=== PATIENT | male | born 1955 | race Caucasian/White ===

== ENCOUNTER 2017-12-25 11:51 | Observation (INO) | payer MEDICARE ==
[2017-12-25 14:54] LABS: BASOPHIL % 0.2 % (0.0-0.4); Basophil (Absolute #) 0.02 (0-0.4); Eosinophil % 1.1 % (0.00-5.0); Eosinophil (Absolute #) 0.13 (0-0.5); Granulocyte Absolute (ANC) 7.88 (1.4-6.9); Granulocytes % 68.7 % (36.0-66.0); Hematocrit 37.1 % (42-50); Hemoglobin 12.5 gm/dl (12.5-18.0); Lymphocyte (Absolute #) 2.79 (1.0-4.6); Lymphocytes % 24.3 % (24.0-44.0); Mean Cell Volume 91.2 fl (78-100); Mean Corpuscular Hemoglobin 30.7 pg (26-32); Mean Corpuscular Hgb Concent. 33.7 g/dl (32-36); Monocyte (Absolute #) 0.65 (0.0-1.3); Monocytes % 5.7 % (0.0-12.0); Platelet Count 184 K/mm3 (150-450); Red Blood Count 4.07 M/mm3 (4.1-5.6); Red Cell Distribution Width 12.3 % (11.5-14.0); White Blood Count 11.5 K/mm3 (4.0-10.5)
--- NOTE | 2017-12-25 15:17 | XRAY ---
Exam: 2 views of the right lower leg from 12/25/2017. Comparison: 2 views of the right lower leg from 10/13/2014. Indication: The patient has a known mid right lower leg amputation. Evidently, the patient has a diabetic skin ulcer/infection on the distal end of his remaining right lower leg. Findings: AP and lateral images of the right lower leg are submitted for evaluation. I again see evidence of mid right lower leg surgical amputation. The bones are demineralized. Moderate atherosclerotic vascular calcification is seen within the distal superficial femoral artery, popliteal artery, and proximal calf arteries. I do not see any evidence of fracture or focal bone destruction. Prior fragmentation at the anterior tibial tubercle of the proximal right tibia on the lateral image of 10/13/2014 is not seen on the current exam. There is mild narrowing of the medial compartment of the right knee joint space. No radiopaque soft tissue foreign body is seen. Impression: 1. The patient is status post mid right lower leg amputation. This is unchanged from 10/13/2014. 2. I see no evidence of acute fracture within the right lower leg. Nor do I see focal bone destruction to suggest osteomyelitis. 3. The bones are demineralized. 4. Moderate atherosclerotic vascular calcification is seen posterior to the right knee and remaining proximal right lower leg. The patient is diabetic.
[2017-12-25 15:23] LABS: ANION GAP 14.5 MEQ/L (5-15); BILIRUBIN,TOTAL 0.3 mg/dL (0.2-1.3); Calcium 9.6 mg/dL (8.4-10.2); Creatinine 1 1.52 mg/dL (0.66-1.25); Potassium 3.9 mmol/L (3.5-5.1); Total Protein 7.4 g/dL (6.3-8.2)
[2017-12-25] MEDS: ROCEPHIN 1 Gm-D5w 50 ml Bag** 1 G/50 ML IVPB IV SCH (16:17)
[2017-12-25] MEDS: FLAGYL 500 MG IVPB 500 MG/100 ML BAG IV SCH ×2 (16:17→21:49)
[2017-12-25] MEDS: Lactated Ringers 1,000 ML IV SCH (16:17)
[2017-12-25 16:52] LABS: Appearance HAZY (CLEAR); Glucose 50 mg/dL (NEGATIVE); Leukocyte Esterase TRACE (NEGATIVE); Nitrite NEGATIVE (NEGATIVE); Protein,Urine Dip 30 (Negative); Specific Gravity 1.015 (1.005-1.025)
[2017-12-25 16:53] LABS: Amourphous Crystal MODERATE /HPF (NEGATIVE); Bacteria FEW /HPF (NEGATIVE); Bilirubin NEGATIVE (NEGATIVE); Blood TRACE NON-HEM Ery/ul (0-5); Epithelial Cells RARE /HPF (FEW); Hyaline Casts 0-2 /LPF (0-2); Ketones NEGATIVE (NEGATIVE); RBC 0-2 /HPF (0-2); Urobilinogen NORMAL mg/dL (0-1); WBC 0-2 /HPF (0-5)
[2017-12-25] MEDS ORDERED: ANTIVERT 25 MG PO PRN (17:24)
[2017-12-25] MEDS ORDERED: NON-FORMULARY ITEM (Ondansetron Hcl [Zofran] 8 MG) PO PRN (17:24)
[2017-12-25] MEDS ORDERED: ZOFRAN ODT 4 MG PO PRN (17:39)
[2017-12-25] MEDS: Lomotil PO SCH ×2 (17:54→23:14)
[2017-12-25] MEDS: NEURONTIN 300 MG PO SCH ×2 (17:55→21:41)
[2017-12-25] MEDS ORDERED: Vitamin C 500 MG ONE (19:38)
[2017-12-25] MEDS ORDERED: Reglan 10 MG ONE (19:38)
[2017-12-25] MEDS ORDERED: FEOSOL 325 MG ONE (19:39)
[2017-12-25] MEDS ORDERED: REMERON 30 MG ONE (19:39)
[2017-12-25] MEDS ORDERED: ZOCOR 20MG ONE (19:39)
[2017-12-25] MEDS: Vitamin C 500 MG PO SCH (21:41)
[2017-12-25] MEDS: FEOSOL 325 MG PO SCH (21:42)
[2017-12-25] MEDS: Reglan 10 MG PO SCH (21:45)
[2017-12-25] MEDS: NovoLOG Insulin SQ PRN (21:46)
[2017-12-25] MEDS ORDERED: REMERON 30 MG PO SCH (22:00)
[2017-12-25] MEDS ORDERED: NON-FORMULARY ITEM (Mirtazapine [Mirtazapine] 15 MG) PO SCH (22:00)
[2017-12-25] MEDS ORDERED: ZOCOR 20MG PO SCH (22:00)
[2017-12-25] MEDS ORDERED: NON-FORMULARY ITEM (Pravastatin Sodium [Pravachol] 20 MG) PO SCH (22:00)
[2017-12-26] MEDS: Lactated Ringers 1,000 ML IV SCH ×2 (00:44→09:16)
[2017-12-26] MEDS: FLAGYL 500 MG IVPB 500 MG/100 ML BAG IV SCH ×2 (06:23→14:19)
[2017-12-26] MEDS: Lomotil PO SCH ×2 (06:24→12:21)
[2017-12-26] MEDS: Reglan 10 MG PO SCH ×3 (06:24→16:06)
[2017-12-26] MEDS ORDERED: LASIX 80 MG PO SCH (10:00)
[2017-12-26] MEDS ORDERED: Protonix 40MG Tablet PO SCH (10:00)
[2017-12-26] MEDS ORDERED: Lantus Insulin SQ SCH (10:00)
[2017-12-26] MEDS ORDERED: Flonase NASAL NS SCH (10:00)
[2017-12-26] MEDS ORDERED: ENOXAPARIN SODIUM SQ SCH (10:00)
[2017-12-26] MEDS ORDERED: Pletal 100 MG PO SCH (10:00)
[2017-12-26] MEDS ORDERED: CLARITIN 10 MG PO SCH (10:00)
[2017-12-26] MEDS ORDERED: NON-FORMULARY ITEM (Esomeprazole Magnesium [Nexium] 40 MG) PO SCH (10:00)
[2017-12-26] MEDS ORDERED: Lopressor 25MG Tab PO SCH (10:00)
[2017-12-26] MEDS ORDERED: INSULIN GLARGINE HUM REC ANLOG 30 UNIT SQ SCH (10:00)
[2017-12-26] MEDS: ROCEPHIN 1 Gm-D5w 50 ml Bag** 1 G/50 ML IVPB IV SCH (11:13)
[2017-12-26] MEDS: NEURONTIN 300 MG PO SCH ×2 (11:13→12:20)
[2017-12-26] MEDS: FEOSOL 325 MG PO SCH (11:13)
[2017-12-26] MEDS: Vitamin C 500 MG PO SCH (11:13)
[2017-12-26] MEDS: NovoLOG Insulin SQ PRN ×2 (12:21→16:05)
--- NOTE | 2017-12-26 12:55 | PCM.HP ---
History of Present Illness - Chief Complaint Chief Complaint: Diabetic wound Date: 12/26/17 History of Present Illness: is a 62 year old male. who has been noncompliant with follow up last visit was 9 months ago and he was to be following with ortho and wound care and hadn't been. the wound had been improving well and he was living on his own with help bringing supplies and groceries to his home and family doing cleaning and laundry for him. as well as helping with dressing changes when the wound began having foul smelling drainage about 2 weeks prior to presentation. He was sent for direct admission and wound culture was sent of the drainage. HE was started on Rocephin and flagyl due to the anaerobic appearance to the wound drainages. He showed good improvement in the redness resolving and was seen by wound care. He was doing well and set up with home health for help with dressing changes and monitoring and discharged to home. - Review of Systems Constitutional: No Fever, No Chills Eyes: No Symptoms Ears, Nose, & Throat: No Symptoms Respiratory: No Cough, No Short Of Breath Cardiac: No Chest Pain, No Edema, No Syncope Abdominal/Gastrointestinal: No Abdominal Pain, No Nausea, No Vomiting, No Diarrhea Genitourinary Symptoms: No Dysuria Musculoskeletal: No Back Pain, No Neck Pain Skin: No Rash Neurological: No Dizziness, No Focal Weakness, No Sensory Changes Psychological: No Symptoms Endocrine: No Symptoms Hematologic/Lymphatic: No Symptoms Immunological/Allergic: No Symptoms Medications & Allergies Home Medications: Home Medication List Metoclopramide HCl 10 mg [Reglan 10 MG] 10 mg PO ACHS 01/02/13 [History Confirmed 12/25/17] Esomeprazole Magnesium [Nexium] 40 mg PO DAILY 06/07/15 [History Confirmed 12/25] Insulin Aspart [NovoLOG Insulin] 1 unit SQ ACHS 06/07/15 [History Confirmed 12/25/17] Insulin Glargine,Hum.rec.anlog [Sonam Rai] 30 unit SQ QAM 06/08/15 [ History Confirmed 12/25/17] Diphenoxylate HCl/Atropine [Diphenoxylate-Atrop 2.5-0.025] 2 each PO Q6H [History Confirmed 12/25/17] Ascorbic Acid 500 mg [Vitamin C 500 MG] 1 tab PO BID 12/25/17 [History Confirmed 12/25/17] Fluticasone Propionate [Flonase NASAL] 50 mcg IH DAILY 12/25/17 [History Confirmed 12/25/17] Meclizine HCl 25 mg [Antivert 25 mg] 25 mg PO TID PRN 12/25/17 [History Confirmed 12/25/17] Ondansetron HCl [Zofran] 8 mg PO Q6HPRN PRN 12/25/17 [History Confirmed 12/25/17 ] Cephalexin Mh 500 mg [Keflex 500 mg] 500 mg PO TID #30 capsule 12/26/17 [Rx] Cilostazol 100 mg [Pletal 100 MG] 100 mg PO DAILY #90 tablet 12/26/17 [Rx] Ferrous Sulfate 325 mg [Feosol 325 mg] 325 mg PO BID #180 tablet 12/26/17 [Rx] Furosemide 40 mg [Lasix 40 MG] 80 mg PO DAILY #180 tablet 12/26/17 [Rx] Gabapentin 600 mg PO QID #720 capsule 12/26/17 [Rx] Loratadine 10 mg [Claritin 10 mg] 10 mg PO DAILY #90 tablet 12/26/17 [Rx] Metoprolol Tartrate 25 mg [Lopressor 25MG Tab] 25 mg PO BID #180 tab 12/26 [Rx] Metronidazole 500 mg [Flagyl 500 MG] 500 mg PO TID #30 tablet 12/26/17 [Rx ] Mirtazapine 15 mg PO HS #90 tablet 12/26/17 [Rx] Pravastatin Sodium 20 mg PO DAILY #90 tablet 12/26/17 [Rx] Allergies/Adverse Reactions: Allergies Allergy/AdvReac Type Severity Reaction Status Date / Time morphine Allergy Mild Verified 12/25/17 14:39 Penicillins AdvReac Headache Verified 12/25/17 14:39 - Past Medical History Past Medical History: Yes Neurological History: Peripheral Neuropathy ENT History: Cataracts, Other Cardiac History: Hypertension, Other Respiratory History: No Pertinent History Endocrine Medical History: Adrenal Insufficiency, Diabetes Type II Musculoskelatal History: Other GI Medical History: Gallbladder Disease, Other History: Dialysis, Renal Disease Pyscho-Social History: Anxiety Male Reproductive Disorders: Prostate Problems Comment: CABG x3 - Past Surgical History Past Surgical History: Yes Neuro Surgical History: No Pertinent History Cardiac History: CABG, Cardiac Catheterization, Cardiac Stent Respiratory Surgery: No Pertinent History GI Surgical History: Cholecystectomy Genitourinary Surgical Hx: Other Musculskeletal Surgical Hx: Amputation Male Surgical History: No Pertinent History Other Surgical History: has had laser on both eyes has had peritoneal dialysis catheter. has had triple bypass, has 1 stent. bilateral bka - Social History Smoking Status: Never smoker Exposure to second hand smoke: Yes Alcohol: None Drug Use: none - Physical Exam Vital Signs: Vital Signs - 24 hr Temp Pulse Resp BP Pulse Ox 12/26/17 11:03 98 F 74 20 138/74 97 12/26/17 07:08 98.2 F 68 20 126/59 97 12/26/17 04:00 98.2 F 82 18 140/65 94 L 12/26/17 00:00 98.3 F 83 18 128/59 94 L 12/25/17 19:50 97.9 F 78 18 158/71 97 12/25/17 16:27 97.9 F 73 18 135/62 96 12/25/17 14:48 98.3 F 77 17 126/59 96 12/25/17 14:17 98.3 F 77 17 126/59 96 General Appearance: no apparent distress, alert Neurologic Exam: alert, oriented x 3, cooperative, normal mood/affect, nml station & gait Eye Exam: PERRL/EOMI, eyes nml inspection Ears, Nose, Throat Exam: normal ENT inspection, pharynx normal, moist mucous membranes Neck Exam: normal inspection, non-tender, supple, full range of motion Respiratory Exam: normal breath sounds, lungs clear, No respiratory distress Cardiovascular Exam: regular rate/rhythm, normal heart sounds, normal peripheral pulses Gastrointestinal/Abdomen Exam: soft, normal bowel sounds, No tenderness, No mass Back Exam: normal inspection, normal range of motion, No CVA tenderness, No vertebral tenderness Extremity Exam: pelvis stable, other (bilateral bka with stage 2 pressure ulceration of the stump with brown drainage improving redness improved) Skin Exam: normal color, warm, dry, No rash Lymphatic Exam: No adenopathy Results - Labs Lab/Micro Results: Accuchecks Date 12/26/17 Date 12/25/17 Date 12/25/17 Time 07:30 Time 21:00 Time 16:30 Accucheck Value: 135 Accucheck Value: 215 Accucheck Value: 104 Lab Results-Last 24 Hours 12/25/17 12/25/17 12/25/17 Range/Units 14:30 14:51 14:51 WBC 11.5 H (4.0-10.5) K/mm3 RBC 4.07 L (4.1-5.6) M/mm3 Hgb 12.5 (12.5-18.0) gm/dl Hct 37.1 L (42-50) % MCV 91.2 (78-100) fl MCH 30.7 (26-32) pg MCHC 33.7 (32-36) g/dl RDW 12.3 (11.5-14.0) % Plt Count 184 (150-450) K/mm3 MPV 11.0 H (6-9.5) fl Gran % 68.7 H (36.0-66.0) % Eos # (Auto) 0.13 (0-0.5) Absolute Lymphs (auto) 2.79 (1.0-4.6) Absolute Monos (auto) 0.65 (0.0-1.3) Lymphocytes % 24.3 (24.0-44.0) % Monocytes % 5.7 (0.0-12.0) % Eosinophils % 1.1 (0.00-5.0) % Basophils % 0.2 (0.0-0.4) % Absolute Granulocytes 7.88 H (1.4-6.9) Basophils # 0.02 (0-0.4) Sodium 144 (137-145) mmol/L Potassium 3.9 (3.5-5.1) mmol/L Chloride 110 H (98-107) mmol/L Carbon Dioxide 24 (22-30) mmol/L Anion Gap 14.5 (5-15) MEQ/L BUN 29 H (9-20) mg/dL Creatinine 1.52 H (0.66-1.25) mg/dL Estimated GFR 49.5 ML/MIN Glucose 111 H (74-106) mg/dL Hemoglobin A1c (4.5-6.0) % Lactic Acid 0.8 (0.4-2.0) Calcium 9.6 (8.4-10.2) mg/dL Total Bilirubin 0.30 (0.2-1.3) mg/dL AST 16 L (17-59) U/L ALT 12 (0-50) U/L Alkaline Phosphatase 140 H (38-126) U/L Serum Total Protein 7.4 (6.3-8.2) g/dL Albumin 4.0 (3.5-5.0) g/dL Ur Collection Type Urine Color (YELLOW) Urine Appearance (CLEAR) Urine pH (5-6) Ur Specific [place] (1.005-1.025) Urine Protein (Negative) Urine Ketones (NEGATIVE) Urine Blood (0-5) Carlos/ul Urine Nitrite (NEGATIVE) Urine Bilirubin (NEGATIVE) Urine Urobilinogen (0-1) mg/dL Ur Leukocyte Esterase (NEGATIVE) Urine Microscopic RBC (0-2) /HPF Urine Microscopic WBC (0-5) /HPF Ur Epithelial Cells (FEW) /HPF Amorphous Crystals (NEGATIVE) /HPF Urine Bacteria (NEGATIVE) /HPF Hyaline Casts (0-2) /LPF Urine Glucose (NEGATIVE) mg/dL Specimen Received 12/25/17 12/25/17 Range/Units 14:51 16:27 WBC (4.0-10.5) K/mm3 RBC (4.1-5.6) M/mm3 Hgb (12.5-18.0) gm/dl Hct (42-50) % MCV (78-100) fl MCH (26-32) pg MCHC (32-36) g/dl RDW (11.5-14.0) % Plt Count (150-450) K/mm3 MPV (6-9.5) fl Gran % (36.0-66.0) % Eos # (Auto) (0-0.5) Absolute Lymphs (auto) (1.0-4.6) Absolute Monos (auto) (0.0-1.3) Lymphocytes % (24.0-44.0) % Monocytes % (0.0-12.0) % Eosinophils % (0.00-5.0) % Basophils % (0.0-0.4) % Absolute Granulocytes (1.4-6.9) Basophils # (0-0.4) Sodium (137-145) mmol/L Potassium (3.5-5.1) mmol/L Chloride (98-107) mmol/L Carbon Dioxide (22-30) mmol/L Anion Gap (5-15) MEQ/L BUN (9-20) mg/dL Creatinine (0.66-1.25) mg/dL Estimated GFR ML/MIN Glucose (74-106) mg/dL Hemoglobin A1c 7.57 H (4.5-6.0) % Lactic Acid (0.4-2.0) Calcium (8.4-10.2) mg/dL Total Bilirubin (0.2-1.3) mg/dL AST (17-59) U/L ALT (0-50) U/L Alkaline Phosphatase (38-126) U/L Serum Total Protein (6.3-8.2) g/dL Albumin (3.5-5.0) g/dL Ur Collection Type CLEAN CATCH Urine Color YELLOW (YELLOW) Urine Appearance HAZY (CLEAR) Urine pH 5.0 (5-6) Ur Specific [place] 1.015 (1.005-1.025) Urine Protein 30 (Negative) Urine Ketones NEGATIVE (NEGATIVE) Urine Blood TRACE NON-HEM (0-5) Carlos/ul Urine Nitrite NEGATIVE (NEGATIVE) Urine Bilirubin NEGATIVE (NEGATIVE) Urine Urobilinogen NORMAL (0-1) mg/dL Ur Leukocyte Esterase TRACE (NEGATIVE) Urine Microscopic RBC 0-2 (0-2) /HPF Urine Microscopic WBC 0-2 (0-5) /HPF Ur Epithelial Cells RARE (FEW) /HPF Amorphous Crystals MODERATE (NEGATIVE) /HPF Urine Bacteria FEW (NEGATIVE) /HPF Hyaline Casts 0-2 (0-2) /LPF Urine Glucose 50 (NEGATIVE) mg/dL Specimen Received 12/25/17 1615 Microbiology 12/25/17 16:27 Urine Culture - Preliminary Catherized NO GROWTH TO DATE 12/25/17 16:54 Wound Culture - Preliminary Leg - Right Lower NO GROWTH TO DATE Accuchecks Date 12/26/17 Date 12/25/17 Date 12/25/17 Time 07:30 Time 21:00 Time 16:30 Accucheck Value: 135 Accucheck Value: 215 Accucheck Value: 104 - Radiology Impressions Radiology Exams & Impressions: Radiology Procedures Category Date Time Status LOWER LEG Routine Exams 12/25/17 15:00 Completed Assessment/Plan (1) Diabetic skin ulcer Status: Acute Code(s): E11.622 - TYPE 2 DIABETES MELLITUS WITH OTHER SKIN ULCER; L98.499 - NON-PRESSURE CHRONIC ULCER OF SKIN OF SITES W UNSP SEVERITY (2) Decubitus skin ulcer Status: Acute Qualifiers: Pressure injury stage: stage 2 Code(s): L89.90 - PRESSURE ULCER OF UNSPECIFIED SITE, UNSPECIFIED STAGE (3) Renal insufficiency Status: Acute (4) Lower limb amputation status Status: Chronic Code(s): Z89.619 - ACQUIRED ABSENCE OF UNSPECIFIED LEG ABOVE KNEE (5) Uncontrolled diabetes mellitus Status: Chronic Code(s): E11.65 - TYPE 2 DIABETES MELLITUS WITH HYPERGLYCEMIA
--- NOTE | 2017-12-26 13:08 | PCM.DCORD ---
- Discharge Discharge Date: 12/26/17 Disposition: Home, Self-Care Condition: Stable Prescriptions: New Gabapentin 600 mg PO QID #720 capsule Cilostazol 100 mg [Pletal 100 MG] 100 mg PO DAILY #90 tablet Pravastatin Sodium 20 mg PO DAILY #90 tablet Continue Metoclopramide HCl 10 mg [Reglan 10 MG] 10 mg PO ACHS Insulin Aspart [NovoLOG Insulin] 1 unit SQ ACHS Esomeprazole Magnesium [Nexium] 40 mg PO DAILY Insulin Glargine,Hum.rec.anlog [Toujeo Solostar] 30 unit SQ QAM Diphenoxylate HCl/Atropine [Diphenoxylate-Atrop 2.5-0.025] 2 each PO Q6H Ondansetron HCl [Zofran] 8 mg PO Q6HPRN PRN PRN Reason: Nausea Meclizine HCl 25 mg [Antivert 25 mg] 25 mg PO TID PRN PRN Reason: vertigo Fluticasone Propionate [Flonase NASAL] 50 mcg IH DAILY Ascorbic Acid 500 mg [Vitamin C 500 MG] 1 tab PO BID Loratadine 10 mg [Claritin 10 mg] 10 mg PO DAILY #90 tablet Ferrous Sulfate 325 mg [Feosol 325 mg] 325 mg PO BID #180 tablet Furosemide 40 mg [Lasix 40 MG] 80 mg PO DAILY #180 tablet Mirtazapine 15 mg PO HS #90 tablet Changed Metoprolol Tartrate 25 mg [Lopressor 25MG Tab] 25 mg PO BID #180 tab Discontinued Pravastatin Sodium [Pravachol] 20 mg PO HS Gabapentin 300 mg [Neurontin 300 mg] 600 mg PO QID Cilostazol [Pletal] 100 mg PO DAILY Follow up with: THERESE JAIMES [Primary Care Provider] - 1 Week
--- NOTE | 2017-12-26 13:24 | PCM.DCORD ---
- Discharge Discharge Date: 12/26/17 Disposition: HOME HEALTH SERVICE Condition: Stable Prescriptions: New Gabapentin 600 mg PO QID #720 capsule Cilostazol 100 mg [Pletal 100 MG] 100 mg PO DAILY #90 tablet Pravastatin Sodium 20 mg PO DAILY #90 tablet Metronidazole 500 mg [Flagyl 500 MG] 500 mg PO TID #30 tablet Cephalexin Mh 500 mg [Keflex 500 mg] 500 mg PO TID #30 capsule Continue Metoclopramide HCl 10 mg [Reglan 10 MG] 10 mg PO ACHS Insulin Aspart [NovoLOG Insulin] 1 unit SQ ACHS Esomeprazole Magnesium [Nexium] 40 mg PO DAILY Insulin Glargine,Hum.rec.anlog [Toujeo Solostar] 30 unit SQ QAM Diphenoxylate HCl/Atropine [Diphenoxylate-Atrop 2.5-0.025] 2 each PO Q6H Ondansetron HCl [Zofran] 8 mg PO Q6HPRN PRN PRN Reason: Nausea Meclizine HCl 25 mg [Antivert 25 mg] 25 mg PO TID PRN PRN Reason: vertigo Fluticasone Propionate [Flonase NASAL] 50 mcg IH DAILY Ascorbic Acid 500 mg [Vitamin C 500 MG] 1 tab PO BID Loratadine 10 mg [Claritin 10 mg] 10 mg PO DAILY #90 tablet Ferrous Sulfate 325 mg [Feosol 325 mg] 325 mg PO BID #180 tablet Furosemide 40 mg [Lasix 40 MG] 80 mg PO DAILY #180 tablet Mirtazapine 15 mg PO HS #90 tablet Changed Metoprolol Tartrate 25 mg [Lopressor 25MG Tab] 25 mg PO BID #180 tab Discontinued Pravastatin Sodium [Pravachol] 20 mg PO HS Gabapentin 300 mg [Neurontin 300 mg] 600 mg PO QID Cilostazol [Pletal] 100 mg PO DAILY Additional Instructions: home rn for medications and wound care Follow up with: THERESE JAIMES [Primary Care Provider] - 1 Week
[2017-12-26 15:43] VITALS: BP 180/83; PULSE 75; O2SAT 96
== END 2017-12-26 16:40 | disposition home health service (06) ==
LOC: MED SURG 14:02
PROVIDERS: ADMIT Family Medicine; ATTEND Family Medicine
DX: E11.622 Type 2 diabetes mellitus with other skin ulcer (principal); L98.499 Non-pressure chronic ulcer of skin of other sites with unspecified severity; L89.90 Pressure ulcer of unspecified site, unspecified stage; Z89.619 Acquired absence of unspecified leg above knee; E11.65 Type 2 diabetes mellitus with hyperglycemia; Z79.4 Long term (current) use of insulin; N28.9 Disorder of kidney and ureter, unspecified; Z79.01 Long term (current) use of anticoagulants; E11.42 Type 2 diabetes mellitus with diabetic polyneuropathy; I73.9 Peripheral vascular disease, unspecified; N40.0 Benign prostatic hyperplasia without lower urinary tract symptoms; D64.9 Anemia, unspecified; Z79.899 Other long term (current) drug therapy; F41.9 Anxiety disorder, unspecified
CPT/HCPCS: 36415; 73590; 80053; 81000; 83036; 83605; 85025; 87070; 87086; G0378; J0696; J1650; A9270-GY

== ENCOUNTER 2019-10-28 14:10 | Emergency (ER) | payer MEDICARE ==
--- NOTE | 2019-10-28 14:14 | ERPHSYRPT ---
- History of Present Illness Time Seen by Provider: 10/28/19 14:14 Source: patient, family, EMS Exam Limitations: no limitations Physician History: This is a 64-year-old insulin-dependent diabetic male who has had bilateral below the knee amputations. He lives at home. He has a wound on his right below the knee amputation stump site that home health is caring for. He was unresponsive today and family contacted EMS. He was found to have a blood sugar of 31. Patient was given an amp of D50. Patient arrives to the emergency department alert and oriented without any complaints. Family has concerns that he is not being cared for. They desire Adult Protective Services to be contacted. We will perform a work-up and determine disposition based on the results. Timing/Duration: today Severity: mild Location: extremities (Right below the knee amputation stump site) Associated Symptoms: denies symptoms Allergies/Adverse Reactions: morphine Allergy (Mild, Verified 12/25/17 14:39) cant filter thru kidneys Penicillins Adverse Reaction (Verified 12/25/17 14:39) Headache Home Medications: Metoclopramide HCl 10 mg [Reglan 10 MG] 10 mg PO ACHS 01/02/13 [History] Esomeprazole Magnesium [Nexium] 40 mg PO DAILY 06/07/15 [History] Insulin Aspart [NovoLOG Insulin] 1 unit SQ [facility] 06/07/15 [History] Insulin Glargine,Hum.rec.anlog [Toubrittanyo Solostar] 30 unit SQ [facility] 06/08/15 [History] Diphenoxylate HCl/Atropine [Diphenoxylate-Atrop 2.5-0.025] 2 each PO Q6H 12/22/16 [History] Ascorbic Acid 500 mg [Vitamin C 500 MG] 1 tab PO BID 12/25/17 [History] Fluticasone Propionate [Flonase NASAL] 50 mcg IH DAILY 12/25/17 [History] Meclizine HCl 25 mg [Antivert 25 mg] 25 mg PO TID PRN 12/25/17 [History] Ondansetron HCl [Zofran] 8 mg PO Q6HPRN PRN 12/25/17 [History] Hx Tetanus, Diphtheria Vaccination/Date Given: Yes (UP TO DATE) Hx Influenza Vaccination/Date Given: Yes Hx Pneumococcal Vaccination/Date Given: Yes Travel Risk - International Travel Have you traveled outside of the country in past 3 weeks: No - Coronavirus Screening Are you exhibiting any of the following symptoms?: No Close contact with a COVID-19 positive Pt in past 14-21 Days: No - Review of Systems Constitutional: No Symptoms Eyes: No Symptoms Ears, Nose, & Throat: No Symptoms Respiratory: No Symptoms Cardiac: No Symptoms Abdominal/Gastrointestinal: No Symptoms Genitourinary Symptoms: No Symptoms Musculoskeletal: Other (Wound right BKA stump site) Skin: Decubiti (Right BKA stump site) Neurological: No Symptoms Psychological: No Symptoms Endocrine: No Symptoms Hematologic/Lymphatic: No Symptoms Immunological/Allergic: No Symptoms All Other Systems: Reviewed and Negative - Past Medical History Pertinent Past Medical History: Yes Neurological History: Peripheral Neuropathy ENT History: Cataracts, Other Cardiac History: Hypertension, Other Respiratory History: No Pertinent History Endocrine Medical History: Adrenal Insufficiency, Diabetes Type II Musculoskeletal History: Other GI Medical History: Gallbladder Disease, Other History: Dialysis, Renal Disease Psycho-Social History: Anxiety Male Reproductive Disorders: Prostate Problems Other Medical History: CABG x3 - Past Surgical History Past Surgical History: Yes Neuro Surgical History: No Pertinent History Cardiac: CABG, Cardiac Catheterization, Cardiac Stent Respiratory: No Pertinent History Gastrointestinal: Cholecystectomy Genitourinary: Other Musculoskeletal: Amputation Male Surgical History: No Pertinent History Other Surgical History: has had laser on both eyes has had peritoneal dialysis catheter. has had triple bypass, has 1 stent. bilateral bka - Social History Smoking Status: Never smoker Exposure to second hand smoke: Yes Drug Use: none Patient Lives Alone: No - Nursing Vital Signs Nursing Vital Signs: Initial Vital Signs Temperature 98.1 F 10/28/19 14:11 Pulse Rate 90 10/28/19 14:11 Respiratory Rate 20 10/28/19 14:11 Blood Pressure 181/88 10/28/19 14:11 O2 Sat by Pulse Oximetry 97 10/28/19 14:11 Pain Scale Pain Intensity 0 - Physical Exam General Appearance: no apparent distress, alert Eye Exam: PERRL/EOMI, eyes nml inspection Ears, Nose, Throat Exam: normal ENT inspection, moist mucous membranes Neck Exam: normal inspection, non-tender, supple, full range of motion Respiratory Exam: normal breath sounds, lungs clear, airway intact, No chest tenderness, No respiratory distress Cardiovascular Exam: regular rate/rhythm, normal heart sounds, normal peripheral pulses Gastrointestinal/Abdomen Exam: soft, normal bowel sounds, No tenderness Rectal Exam: not done Back Exam: normal inspection, normal range of motion, No CVA tenderness, No vertebral tenderness Extremity Exam: other (Patient is bilateral below the knee amputation. On the right below-knee amputation stump site there is a large ulceration with what appears to be Silvadene ointment and a bandage in place. There is no odor and there is no obvious cellulitis present.) Neurologic Exam: alert, oriented x 3, cooperative, commissioning specialist II-XII nml as tested, normal mood/affect Skin Exam: other (See above) Lymphatic Exam: No adenopathy SpO2 Interpretation: normal O2 Delivery: Room Air - Course Nursing assessment & vital signs reviewed: Yes Ordered Tests: Active Orders 24 hr Category Date Time Status Ad Operations Specialist STAT Care 10/28/19 14:28 Active IV Insertion STAT Care 10/28/19 14:28 Active CBC W DIFF Stat Lab 10/28/19 14:44 Completed CMP Stat Lab 10/28/19 14:44 Completed Lactic Acid Urgent Lab 10/28/19 14:39 Completed UA W/RFX UR CULTURE Stat Lab 10/28/19 15:40 Completed Medication Summary Generic Name Dose Route Start Last Admin Trade Name Freq PRN Reason Stop Dose Admin Dextrose/Sodium Chloride 1,000 mls @ 100 mls/hr 10/28/19 14:30 10/28/19 14:44 Dextrose 5%-Ns Iv Solution 1000 Ml IV 11/27/19 14:29 100 mls/hr .Q10H YOLANDA Administration Discontinued Medications Generic Name Dose Route Start Last Admin Trade Name Freq PRN Reason Stop Dose Admin Dextrose/Sodium Chloride Confirm 10/28/19 14:43 Dextrose 5%-Ns Iv Solution 1000 Ml Administered 10/28/19 14:44 Dose 1,000 mls @ ud IV .K-MED ONE Lab/Rad Data: Laboratory Result Diagrams 10/28/19 14:44 10/28/19 14:44 Laboratory Results 10/28/19 10/28/19 10/28/19 Range/Units 15:40 14:44 14:44 WBC 14.7 H (4.0-10.5) K/mm3 RBC 3.83 L (4.1-5.6) M/mm3 Hgb 11.6 L (12.5-18.0) gm/dl Hct 37.1 L (42-50) % MCV 96.9 (78-100) fl MCH 30.3 (26-32) pg MCHC 31.3 L (32-36) g/dl RDW 12.9 (11.5-14.0) % Plt Count 167 (150-450) K/mm3 MPV 11.5 H (7.5-11.0) fl Gran % 87.1 H (36.0-66.0) % Eos # (Auto) 0.08 (0-0.5) Absolute Lymphs (auto) 1.23 (1.0-4.6) Absolute Monos (auto) 0.58 (0.0-1.3) Lymphocytes % 8.4 L (24.0-44.0) % Monocytes % 3.9 (0.0-12.0) % Eosinophils % 0.5 (0.00-5.0) % Basophils % 0.1 (0.0-0.4) % Absolute Granulocytes 12.81 H (1.4-6.9) Basophils # 0.02 (0-0.4) Sodium 144 (137-145) mmol/L Potassium 4.1 (3.5-5.1) mmol/L Chloride 115 H (98-107) mmol/L Carbon Dioxide 21 L (22-30) mmol/L Anion Gap 12.0 (5-15) MEQ/L BUN 25 H (9-20) mg/dL Creatinine 1.56 H (0.66-1.25) mg/dL Estimated GFR 47.7 ML/MIN Glucose 138 H (74-106) mg/dL Lactic Acid (0.4-2.0) Calcium 9.2 (8.4-10.2) mg/dL Total Bilirubin 0.40 (0.2-1.3) mg/dL AST 25 (17-59) U/L ALT 13 (0-50) U/L Alkaline Phosphatase 153 H (38-126) U/L Serum Total Protein 7.6 (6.3-8.2) g/dL Albumin 3.9 (3.5-5.0) g/dL Urine Color YELLOW (YELLOW) Urine Appearance SLIGHTLY CLOUDY (CLEAR) Urine pH 5.0 (5-6) Ur Specific [place] 1.014 (1.005-1.025) Urine Protein NEGATIVE (Negative) Urine Ketones NEGATIVE (NEGATIVE) Urine Blood SMALL (0-5) Carlos/ul Urine Nitrite NEGATIVE (NEGATIVE) Urine Bilirubin NEGATIVE (NEGATIVE) Urine Urobilinogen NEGATIVE (0-1) mg/dL Ur Leukocyte Esterase NEGATIVE (NEGATIVE) Urine WBC (Auto) 3-5 (0-5) /HPF Urine RBC (Auto) 3-5 (0-2) /HPF U Epithel Cells (Auto) NONE (FEW) /HPF Urine Bacteria (Auto) NONE (NEGATIVE) /HPF Urine Culture Reflexed NO (NO) Urine Glucose NEGATIVE (NEGATIVE) mg/dL 10/28/19 Range/Units 14:39 WBC (4.0-10.5) K/mm3 RBC (4.1-5.6) M/mm3 Hgb (12.5-18.0) gm/dl Hct (42-50) % MCV (78-100) fl MCH (26-32) pg MCHC (32-36) g/dl RDW (11.5-14.0) % Plt Count (150-450) K/mm3 MPV (7.5-11.0) fl Gran % (36.0-66.0) % Eos # (Auto) (0-0.5) Absolute Lymphs (auto) (1.0-4.6) Absolute Monos (auto) (0.0-1.3) Lymphocytes % (24.0-44.0) % Monocytes % (0.0-12.0) % Eosinophils % (0.00-5.0) % Basophils % (0.0-0.4) % Absolute Granulocytes (1.4-6.9) Basophils # (0-0.4) Sodium (137-145) mmol/L Potassium (3.5-5.1) mmol/L Chloride (98-107) mmol/L Carbon Dioxide (22-30) mmol/L Anion Gap (5-15) MEQ/L BUN (9-20) mg/dL Creatinine (0.66-1.25) mg/dL Estimated GFR ML/MIN Glucose (74-106) mg/dL Lactic Acid 1.5 (0.4-2.0) Calcium (8.4-10.2) mg/dL Total Bilirubin (0.2-1.3) mg/dL AST (17-59) U/L ALT (0-50) U/L Alkaline Phosphatase (38-126) U/L Serum Total Protein (6.3-8.2) g/dL Albumin (3.5-5.0) g/dL Urine Color (YELLOW) Urine Appearance (CLEAR) Urine pH (5-6) Ur Specific [place] (1.005-1.025) Urine Protein (Negative) Urine Ketones (NEGATIVE) Urine Blood (0-5) Carlos/ul Urine Nitrite (NEGATIVE) Urine Bilirubin (NEGATIVE) Urine Urobilinogen (0-1) mg/dL Ur Leukocyte Esterase (NEGATIVE) Urine WBC (Auto) (0-5) /HPF Urine RBC (Auto) (0-2) /HPF U Epithel Cells (Auto) (FEW) /HPF Urine Bacteria (Auto) (NEGATIVE) /HPF Urine Culture Reflexed (NO) Urine Glucose (NEGATIVE) mg/dL - Progress Progress: re-examined Progress Note: 10/28/19 16:24 Medical decision making: This patient is alert and oriented. We have no open or available beds. Patient does not want to be admitted into the hospital or transferred. He wants to go home and have his wound cared for by home health. Home health has not seen the patient since August 2019 since his right below the knee amputation stump wound had healed. His blood sugar has remained normal. There was some concern by the family regarding general home care. However the patient is alert and oriented and can make decisions for himself at this point and does not want admission or transferring to a different facility. We contacted [facility]. He will sign an AMA form. We spoke to Blank who is this patient's home health care provider. She will see him tomorrow begin wound care. 10/28/19 16:29 Counseled pt/family regarding: lab results, diagnosis, need for follow-up - Departure Departure Disposition: AMA Clinical Impression: Open wound, Hypoglycemia Condition: Stable Critical Care Time: No Referrals: DENYS SMITH [Primary Care Provider] - Additional Instructions: Monitor your blood sugar closely. Take your medications as prescribed. Follow the directions of your home health care provider for wound care. Prescriptions: Smz/Tmp Ds Tablet [Bactrim Ds Tablet] 1 udtab PO BID #14 tablet
[2019-10-28] MEDS ORDERED: Dextrose 5%-NS IV Solution 1000 ML 1,000 ML IV SCH (14:30)
[2019-10-28] MEDS ORDERED: Dextrose 5%-NS IV Solution 1000 ML 1,000 ML IV ONE (14:43)
[2019-10-28 14:50] LABS: Absolute Neutrophil Ct (ANC) 12.81 (1.4-6.9); BASOPHIL % 0.1 % (0.0-0.4); Basophil (Absolute #) 0.02 (0-0.4); Eosinophil % 0.5 % (0.00-5.0); Eosinophil (Absolute #) 0.08 (0-0.5); Hematocrit 37.1 % (42-50); Hemoglobin 11.6 gm/dl (12.5-18.0); Lymphocyte (Absolute #) 1.23 (1.0-4.6); Lymphocytes % 8.4 % (24.0-44.0); Mean Cell Volume 96.9 fl (78-100); Mean Corpuscular Hemoglobin 30.3 pg (26-32); Mean Corpuscular Hgb Concent. 31.3 g/dl (32-36); Mean Platelet Volume 11.5 fl (7.5-11.0); Monocyte (Absolute #) 0.58 (0.0-1.3); Monocytes % 3.9 % (0.0-12.0); Neutrophil % 87.1 % (36.0-66.0); Platelet Count 167 K/mm3 (150-450); Red Blood Count 3.83 M/mm3 (4.1-5.6); Red Cell Distribution Width 12.9 % (11.5-14.0); White Blood Count 14.7 K/mm3 (4.0-10.5)
[2019-10-28 15:08] LABS: ALBUMIN 3.9 g/dL (3.5-5.0); BILIRUBIN,TOTAL 0.4 mg/dL (0.2-1.3); Calcium 9.2 mg/dL (8.4-10.2); Creatinine 1 1.56 mg/dL (0.66-1.25); Potassium 4.1 mmol/L (3.5-5.1); Total Protein 7.6 g/dL (6.3-8.2)
[2019-10-28 15:43] VITALS: O2SAT 96
[2019-10-28 16:07] LABS: Appearance SLIGHTLY CLOUDY (CLEAR); Bilirubin NEGATIVE (NEGATIVE); Blood SMALL Ery/ul (0-5); Glucose NEGATIVE (NEGATIVE); Ketones NEGATIVE (NEGATIVE); Leukocyte Esterase NEGATIVE (NEGATIVE); Nitrite NEGATIVE (NEGATIVE); Protein,Urine Dip NEGATIVE (Negative); Specific Gravity 1.014 (1.005-1.025); Urobilinogen NEGATIVE mg/dL (0-1)
[2019-10-28 16:09] VITALS: BP 163/54; PULSE 84
[2019-10-28] MEDS ORDERED: BACTRIM DS TABLET PO STA (16:23)
[2019-10-28] MEDS ORDERED: BACTRIM DS TABLET PO ONE (16:31)
== END 2019-10-28 16:43 | disposition home or self-care (01) ==
LOC: ED 14:10
DX: S81.001S Unspecified open wound, right knee, sequela (principal); Z89.512 Acquired absence of left leg below knee; Z89.511 Acquired absence of right leg below knee; E11.649 Type 2 diabetes mellitus with hypoglycemia without coma; Z79.4 Long term (current) use of insulin; Z79.899 Other long term (current) drug therapy; E27.40 Unspecified adrenocortical insufficiency; F41.9 Anxiety disorder, unspecified
CPT/HCPCS: 36415; 80053; 81001; 83605; 85025; 93041; 96374; 99284; A9270-GY

== ENCOUNTER 2020-09-07 13:00 | Emergency (ER) | payer MEDICARE ==
--- NOTE | 2020-09-07 13:27 | ERPHSYRPT ---
- History of Present Illness Time Seen by Provider: 09/07/20 13:10 Source: patient Exam Limitations: no limitations Patient Subjective Stated Complaint: PT states "I had surgery 6 years ago and I have had troubles with this leg ever since and my home health thinks I need to get it checked out." Triage Nursing Assessment: Pt presented alert and oriented X 3, skin wpd pt able to speak in clear full sentences pt in no apparent respiratory distress. pt has wound in his right stump. pink skin, no drainaige. Physician History: Patient is a 65-year-old male type I diabetic for over 50 years bilateral below- knee amputee presents to our ED for evaluation of wound to right stump. Patient states that his home health nurse has been treating his wound but observe that the wound is progressively worsening. She is worried for infection. No fever. No trauma. Symptoms are mild to moderate in intensity. No specific worsening or improving factors. Patient voices no other complaints or concerns at this time. Timing/Duration: today Severity: moderate Associated Symptoms: denies symptoms Allergies/Adverse Reactions: morphine Allergy (Mild, Verified 12/25/17 14:39) cant filter thru kidneys Penicillins Adverse Reaction (Verified 12/25/17 14:39) Headache Home Medications: Metoclopramide HCl 10 mg [Reglan 10 MG] 10 mg PO ACHS 01/02/13 [History] Esomeprazole Magnesium [Nexium] 40 mg PO DAILY 06/07/15 [History] Insulin Aspart [NovoLOG Insulin] 1 unit SQ [facility] 06/07/15 [History] Insulin Glargine,Hum.rec.anlog [Toujeo Solostar] 30 unit SQ [facility] 06/08/15 [History] Diphenoxylate HCl/Atropine [Diphenoxylate-Atrop 2.5-0.025] 2 each PO Q6H 12/22/16 [History] Ascorbic Acid 500 mg [Vitamin C 500 MG] 1 tab PO BID 12/25/17 [History] Fluticasone Propionate [Flonase NASAL] 50 mcg IH DAILY 12/25/17 [History] Meclizine HCl 25 mg [Antivert 25 mg] 25 mg PO TID PRN 12/25/17 [History] ondansetron HCL [Zofran] 8 mg PO Q6HPRN PRN 12/25/17 [History] Hx Tetanus, Diphtheria Vaccination/Date Given: Yes (UP TO DATE) Hx Influenza Vaccination/Date Given: Yes Hx Pneumococcal Vaccination/Date Given: Yes Immunizations Up to Date: Yes Travel Risk - International Travel Have you traveled outside of the country in past 3 weeks: No - Coronavirus Screening Are you exhibiting any of the following symptoms?: No Close contact with a COVID-19 positive Pt in past 14-21 Days: No - Vaccine Status Have you recieved a Covid-19 vaccination: No - Review of Systems Constitutional: No Symptoms, No Fever, No Chills Eyes: No Symptoms Ears, Nose, & Throat: No Symptoms Respiratory: No Symptoms, No Cough, No Dyspnea Cardiac: No Symptoms, No Chest Pain, No Edema, No Syncope Abdominal/Gastrointestinal: No Symptoms, No Abdominal Pain, No Nausea, No Vom iting, No Diarrhea Genitourinary Symptoms: No Symptoms, No Dysuria Musculoskeletal: No Symptoms, No Back Pain, No Neck Pain Skin: No Symptoms, No Rash Neurological: No Symptoms, No Dizziness, No Focal Weakness, No Sensory Changes Psychological: No Symptoms Endocrine: No Symptoms Hematologic/Lymphatic: No Symptoms Immunological/Allergic: No Symptoms All Other Systems: Reviewed and Negative - Past Medical History Pertinent Past Medical History: Yes Neurological History: Peripheral Neuropathy ENT History: Cataracts, Other Cardiac History: Hypertension, Other Respiratory History: No Pertinent History Endocrine Medical History: Adrenal Insufficiency, Diabetes Type II Musculoskeletal History: Other GI Medical History: Gallbladder Disease, Other History: Dialysis, Renal Disease Psycho-Social History: Anxiety Male Reproductive Disorders: Prostate Problems Other Medical History: CABG x3 - Past Surgical History Past Surgical History: Yes Neuro Surgical History: No Pertinent History Cardiac: CABG, Cardiac Catheterization, Cardiac Stent Respiratory: No Pertinent History Gastrointestinal: Cholecystectomy Genitourinary: Other Musculoskeletal: Amputation Male Surgical History: No Pertinent History Other Surgical History: has had laser on both eyes has had peritoneal dialysis catheter. has had triple bypass, has 1 stent. bilateral bka - Social History Smoking Status: Never smoker Exposure to second hand smoke: Yes Drug Use: none Patient Lives Alone: No - Nursing Vital Signs Nursing Vital Signs: Initial Vital Signs Temperature 98.3 F 09/07/20 13:03 Pulse Rate 72 09/07/20 13:03 Respiratory Rate 20 09/07/20 13:03 Blood Pressure 181/71 09/07/20 13:03 O2 Sat by Pulse Oximetry 98 09/07/20 13:03 Pain Scale Pain Intensity 4 - Physical Exam General Appearance: no apparent distress, alert Eye Exam: PERRL/EOMI, eyes nml inspection Ears, Nose, Throat Exam: normal ENT inspection, TMs normal, pharynx normal, moist mucous membranes Neck Exam: normal inspection, non-tender, supple, full range of motion Respiratory Exam: normal breath sounds, lungs clear, No respiratory distress Cardiovascular Exam: regular rate/rhythm, normal heart sounds, normal peripheral pulses Gastrointestinal/Abdomen Exam: soft, normal bowel sounds, No tenderness, No mass, No guarding Back Exam: normal inspection, normal range of motion, No CVA tenderness, No vertebral tenderness Extremity Exam: normal inspection, normal range of motion, pelvis stable, other (Bilateral BKA. Patient has a ulcer/necrotic wound at the posterior lateral aspect of the distal stump. No lymphangitis observed. Compartments are soft.) Neurologic Exam: alert, oriented x 3, cooperative, normal mood/affect, sensation nml, No motor deficits Skin Exam: normal color, warm, dry, No rash Lymphatic Exam: No adenopathy SpO2 Interpretation: normal SpO2: 98 O2 Delivery: Room Air - Course Nursing assessment & vital signs reviewed: Yes - Radiology Exams Lower Leg X-ray Interpretation: Teleradiologist Report (Soft tissue wound posterior lateral aspect right stump which shows soft tissue gas likely due to bacterial infection.) Ordered Tests: Active Orders 24 hr Category Date Time Status Landers [Catheter-Isaban Landers] STAT Care 09/07/20 15:39 Active IV Insertion STAT Care 09/07/20 13:21 Active Pulse Oximetry (ED) STAT Care 09/07/20 13:21 Active LOWER LEG Stat Exams 09/07/20 13:23 Completed BLOOD CULTURE Stat Lab 09/07/20 13:55 Received CBC W DIFF Stat Lab 09/07/20 13:55 Completed CMP Stat Lab 09/07/20 13:55 Completed CULTURE,URINE Stat Lab 09/07/20 15:39 Received UA W/RFX UR CULTURE Stat Lab 09/07/20 15:39 Completed Medication Summary Discontinued Medications Generic Name Dose Route Start Last Admin Trade Name Freq PRN Reason Stop Dose Admin Vancomycin HCl 1 gm in 200 mls @ 125 mls/hr 09/07/20 15:19 09/07/20 16:54 Vancomycin 1 Gram/200 Ml Bag IV 09/07/20 16:54 125 mls/hr STAT ONE 125 mls/hr Administration Clindamycin HCl/Dextrose 900 mg in 50 mls @ 100 mls/hr 09/07/20 15:20 09/07/20 16:53 Clindamycin-D5w 900 Mg/50 Ml IV 09/07/20 15:49 Infused STAT STA Infusion Clindamycin HCl/Dextrose Confirm 09/07/20 16:18 Clindamycin-D5w 900 Mg/50 Ml Administered 09/07/20 16:19 Dose 900 mg in 50 mls @ ud IV .STK-MED ONE Vancomycin HCl Confirm 09/07/20 16:52 Vancomycin 1 Gram/200 Ml Bag Administered 09/07/20 16:53 Dose 1 gm in 200 mls @ ud IV .STK-MED ONE Lab/Rad Data: Laboratory Result Diagrams 09/07/20 13:55 09/07/20 13:55 Laboratory Results 09/07/20 09/07/20 09/07/20 Range/Units 15:39 13:55 13:55 WBC 12.6 H (4.0-10.5) K/mm3 RBC 3.99 L (4.1-5.6) M/mm3 Hgb 11.9 L (12.5-18.0) gm/dl Hct 37.6 L (42-50) % MCV 94.2 (78-100) fl MCH 29.8 (26-32) pg MCHC 31.6 L (32-36) g/dl RDW 12.4 (11.5-14.0) % Plt Count 202 (150-450) K/mm3 MPV 11.6 H (7.5-11.0) fl Gran % 76.1 H (36.0-66.0) % Eos # (Auto) 0.07 (0-0.5) Absolute Lymphs (auto) 2.27 (1.0-4.6) Absolute Monos (auto) 0.64 (0.0-1.3) Lymphocytes % 18.0 L (24.0-44.0) % Monocytes % 5.1 (0.0-12.0) % Eosinophils % 0.6 (0.00-5.0) % Basophils % 0.2 (0.0-0.4) % Absolute Granulocytes 9.60 H (1.4-6.9) Basophils # 0.03 (0-0.4) Sodium 140 (137-145) mmol/L Potassium 4.5 (3.5-5.1) mmol/L Chloride 106 (98-107) mmol/L Carbon Dioxide 25 (22-30) mmol/L Anion Gap 14.0 (5-15) MEQ/L BUN 27 H (9-20) mg/dL Creatinine 1.62 H (0.66-1.25) mg/dL Estimated GFR 45.5 ML/MIN Glucose 169 H (74-106) mg/dL Calcium 9.6 (8.4-10.2) mg/dL Total Bilirubin 0.30 (0.2-1.3) mg/dL AST 18 (17-59) U/L ALT 10 (0-50) U/L Alkaline Phosphatase 162 H (38-126) U/L Serum Total Protein 7.2 (6.3-8.2) g/dL Albumin 3.7 (3.5-5.0) g/dL Urine Color YELLOW (YELLOW) Urine Appearance CLEAR (CLEAR) Urine pH 5.0 (5-6) Ur Specific [place] 1.017 (1.005-1.025) Urine Protein 100 (Negative) Urine Ketones NEGATIVE (NEGATIVE) Urine Blood SMALL (0-5) Carlos/ul Urine Nitrite NEGATIVE (NEGATIVE) Urine Bilirubin NEGATIVE (NEGATIVE) Urine Urobilinogen NEGATIVE (0-1) mg/dL Ur Leukocyte Esterase NEGATIVE (NEGATIVE) Urine WBC (Auto) NONE (0-5) /HPF Urine RBC (Auto) NONE (0-2) /HPF U Epithel Cells (Auto) NONE (FEW) /HPF Urine Bacteria (Auto) NONE (NEGATIVE) /HPF Urine Culture Reflexed YES (NO) Urine Glucose 150 (NEGATIVE) mg/dL - Progress Progress: improved Progress Note: Case discussed Dr. Butler who advised transfer. Transfer is primarily due to possible osteomyelitis and need for surgical wound debridement. Patient [facility] transfer to [facility]. Case discussed with Dr. Jackman hospitalist who will accept transfer. We do not have a bed assignment at this time. Antibiotics infused. 09/07/20 16:18 Counseled pt/family regarding: lab results - Departure Departure Disposition: Observation Clinical Impression: Non-healing wound of amputation stump, Leukocytosis, Osteopenia, Vascular calcification, Wound infection Condition: Stable Critical Care Time: No Referrals: [facility] [Primary Care Provider] -
[2020-09-07 14:01] LABS: BASOPHIL % 0.2 % (0.0-0.4); Basophil (Absolute #) 0.03 (0-0.4); Eosinophil % 0.6 % (0.00-5.0); Eosinophil (Absolute #) 0.07 (0-0.5); Hematocrit 37.6 % (42-50); Hemoglobin 11.9 gm/dl (12.5-18.0); Lymphocyte (Absolute #) 2.27 (1.0-4.6); Mean Cell Volume 94.2 fl (78-100); Mean Corpuscular Hemoglobin 29.8 pg (26-32); Mean Corpuscular Hgb Concent. 31.6 g/dl (32-36); Mean Platelet Volume 11.6 fl (7.5-11.0); Monocyte (Absolute #) 0.64 (0.0-1.3); Monocytes % 5.1 % (0.0-12.0); Neutrophil % 76.1 % (36.0-66.0); Platelet Count 202 K/mm3 (150-450); Red Blood Count 3.99 M/mm3 (4.1-5.6); Red Cell Distribution Width 12.4 % (11.5-14.0); White Blood Count 12.6 K/mm3 (4.0-10.5)
--- NOTE | 2020-09-07 14:01 | XRAY ---
Indication: Open wound. Comparison: December 25, 2017. 2 view right lower leg again demonstrates below knee amputation, osteopenia, and scattered vascular calcifications. Distal lateral stump demonstrates new small focus subcutaneous air presumed gas-forming bacterial infection. No other bony, articular, or soft tissue abnormalities.
[2020-09-07 14:15] LABS: ALBUMIN 3.7 g/dL (3.5-5.0); BILIRUBIN,TOTAL 0.3 mg/dL (0.2-1.3); Calcium 9.6 mg/dL (8.4-10.2); Creatinine 1 1.62 mg/dL (0.66-1.25); EST GLOMERULAR FILTRATION RATE 45.5 ML/MIN; Potassium 4.5 mmol/L (3.5-5.1); Total Protein 7.2 g/dL (6.3-8.2)
[2020-09-07] MEDS ORDERED: VANCOMYCIN 1 GRAM/200 ML BAG 1 GM/200 ML PIGGYBACK IV ONE ×2 (15:19→16:52)
[2020-09-07] MEDS ORDERED: CLINDAMYCIN-D5W 900 MG/50 ML*** 900 MG/50 ML BAG IV STA (15:20)
[2020-09-07 15:51] LABS: Appearance CLEAR (CLEAR); Bilirubin NEGATIVE (NEGATIVE); Blood SMALL Ery/ul (0-5); Glucose 150 mg/dL (NEGATIVE); Ketones NEGATIVE (NEGATIVE); Leukocyte Esterase NEGATIVE (NEGATIVE); Nitrite NEGATIVE (NEGATIVE); Protein,Urine Dip 100 (Negative); Specific Gravity 1.017 (1.005-1.025); Urobilinogen NEGATIVE mg/dL (0-1)
[2020-09-07] MEDS ORDERED: CLINDAMYCIN-D5W 900 MG/50 ML*** 900 MG/50 ML BAG IV ONE (16:18)
[2020-09-07 16:46] VITALS: PULSE 69
[2020-09-07 17:13] VITALS: BP 186/68
[2020-09-07 18:11] VITALS: O2SAT 98
== END 2020-09-07 18:15 | disposition short-term general hospital (02) ==
LOC: ED 13:00
DX: T81.49XA Infection following a procedure, other surgical site, initial encounter (principal); D72.829 Elevated white blood cell count, unspecified; M85.80 Other specified disorders of bone density and structure, unspecified site; M61.49 Other calcification of muscle, multiple sites; E11.9 Type 2 diabetes mellitus without complications; Z89.511 Acquired absence of right leg below knee; Z79.899 Other long term (current) drug therapy; G62.9 Polyneuropathy, unspecified
CPT/HCPCS: 36000; 36415; 51702; 73590; 80053; 81001; 85025; 87040; 87077; 87086; 94760; 96365; 96367; 99285; J3370

== ENCOUNTER 2020-11-11 08:05 | Emergency (ER) | payer MEDICARE ==
--- NOTE | 2020-11-11 08:16 | ERPHSYRPT ---
- History of Present Illness Time Seen by Provider: 11/11/20 08:15 Source: patient Exam Limitations: no limitations Physician History: Patient is a 65-year-old male presents to our ED via EMS. 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 Possible syncope. Patient has poor recollection of the occurrences prior to his fall. Patient states he has been on the ground for approximately 12 hours. Patient was found by his daughter early this morning. Patient has no chest pain. He has chronic bilateral leg pain. Patient states his entire body hurts. No neck pain. Cervical spine cleared clinically. Patient is observed to have bilateral conjunctivitis. He is also supposed to be on Lasix however patient stopped taking his Lasix because it caused him to urinate on himself in the middle of the night. Timing/Duration: yesterday Severity: moderate Modifying Factors: Improves With: nothing Associated Symptoms: denies symptoms Allergies/Adverse Reactions: morphine Allergy (Mild, Verified 11/11/20 08:23) cant filter thru kidneys Penicillins Adverse Reaction (Verified 11/11/20 08:23) Headache Home Medications: Metoclopramide HCl 10 mg [Reglan 10 MG] 10 mg PO [facility] 01/02/13 [History] Esomeprazole Magnesium [Nexium] 40 mg PO DAILY 06/07/15 [History] Insulin Aspart [NovoLOG Insulin] 1 unit SQ [facility] 06/07/15 [History] Insulin Glargine,Hum.rec.anlog [Massimoucece Rai] 30 unit SQ [facility] 06/08/15 [History] Diphenoxylate HCl/Atropine [Diphenoxylate-Atrop 2.5-0.025] 2 each PO Q6H 12/22/16 [History] Ascorbic Acid 500 mg [Vitamin C 500 MG] 1 tab PO BID 12/25/17 [History] Fluticasone Propionate [Flonase NASAL] 50 mcg IH DAILY 12/25/17 [History] Meclizine HCl 25 mg [Antivert 25 mg] 25 mg PO TID PRN 12/25/17 [History] ondansetron HCL [Zofran] 8 mg PO Q6HPRN PRN 12/25/17 [History] Hx Tetanus, Diphtheria Vaccination/Date Given: Yes (UP TO DATE) Hx Influenza Vaccination/Date Given: Yes Hx Pneumococcal Vaccination/Date Given: Yes Travel Risk - Vaccine Status Have you recieved a Covid-19 vaccination: No - Review of Systems Constitutional: No Symptoms, No Fever, No Chills Eyes: No Symptoms Ears, Nose, & Throat: No Symptoms Respiratory: No Symptoms, No Cough, No Dyspnea Cardiac: No Symptoms, No Chest Pain, No Edema, No Syncope Abdominal/Gastrointestinal: No Symptoms, No Abdominal Pain, No Nausea, No Vomiting, No Diarrhea Genitourinary Symptoms: No Symptoms, No Dysuria Musculoskeletal: No Symptoms, No Back Pain, No Neck Pain Skin: No Symptoms, No Rash Neurological: No Symptoms, No Dizziness, No Focal Weakness, No Sensory Changes Psychological: No Symptoms Endocrine: No Symptoms Hematologic/Lymphatic: No Symptoms Immunological/Allergic: No Symptoms All Other Systems: Reviewed and Negative - Past Medical History Pertinent Past Medical History: Yes Neurological History: Peripheral Neuropathy ENT History: Cataracts, Other Cardiac History: Hypertension, Other Respiratory History: No Pertinent History Endocrine Medical History: Adrenal Insufficiency, Diabetes Type II Musculoskeletal History: Other GI Medical History: Gallbladder Disease, Other History: Dialysis, Renal Disease Psycho-Social History: Anxiety Male Reproductive Disorders: Prostate Problems Other Medical History: CABG x3 - Past Surgical History Past Surgical History: Yes Neuro Surgical History: No Pertinent History Cardiac: CABG, Cardiac Catheterization, Cardiac Stent Respiratory: No Pertinent History Gastrointestinal: Cholecystectomy Genitourinary: Other Musculoskeletal: Amputation Male Surgical History: No Pertinent History Other Surgical History: has had laser on both eyes has had peritoneal dialysis catheter. has had triple bypass, has 1 stent. bilateral bka - Social History Smoking Status: Never smoker Exposure to second hand smoke: Yes Drug Use: none Patient Lives Alone: No - Nursing Vital Signs Nursing Vital Signs: Initial Vital Signs Temperature 98.3 F 11/11/20 08:09 Pulse Rate 94 H 11/11/20 08:09 Blood Pressure 144/58 11/11/20 08:09 O2 Sat by Pulse Oximetry 94 L 11/11/20 08:09 Pain Scale Pain Intensity 0 - Physical Exam General Appearance: no apparent distress, alert, other (Facial swelling. Bilateral conjunctivitis. Patient blind left eye.) Eye Exam: PERRL/EOMI, eyes nml inspection, other (Patient blind left eye. Bilateral conjunctivitis.) Ears, Nose, Throat Exam: normal ENT inspection, TMs normal, pharynx normal, moist mucous membranes Neck Exam: normal inspection, non-tender, supple, full range of motion Respiratory Exam: normal breath sounds, lungs clear, other (Healed sternotomy scar anterior chest.), No respiratory distress Cardiovascular Exam: regular rate/rhythm, normal heart sounds, normal peripheral pulses Gastrointestinal/Abdomen Exam: soft, normal bowel sounds, No tenderness, No mass Back Exam: normal inspection, normal range of motion, No CVA tenderness, No vertebral tenderness Extremity Exam: normal inspection, normal range of motion, pelvis stable, other (Bilateral lower extremity below-knee amputations. Surgical site intact. Soft tissue intact.) Neurologic Exam: alert, oriented x 3, cooperative, normal mood/affect, nml cerebellar function, nml station & gait, sensation nml, No motor deficits Skin Exam: warm, dry, pale, No rash Lymphatic Exam: No adenopathy SpO2 Interpretation: normal SpO2: 94 O2 Delivery: Room Air - Course Nursing assessment & vital signs reviewed: Yes EKG Interpreted by Me: RATE (94), Sinus Rhythm, NORMAL AXIS, NORMAL INTERVALS - Radiology Exams Chest X-ray Interpretation: Teleradiologist Report (No borderline cardiomegaly and mild diffuse pulmonary edema without consolidation/large effusion, possible mild early cardiac decompensation. Superimposed pneumonia not completely excluded. Bony thorax intact again with mild osteopenia degenerative changes and sternotomy wires) - CT Exams Head CT Interpretation: Tele-radiologist Report (Mobile atrophy which is age-appropriate. No acute intracranial hemorrhage. Prominent ventricular system. New mild mucosal thickening with ethmoid right maxillary and right frontal sinuses with new tiny fluid leveling in both maxilla and right sphenoid sinuses. Mastoid air cells intact. Senile b) Ordered Tests: Active Orders 24 hr Category Date Time Status Business Integration Manager STAT Care 11/11/20 08:17 Completed EKG-ER Only STAT Care 11/11/20 08:16 Completed IV Insertion STAT Care 11/11/20 08:16 Completed Pulse Oximetry (ED) STAT Care 11/11/20 08:16 Completed CHEST 1 VIEW (PORTABLE) Stat Exams 11/11/20 08:17 Completed HEAD WITHOUT CONTRAST [CT] Stat Exams 11/11/20 08:34 Completed CBC W DIFF Stat Lab 11/11/20 10:45 Completed CK-Creatinine Phosphokinase Stat Lab 11/11/20 10:45 Completed CMP Stat Lab 11/11/20 10:45 Completed MAGNESIUM Stat Lab 11/11/20 10:45 Completed NT PRO BNP Stat Lab 11/11/20 10:45 Completed TROPONIN Q3H Lab 11/11/20 10:45 Completed TROPONIN Q3H Lab 11/11/20 13:43 Completed TROPONIN Q3H Lab 11/11/20 16:33 Completed UA W/RFX UR CULTURE Stat Lab 11/11/20 14:18 Completed Medication Summary Discontinued Medications Generic Name Dose Route Start Last Admin Trade Name Freq PRN Reason Stop Dose Admin Calcium Gluconate 1,000 mg 11/11/20 11:22 11/11/20 14:29 Calcium Gluconate 10% 1000 Mg IV 11/11/20 11:23 1,000 mg STAT ONE Administration Calcium Gluconate Confirm 11/11/20 14:26 Calcium Gluconate 10% 1000 Mg Administered 11/11/20 14:27 Dose 1,000 mg IV .STK-MED ONE Erythromycin 3.5 gm 11/11/20 08:44 11/11/20 09:53 Erythromycin 3.5 Gm Ophth. OP 11/11/20 08:45 Not Given STAT ONE Erythromycin 1 gm 11/11/20 10:00 11/11/20 09:52 Erythromycin 1 Gm OP 11/11/20 10:01 1 gm STAT ONE Administration Erythromycin Confirm 11/11/20 09:46 Erythromycin 1 Gm Administered 11/11/20 09:47 Dose 1 gm .ROUTE .STK-MED ONE Lab/Rad Data: Laboratory Result Diagrams 11/11/20 10:45 11/11/20 10:45 Laboratory Results 11/11/20 11/11/20 11/11/20 Range/Units 16:33 14:18 13:43 WBC (4.0-10.5) K/mm3 RBC (4.1-5.6) M/mm3 Hgb (12.5-18.0) gm/dl Hct (42-50) % MCV (78-100) fl MCH (26-32) pg MCHC (32-36) g/dl RDW (11.5-14.0) % Plt Count (150-450) K/mm3 MPV (7.5-11.0) fl Gran % (36.0-66.0) % Eos # (Auto) (0-0.5) Absolute Lymphs (auto) (1.0-4.6) Absolute Monos (auto) (0.0-1.3) Lymphocytes % (24.0-44.0) % Monocytes % (0.0-12.0) % Eosinophils % (0.00-5.0) % Basophils % (0.0-0.4) % Absolute Granulocytes (1.4-6.9) Basophils # (0-0.4) Sodium (137-145) mmol/L Potassium (3.5-5.1) mmol/L Chloride (98-107) mmol/L Carbon Dioxide (22-30) mmol/L Anion Gap (5-15) MEQ/L BUN (9-20) mg/dL Creatinine (0.66-1.25) mg/dL Estimated GFR ML/MIN Glucose (74-106) mg/dL Calcium (8.4-10.2) mg/dL Magnesium (1.6-2.3) mg/dL Total Bilirubin (0.2-1.3) mg/dL AST (17-59) U/L ALT (0-50) U/L Alkaline Phosphatase (38-126) U/L Creatine Kinase (55-170) U/L Troponin I 0.034 0.033 (0.000-0.034) ng/mL NT-Pro-B Natriuret Pep (0-900) pg/mL Serum Total Protein (6.3-8.2) g/dL Albumin (3.5-5.0) g/dL Urine Color YELLOW (YELLOW) Urine Appearance CLEAR (CLEAR) Urine pH 5.0 (5-6) Ur Specific [place] 1.015 (1.005-1.025) Urine Protein NEGATIVE (Negative) Urine Ketones TRACE (NEGATIVE) Urine Blood NEGATIVE (0-5) Carlos/ul Urine Nitrite NEGATIVE (NEGATIVE) Urine Bilirubin NEGATIVE (NEGATIVE) Urine Urobilinogen NEGATIVE (0-1) mg/dL Ur Leukocyte Esterase NEGATIVE (NEGATIVE) Urine WBC (Auto) 0-2 (0-5) /HPF Urine RBC (Auto) 0-2 (0-2) /HPF U Hyaline Cast (Auto) 0-2 (0-2) /LPF Urine Bacteria (Auto) RARE (NEGATIVE) /HPF Urine Culture Reflexed NO (NO) Urine Glucose NEGATIVE (NEGATIVE) mg/dL 11/11/20 11/11/20 11/11/20 Range/Units 10:45 10:45 10:45 WBC (4.0-10.5) K/mm3 RBC (4.1-5.6) M/mm3 Hgb (12.5-18.0) gm/dl Hct (42-50) % MCV (78-100) fl MCH (26-32) pg MCHC (32-36) g/dl RDW (11.5-14.0) % Plt Count (150-450) K/mm3 MPV (7.5-11.0) fl Gran % (36.0-66.0) % Eos # (Auto) (0-0.5) Absolute Lymphs (auto) (1.0-4.6) Absolute Monos (auto) (0.0-1.3) Lymphocytes % (24.0-44.0) % Monocytes % (0.0-12.0) % Eosinophils % (0.00-5.0) % Basophils % (0.0-0.4) % Absolute Granulocytes (1.4-6.9) Basophils # (0-0.4) Sodium 143 (137-145) mmol/L Potassium 5.3 H (3.5-5.1) mmol/L Chloride 113 H (98-107) mmol/L Carbon Dioxide 15 L* (22-30) mmol/L Anion Gap 20.7 H (5-15) MEQ/L BUN 46 H (9-20) mg/dL Creatinine 2.35 H (0.66-1.25) mg/dL Estimated GFR 29.6 ML/MIN Glucose 165 H (74-106) mg/dL Calcium 9.1 (8.4-10.2) mg/dL Magnesium 2.3 (1.6-2.3) mg/dL Total Bilirubin 0.30 (0.2-1.3) mg/dL AST 51 (17-59) U/L ALT 17 (0-50) U/L Alkaline Phosphatase 143 H (38-126) U/L Creatine Kinase 961 H (55-170) U/L Troponin I 0.024 (0.000-0.034) ng/mL NT-Pro-B Natriuret Pep 2620 H (0-900) pg/mL Serum Total Protein 6.9 (6.3-8.2) g/dL Albumin 3.8 (3.5-5.0) g/dL Urine Color (YELLOW) Urine Appearance (CLEAR) Urine pH (5-6) Ur Specific [place] (1.005-1.025) Urine Protein (Negative) Urine Ketones (NEGATIVE) Urine Blood (0-5) Carlos/ul Urine Nitrite (NEGATIVE) Urine Bilirubin (NEGATIVE) Urine Urobilinogen (0-1) mg/dL Ur Leukocyte Esterase (NEGATIVE) Urine WBC (Auto) (0-5) /HPF Urine RBC (Auto) (0-2) /HPF U Hyaline Cast (Auto) (0-2) /LPF Urine Bacteria (Auto) (NEGATIVE) /HPF Urine Culture Reflexed (NO) Urine Glucose (NEGATIVE) mg/dL 11/11/20 Range/Units 10:45 WBC 12.6 H (4.0-10.5) K/mm3 RBC 3.08 L (4.1-5.6) M/mm3 Hgb 9.0 L (12.5-18.0) gm/dl Hct 30.1 L (42-50) % MCV 97.7 (78-100) fl MCH 29.2 (26-32) pg MCHC 29.9 L (32-36) g/dl RDW 13.1 (11.5-14.0) % Plt Count 177 (150-450) K/mm3 MPV 11.8 H (7.5-11.0) fl Gran % 89.9 H (36.0-66.0) % Eos # (Auto) 0.01 (0-0.5) Absolute Lymphs (auto) 0.87 L (1.0-4.6) Absolute Monos (auto) 0.36 (0.0-1.3) Lymphocytes % 6.9 L (24.0-44.0) % Monocytes % 2.9 (0.0-12.0) % Eosinophils % 0.1 (0.00-5.0) % Basophils % 0.2 (0.0-0.4) % Absolute Granulocytes 11.34 H (1.4-6.9) Basophils # 0.02 (0-0.4) Sodium (137-145) mmol/L Potassium (3.5-5.1) mmol/L Chloride (98-107) mmol/L Carbon Dioxide (22-30) mmol/L Anion Gap (5-15) MEQ/L BUN (9-20) mg/dL Creatinine (0.66-1.25) mg/dL Estimated GFR ML/MIN Glucose (74-106) mg/dL Calcium (8.4-10.2) mg/dL Magnesium (1.6-2.3) mg/dL Total Bilirubin (0.2-1.3) mg/dL AST (17-59) U/L ALT (0-50) U/L Alkaline Phosphatase (38-126) U/L Creatine Kinase (55-170) U/L Troponin I (0.000-0.034) ng/mL NT-Pro-B Natriuret Pep (0-900) pg/mL Serum Total Protein (6.3-8.2) g/dL Albumin (3.5-5.0) g/dL Urine Color (YELLOW) Urine Appearance (CLEAR) Urine pH (5-6) Ur Specific [place] (1.005-1.025) Urine Protein (Negative) Urine Ketones (NEGATIVE) Urine Blood (0-5) Carlos/ul Urine Nitrite (NEGATIVE) Urine Bilirubin (NEGATIVE) Urine Urobilinogen (0-1) mg/dL Ur Leukocyte Esterase (NEGATIVE) Urine WBC (Auto) (0-5) /HPF Urine RBC (Auto) (0-2) /HPF U Hyaline Cast (Auto) (0-2) /LPF Urine Bacteria (Auto) (NEGATIVE) /HPF Urine Culture Reflexed (NO) Urine Glucose (NEGATIVE) mg/dL - Progress Progress: improved Progress Note: Patient does not have a local physician. Dr. Richards is the no doc for today. It appears that patient is in CHF and is experiencing acute renal no injury from rhabdomyolysis. Treating 1 will worsen the other. Dr. Richards feels patient may require CRRT continuous renal replacement therapy. This will require harvest worker fruit. She advised transfer. Patient prefers to be transferred to [facility] under the care of Dr. Terrazas his shanker out. We are attempting to contact Dr. Terrazas at this time. Patient currently stable. 11/11/20 11:55 [facility] was unable to accommodate our patient. We contacted [facility]. Dr. Peck accepted transfer. They will return call with a bed assignment. 11/11/20 14:38 11/11/20 15:44 Discussed with : Herbie Will see patient in: other Counseled pt/family regarding: lab results, diagnosis, rad results - Departure Departure Disposition: Transfer Clinical Impression: Conjunctivitis, Cardiomegaly, Pulmonary edema, Osteopenia, Degenerative arthritis, Sinusitis, Congestive cardiac failure, Leukocytosis, Normocytic anemia, Hyperkalemia, Metabolic acidosis, Acute renal injury, High anion gap metabolic acidosis, Elevated CK, Elevated brain natriuretic peptide (BNP) level, Rhabdomyolysis, Obstructive uropathy, Urinary retention Condition: Stable Critical Care Time: No Referrals: [facility] [Primary Care Provider] - Instructions: Heart Failure
[2020-11-11] MEDS ORDERED: Erythromycin 3.5 GM OPHTH. OP ONE (08:44)
--- NOTE | 2020-11-11 09:16 | XRAY ---
Indication: Congestion. Comparison: October 27, 2015. Portable chest rotated demonstrating new borderline cardiomegaly and mild diffuse pulmonary edema without consolidation/large effusion, possible mild/early cardiac decompensation. Superimposed pneumonia not completely excluded. Bony thorax intact again with mild osteopenia, degenerative changes, and sternotomy wires.
--- NOTE | 2020-11-11 09:28 | XRAY ---
Indication: Pain following fall. Multiple contiguous axial images obtained through the head without contrast. Comparison: October 27, 2015. Again age-appropriate global atrophy with progressive worsening mild periventricular degenerative micro-ischemia bilaterally. No acute intracranial hemorrhage, abnormal extra-axial fluid collection, or mass effect. Ventricular system remains prominent. Bony calvarium intact. New mild mucosal thickening both ethmoid/right maxillary/right frontal sinuses with new tiny fluid leveling in both maxillary and right sphenoid sinuses. Mastoid air cells are clear. Impression: 1. New paranasal sinus disease. 3. Otherwise continued nonacute senile brain.
[2020-11-11] MEDS ORDERED: Erythromycin 1 GM ONE (09:46)
[2020-11-11] MEDS ORDERED: Erythromycin 1 GM OP ONE (10:00)
[2020-11-11 10:55] LABS: Absolute Neutrophil Ct (ANC) 11.34 (1.4-6.9); BASOPHIL % 0.2 % (0.0-0.4); Basophil (Absolute #) 0.02 (0-0.4); Eosinophil % 0.1 % (0.00-5.0); Eosinophil (Absolute #) 0.01 (0-0.5); Hematocrit 30.1 % (42-50); Lymphocyte (Absolute #) 0.87 (1.0-4.6); Lymphocytes % 6.9 % (24.0-44.0); Mean Cell Volume 97.7 fl (78-100); Mean Corpuscular Hemoglobin 29.2 pg (26-32); Mean Corpuscular Hgb Concent. 29.9 g/dl (32-36); Mean Platelet Volume 11.8 fl (7.5-11.0); Monocyte (Absolute #) 0.36 (0.0-1.3); Monocytes % 2.9 % (0.0-12.0); Neutrophil % 89.9 % (36.0-66.0); Platelet Count 177 K/mm3 (150-450); Red Blood Count 3.08 M/mm3 (4.1-5.6); Red Cell Distribution Width 13.1 % (11.5-14.0); White Blood Count 12.6 K/mm3 (4.0-10.5)
[2020-11-11 11:01] LABS: ALBUMIN 3.8 g/dL (3.5-5.0); ANION GAP 20.7 MEQ/L (5-15); BILIRUBIN,TOTAL 0.3 mg/dL (0.2-1.3); Calcium 9.1 mg/dL (8.4-10.2); Creatinine 1 2.35 mg/dL (0.66-1.25); EST GLOMERULAR FILTRATION RATE 29.6 ML/MIN; MAGNESIUM 2.3 mg/dL (1.6-2.3); Potassium 5.3 mmol/L (3.5-5.1); Total Protein 6.9 g/dL (6.3-8.2)
[2020-11-11] MEDS ORDERED: Calcium Gluconate 10% 1000 MG IV ONE ×2 (11:22→14:26)
[2020-11-11 15:29] LABS: Appearance CLEAR (CLEAR); Bacteria RARE /HPF (NEGATIVE); Bilirubin NEGATIVE (NEGATIVE); Blood NEGATIVE Ery/ul (0-5); Glucose NEGATIVE (NEGATIVE); Hyaline Casts 0-2 /LPF (0-2); Ketones TRACE (NEGATIVE); Leukocyte Esterase NEGATIVE (NEGATIVE); Nitrite NEGATIVE (NEGATIVE); Protein,Urine Dip NEGATIVE (Negative); RBC 0-2 /HPF (0-2); Specific Gravity 1.015 (1.005-1.025); Urobilinogen NEGATIVE mg/dL (0-1); WBC 0-2 /HPF (0-5)
[2020-11-11 17:09] VITALS: BP 148/61; PULSE 97
[2020-11-12 06:20] VITALS: O2SAT 94
== END 2020-11-11 18:15 | disposition short-term general hospital (02) ==
LOC: ED 08:05
DX: H10.9 Unspecified conjunctivitis (principal); I51.7 Cardiomegaly; J81.1 Chronic pulmonary edema; M85.80 Other specified disorders of bone density and structure, unspecified site; J32.9 Chronic sinusitis, unspecified; I50.9 Heart failure, unspecified; D72.829 Elevated white blood cell count, unspecified; D64.9 Anemia, unspecified; E87.5 Hyperkalemia; E87.2 Acidosis; S36.118A Other injury of liver, initial encounter; M62.82 Rhabdomyolysis; N13.9 Obstructive and reflux uropathy, unspecified; R33.9 Retention of urine, unspecified; E11.9 Type 2 diabetes mellitus without complications; I25.10 Atherosclerotic heart disease of native coronary artery without angina pectoris; Z95.1 Presence of aortocoronary bypass graft
CPT/HCPCS: 36000; 36415; 51702; 70450; 71045; 80053; 81001; 82550; 83735; 83880; 84484; 85025; 93005; 93041; 94760; 96374; 99285; J0610; A9270-GY

== ENCOUNTER 2022-04-21 04:24 | Emergency (ER) | payer MEDICARE ==
--- NOTE | 2022-04-21 05:02 | ERPHSYRPT ---
- History of Present Illness Time Seen by Provider: 04/21/22 04:35 Source: patient Exam Limitations: no limitations Physician History: 66yo M sent from the assisted with blood coming from his Landers catheter. Landers catheter was also obstructed causing urinary retention. Patient denies any fever, chills or dysuria. He did report abdominal pain and fullness on arrival. Patient has a history of a chronic MRSA UTI for which she is taking Bactrim and linezolid. Timing/Duration: today Activites at Onset: none Quality: fullness Onset Location: suprapubic Pain Radiation: urethral Allergies/Adverse Reactions: morphine Allergy (Mild, Verified 11/11/20 08:23) cant filter thru kidneys Penicillins Adverse Reaction (Verified 11/11/20 08:23) Headache Home Medications: Metoclopramide HCl 10 mg [Reglan 10 MG] 10 mg PO [facility] 01/02/13 [History] Esomeprazole Magnesium [Nexium] 40 mg PO DAILY 06/07/15 [History] Insulin Aspart [NovoLOG Insulin] 1 unit SQ [facility] 06/07/15 [History] Insulin Glargine,Hum.rec.anlog [Toujeo Solostar] 30 unit SQ [facility] 06/08/15 [History] Diphenoxylate HCl/Atropine [Diphenoxylate-Atrop 2.5-0.025] 2 each PO Q6H 12/22/16 [History] Ascorbic Acid 500 mg [Vitamin C 500 MG] 1 tab PO BID 12/25/17 [History] Fluticasone Propionate [Flonase NASAL] 50 mcg IH DAILY 12/25/17 [History] Meclizine HCl 25 mg [Antivert 25 mg] 25 mg PO TID PRN 12/25/17 [History] ondansetron HCL [Zofran] 8 mg PO Q6HPRN PRN 12/25/17 [History] Hx Tetanus, Diphtheria Vaccination/Date Given: Yes (UP TO DATE) Hx Influenza Vaccination/Date Given: Yes Hx Pneumococcal Vaccination/Date Given: Yes Travel Risk - Vaccine Status Have you recieved a Covid-19 vaccination: No Iron Caster: Unknown - Vaccination Dates Dates if Unknown: unknown - Past Medical History Pertinent Past Medical History: Yes Neurological History: Peripheral Neuropathy ENT History: Cataracts, Other Cardiac History: Hypertension, Other Respiratory History: No Pertinent History Endocrine Medical History: Adrenal Insufficiency, Diabetes Type II Musculoskeletal History: Other GI Medical History: Gallbladder Disease, Other History: Dialysis, Renal Disease Psycho-Social History: Anxiety Male Reproductive Disorders: Prostate Problems Other Medical History: CABG x3 - Past Surgical History Past Surgical History: Yes Neuro Surgical History: No Pertinent History Cardiac: CABG, Cardiac Catheterization, Cardiac Stent Respiratory: No Pertinent History Gastrointestinal: Cholecystectomy Genitourinary: Other Musculoskeletal: Amputation Male Surgical History: No Pertinent History Other Surgical History: has had laser on both eyes has had peritoneal dialysis catheter. has had triple bypass, has 1 stent. bilateral bka - Social History Smoking Status: Never smoker Exposure to second hand smoke: Yes Drug Use: none Patient Lives Alone: No - Review of Systems Constitutional: No Fever, No Chills Respiratory: No Symptoms Cardiac: No Chest Pain, No Palpitations, No Syncope Abdominal/Gastrointestinal: Abdominal Pain, No Nausea, No Vomiting Genitourinary Symptoms: Hematuria, Urinary Retention, No Dysuria, No Penile Discharge Skin: No Symptoms Neurological: No Dizziness, No Focal Weakness, No Headache Hematologic/Lymphatic: No Symptoms - Nursing Vital Signs Nursing Vital Signs: Initial Vital Signs Temperature 98.2 F 04/21/22 04:25 Pulse Rate 73 04/21/22 04:25 Respiratory Rate 18 04/21/22 04:25 Blood Pressure 163/77 04/21/22 04:25 O2 Sat by Pulse Oximetry 98 04/21/22 04:25 Pain Scale Pain Intensity 0 - Physical Exam General Appearance: no apparent distress Gastrointestinal/Abdomen Exam: soft, distention, No tenderness, No guarding, No rebound Male Genital Exam: bleeding (Bleeding coming from avulsed portion of the glans near the urethral meatus), circumcised, enlarged prostate, No scrotum tenderness (L), No testicular tenderness (R), No urethral discharge, No scrotal swellling Extremity Exam: amputations (Bilateral lower extremity amputations) Neurologic Exam: alert, oriented x 3, cooperative Skin Exam: normal color, warm, dry, No rash SpO2 Interpretation: normal SpO2: 98 O2 Delivery: Room Air Ordered Tests: Active Orders 24 hr Category Date Time Status Landers [Catheter-Sherwood Landers] STAT Care 04/21/22 04:44 Active - Progress Progress: improved Progress Note: 04/21/22 05:07 New Landers catheter was able to be anchored. Over 700 cc of urine have drained into the Landers bag at this time. Patient reports significant improvement in his abdominal discomfort. Pressure was placed at the wound near the urethral meatus and is now hemostatic. Patient overall feels well denies any symptoms of anemia including fatigue, dizziness, shortness of breath or chest pain. We will forego ordering any additional labs or imaging at this time. Will see patient in: other (half-way) Counseled pt/family regarding: need for follow-up - Departure Departure Disposition: Extended Care Facility Clinical Impression: Landers catheter problem, Urethral meatus pain Condition: Good Critical Care Time: No Referrals: [facility] [Primary Care Provider] - Follow up/PCP as directed Instructions: How to Care for Your Landers Catheter, Male
[2022-04-21 05:44] VITALS: BP 150/71
[2022-04-21 07:29] VITALS: PULSE 65; O2SAT 92
== END 2022-04-21 08:30 | disposition home or self-care (01) ==
LOC: ED 04:24
DX: T83.83XA Hemorrhage due to genitourinary prosthetic devices, implants and grafts, initial encounter (principal); N36.8 Other specified disorders of urethra; T83.098A Other mechanical complication of other urinary catheter, initial encounter; R33.8 Other retention of urine; R10.9 Unspecified abdominal pain; I12.0 Hypertensive chronic kidney disease with stage 5 chronic kidney disease or end stage renal disease; E11.22 Type 2 diabetes mellitus with diabetic chronic kidney disease; N18.6 End stage renal disease; Z99.2 Dependence on renal dialysis; E11.42 Type 2 diabetes mellitus with diabetic polyneuropathy; Z79.4 Long term (current) use of insulin; Z79.899 Other long term (current) drug therapy; Z28.310 Unvaccinated for COVID-19
CPT/HCPCS: 51702; 99283

== ENCOUNTER 2023-01-02 10:47 | Inpatient (IN) | payer MEDICARE ==
[2023-01-02] MEDS ORDERED: Zofran 4 MG/2 ML VIAL IV ONE (10:51)
[2023-01-02] MEDS ORDERED: PROTONIX 40 MG IV IV ONE ×2 (10:51→11:36)
--- NOTE | 2023-01-02 11:26 | ERPHSYRPT ---
- History of Present Illness Historian: patient, EMS, [facility] records Exam Limitations: no limitations Patient Subjective Stated Complaint: C/O right sided abdominal pain with vomiting and diarrhea X 3 days per patient reports. Patient and nurse from the [facility] both report nausea X approx one month that correlates with the time of started ozempic medication. EMS states vomited started appearing to be "cofee ground" last night. Report called to this nurse by Tanika at [facility] states "coffee ground" started this am. Triage Nursing Assessment: Patient arrived by ambulance. He is alert and oriented. No SOB. No Cough. Patient is not pale at this time. Face does appear slightly jaundiced; eyes normal in color at this time. Patient noted to be a bilateral LE amputee. An open sore is noted to his right knee/stump area. Patient indicates this is from a sunburn. F/C noted to be anchored with sediment present in the tubing. Afebrile. Physician History: 67 yo WM w h/o DM/Blind L eye/B BKA presents w coffee ground emesis/melanic stool/RLQ pain since last night. Pain is 6/10, throbbing-aching, nothing makes better or worse. He has a supra-pubic catheter. Cough/coryza/fever/chest pain are all denied. Timing/Duration: other (Last night) Activities at Onset: rest Quality: aching, throbbing Abdominal Pain Onset Location: RLQ Pain Radiation: no radiation Severity of Pain-Max: moderate Severity of Pain-Current: moderate Modifying Factors: Improves With: nothing Associated Symptoms: nausea Previous symptoms: no prior history Allergies/Adverse Reactions: morphine Allergy (Mild, Verified 01/02/23 11:03) cant filter thru kidneys Penicillins Adverse Reaction (Verified 01/02/23 11:03) Headache Home Medications: Metoclopramide HCl 10 mg [Reglan 10 MG] 10 mg PO ACHS 01/02/13 [History] Insulin Aspart [NovoLOG Insulin] 1 unit SQ ACHS 06/07/15 [History] Fluticasone Propionate [Flonase NASAL] 50 mcg IH DAILY 12/25/17 [History] Acetaminophen 325 mg [Tylenol 325 mg] 650 mg PO Q4HPRN PRN 01/02/23 [History] Aspirin EC 81 mg [Ecotrin 81 mg] 81 mg PO DAILY 01/02/23 [History] Cilostazol 100 mg [Pletal 100 MG] 50 mg PO DAILY 01/02/23 [History] Duloxetine HCl 30 mg [Cymbalta 30 MG Capsule] 60 mg PO DAILY 01/02/23 [History] Ergocalciferol (Vitamin D2) [Vitamin D2] 50,000 unit PO Q7D 01/02/23 [History] Ferrous Sulfate 325 mg [Feosol 325 mg] 325 mg PO TID 01/02/23 [History] Folic Acid 1 mg [Folate 1 mg] 1 mg PO DAILY 01/02/23 [History] Gabapentin 300 mg PO TID 01/02/23 [History] Hydrocodone/Acetaminophen [Hydrocodone-Acetamin 10-325 mg] 1 tab PO BID 01/02/23 [History] Insulin Lispro [Humalog Kwikpen U-100] 5 units SQ BREAKFAST 01/02/23 [History] Insulin Lispro [Humalog Kwikpen U-100] 7 units SQ 1130,1630 01/02/23 [History] Lactobacillus Acidophilus [Acidophilus] 1 each PO BID 01/02/23 [History] Potassium Chloride 10 meq PO DAILY 01/02/23 [History] Pravastatin Sodium 20 mg PO QHS 01/02/23 [History] Semaglutide [Ozempic] 0.25 mg SQ WEEKLY 01/02/23 [History] Senna 8.6 mg [Senokot 8.6 mg] 2 tab PO EVENING MEAL 01/02/23 [History] Simethicone 125 mg PO QID 01/02/23 [History] Solifenacin Succinate 5 mg PO DAILY 01/02/23 [History] Hx Tetanus, Diphtheria Vaccination/Date Given: Yes (UP TO DATE) Hx Influenza Vaccination/Date Given: Yes Hx Pneumococcal Vaccination/Date Given: Yes Immunizations Up to Date: Yes Travel Risk - International Travel Have you traveled outside of the country in past 3 weeks: No - Coronavirus Screening Are you exhibiting any of the following symptoms?: Yes Symptoms: Vomiting/Diarrhea Close contact with a COVID-19 positive Pt in past 14-21 Days: No - Vaccine Status Have you recieved a Covid-19 vaccination: No Media Strategist: Unknown - Vaccination Dates Dates if Unknown: unknown - Review of Systems Constitutional: No Symptoms Eyes: No Symptoms Ears, Nose, & Throat: No Symptoms Respiratory: No Symptoms Cardiac: No Symptoms Genitourinary Symptoms: No Symptoms Musculoskeletal: No Symptoms Skin: No Symptoms Neurological: No Symptoms Psychological: No Symptoms Endocrine: No Symptoms Hematologic/Lymphatic: No Symptoms Immunological/Allergic: No Symptoms - Past Medical History Pertinent Past Medical History: Yes Neurological History: Peripheral Neuropathy ENT History: Cataracts, Other Cardiac History: High Cholesterol, Hypertension, Other Respiratory History: Other Endocrine Medical History: Diabetes Type II, Adrenal Insufficiency Musculoskeletal History: Other GI Medical History: GERD, Gallbladder Disease, Other History: Renal Disease, Dialysis Psycho-Social History: Anxiety Male Reproductive Disorders: Prostate Problems Other Medical History: seasonal allergic rhinitis, hyperlipidemia, BPH, MRSA, Covid-19, dysphagia, phantom limb syndrome, urinay retention, neuorgenic bladder, lateral elbow epicondylitis, gastoparesis, chronic resp. failure, fluid overload - Past Surgical History Past Surgical History: Yes Neuro Surgical History: No Pertinent History Cardiac: CABG, Cardiac Stent, Cardiac Catheterization Respiratory: No Pertinent History Gastrointestinal: Cholecystectomy Genitourinary: Other Musculoskeletal: Amputation Male Surgical History: No Pertinent History Other Surgical History: has had laser on both eyes has had peritoneal dialysis catheter. has had triple bypass, has 1 stent. bilateral bka - Social History Smoking Status: Never smoker Exposure to second hand smoke: No Drug Use: none Patient Lives Alone: No ([facility]) - Nursing Vital Signs Nursing Vital Signs: Initial Vital Signs Temperature 98.3 F 01/02/23 10:48 Pulse Rate 98 H 01/02/23 10:48 Respiratory Rate 16 01/02/23 10:48 Blood Pressure 145/62 01/02/23 10:48 O2 Sat by Pulse Oximetry 98 01/02/23 10:48 Pain Scale Pain Intensity 4 Hypertensive - Physical Exam General Appearance: no apparent distress Eye Exam: PERRL/EOMI, eyes nml inspection Ears, Nose, Throat Exam: normal ENT inspection, TMs normal, pharynx normal, moist mucous membranes Neck Exam: normal inspection, non-tender, supple, full range of motion, No meningismus, No mass, No Brudzinski, No Kernig's, No carotid bruit Respiratory Exam: normal breath sounds, lungs clear, airway intact, No respiratory distress Cardiovascular Exam: regular rate/rhythm, normal peripheral pulses, murmur (3/6 OMAYRA), capillary refill <2 sec Gastrointestinal/Abdomen Exam: soft, normal bowel sounds, tenderness (Moderate TTP RLQ wo guarding or rebound) Back Exam: normal inspection, normal range of motion, No CVA tenderness, No vertebral tenderness Extremity Exam: other (B BKA) Neurologic Exam: alert, oriented x 3, cooperative, 911 emergency services dispatcher II-XII nml as tested, normal mood/affect, sensation nml Skin Exam: warm, dry Lymphatic Exam: No adenopathy SpO2 Interpretation: normal SpO2: 98 O2 Delivery: Room Air - Course Nursing assessment & vital signs reviewed: Yes - CT Exams Abdomen/Pelvis CT Interpretation: Discussed w/radiologist (Rectal wall thickening/otherwise negative) Ordered Tests: Active Orders 24 hr Category Date Time Status Bedrest ROUTINE Activity 01/02/23 14:43 Active Call Admit Doctor for Orders ON ADMISSION Care 01/02/23 14:43 Active Code Status Order ROUTINE Care 01/02/23 14:43 Active IV Insertion STAT Care 01/02/23 11:[address] in Observation ROUTINE Care 01/02/23 14:43 Active Telemetry q6h Care 01/02/23 14:43 Active ABDOMEN AND PELVIS W/0 CONTRAS [CT] Stat Exams 01/02/23 12:02 Completed AMYLASE Stat Lab 01/02/23 11:12 Completed CBC W DIFF Stat Lab 01/02/23 11:12 Completed CMP Stat Lab 01/02/23 11:12 Completed CULTURE,URINE Stat Lab 01/02/23 13:04 Received LIPASE Stat Lab 01/02/23 11:12 Completed Lactic Acid Stat Lab 01/02/23 11:10 Completed PROTIME WITH INR Stat Lab 01/02/23 11:12 Completed PTT Stat Lab 01/02/23 11:12 Completed TROPONIN Q4H Lab 01/02/23 11:12 Completed TROPONIN Q4H Lab 01/02/23 16:15 Completed TROPONIN Q4H Lab 01/02/23 18:05 Completed UA W/RFX UR CULTURE Stat Lab 01/02/23 13:04 Completed Transfer Order Routine Transfer 01/02/23 Completed Medication Summary Generic Name Dose Route Start Last Admin Trade Name Freq PRN Reason Stop Dose Admin Acetaminophen 650 mg 01/02/23 17:06 Acetaminophen 325 Mg Tablet PO 02/01/23 17:05 Q4HPRN PRN PAIN Hydrocodone Bitart/Acetaminophen 1 tablet 01/02/23 22:00 Hydrocodone/Acetamin 10-325 Mg Tablet PO 01/07/23 21:59 BID [facility] Aspirin 81 mg 01/03/23 10:00 Aspirin 81 Mg Tablet.Ec PO 02/02/23 09:59 DAILY [facility] Cilostazol 50 mg 01/03/23 10:00 Cilostazol 100 Mg Tablet PO 02/02/23 09:59 DAILY [facility] Duloxetine HCl 60 mg 01/03/23 10:00 Duloxetine Hcl 30 Mg Cap PO 02/02/23 09:59 DAILY [facility] Ergocalciferol 50,000 unit 01/04/23 10:00 Ergocalciferol (Vitamin D2) 50,000 Unit Capsule PO 02/03/23 09:59 Q7D [facility] Ferrous Sulfate 325 mg 01/02/23 22:00 Ferrous Sulfate 325 Mg Tablet PO 02/01/23 21:59 TID [facility] Fluticasone Propionate 0 gm 01/03/23 10:00 Fluticasone Propionate 16 Gm Bottle Nasal [place] NS 02/02/23 09:59 DAILY [facility] Folic Acid 1 mg 01/03/23 10:00 Folic Acid 1 Mg Tablet PO 02/02/23 09:59 DAILY [facility] Gabapentin 300 mg 01/02/23 22:00 Gabapentin 300 Mg Capsule PO 02/01/23 21:59 TID [facility] Piperacillin Sod/Tazobactam 100 mls @ 200 mls/hr 01/02/23 16:00 01/02/23 17:54 Sod 2.25 gm/ Sodium Chloride IV 02/01/23 15:59 200 mls/hr Q8HT YOLANDA Administration Insulin Human Lispro 0 unit 01/02/23 16:49 01/02/23 17:54 Insulin Lispro 1 Unit SQ 02/01/23 16:48 7 unit UD PRN Administration HYPERGLYCEMIA Insulin Human Lispro 5 unit 01/03/23 08:00 Insulin Lispro 1 Unit SQ 02/02/23 07:59 BREAKFAST [facility] Insulin Human Lispro 7 unit 01/03/23 11:30 Insulin Lispro 1 Unit SQ 02/02/23 11:29 1130,1630 [facility] Lactobacillus Acidophilus 1 tab 01/02/23 22:00 Lactobacillus Acidophilus 1 Tab Tablet PO 02/01/23 21:59 BID [facility] Loratadine 10 mg 01/03/23 10:00 Loratadine 10 Mg Tablet PO 02/02/23 09:59 DAILY [facility] Metoclopramide HCl 10 mg 01/02/23 22:00 Metoclopramide Hcl 10 Mg Tablet PO 02/01/23 21:59 ACHS [facility] Metoprolol Tartrate 25 mg 01/02/23 22:00 Metoprolol Tartrate 25 Mg Tab PO 02/01/23 21:59 BID [facility] Miscellaneous Information 1 each 01/02/23 17:30 Medication Intervention 1 Each Each 02/01/23 17:29 .RN TO CHECK [facility] Pantoprazole Sodium 40 mg 01/02/23 22:00 Pantoprazole 40 Mg Vial IV 02/01/23 21:59 BID [facility] Potassium Chloride 10 meq 01/03/23 10:00 Potassium Chloride Tab 10 Meq Tab PO 02/02/23 09:59 DAILY [facility] Simvastatin 20 mg 01/02/23 22:00 Simvastatin 20 Mg Tablet PO 02/01/23 21:59 QHS [facility] Discontinued Medications Generic Name Dose Route Start Last Admin Trade Name Freq PRN Reason Stop Dose Admin Piperacillin Sod/Tazobactam 100 mls @ 200 mls/hr 01/02/23 18:00 Sod 3.375 gm/ Sodium Chloride IV 01/05/23 17:59 Q6HT [facility] Ondansetron HCl 4 mg 01/02/23 10:51 01/02/23 11:38 Ondansetron Hcl 4 Mg/2 Ml Vial IV 01/02/23 10:52 4 mg STAT ONE Administration Ondansetron HCl Confirm 01/02/23 11:36 Ondansetron Hcl 4 Mg/2 Ml Vial Administered 01/02/23 11:37 Dose 4 mg .ROUTE .STK-MED ONE Pantoprazole Sodium 40 mg 01/02/23 10:51 01/02/23 11:38 Pantoprazole 40 Mg Vial IV 01/02/23 10:52 40 mg STAT ONE Administration Pantoprazole Sodium Confirm 01/02/23 11:36 Pantoprazole 40 Mg Vial Administered 01/02/23 11:37 Dose 40 mg IV .STK-MED ONE Polyethylene Glycol/Electrolytes 4,000 ml 01/02/23 17:30 01/02/23 17:54 Sod Sulf/Sod/Nahco3/Kcl/Peg's 4000 Ml Bottle PO 01/02/23 17:31 4,000 ml ONCE@1400 ONE Administration Lab/Rad Data: Laboratory Result Diagrams 01/02/23 11:12 01/02/23 11:12 Laboratory Results 01/02/23 01/02/23 01/02/23 Range/Units 13:04 11:12 11:12 WBC (4.0-10.5) x10^3/uL RBC (4.1-5.6) x10^6/uL Hgb (12.5-18.0) g/dL Hct (42-50) % MCV (78-100) fL MCH (26-32) pg MCHC (32-36) g/dL RDW (11.5-14.0) % Plt Count (150-450) x10^3/uL MPV (7.5-11.0) fL Gran % (36.0-66.0) % Immature Gran % (Auto) (0.00-0.4) % Nucleat RBC Rel Count (0.00-0.1) % Eos # (Auto) (0-0.5) x10^3/uL Immature Gran # (Auto) (0.00-0.03) x10^3u/L Absolute Lymphs (auto) (1.0-4.6) x10^3/uL Absolute Monos (auto) (0.0-1.3) x10^3/uL Absolute Nucleated RBC (0.00-0.01) x10^3u/L Lymphocytes % (24.0-44.0) % Monocytes % (0.0-12.0) % Eosinophils % (0.00-5.0) % Basophils % (0.0-0.4) % Absolute Granulocytes (1.4-6.9) x10^3/uL Basophils # (0-0.4) x10^3/uL PT (9.4-12.5) SECONDS INR (0.8-3.0) APTT (25.1-36.5) SECONDS Sodium (137-145) mmol/L Potassium (3.5-5.1) mmol/L Chloride (98-107) mmol/L Carbon Dioxide (22-30) mmol/L Anion Gap (5-15) MEQ/L BUN (9-20) mg/dL Creatinine (0.66-1.25) mg/dL Estimated GFR ML/MIN Glucose (74-106) mg/dL Lactic Acid (0.4-2.0) Calcium (8.4-10.2) mg/dL Total Bilirubin (0.2-1.3) mg/dL AST (17-59) U/L ALT (0-50) U/L Alkaline Phosphatase (38-126) U/L Troponin I < 0.012 (0.000-0.034) ng/mL Serum Total Protein (6.3-8.2) g/dL Albumin (3.5-5.0) g/dL Amylase (30-110) U/L Lipase (23-300) U/L Urine Color Yellow (Yellow) Urine Appearance Turbid A (Clear) Urine pH 5.0 (4.6-8.0) Ur Specific [place] 1.015 (1.005-1.030) Urine Protein 30 (Negative) Urine Glucose (UA) 500 A (Negative) mg/dL Urine Ketones Trace A (Negative) Urine Blood Moderate A (Negative) Urine Nitrite Negative (Negative) Urine Bilirubin Negative (Negative) Urine Urobilinogen 0.2 (0.2) mg/dL Ur Leukocyte Esterase Large A (Negative) U Hyaline Cast (Auto) 11-20 (0-2) /LPF Urine Microscopic RBC 6-10 A (0-5) /HPF Urine Microscopic WBC >100 A (0-5) /HPF Ur Epithelial Cells None Seen (None Seen) /HPF Urine Bacteria Few A (None Seen) /HPF Urine Yeast (Budding) Few A (None Seen) /HPF Urine Culture Reflexed ORDERED SEPARATELY (NO) Influenza Type A Ag NEGATIVE (NEGATIVE) Influenza Type B Ag NEGATIVE (NEGATIVE) RSV (PCR) NEGATIVE (NEGATIVE) SARS-CoV-2 (PCR) NEGATIVE (NEGATIVE) 01/02/23 01/02/23 01/02/23 Range/Units 11:12 11:12 11:12 WBC 14.3 H (4.0-10.5) x10^3/uL RBC 3.76 L (4.1-5.6) x10^6/uL Hgb 11.0 L (12.5-18.0) g/dL Hct 34.8 L (42-50) % MCV 92.6 (78-100) fL MCH 29.3 (26-32) pg MCHC 31.6 L (32-36) g/dL RDW 12.7 (11.5-14.0) % Plt Count 205 (150-450) x10^3/uL MPV 10.7 (7.5-11.0) fL Gran % 76.1 H (36.0-66.0) % Immature Gran % (Auto) 0.4 (0.00-0.4) % Nucleat RBC Rel Count 0.0 (0.00-0.1) % Eos # (Auto) 0.29 (0-0.5) x10^3/uL Immature Gran # (Auto) 0.05 H (0.00-0.03) x10^3u/L Absolute Lymphs (auto) 2.33 (1.0-4.6) x10^3/uL Absolute Monos (auto) 0.68 (0.0-1.3) x10^3/uL Absolute Nucleated RBC 0.00 (0.00-0.01) x10^3u/L Lymphocytes % 16.3 L (24.0-44.0) % Monocytes % 4.8 (0.0-12.0) % Eosinophils % 2.0 (0.00-5.0) % Basophils % 0.4 (0.0-0.4) % Absolute Granulocytes 10.86 H (1.4-6.9) x10^3/uL Basophils # 0.06 (0-0.4) x10^3/uL PT 10.3 (9.4-12.5) SECONDS INR 0.94 (0.8-3.0) APTT 26.6 (25.1-36.5) SECONDS Sodium 138 (137-145) mmol/L Potassium 4.2 (3.5-5.1) mmol/L Chloride 104 (98-107) mmol/L Carbon Dioxide 23 (22-30) mmol/L Anion Gap 15.8 H (5-15) MEQ/L BUN 44 H (9-20) mg/dL Creatinine 2.29 H (0.66-1.25) mg/dL Estimated GFR 30.4 ML/MIN Glucose 329 H (74-106) mg/dL Lactic Acid (0.4-2.0) Calcium 8.9 (8.4-10.2) mg/dL Total Bilirubin 0.50 (0.2-1.3) mg/dL AST 20 (17-59) U/L ALT 15 (0-50) U/L Alkaline Phosphatase 137 H (38-126) U/L Troponin I (0.000-0.034) ng/mL Serum Total Protein 6.5 (6.3-8.2) g/dL Albumin 3.4 L (3.5-5.0) g/dL Amylase 50 (30-110) U/L Lipase 16 L (23-300) U/L Urine Color (Yellow) Urine Appearance (Clear) Urine pH (4.6-8.0) Ur Specific [place] (1.005-1.030) Urine Protein (Negative) Urine Glucose (UA) (Negative) mg/dL Urine Ketones (Negative) Urine Blood (Negative) Urine Nitrite (Negative) Urine Bilirubin (Negative) Urine Urobilinogen (0.2) mg/dL Ur Leukocyte Esterase (Negative) U Hyaline Cast (Auto) (0-2) /LPF Urine Microscopic RBC (0-5) /HPF Urine Microscopic WBC (0-5) /HPF Ur Epithelial Cells (None Seen) /HPF Urine Bacteria (None Seen) /HPF Urine Yeast (Budding) (None Seen) /HPF Urine Culture Reflexed (NO) Influenza Type A Ag (NEGATIVE) Influenza Type B Ag (NEGATIVE) RSV (PCR) (NEGATIVE) SARS-CoV-2 (PCR) (NEGATIVE) 01/02/23 Range/Units 11:10 WBC (4.0-10.5) x10^3/uL RBC (4.1-5.6) x10^6/uL Hgb (12.5-18.0) g/dL Hct (42-50) % MCV (78-100) fL MCH (26-32) pg MCHC (32-36) g/dL RDW (11.5-14.0) % Plt Count (150-450) x10^3/uL MPV (7.5-11.0) fL Gran % (36.0-66.0) % Immature Gran % (Auto) (0.00-0.4) % Nucleat RBC Rel Count (0.00-0.1) % Eos # (Auto) (0-0.5) x10^3/uL Immature Gran # (Auto) (0.00-0.03) x10^3u/L Absolute Lymphs (auto) (1.0-4.6) x10^3/uL Absolute Monos (auto) (0.0-1.3) x10^3/uL Absolute Nucleated RBC (0.00-0.01) x10^3u/L Lymphocytes % (24.0-44.0) % Monocytes % (0.0-12.0) % Eosinophils % (0.00-5.0) % Basophils % (0.0-0.4) % Absolute Granulocytes (1.4-6.9) x10^3/uL Basophils # (0-0.4) x10^3/uL PT (9.4-12.5) SECONDS INR (0.8-3.0) APTT (25.1-36.5) SECONDS Sodium (137-145) mmol/L Potassium (3.5-5.1) mmol/L Chloride (98-107) mmol/L Carbon Dioxide (22-30) mmol/L Anion Gap (5-15) MEQ/L BUN (9-20) mg/dL Creatinine (0.66-1.25) mg/dL Estimated GFR ML/MIN Glucose (74-106) mg/dL Lactic Acid 0.9 (0.4-2.0) Calcium (8.4-10.2) mg/dL Total Bilirubin (0.2-1.3) mg/dL AST (17-59) U/L ALT (0-50) U/L Alkaline Phosphatase (38-126) U/L Troponin I (0.000-0.034) ng/mL Serum Total Protein (6.3-8.2) g/dL Albumin (3.5-5.0) g/dL Amylase (30-110) U/L Lipase (23-300) U/L Urine Color (Yellow) Urine Appearance (Clear) Urine pH (4.6-8.0) Ur Specific [place] (1.005-1.030) Urine Protein (Negative) Urine Glucose (UA) (Negative) mg/dL Urine Ketones (Negative) Urine Blood (Negative) Urine Nitrite (Negative) Urine Bilirubin (Negative) Urine Urobilinogen (0.2) mg/dL Ur Leukocyte Esterase (Negative) U Hyaline Cast (Auto) (0-2) /LPF Urine Microscopic RBC (0-5) /HPF Urine Microscopic WBC (0-5) /HPF Ur Epithelial Cells (None Seen) /HPF Urine Bacteria (None Seen) /HPF Urine Yeast (Budding) (None Seen) /HPF Urine Culture Reflexed (NO) Influenza Type A Ag (NEGATIVE) Influenza Type B Ag (NEGATIVE) RSV (PCR) (NEGATIVE) SARS-CoV-2 (PCR) (NEGATIVE) - Progress Progress Note: 01/02/23 14:05 Obs per 01/02/23 18:46 Nursing note and vital signs reviewed No food or housing insecurities noted Hemoccult + from NH per lab 40mg IV Protonix/4mg IV Zofran 01/02/23 18:48 Zosyn 3.375mg IV 01/02/23 18:52 Pt is a full code All lab results reviewed and shared w pt CT results reviewed and shared w pt Counseled pt/family regarding: lab results, diagnosis, rad results Medical Desision Making - Independent Historian Additional History obtained from: [facility] nurse - Discussion of managment Care discussed with:: hospitalist Agreed on:: Treatment plan, place in obs Will see patient: in hospital - Diagnostic Testing Diagnostic test were ordered, analyzed, and reviewed by me: Yes Radiological Interpretation: Reviewed by me - Risk of complications The pt has a high risk of morbidity or mortality based on: Decision regarding hospitilization or escalation of hosp level of care - Departure Departure Disposition: Observation Clinical Impression: GI bleed, Chronic UTI Condition: Stable Critical Care Time: No
[2023-01-02 11:30] LABS: Absolute Neutrophil Ct (ANC) 10.86 x10^3/uL (1.4-6.9); BASOPHIL % 0.4 % (0.0-0.4); Basophil (Absolute #) 0.06 x10^3/uL (0-0.4); Eosinophil (Absolute #) 0.29 x10^3/uL (0-0.5); Hematocrit 34.8 % (42-50); IMMATURE GRAN # 0.05 x10^3u/L (0.00-0.03); IMMATURE GRAN % 0.4 % (0.00-0.4); Lymphocyte (Absolute #) 2.33 x10^3/uL (1.0-4.6); Lymphocytes % 16.3 % (24.0-44.0); Mean Cell Volume 92.6 fL (78-100); Mean Corpuscular Hemoglobin 29.3 pg (26-32); Mean Corpuscular Hgb Concent. 31.6 g/dL (32-36); Mean Platelet Volume 10.7 fL (7.5-11.0); Monocyte (Absolute #) 0.68 x10^3/uL (0.0-1.3); Monocytes % 4.8 % (0.0-12.0); Neutrophil % 76.1 % (36.0-66.0); Platelet Count 205 x10^3/uL (150-450); Red Blood Count 3.76 x10^6/uL (4.1-5.6); Red Cell Distribution Width 12.7 % (11.5-14.0); White Blood Count 14.3 x10^3/uL (4.0-10.5)
[2023-01-02] MEDS ORDERED: Zofran 4 MG/2 ML VIAL ONE (11:36)
[2023-01-02 11:52] LABS: ALBUMIN 3.4 g/dL (3.5-5.0); ANION GAP 15.8 MEQ/L (5-15); BILIRUBIN,TOTAL 0.5 mg/dL (0.2-1.3); Calcium 8.9 mg/dL (8.4-10.2); Creatinine 1 2.29 mg/dL (0.66-1.25); EST GLOMERULAR FILTRATION RATE 30.4 ML/MIN; Potassium 4.2 mmol/L (3.5-5.1); Total Protein 6.5 g/dL (6.3-8.2)
[2023-01-02 11:59] LABS: INR 0.94 (0.8-3.0); PROTIME 10.3 SECONDS (9.4-12.5); PTT 26.6 SECONDS (25.1-36.5)
[2023-01-02 12:16] LABS: INFLUENZA A NEGATIVE (NEGATIVE); INFLUENZA B NEGATIVE (NEGATIVE); RESPIRATORY SYNCTIAL VIRUS NEGATIVE (NEGATIVE); SARS-CoV-2 Xpert Express NEGATIVE (NEGATIVE)
--- NOTE | 2023-01-02 13:09 | XRAY ---
Indication: Right lower quadrant pain. Vomiting and diarrhea. Multiple contiguous axial images obtained through the abdomen and pelvis without contrast. Comparison: September 10, 2015 Lung bases again demonstrate scattered subsegmental atelectasis/scarring. Heart not enlarged. Stable small hiatal hernia. Noncontrasted stomach and bowel loops nonobstructed. Appendix not visualized. Rectum now fluid distended favoring diarrhea. Also new mild rectal wall thickening with perirectal stranding favoring proctitis. Near empty urinary bladder with suprapubic catheter in situ. New 1 cm left mid and 1.8 cm right mid renal cortical cysts. Again a few hepatic/splenic calcified granulomas and cholecystectomy. No free fluid/air. Remaining liver, pancreas, spleen, adrenal glands, kidneys, ureters, and bladder are unremarkable for noncontrast exam. Progressive worsening diffuse scattered or sclerotic calcifications including both renal arteries. Osseous structures intact with again osteopenia. New L5-S1 degenerative vacuum disc phenomena. Impression: 1. New mild rectal wall thickening with stranding favoring proctitis. 2. New bilateral renal cysts and suprapubic catheter in situ. 3. Again chronic findings including hiatal hernia, arteriosclerotic disease, chronic bony findings, and old granulomatous disease.
[2023-01-02 13:49] LABS: Appearance Turbid (Clear); Bacteria Few /HPF (None Seen); Bilirubin Negative (Negative); Blood Moderate (Negative); Epithelial Cells None Seen /HPF (None Seen); Glucose, Urine 500 mg/dL (Negative); Ketones Trace (Negative); Leukocyte Esterase Large (Negative); Nitrite Negative (Negative); Protein,Urine Dip 30 (Negative); Specific Gravity 1.015 (1.005-1.030); Urobilinogen 0.2 mg/dL (0.2); WBC >100 /HPF (0-5)
[2023-01-02 13:50] LABS: ADD URINE CULTURE? ORDERED SEPARATELY (NO); Budding Yeast Few /HPF (None Seen)
--- NOTE | 2023-01-02 16:36 | PCM.HP ---
History of Present Illness - Chief Complaint Chief Complaint: gi bleed, uti Date: 01/02/23 History of Present Illness: is a 67 year old male with hx of Type II DM, BLLE amputee, CKD (no longer on dialysis), HTN, Hyperlipidemia, adrenal insufficency, GERD, BPH, anxiety, urinary retention, and chronic UTI. Pt lives at a senior care. He was brought in to the ER for C/O right sided abdominal pain with N/V/D that started last night. Patient and nurse from the senior care both report nausea for approx one month that correlates with the time of started ozempic medication. Pt reports coffee ground emesis, and dark stools that started last night. Hgb is stable at 11.0. Pt also has an open sore to his right knee/stump area. Patient indicates this is from a sunburn. Afebrile. - Review of Systems Constitutional: No Fever, No Chills Eyes: No Symptoms Ears, Nose, & Throat: No Symptoms Respiratory: No Cough, No Short Of Breath Cardiac: No Chest Pain, No Edema, No Syncope Abdominal/Gastrointestinal: Abdominal Pain, Nausea, Vomiting (dark coffe ground emesis), Diarrhea (dark black) Genitourinary Symptoms: No Dysuria Musculoskeletal: No Back Pain, No Neck Pain Skin: Skin Lesions (right below the knee blister from sun burn), No Rash Neurological: No Dizziness, No Focal Weakness, No Sensory Changes Psychological: No Symptoms Endocrine: No Symptoms Hematologic/Lymphatic: No Symptoms Immunological/Allergic: No Symptoms Medications & Allergies Home Medications: Home Medication List Metoclopramide HCl 10 mg [Reglan 10 MG] 10 mg PO [facility] 01/02/13 [History Confirmed 01/02/23] Insulin Aspart [NovoLOG Insulin] 1 unit SQ [facility] 06/07/15 [History Confirmed 01/02/23] Fluticasone Propionate [Flonase NASAL] 50 mcg IH DAILY 12/25/17 [History Confirmed 01/02/23] Loratadine 10 mg [Claritin 10 mg] 10 mg PO DAILY #90 tablet 12/26/17 [Rx Confirmed 01/02/23] Metoprolol Tartrate 25 mg [Lopressor 25MG Tab] 25 mg PO BID #180 tab 12/26/17 [Rx Confirmed 01/02/23] Acetaminophen 325 mg [Tylenol 325 mg] 650 mg PO Q4HPRN PRN 01/02/23 [History Confirmed 01/02/23] Aspirin EC 81 mg [Ecotrin 81 mg] 81 mg PO DAILY 01/02/23 [History Confirmed 01/02/23] Cilostazol 100 mg [Pletal 100 MG] 50 mg PO DAILY 01/02/23 [History Confirmed 01/02/23] Duloxetine HCl 30 mg [Cymbalta 30 MG Capsule] 60 mg PO DAILY 01/02/23 [History Confirmed 01/02/23] Ergocalciferol (Vitamin D2) [Vitamin D2] 50,000 unit PO Q7D 01/02/23 [History Confirmed 01/02/23] Ferrous Sulfate 325 mg [Feosol 325 mg] 325 mg PO TID 01/02/23 [History Confirmed 01/02/23] Folic Acid 1 mg [Folate 1 mg] 1 mg PO DAILY 01/02/23 [History Confirmed 0 01/02/23] Gabapentin 300 mg PO TID 01/02/23 [History Confirmed 01/02/23] Hydrocodone/Acetaminophen [Hydrocodone-Acetamin 10-325 mg] 1 tab PO BID 01/02/23 [History Confirmed 01/02/23] Insulin Lispro [Humalog Kwikpen U-100] 5 units SQ BREAKFAST 01/02/23 [History Confirmed 01/02/23] Insulin Lispro [Humalog Kwikpen U-100] 7 units SQ 1130,1630 01/02/23 [History Confirmed 01/02/23] Lactobacillus Acidophilus [Acidophilus] 1 each PO BID 01/02/23 [History Confirmed 01/02/23] Potassium Chloride 10 meq PO DAILY 01/02/23 [History Confirmed 01/02/23] Pravastatin Sodium 20 mg PO QHS 01/02/23 [History Confirmed 01/02/23] Semaglutide [Ozempic] 0.25 mg SQ WEEKLY 01/02/23 [History Confirmed 01/02/23] Senna 8.6 mg [Senokot 8.6 mg] 2 tab PO EVENING MEAL 01/02/23 [History Confirmed 01/02/23] Simethicone 125 mg PO QID 01/02/23 [History Confirmed 01/02/23] Solifenacin Succinate 5 mg PO DAILY 01/02/23 [History Confirmed 01/02/23] Allergies/Adverse Reactions: Allergies Allergy/AdvReac Type Severity Reaction Status Date / Time morphine Allergy Mild Verified 01/02/23 11:03 Penicillins AdvReac Headache Verified 01/02/23 11:03 - Past Medical History Past Medical History: Yes Neurological History: Peripheral Neuropathy ENT History: Cataracts, Other Cardiac History: High Cholesterol, Hypertension, Other Respiratory History: Other Endocrine Medical History: Diabetes Type II, Adrenal Insufficiency Musculoskelatal History: Other GI Medical History: GERD, Gallbladder Disease, Other History: Renal Disease, Dialysis Pyscho-Social History: Anxiety Male Reproductive Disorders: Prostate Problems Comment: seasonal allergic rhinitis, hyperlipidemia, BPH, MRSA, Covid-19, dysphagia, phantom limb syndrome, urinay retention, neuorgenic bladder, lateral elbow epicondylitis, gastoparesis, chronic resp. failure, fluid overload - Past Surgical History Past Surgical History: Yes Neuro Surgical History: No Pertinent History Cardiac History: CABG, Cardiac Stent, Cardiac Catheterization Respiratory Surgery: No Pertinent History GI Surgical History: Cholecystectomy Genitourinary Surgical Hx: Other Musculskeletal Surgical Hx: Amputation Male Surgical History: No Pertinent History Other Surgical History: has had laser on both eyes has had peritoneal dialysis catheter. has had triple bypass, has 1 stent. bilateral bka - Social History Smoking Status: Never smoker Exposure to second hand smoke: No Alcohol: None Drug Use: none - Physical Exam Vital Signs: Vital Signs - 24 hr Temp Pulse Resp BP BP Pulse Ox 01/02/23 14:46 98.7 F 94 H 17 140/62 97 01/02/23 14:16 94 H 13 144/71 96 01/02/23 14:15 91 H 15 93 L 01/02/23 14:10 90 11 L 94 L 01/02/23 14:09 98 01/02/23 14:00 89 12 95 01/02/23 13:50 90 16 96 01/02/23 13:40 90 14 94 L 01/02/23 13:30 89 13 93 L 08/28/23 13:20 92 H 13 93 L 08/28/23 13:10 91 H 16 01/02/23 13:00 92 H 12 96 01/02/23 12:50 93 H 13 96 01/02/23 12:40 94 H 12 97 01/02/23 12:35 94 H 13 96 01/02/23 12:20 95 H 14 01/02/23 12:10 97 H 12 01/02/23 12:02 93 H 13 01/02/23 11:00 94 H 14 137/57 01/02/23 10:48 98.3 F 98 H 16 145/62 98 General Appearance: no apparent distress, alert Neurologic Exam: alert, oriented x 3, cooperative, normal mood/affect, nml cerebellar function, nml station & gait, sensation nml, No motor deficits Eye Exam: PERRL/EOMI, eyes nml inspection Ears, Nose, Throat Exam: normal ENT inspection, TMs normal, pharynx normal, moist mucous membranes Neck Exam: normal inspection, non-tender, supple, full range of motion Respiratory Exam: normal breath sounds, lungs clear, No respiratory distress Cardiovascular Exam: regular rate/rhythm, normal heart sounds, normal peripheral pulses Gastrointestinal/Abdomen Exam: soft, normal bowel sounds, tenderness (generalized), No mass Back Exam: normal inspection, normal range of motion, No CVA tenderness, No vertebral tenderness Extremity Exam: normal inspection, normal range of motion, pelvis stable Skin Exam: normal color, warm, dry, No rash Wound Assessment: Skin/Wound Assessment Wound/Incision Assessment Start: 01/02/23 15:21 Text: Status: Active Freq: Q6H Protocol: Document 01/02/23 15:37 RB (Rec: 01/02/23 15:46 RB [id number]) Wound/Incision Assessment [facility] Chest Wound Assessment Admission Wound Stage Non Pressure Wound Dressing Status Dry & Intact Drainage Amount None General Appearance Well Approximated Length (cm) (cm) 1 Width (cm) (cm) 1.5 Surrounding Tissue [place] Comment pt reports wound from CPR on monday after an episode resulting from an infusion Wound Photo Photo Taken Yes Date: 01/02/23 Time: 15:46 Lymphatic Exam: No adenopathy Results - Labs Lab/Micro Results: Lab Results-Last 24 Hours 01/02/23 01/02/23 01/02/23 Range/Units 11:10 11:12 11:12 WBC 14.3 H (4.0-10.5) x10^3/uL RBC 3.76 L (4.1-5.6) x10^6/uL Hgb 11.0 L (12.5-18.0) g/dL Hct 34.8 L (42-50) % MCV 92.6 (78-100) fL MCH 29.3 (26-32) pg MCHC 31.6 L (32-36) g/dL RDW 12.7 (11.5-14.0) % Plt Count 205 (150-450) x10^3/uL MPV 10.7 (7.5-11.0) fL Gran % 76.1 H (36.0-66.0) % Immature Gran % (Auto) 0.4 (0.00-0.4) % Nucleat RBC Rel Count 0.0 (0.00-0.1) % Eos # (Auto) 0.29 (0-0.5) x10^3/uL Immature Gran # (Auto) 0.05 H (0.00-0.03) x10^3u/L Absolute Lymphs (auto) 2.33 (1.0-4.6) x10^3/uL Absolute Monos (auto) 0.68 (0.0-1.3) x10^3/uL Absolute Nucleated RBC 0.00 (0.00-0.01) x10^3u/L Lymphocytes % 16.3 L (24.0-44.0) % Monocytes % 4.8 (0.0-12.0) % Eosinophils % 2.0 (0.00-5.0) % Basophils % 0.4 (0.0-0.4) % Absolute Granulocytes 10.86 H (1.4-6.9) x10^3/uL Basophils # 0.06 (0-0.4) x10^3/uL PT (9.4-12.5) SECONDS INR (0.8-3.0) APTT (25.1-36.5) SECONDS Sodium 138 (137-145) mmol/L Potassium 4.2 (3.5-5.1) mmol/L Chloride 104 (98-107) mmol/L Carbon Dioxide 23 (22-30) mmol/L Anion Gap 15.8 H (5-15) MEQ/L BUN 44 H (9-20) mg/dL Creatinine 2.29 H (0.66-1.25) mg/dL Estimated GFR 30.4 ML/MIN Glucose 329 H (74-106) mg/dL POC Glucometer (74 to 106) mg/dL Lactic Acid 0.9 (0.4-2.0) Calcium 8.9 (8.4-10.2) mg/dL Total Bilirubin 0.50 (0.2-1.3) mg/dL AST 20 (17-59) U/L ALT 15 (0-50) U/L Alkaline Phosphatase 137 H (38-126) U/L Troponin I (0.000-0.034) ng/mL Serum Total Protein 6.5 (6.3-8.2) g/dL Albumin 3.4 L (3.5-5.0) g/dL Amylase 50 (30-110) U/L Lipase 16 L (23-300) U/L Urine Color (Yellow) Urine Appearance (Clear) Urine pH (4.6-8.0) Ur Specific [place] (1.005-1.030) Urine Protein (Negative) Urine Glucose (UA) (Negative) mg/dL Urine Ketones (Negative) Urine Blood (Negative) Urine Nitrite (Negative) Urine Bilirubin (Negative) Urine Urobilinogen (0.2) mg/dL Ur Leukocyte Esterase (Negative) U Hyaline Cast (Auto) (0-2) /LPF Urine Microscopic RBC (0-5) /HPF Urine Microscopic WBC (0-5) /HPF Ur Epithelial Cells (None Seen) /HPF Urine Bacteria (None Seen) /HPF Urine Yeast (Budding) (None Seen) /HPF Urine Culture Reflexed (NO) Influenza Type A Ag (NEGATIVE) Influenza Type B Ag (NEGATIVE) RSV (PCR) (NEGATIVE) SARS-CoV-2 (PCR) (NEGATIVE) 01/02/23 01/02/23 01/02/23 Range/Units 11:12 11:12 11:12 WBC (4.0-10.5) x10^3/uL RBC (4.1-5.6) x10^6/uL Hgb (12.5-18.0) g/dL Hct (42-50) % MCV (78-100) fL MCH (26-32) pg MCHC (32-36) g/dL RDW (11.5-14.0) % Plt Count (150-450) x10^3/uL MPV (7.5-11.0) fL Gran % (36.0-66.0) % Immature Gran % (Auto) (0.00-0.4) % Nucleat RBC Rel Count (0.00-0.1) % Eos # (Auto) (0-0.5) x10^3/uL Immature Gran # (Auto) (0.00-0.03) x10^3u/L Absolute Lymphs (auto) (1.0-4.6) x10^3/uL Absolute Monos (auto) (0.0-1.3) x10^3/uL Absolute Nucleated RBC (0.00-0.01) x10^3u/L Lymphocytes % (24.0-44.0) % Monocytes % (0.0-12.0) % Eosinophils % (0.00-5.0) % Basophils % (0.0-0.4) % Absolute Granulocytes (1.4-6.9) x10^3/uL Basophils # (0-0.4) x10^3/uL PT 10.3 (9.4-12.5) SECONDS INR 0.94 (0.8-3.0) APTT 26.6 (25.1-36.5) SECONDS Sodium (137-145) mmol/L Potassium (3.5-5.1) mmol/L Chloride (98-107) mmol/L Carbon Dioxide (22-30) mmol/L Anion Gap (5-15) MEQ/L BUN (9-20) mg/dL Creatinine (0.66-1.25) mg/dL Estimated GFR ML/MIN Glucose (74-106) mg/dL POC Glucometer (74 to 106) mg/dL Lactic Acid (0.4-2.0) Calcium (8.4-10.2) mg/dL Total Bilirubin (0.2-1.3) mg/dL AST (17-59) U/L ALT (0-50) U/L Alkaline Phosphatase (38-126) U/L Troponin I < 0.012 (0.000-0.034) ng/mL Serum Total Protein (6.3-8.2) g/dL Albumin (3.5-5.0) g/dL Amylase (30-110) U/L Lipase (23-300) U/L Urine Color (Yellow) Urine Appearance (Clear) Urine pH (4.6-8.0) Ur Specific [place] (1.005-1.030) Urine Protein (Negative) Urine Glucose (UA) (Negative) mg/dL Urine Ketones (Negative) Urine Blood (Negative) Urine Nitrite (Negative) Urine Bilirubin (Negative) Urine Urobilinogen (0.2) mg/dL Ur Leukocyte Esterase (Negative) U Hyaline Cast (Auto) (0-2) /LPF Urine Microscopic RBC (0-5) /HPF Urine Microscopic WBC (0-5) /HPF Ur Epithelial Cells (None Seen) /HPF Urine Bacteria (None Seen) /HPF Urine Yeast (Budding) (None Seen) /HPF Urine Culture Reflexed (NO) Influenza Type A Ag NEGATIVE (NEGATIVE) Influenza Type B Ag NEGATIVE (NEGATIVE) RSV (PCR) NEGATIVE (NEGATIVE) SARS-CoV-2 (PCR) NEGATIVE (NEGATIVE) 01/02/23 01/02/23 Range/Units 13:04 14:48 WBC (4.0-10.5) x10^3/uL RBC (4.1-5.6) x10^6/uL Hgb (12.5-18.0) g/dL Hct (42-50) % MCV (78-100) fL MCH (26-32) pg MCHC (32-36) g/dL RDW (11.5-14.0) % Plt Count (150-450) x10^3/uL MPV (7.5-11.0) fL Gran % (36.0-66.0) % Immature Gran % (Auto) (0.00-0.4) % Nucleat RBC Rel Count (0.00-0.1) % Eos # (Auto) (0-0.5) x10^3/uL Immature Gran # (Auto) (0.00-0.03) x10^3u/L Absolute Lymphs (auto) (1.0-4.6) x10^3/uL Absolute Monos (auto) (0.0-1.3) x10^3/uL Absolute Nucleated RBC (0.00-0.01) x10^3u/L Lymphocytes % (24.0-44.0) % Monocytes % (0.0-12.0) % Eosinophils % (0.00-5.0) % Basophils % (0.0-0.4) % Absolute Granulocytes (1.4-6.9) x10^3/uL Basophils # (0-0.4) x10^3/uL PT (9.4-12.5) SECONDS INR (0.8-3.0) APTT (25.1-36.5) SECONDS Sodium (137-145) mmol/L Potassium (3.5-5.1) mmol/L Chloride (98-107) mmol/L Carbon Dioxide (22-30) mmol/L Anion Gap (5-15) MEQ/L BUN (9-20) mg/dL Creatinine (0.66-1.25) mg/dL Estimated GFR ML/MIN Glucose (74-106) mg/dL POC Glucometer 274 H (74 to 106) mg/dL Lactic Acid (0.4-2.0) Calcium (8.4-10.2) mg/dL Total Bilirubin (0.2-1.3) mg/dL AST (17-59) U/L ALT (0-50) U/L Alkaline Phosphatase (38-126) U/L Troponin I (0.000-0.034) ng/mL Serum Total Protein (6.3-8.2) g/dL Albumin (3.5-5.0) g/dL Amylase (30-110) U/L Lipase (23-300) U/L Urine Color Yellow (Yellow) Urine Appearance Turbid A (Clear) Urine pH 5.0 (4.6-8.0) Ur Specific [place] 1.015 (1.005-1.030) Urine Protein 30 (Negative) Urine Glucose (UA) 500 A (Negative) mg/dL Urine Ketones Trace A (Negative) Urine Blood Moderate A (Negative) Urine Nitrite Negative (Negative) Urine Bilirubin Negative (Negative) Urine Urobilinogen 0.2 (0.2) mg/dL Ur Leukocyte Esterase Large A (Negative) U Hyaline Cast (Auto) 11-20 (0-2) /LPF Urine Microscopic RBC 6-10 A (0-5) /HPF Urine Microscopic WBC >100 A (0-5) /HPF Ur Epithelial Cells None Seen (None Seen) /HPF Urine Bacteria Few A (None Seen) /HPF Urine Yeast (Budding) Few A (None Seen) /HPF Urine Culture Reflexed ORDERED SEPARATELY (NO) Influenza Type A Ag (NEGATIVE) Influenza Type B Ag (NEGATIVE) RSV (PCR) (NEGATIVE) SARS-CoV-2 (PCR) (NEGATIVE) - Radiology Impressions Radiology Exams & Impressions: Radiology Procedures Category Date Time Status ABDOMEN AND PELVIS W/0 CONTRAS [CT] Stat Exams 01/02/23 12:02 Completed Assessment/Plan (1) Acute proctitis Current Visit: Yes Status: Acute Assessment & Plan: - Zosyn Q6 - UC pending - Landers in place - pt has a hx of chronic UTIs and urinary retention Code(s): K62.89 - OTHER SPECIFIED DISEASES OF ANUS AND RECTUM (2) Dark stools Current Visit: Yes Status: Acute Assessment & Plan: - pt does take PO iron for chronic anemia r/t CRF - Occult stool sent in last night from [facility]CF + - Diarrhea has stopped since admission - H& H Q6 - Surgery consult in AM - NPO at midnight - Hgb on admission stable at 11- trend Code(s): R19.5 - OTHER FECAL ABNORMALITIES (3) Coffee ground emesis Current Visit: Yes Status: Acute Assessment & Plan: - NPO at midnight - PRN zofran - Pantoprazole 40mg IV BID - H&H Q6 Code(s): K92.0 - HEMATEMESIS (4) CRF (chronic renal failure) Current Visit: Yes Status: Acute Assessment & Plan: - Pt has a hx of being on dialysis and reports this was stopped by nephrology several years ago. - trend labs (5) Type 2 diabetes mellitus Current Visit: Yes Status: Acute Assessment & Plan: - Controlled - A1C 6.94 on 09/05/22 - Stop Ozempic as pt feels sxs started with this medication. - Moderate dose s/s, and continue home insulin dosing. (6) Blister Current Visit: Yes Status: Acute Assessment & Plan: - pt reports this is from recent sunburn - ok to keep open to air. - Keep clean and dry Code(s): T14.8XXA - OTHER INJURY OF UNSPECIFIED BODY REGION, INITIAL ENCOUNTER (7) Anemia in chronic renal disease Current Visit: Yes Status: Acute Assessment & Plan: - chronic- stable - continue home iron dose Code(s): N18.9 - CHRONIC KIDNEY DISEASE, UNSPECIFIED; D63.1 - ANEMIA IN CHRONIC KIDNEY DISEASE (8) Chronic UTI Current Visit: Yes Status: Acute Assessment & Plan: - Zosyn started - urine culture pending VTE: held due to possible bleeding PPI: pantoprazole Code: full Next of kin: Deepthi Nichols [phone] D/C plan: 1-2 days Code(s): N39.0 - URINARY TRACT INFECTION, SITE NOT SPECIFIED
[2023-01-02] MEDS ORDERED: TYLENOL 325 MG PO PRN (17:06)
[2023-01-02] MEDS ORDERED: Golytely Solution 4000 ML PO ONE (17:30)
[2023-01-02] MEDS ORDERED: MEDICATION INTERVENTION MC SCH (17:30)
[2023-01-02] MEDS: HUMALOG SQ PRN ×2 (17:54→23:41)
[2023-01-02] MEDS: Piperacillin/Tazobactam 2.25 GM 2.25 GM in Sodium Chloride 100ML MINI-BAG PLUS 100 ML IV SCH (17:54)
[2023-01-02] MEDS ORDERED: PIPERACILLIN/TAZOBACTAM 3.375 GM in Sodium Chloride 100ML MINI-BAG PLUS 100 ML IV SCH (18:00)
[2023-01-02 18:12] LABS: Hematocrit 34.9 % (42-50)
[2023-01-02] MEDS ORDERED: NON-FORMULARY ITEM (Pravastatin Sodium [Pravastatin Sodium] 20 MG Tablet) PO SCH (22:00)
[2023-01-02] MEDS ORDERED: NON-FORMULARY ITEM (Lactobacillus Acidophilus [Acidophilus] 1 EACH Capsule) PO SCH (22:00)
[2023-01-02] MEDS: NEURONTIN PO SCH (22:01)
[2023-01-02] MEDS: Reglan 10 MG PO SCH (22:01)
[2023-01-02] MEDS: HYDROCODONE-ACETAMIN 10-325 MG PO SCH (22:54)
[2023-01-02] MEDS: Acidophilus TABLET PO SCH (22:57)
[2023-01-02] MEDS: Lopressor 25MG Tab PO SCH (22:57)
[2023-01-02] MEDS: ZOCOR 20MG PO SCH (22:57)
[2023-01-02] MEDS: FEOSOL 325 MG PO SCH (22:57)
[2023-01-02] MEDS ORDERED: Lantus Insulin SQ ONE ×2 (23:06)
[2023-01-03 00:08] LABS: Hemoglobin 10.7 g/dL (12.5-18.0)
[2023-01-03] MEDS: PROTONIX 40 MG IV IV SCH ×3 (02:01→22:05)
[2023-01-03] MEDS: Zofran 4 MG/2 ML VIAL IV PRN ×3 (02:17→16:48)
[2023-01-03] MEDS: Piperacillin/Tazobactam 2.25 GM 2.25 GM in Sodium Chloride 100ML MINI-BAG PLUS 100 ML IV SCH ×4 (02:20→22:26)
[2023-01-03 05:00] LABS: Hematocrit 32.5 % (42-50); Hemoglobin 10.2 g/dL (12.5-18.0); Mean Cell Volume 90.5 fL (78-100); Mean Corpuscular Hemoglobin 28.4 pg (26-32); Mean Corpuscular Hgb Concent. 31.4 g/dL (32-36); Mean Platelet Volume 10.4 fL (7.5-11.0); Platelet Count 210 x10^3/uL (150-450); Red Blood Count 3.59 x10^6/uL (4.1-5.6); Red Cell Distribution Width 12.7 % (11.5-14.0); White Blood Count 13.1 x10^3/uL (4.0-10.5)
[2023-01-03 05:25] LABS: ALBUMIN 3.1 g/dL (3.5-5.0); ANION GAP 10.5 MEQ/L (5-15); BILIRUBIN,TOTAL 0.4 mg/dL (0.2-1.3); Calcium 8.4 mg/dL (8.4-10.2); Creatinine 1 2.08 mg/dL (0.66-1.25); EST GLOMERULAR FILTRATION RATE 33.9 ML/MIN; Potassium 3.3 mmol/L (3.5-5.1); Total Protein 6.1 g/dL (6.3-8.2)
[2023-01-03] MEDS ORDERED: NON-FORMULARY ITEM (Insulin Lispro [Humalog Kwikpen U-100] 100 UNIT/ML Insuln.Pen) SQ SCH ×2 (08:00→11:30)
[2023-01-03] MEDS: Klor Con PO SCH ×6 (09:59→14:12)
[2023-01-03] MEDS ORDERED: Pletal 100 MG PO SCH (10:00)
[2023-01-03] MEDS ORDERED: NON-FORMULARY ITEM (Solifenacin Succinate [Solifenacin Succinate] 5 MG Tablet) PO SCH (10:00)
[2023-01-03] MEDS ORDERED: NON-FORMULARY ITEM (Potassium Chloride [Potassium Chloride] 10 MEQ Capsule.Er) PO SCH (10:00)
[2023-01-03] MEDS: Reglan 10 MG PO SCH ×4 (10:01→22:05)
[2023-01-03] MEDS: HYDROCODONE-ACETAMIN 10-325 MG PO SCH ×2 (10:01→22:05)
[2023-01-03] MEDS: FEOSOL 325 MG PO SCH ×3 (10:02→22:05)
[2023-01-03] MEDS: Cymbalta 30 MG Capsule PO SCH (10:02)
[2023-01-03] MEDS: FOLATE 1 MG PO SCH (10:02)
[2023-01-03] MEDS: Acidophilus TABLET PO SCH ×2 (10:02→22:06)
[2023-01-03] MEDS: ECOTRIN 81 MG PO SCH (10:03)
[2023-01-03] MEDS: CLARITIN 10 MG PO SCH (10:03)
[2023-01-03] MEDS: NEURONTIN PO SCH ×3 (10:03→22:07)
[2023-01-03] MEDS: Flonase NASAL NS SCH (10:04)
[2023-01-03] MEDS: HUMALOG SQ SCH ×3 (10:12→16:41)
[2023-01-03] MEDS: Lopressor 25MG Tab PO SCH ×2 (10:14→22:07)
--- NOTE | 2023-01-03 14:09 | PCM.NOTE ---
Date and Time: 01/03/23 7497 Subjective Assessment: DOS: 01/03/23 01/02/23 is a 67 year old male with hx of Type II DM, BLLE amputee, CKD (no longer on dialysis), HTN, Hyperlipidemia, adrenal insufficency, GERD, BPH, anxiety, urinary retention, and chronic UTI. Pt lives at a [facility]. He was brought in to the ER for C/O right sided abdominal pain with N/V/D that started last night. Patient and nurse from the [facility]-way both report nausea for approx one month that correlates with the time of started ozempic medication. Pt reports coffee ground emesis, and dark stools that started last night. Hgb is stable at 11.0. Pt also has an open sore to his right knee/stump area. Patient indicates this is from a sunburn. Afebrile. 01/03/23 Pt resting in bed. General surgery ordered bowel prep last night and pt is still not clear this morning. Plan is for EGD and colonoscopy tomorrow and to continue prep. Pt's hgb is stable at 10.2 today. He had no overnight N/V, and no dark or bloody stools. He denies any further c/o at this time. - Review of Systems Constitutional: No Fever, No Chills Eyes: No Symptoms Ears, Nose, & Throat: No Symptoms Respiratory: No Cough, No Short Of Breath Cardiac: No Chest Pain, No Edema, No Syncope Abdominal/Gastrointestinal: Diarrhea, No Abdominal Pain, No Nausea, No Vomiting Genitourinary Symptoms: No Dysuria Musculoskeletal: No Back Pain, No Neck Pain Skin: Skin Lesions (mid chest and RLE), No Rash Neurological: No Dizziness, No Focal Weakness, No Sensory Changes Psychological: No Symptoms Endocrine: No Symptoms Hematologic/Lymphatic: No Symptoms Immunological/Allergic: No Symptoms Objective Exam General Appearance: no apparent distress, alert Neurologic Exam: alert, oriented x 3, cooperative, normal mood/affect, nml cerebellar function, sensation nml, No motor deficits Skin Exam: normal color, warm, dry, abrasion (Mid chest abrasion pt reports he was scratched [employer] at [facility], dime size wound appears to be healing. RLE blister- pt reports from a sunburn [employer]. Quater size lesion appears to be healing.) Wound Assessment: Skin/Wound Assessment Wound/Incision Assessment Start: 01/02/23 15:21 Text: Status: Active Freq: Q6H Protocol: Document 01/03/23 09:48 DAWN (Rec: 01/03/23 09:51 DAWN [id number]) Wound/Incision Assessment Medial Chest Wound Assessment Shift Assessment Wound Type Abrasion Wound Stage Non Pressure Wound Drainage Amount None Drainage Odor None/Absent General Appearance Well Approximated,Clean/Dry Length (cm) (cm) 2 Width (cm) (cm) 1 Depth (cm) (cm) 0 Wound Bed Greatest Portion Red (Granulation) Surrounding Tissue [place] Posterior Medial Sacrum Wound Assessment Shift Assessment Wound Type from a ring during CPR Wound Stage Stage I Drainage Amount None Drainage Odor None/Absent Wound Photo Photo Taken Yes Date: 01/02/23 Time: 15:46 Eye Exam: PERRL, EOMI, eyes nml inspection Ears, Nose, Throat Exam: normal ENT inspection, pharynx normal, moist mucous membranes Neck Exam: normal inspection, non-tender, supple, full range of motion Respiratory Exam: normal breath sounds, lungs clear, No respiratory distress Cardiovascular Exam: regular rate/rhythm, normal heart sounds Gastrointestinal/Abdomen Exam: soft, No tenderness, No mass Extremity Exam: normal inspection, normal range of motion Back Exam: normal inspection, normal range of motion, No CVA tenderness, No vertebral tenderness Male Genitalia Exam: deferred Rectal Exam: deferred OBJECTIVE DATA Vital Signs: Vital Signs - 24 hr Temp Pulse Resp BP BP Pulse Ox 01/03/23 11:07 98.7 F 78 16 174/61 97 01/03/23 06:44 98.0 F 79 16 139/62 96 01/03/23 04:00 98.6 F 68 16 132/76 94 L 01/03/23 00:00 97 F 70 16 136/78 01/02/23 20:00 98.7 F 94 H 140/62 98 01/02/23 18:53 98 01/02/23 14:46 98.7 F 94 H 17 140/62 97 01/02/23 14:16 94 H 13 144/71 96 01/02/23 14:15 91 H 15 93 L 01/02/23 14:10 90 11 L 94 L 01/02/23 14:00 89 12 95 Pain Assessment - Last Documented Pain Intensity 5 Pain Scale Used 0-10 Pain Scale Intake and Output: Intake & Output 01/01/23 01/02/23 01/03/23 01/04/23 11:59 11:59 11:59 11:59 Intake Total 1840 380 Output Total 880 Balance 960 380 Weight 90.1 kg 88.2 kg Lab Results: Lab Results-Last 24 Hours 01/02/23 01/02/23 01/02/23 Range/Units 14:48 16:15 18:05 WBC (4.0-10.5) x10^3/uL RBC (4.1-5.6) x10^6/uL Hgb (12.5-18.0) g/dL Hct (42-50) % MCV (78-100) fL MCH (26-32) pg MCHC (32-36) g/dL RDW (11.5-14.0) % Plt Count (150-450) x10^3/uL MPV (7.5-11.0) fL Sodium (137-145) mmol/L Potassium (3.5-5.1) mmol/L Chloride (98-107) mmol/L Carbon Dioxide (22-30) mmol/L Anion Gap (5-15) MEQ/L BUN (9-20) mg/dL Creatinine (0.66-1.25) mg/dL Estimated GFR ML/MIN Glucose (74-106) mg/dL POC Glucometer 274 H (74 to 106) mg/dL Hemoglobin A1c (4.5-6.0) % Calcium (8.4-10.2) mg/dL Magnesium (1.6-2.3) mg/dL Total Bilirubin (0.2-1.3) mg/dL AST (17-59) U/L ALT (0-50) U/L Alkaline Phosphatase (38-126) U/L Troponin I 0.014 0.016 (0.000-0.034) ng/mL Serum Total Protein (6.3-8.2) g/dL Albumin (3.5-5.0) g/dL 01/02/23 01/02/23 01/02/23 Range/Units 18:05 18:05 22:19 WBC (4.0-10.5) x10^3/uL RBC (4.1-5.6) x10^6/uL Hgb 11.0 L (12.5-18.0) g/dL Hct 34.9 L (42-50) % MCV (78-100) fL MCH (26-32) pg MCHC (32-36) g/dL RDW (11.5-14.0) % Plt Count (150-450) x10^3/uL MPV (7.5-11.0) fL Sodium (137-145) mmol/L Potassium (3.5-5.1) mmol/L Chloride (98-107) mmol/L Carbon Dioxide (22-30) mmol/L Anion Gap (5-15) MEQ/L BUN (9-20) mg/dL Creatinine (0.66-1.25) mg/dL Estimated GFR ML/MIN Glucose (74-106) mg/dL POC Glucometer 351 H (74 to 106) mg/dL Hemoglobin A1c 5.85 (4.5-6.0) % Calcium (8.4-10.2) mg/dL Magnesium (1.6-2.3) mg/dL Total Bilirubin (0.2-1.3) mg/dL AST (17-59) U/L ALT (0-50) U/L Alkaline Phosphatase (38-126) U/L Troponin I (0.000-0.034) ng/mL Serum Total Protein (6.3-8.2) g/dL Albumin (3.5-5.0) g/dL 01/02/23 01/03/23 01/03/23 Range/Units 23:55 01:23 04:00 WBC 13.1 H (4.0-10.5) x10^3/uL RBC 3.59 L (4.1-5.6) x10^6/uL Hgb 10.7 L 10.2 L (12.5-18.0) g/dL Hct 34.0 L 32.5 L (42-50) % MCV 90.5 (78-100) fL MCH 28.4 (26-32) pg MCHC 31.4 L (32-36) g/dL RDW 12.7 (11.5-14.0) % Plt Count 210 (150-450) x10^3/uL MPV 10.4 (7.5-11.0) fL Sodium (137-145) mmol/L Potassium (3.5-5.1) mmol/L Chloride (98-107) mmol/L Carbon Dioxide (22-30) mmol/L Anion Gap (5-15) MEQ/L BUN (9-20) mg/dL Creatinine (0.66-1.25) mg/dL Estimated GFR ML/MIN Glucose (74-106) mg/dL POC Glucometer 204 H (74 to 106) mg/dL Hemoglobin A1c (4.5-6.0) % Calcium (8.4-10.2) mg/dL Magnesium (1.6-2.3) mg/dL Total Bilirubin (0.2-1.3) mg/dL AST (17-59) U/L ALT (0-50) U/L Alkaline Phosphatase (38-126) U/L Troponin I (0.000-0.034) ng/mL Serum Total Protein (6.3-8.2) g/dL Albumin (3.5-5.0) g/dL 01/03/23 01/03/23 01/03/23 Range/Units 04:37 05:00 06:20 WBC (4.0-10.5) x10^3/uL RBC (4.1-5.6) x10^6/uL Hgb (12.5-18.0) g/dL Hct (42-50) % MCV (78-100) fL MCH (26-32) pg MCHC (32-36) g/dL RDW (11.5-14.0) % Plt Count (150-450) x10^3/uL MPV (7.5-11.0) fL Sodium 139 (137-145) mmol/L Potassium 3.3 L D (3.5-5.1) mmol/L Chloride 105 (98-107) mmol/L Carbon Dioxide 27 (22-30) mmol/L Anion Gap 10.5 (5-15) MEQ/L BUN 40 H (9-20) mg/dL Creatinine 2.08 H (0.66-1.25) mg/dL Estimated GFR 33.9 ML/MIN Glucose 153 H (74-106) mg/dL POC Glucometer 127 H (74 to 106) mg/dL Hemoglobin A1c (4.5-6.0) % Calcium 8.4 (8.4-10.2) mg/dL Magnesium 1.9 (1.6-2.3) mg/dL Total Bilirubin 0.40 (0.2-1.3) mg/dL AST 19 (17-59) U/L ALT 15 (0-50) U/L Alkaline Phosphatase 120 (38-126) U/L Troponin I (0.000-0.034) ng/mL Serum Total Protein 6.1 L (6.3-8.2) g/dL Albumin 3.1 L (3.5-5.0) g/dL 01/03/23 01/03/23 01/03/23 Range/Units 08:23 11:19 12:14 WBC (4.0-10.5) x10^3/uL RBC (4.1-5.6) x10^6/uL Hgb (12.5-18.0) g/dL Hct (42-50) % MCV (78-100) fL MCH (26-32) pg MCHC (32-36) g/dL RDW (11.5-14.0) % Plt Count (150-450) x10^3/uL MPV (7.5-11.0) fL Sodium (137-145) mmol/L Potassium 3.3 L 3.8 (3.5-5.1) mmol/L Chloride (98-107) mmol/L Carbon Dioxide (22-30) mmol/L Anion Gap (5-15) MEQ/L BUN (9-20) mg/dL Creatinine (0.66-1.25) mg/dL Estimated GFR ML/MIN Glucose (74-106) mg/dL POC Glucometer 284 H (74 to 106) mg/dL Hemoglobin A1c (4.5-6.0) % Calcium (8.4-10.2) mg/dL Magnesium (1.6-2.3) mg/dL Total Bilirubin (0.2-1.3) mg/dL AST (17-59) U/L ALT (0-50) U/L Alkaline Phosphatase (38-126) U/L Troponin I (0.000-0.034) ng/mL Serum Total Protein (6.3-8.2) g/dL Albumin (3.5-5.0) g/dL Radiology Exams: Radiology Procedures Category Date Time Status ABDOMEN AND PELVIS W/0 CONTRAS [CT] Stat Exams 01/02/23 12:02 Completed Multi-Disciplinary Progress Notes: Multi-Disciplinary Progress Notes 01/03/23 10:01 Case Management Note by Alexus Rea S/W SENAIT AT THE [facility] AND SHE CONFIRMED THAT PATIENT OK TO RETURN TO FACILITY AT DISCHARGE WHEN MEDICALLY READY. Initialized on 01/03/23 10:01 - END OF NOTE Assessment/Plan (1) Acute proctitis Current Visit: Yes Status: Acute Assessment & Plan: - Zosyn Q6 - UC pending - Landers in place - pt has a hx of chronic UTIs and urinary retention - CT abd/pelvis 01/02/23: 1. New mild rectal wall thickening with stranding favoring proctitis. 2. New bilateral renal cysts and suprapubic catheter in situ. 3. Again chronic findings including hiatal hernia, arteriosclerotic disease, chronic bony findings, and old granulomatous disease Code(s): K62.89 - OTHER SPECIFIED DISEASES OF ANUS AND RECTUM (2) Dark stools Current Visit: Yes Status: Acute Assessment & Plan: Assessment & Plan: - pt does take PO iron for chronic anemia r/t CRF - Occult stool sent in last night from ECF + - Diarrhea has stopped since admission - H& H Q6 - Surgery consult in AM - NPO at midnight - Hgb on admission stable at 11- trend 01/03 - Hgb stable at 10.2 - Oral prep for egd/ colonoscopy- GS planned for tomorrow Code(s): R19.5 - OTHER FECAL ABNORMALITIES (3) Coffee ground emesis Current Visit: Yes Status: Acute Assessment & Plan: - NPO at midnight - PRN zofran - Pantoprazole 40mg IV BID - H&H Q6 01/03 - daily labs- trend, hgb stable - egd planned for tomorrow. Code(s): K92.0 - HEMATEMESIS (4) CRF (chronic renal failure) Current Visit: Yes Status: Acute Assessment & Plan: - Pt has a hx of being on dialysis and reports this was stopped by nephrology several years ago. - trend labs- improving - unknown baseline (5) Type 2 diabetes mellitus Current Visit: Yes Status: Acute Assessment & Plan: - Controlled - A1C 6.94 on 09/05/22 - Stop Ozempic as pt feels sxs started with this medication. - Moderate dose s/s, and continue home insulin dosing. (6) Blister Current Visit: Yes Status: Acute Assessment & Plan: - pt reports this is from recent sunburn - ok to keep open to air. - Keep clean and dry Code(s): T14.8XXA - OTHER INJURY OF UNSPECIFIED BODY REGION, INITIAL ENCOUNTER (7) Anemia in chronic renal disease Current Visit: Yes Status: Acute Assessment & Plan: - chronic- stable - continue home iron dose Code(s): N18.9 - CHRONIC KIDNEY DISEASE, UNSPECIFIED; D63.1 - ANEMIA IN CHRONIC KIDNEY DISEASE (8) Chronic UTI Current Visit: Yes Status: Acute Assessment & Plan: - Zosyn started - urine culture pending- gram negative VTE: held due to possible bleeding PPI: pantoprazole Code: full Next of kin: Deepthi Nichols [phone] D/C plan: 1-2 days Code(s): N39.0 - URINARY TRACT INFECTION, SITE NOT SPECIFIED
[2023-01-03] MEDS: ZOCOR 20MG PO SCH (22:05)
[2023-01-04 05:13] LABS: Hematocrit 32.3 % (42-50); Hemoglobin 10.2 g/dL (12.5-18.0); Mean Cell Volume 90.5 fL (78-100); Mean Corpuscular Hemoglobin 28.6 pg (26-32); Mean Corpuscular Hgb Concent. 31.6 g/dL (32-36); Mean Platelet Volume 10.5 fL (7.5-11.0); Platelet Count 194 x10^3/uL (150-450); Red Blood Count 3.57 x10^6/uL (4.1-5.6); Red Cell Distribution Width 12.8 % (11.5-14.0); White Blood Count 11.2 x10^3/uL (4.0-10.5)
[2023-01-04 05:29] LABS: ANION GAP 10.5 MEQ/L (5-15); Calcium 8.5 mg/dL (8.4-10.2); Creatinine 1 1.6 mg/dL (0.66-1.25); EST GLOMERULAR FILTRATION RATE 45.9 ML/MIN; MAGNESIUM 1.8 mg/dL (1.6-2.3); Potassium 4.3 mmol/L (3.5-5.1)
[2023-01-04] MEDS: Piperacillin/Tazobactam 2.25 GM 2.25 GM in Sodium Chloride 100ML MINI-BAG PLUS 100 ML IV SCH ×3 (05:30→18:43)
[2023-01-04] MEDS: Reglan 10 MG PO SCH ×4 (07:23→21:40)
[2023-01-04] MEDS: HUMALOG SQ SCH ×3 (07:23→17:11)
[2023-01-04] MEDS ORDERED: Lactated Ringers 1,000 ML IV SCH (07:30)
--- NOTE | 2023-01-04 07:44 | PCM.DS ---
Discharge Summary Date of Admission: 01/02/23 14:30 Admitting Physician: SULEMA DELUNA MD Consults: Consults on Case 01/03/23 08:00 Consult Surgery ROUTINE Primary Care Provider: VISHNU Allergies Allergies morphine Allergy (Mild, Verified 01/02/23 11:03) cant filter thru kidneys Penicillins Adverse Reaction (Verified 01/02/23 11:03) Headache Hospital Summary - Hospital Course Hospital Course: DOS: 01/03/23 01/02/23 is a 67 year old male with hx of Type II DM, BLLE amputee, CKD (no longer on dialysis), HTN, Hyperlipidemia, adrenal insufficency, GERD, BPH, anxiety, urinary retention, and chronic UTI. Pt lives at a [facility]. He was brought in to the ER for C/O right sided abdominal pain with N/V/D that started last night. Patient and nurse from the correction both report nausea for approx one month that correlates with the time of started ozempic medication. Pt reports coffee ground emesis, and dark stools that started last night. Hgb is stable at 11.0. Pt also has an open sore to his right knee/stump area. Patient indicates this is from a sunburn. Afebrile. 01/03/23 Pt resting in bed. General surgery ordered bowel prep last night and pt is still not clear this morning. Plan is for EGD and colonoscopy tomorrow and to continue prep. Pt's hgb is stable at 10.2 today. He had no overnight N/V, and no dark or bloody stools. He denies any further c/o at this time. 01/04/23 EGD/ Colonoscopy today. - Vitals & Intake/Output Vital Signs: Vital Signs Temperature 97.3 F 01/04/23 07:17 Pulse Rate 81 01/04/23 07:17 Respiratory Rate 16 01/04/23 07:17 Blood Pressure 168/74 01/04/23 07:17 O2 Sat by Pulse Oximetry 97 01/04/23 07:17 Intake & Output: Intake & Output 01/01/23 01/02/23 01/03/23 01/04/23 11:59 11:59 11:59 11:59 Intake Total 1840 2280 Output Total 880 3000 Balance 960 -720 Weight 90.1 kg 88.2 kg 88.2 kg - Lab Result Diagrams: 01/04/23 04:40 01/04/23 04:40 Lab Results-Last 24 Hrs: Lab Results-Last 24 Hours 01/03/23 01/03/23 01/03/23 Range/Units 05:00 08:23 11:19 WBC (4.0-10.5) x10^3/uL RBC (4.1-5.6) x10^6/uL Hgb (12.5-18.0) g/dL Hct (42-50) % MCV (78-100) fL MCH (26-32) pg MCHC (32-36) g/dL RDW (11.5-14.0) % Plt Count (150-450) x10^3/uL MPV (7.5-11.0) fL Sodium (137-145) mmol/L Potassium 3.3 L (3.5-5.1) mmol/L Chloride (98-107) mmol/L Carbon Dioxide (22-30) mmol/L Anion Gap (5-15) MEQ/L BUN (9-20) mg/dL Creatinine (0.66-1.25) mg/dL Estimated GFR ML/MIN Glucose (74-106) mg/dL POC Glucometer 284 H (74 to 106) mg/dL Calcium (8.4-10.2) mg/dL Magnesium 1.9 (1.6-2.3) mg/dL 01/03/23 01/03/23 01/03/23 Range/Units 12:14 15:40 16:25 WBC (4.0-10.5) x10^3/uL RBC (4.1-5.6) x10^6/uL Hgb (12.5-18.0) g/dL Hct (42-50) % MCV (78-100) fL MCH (26-32) pg MCHC (32-36) g/dL RDW (11.5-14.0) % Plt Count (150-450) x10^3/uL MPV (7.5-11.0) fL Sodium (137-145) mmol/L Potassium 3.8 4.0 (3.5-5.1) mmol/L Chloride (98-107) mmol/L Carbon Dioxide (22-30) mmol/L Anion Gap (5-15) MEQ/L BUN (9-20) mg/dL Creatinine (0.66-1.25) mg/dL Estimated GFR ML/MIN Glucose (74-106) mg/dL POC Glucometer 186 H (74 to 106) mg/dL Calcium (8.4-10.2) mg/dL Magnesium (1.6-2.3) mg/dL 01/03/23 01/03/23 01/04/23 Range/Units 16:25 21:09 04:24 WBC (4.0-10.5) x10^3/uL RBC (4.1-5.6) x10^6/uL Hgb (12.5-18.0) g/dL Hct (42-50) % MCV (78-100) fL MCH (26-32) pg MCHC (32-36) g/dL RDW (11.5-14.0) % Plt Count (150-450) x10^3/uL MPV (7.5-11.0) fL Sodium (137-145) mmol/L Potassium (3.5-5.1) mmol/L Chloride (98-107) mmol/L Carbon Dioxide (22-30) mmol/L Anion Gap (5-15) MEQ/L BUN (9-20) mg/dL Creatinine (0.66-1.25) mg/dL Estimated GFR ML/MIN Glucose (74-106) mg/dL POC Glucometer 186 H 88 63 L (74 to 106) mg/dL Calcium (8.4-10.2) mg/dL Magnesium (1.6-2.3) mg/dL 01/04/23 01/04/23 01/04/23 Range/Units 04:40 04:40 05:46 WBC 11.2 H (4.0-10.5) x10^3/uL RBC 3.57 L (4.1-5.6) x10^6/uL Hgb 10.2 L (12.5-18.0) g/dL Hct 32.3 L (42-50) % MCV 90.5 (78-100) fL MCH 28.6 (26-32) pg MCHC 31.6 L (32-36) g/dL RDW 12.8 (11.5-14.0) % Plt Count 194 (150-450) x10^3/uL MPV 10.5 (7.5-11.0) fL Sodium 139 (137-145) mmol/L Potassium 4.3 (3.5-5.1) mmol/L Chloride 105 (98-107) mmol/L Carbon Dioxide 27 (22-30) mmol/L Anion Gap 10.5 (5-15) MEQ/L BUN 21 H (9-20) mg/dL Creatinine 1.60 H (0.66-1.25) mg/dL Estimated GFR 45.9 ML/MIN Glucose 64 L (74-106) mg/dL POC Glucometer 77 (74 to 106) mg/dL Calcium 8.5 (8.4-10.2) mg/dL Magnesium 1.8 (1.6-2.3) mg/dL 01/04/23 Range/Units 07:01 WBC (4.0-10.5) x10^3/uL RBC (4.1-5.6) x10^6/uL Hgb (12.5-18.0) g/dL Hct (42-50) % MCV (78-100) fL MCH (26-32) pg MCHC (32-36) g/dL RDW (11.5-14.0) % Plt Count (150-450) x10^3/uL MPV (7.5-11.0) fL Sodium (137-145) mmol/L Potassium (3.5-5.1) mmol/L Chloride (98-107) mmol/L Carbon Dioxide (22-30) mmol/L Anion Gap (5-15) MEQ/L BUN (9-20) mg/dL Creatinine (0.66-1.25) mg/dL Estimated GFR ML/MIN Glucose (74-106) mg/dL POC Glucometer 95 (74 to 106) mg/dL Calcium (8.4-10.2) mg/dL Magnesium (1.6-2.3) mg/dL Micro Results-Entire Visit: Microbiology 01/02/23 13:04 Urine Culture - Preliminary Urine,Suprapubic GRAM NEGATIVE ID AND SENSITIVITY PENDING - Radiology Exams Ordered Rad Exams-Entire Visit: Radiology Procedures Category Date Time Status ABDOMEN AND PELVIS W/0 CONTRAS [CT] Stat Exams 01/02/23 12:02 Completed Discharge Exam General Appearance: no apparent distress, alert Neurologic Exam: alert, oriented x 3, cooperative, normal mood/affect, nml cerebellar function, sensation nml, No motor deficits Eye Exam: PERRL, EOMI, eyes nml inspection Ears, Nose, Throat Exam: normal ENT inspection, pharynx normal, moist mucous membranes Neck Exam: normal inspection, non-tender, supple, full range of motion Respiratory Exam: normal breath sounds, lungs clear, No respiratory distress Cardiovascular Exam: regular rate/rhythm, normal heart sounds Gastrointestinal/Abdomen Exam: soft, No tenderness, No mass Male Genitalia Exam: deferred Rectal Exam: deferred Back Exam: normal inspection, normal range of motion, No CVA tenderness, No vertebral tenderness Extremity Exam: normal inspection, normal range of motion Skin Exam: normal color, warm, dry Wound Assessment: Skin/Wound Assessment Wound/Incision Assessment Start: 01/02/23 15:21 Text: Status: Active Freq: Q6H Protocol: Document 01/04/23 03:00 RS (Rec: 01/04/23 03:37 RS [id number]) Wound/Incision Assessment Medial Chest Wound Assessment Shift Assessment Wound Type from ring worn by staff member at other nursing facility during CPR General Appearance Open to air Wound Bed Greatest Portion Red (Granulation) Posterior Medial Sacrum Wound Assessment Shift Assessment Wound Type Pressure Ulcer Wound Stage Stage I Drainage Amount Minimal Drainage Odor None/Absent Wound Bed Greatest Portion Red (Granulation) Surrounding Tissue [place] Final Diagnosis/Problem List - Final Discharge Diagnosis/Problem (1) Acute proctitis Current Visit: Yes Status: Acute Assessment & Plan: - Zosyn Q6 - UC pending - Landers in place - pt has a hx of chronic UTIs and urinary retention - CT abd/pelvis 01/02/23: 1. New mild rectal wall thickening with stranding favoring proctitis. 2. New bilateral renal cysts and suprapubic catheter in situ. 3. Again chronic findings including hiatal hernia, arteriosclerotic disease, chronic bony findings, and old granulomatous disease Code(s): K62.89 - OTHER SPECIFIED DISEASES OF ANUS AND RECTUM (2) Dark stools Current Visit: Yes Status: Acute Assessment & Plan: - pt does take PO iron for chronic anemia r/t CRF - Occult stool sent in last night from ECF + - Diarrhea has stopped since admission - H& H Q6 - Surgery consult in AM - NPO at midnight - Hgb on admission stable at 11- trend 01/03 - Hgb stable at 10.2 - Oral prep for egd/ colonoscopy- GS planned for tomorrow 01/04 - Hgb stable 10.2 - egd/ colonoscopy today with GS Code(s): R19.5 - OTHER FECAL ABNORMALITIES (3) Coffee ground emesis Current Visit: Yes Status: Acute Assessment & Plan: - NPO at midnight - PRN zofran - Pantoprazole 40mg IV BID - H&H Q6 01/03 - daily labs- trend, hgb stable - egd planned for tomorrow. 01/04 - EGD planned for today - hgb stable Code(s): K92.0 - HEMATEMESIS (4) CRF (chronic renal failure) Current Visit: Yes Status: Acute Assessment & Plan: - Pt has a hx of being on dialysis and reports this was stopped by nephrology several years ago. - trend labs- improving - unknown baseline (5) Type 2 diabetes mellitus Current Visit: Yes Status: Acute Assessment & Plan: - Controlled - A1C 6.94 on 09/05/22 - Stop Ozempic as pt feels sxs started with this medication. - Moderate dose s/s, and continue home insulin dosing. (6) Blister Current Visit: Yes Status: Acute Assessment & Plan: - pt reports this is from recent sunburn - ok to keep open to air. - Keep clean and dry Code(s): T14.8XXA - OTHER INJURY OF UNSPECIFIED BODY REGION, INITIAL ENCOUNTER (7) Anemia in chronic renal disease Current Visit: Yes Status: Acute Assessment & Plan: - chronic- stable - continue home iron dose - hgb stable Code(s): N18.9 - CHRONIC KIDNEY DISEASE, UNSPECIFIED; D63.1 - ANEMIA IN CHRONIC KIDNEY DISEASE (8) Chronic UTI Current Visit: Yes Status: Acute Assessment & Plan: - Zosyn started - urine culture pending- gram negative - sensitivity pending VTE: held due to possible bleeding PPI: pantoprazole Code: full Next of kin: Deepthi Nichols [phone] D/C plan: 1-2 days Code(s): N39.0 - URINARY TRACT INFECTION, SITE NOT SPECIFIED - Discharge Disposition: Home, Self-Care Condition: Stable Prescriptions: No Action Metoclopramide HCl 10 mg [Reglan 10 MG] 10 mg PO ACHS Insulin Aspart [NovoLOG Insulin] 1 unit SQ ACHS Fluticasone Propionate [Flonase NASAL] 50 mcg IH DAILY Loratadine 10 mg [Claritin 10 mg] 10 mg PO DAILY #90 tablet Metoprolol Tartrate 25 mg [Lopressor 25MG Tab] 25 mg PO BID #180 tab Cilostazol 100 mg [Pletal 100 MG] 50 mg PO DAILY Ferrous Sulfate 325 mg [Feosol 325 mg] 325 mg PO TID Gabapentin 300 mg PO TID Pravastatin Sodium 20 mg PO QHS Insulin Lispro [Humalog Kwikpen U-100] 5 units SQ BREAKFAST Potassium Chloride 10 meq PO DAILY Lactobacillus Acidophilus [Acidophilus] 1 each PO BID Senna 8.6 mg [Senokot 8.6 mg] 2 tab PO EVENING MEAL Semaglutide [Ozempic] 0.25 mg SQ WEEKLY Simethicone 125 mg PO QID Solifenacin Succinate 5 mg PO DAILY Ergocalciferol (Vitamin D2) [Vitamin D2] 50,000 unit PO Q7D Insulin Lispro [Humalog Kwikpen U-100] 7 units SQ 1130,1630 Hydrocodone/Acetaminophen [Hydrocodone-Acetamin 10-325 mg] 1 tab PO BID Folic Acid 1 mg [Folate 1 mg] 1 mg PO DAILY Duloxetine HCl 30 mg [Cymbalta 30 MG Capsule] 60 mg PO DAILY Aspirin EC 81 mg [Ecotrin 81 mg] 81 mg PO DAILY Acetaminophen 325 mg [Tylenol 325 mg] 650 mg PO Q4HPRN PRN PRN Reason: Pain Follow up with: ROMMEL GILLIAM OF [Primary Care Provider] - MIRELA RAYO MD [Family Provider] -
[2023-01-04] MEDS ORDERED: Xylocaine-Mpf 2% 5 Ml Vial ONE ×2 (08:06→08:07)
[2023-01-04] MEDS ORDERED: DIPRIVAN 200 MG/20 ML IV ONE ×2 (08:30→08:31)
[2023-01-04] MEDS ORDERED: GlucaGen 1 MG ONE (08:41)
[2023-01-04] MEDS ORDERED: VITAMIN D2 PO SCH (10:00)
[2023-01-04] MEDS ORDERED: BACIGUENT PACKET TP SCH (10:00)
[2023-01-04] MEDS: PROTONIX 40 MG IV IV SCH ×2 (11:15→21:39)
[2023-01-04] MEDS: CLARITIN 10 MG PO SCH (11:19)
[2023-01-04] MEDS: Cymbalta 30 MG Capsule PO SCH (11:19)
[2023-01-04] MEDS: Acidophilus TABLET PO SCH ×2 (11:20→21:40)
[2023-01-04] MEDS: FOLATE 1 MG PO SCH (11:20)
[2023-01-04] MEDS: NEURONTIN PO SCH ×3 (11:20→21:40)
[2023-01-04] MEDS: HYDROCODONE-ACETAMIN 10-325 MG PO SCH ×2 (11:20→21:40)
[2023-01-04] MEDS: Klor Con PO SCH (11:20)
[2023-01-04] MEDS: Lopressor 25MG Tab PO SCH ×2 (11:20→21:40)
[2023-01-04] MEDS: FEOSOL 325 MG PO SCH ×3 (11:20→21:40)
--- NOTE | 2023-01-04 11:22 | PCM.NOTE ---
Date and Time: 01/04/23 1117 Subjective Assessment: DOS: 01/04/23 01/02/23 is a 67 year old male with hx of Type II DM, BLLE amputee, CKD (no longer on dialysis), HTN, Hyperlipidemia, adrenal insufficency, GERD, BPH, anxiety, urinary retention, and chronic UTI. Pt lives at a shelter. He was brought in to the ER for C/O right sided abdominal pain with N/V/D that started last night. Patient and nurse from the shelter both report nausea for approx one month that correlates with the time of started ozempic medication. Pt reports coffee ground emesis, and dark stools that started last night. Hgb is stable at 11.0. Pt also has an open sore to his right knee/stump area. Patient indicates this is from a sunburn. Afebrile. 01/03/23 Pt resting in bed. General surgery ordered bowel prep last night and pt is still not clear this morning. Plan is for EGD and colonoscopy tomorrow and to continue prep. Pt's hgb is stable at 10.2 today. He had no overnight N/V, and no dark or bloody stools. He denies any further c/o at this time. 01/04/23 EGD/ Colonoscopy today. Pt had an EGD this morning. Gastritis was seen, will continue PPI tx OP. Colonoscopy was not completed as he was still not clear. Enema to be given and then will try colonosopy again this afternoon per GS. Hgb remains stable at 10.2 Urine culture gram negative, sensitivity pending. Continue Zosyn. Pt states he is feeling much better. Goal is to d/c tomorrow. Denies any concerns at this time. - Review of Systems Constitutional: No Fever, No Chills Eyes: No Symptoms Ears, Nose, & Throat: No Symptoms Respiratory: No Cough, No Short Of Breath Cardiac: No Chest Pain, No Edema, No Syncope Abdominal/Gastrointestinal: No Abdominal Pain, No Nausea, No Vomiting, No Diarrhea Genitourinary Symptoms: No Dysuria Musculoskeletal: No Back Pain, No Neck Pain Skin: Skin Lesions (abrasion to ceneter of chest, and RLE blister), No Rash Neurological: No Dizziness, No Focal Weakness, No Sensory Changes Psychological: No Symptoms Endocrine: No Symptoms Hematologic/Lymphatic: No Symptoms Immunological/Allergic: No Symptoms Objective Exam Wound Assessment: Skin/Wound Assessment Wound/Incision Assessment Start: 01/02/23 15:21 Text: Status: Active Freq: Q6H Protocol: Document 01/04/23 03:00 RS (Rec: 01/04/23 03:37 RS [id number]) Wound/Incision Assessment Medial Chest Wound Assessment Shift Assessment Wound Type from ring worn by staff member at other nursing facility during CPR General Appearance Open to air Wound Bed Greatest Portion Red (Granulation) Posterior Medial Sacrum Wound Assessment Shift Assessment Wound Type Pressure Ulcer Wound Stage Stage I Drainage Amount Minimal Drainage Odor None/Absent Wound Bed Greatest Portion Red (Granulation) Surrounding Tissue [place] OBJECTIVE DATA Vital Signs: Vital Signs - 24 hr Temp Pulse Resp BP Pulse Ox 01/04/23 07:17 97.3 F 81 16 168/74 97 01/04/23 07:08 98.0 F 76 20 160/67 98 01/04/23 04:00 98.0 F 76 20 160/67 98 01/03/23 23:26 97.9 F 82 18 149/66 98 01/03/23 19:26 97.7 F 86 20 144/61 97 01/03/23 16:00 98.7 F 81 16 147/66 96 Pain Assessment - Last Documented Pain Intensity 5 Pain Scale Used 0-10 Pain Scale Intake and Output: Intake & Output 01/01/23 01/02/23 01/03/23 01/04/23 11:59 11:59 11:59 11:59 Intake Total 1840 2280 Output Total 880 3500 Balance 960 -1220 Weight 90.1 kg 88.2 kg 88.2 kg Lab Results: Lab Results-Last 24 Hours 01/03/23 01/03/23 01/03/23 Range/Units 11:19 12:14 15:40 WBC (4.0-10.5) x10^3/uL RBC (4.1-5.6) x10^6/uL Hgb (12.5-18.0) g/dL Hct (42-50) % MCV (78-100) fL MCH (26-32) pg MCHC (32-36) g/dL RDW (11.5-14.0) % Plt Count (150-450) x10^3/uL MPV (7.5-11.0) fL Sodium (137-145) mmol/L Potassium 3.8 4.0 (3.5-5.1) mmol/L Chloride (98-107) mmol/L Carbon Dioxide (22-30) mmol/L Anion Gap (5-15) MEQ/L BUN (9-20) mg/dL Creatinine (0.66-1.25) mg/dL Estimated GFR ML/MIN Glucose (74-106) mg/dL POC Glucometer 284 H (74 to 106) mg/dL Calcium (8.4-10.2) mg/dL Magnesium (1.6-2.3) mg/dL 01/03/23 01/03/23 01/03/23 Range/Units 16:25 16:25 21:09 WBC (4.0-10.5) x10^3/uL RBC (4.1-5.6) x10^6/uL Hgb (12.5-18.0) g/dL Hct (42-50) % MCV (78-100) fL MCH (26-32) pg MCHC (32-36) g/dL RDW (11.5-14.0) % Plt Count (150-450) x10^3/uL MPV (7.5-11.0) fL Sodium (137-145) mmol/L Potassium (3.5-5.1) mmol/L Chloride (98-107) mmol/L Carbon Dioxide (22-30) mmol/L Anion Gap (5-15) MEQ/L BUN (9-20) mg/dL Creatinine (0.66-1.25) mg/dL Estimated GFR ML/MIN Glucose (74-106) mg/dL POC Glucometer 186 H 186 H 88 (74 to 106) mg/dL Calcium (8.4-10.2) mg/dL Magnesium (1.6-2.3) mg/dL 01/04/23 01/04/23 01/04/23 Range/Units 04:24 04:40 04:40 WBC 11.2 H (4.0-10.5) x10^3/uL RBC 3.57 L (4.1-5.6) x10^6/uL Hgb 10.2 L (12.5-18.0) g/dL Hct 32.3 L (42-50) % MCV 90.5 (78-100) fL MCH 28.6 (26-32) pg MCHC 31.6 L (32-36) g/dL RDW 12.8 (11.5-14.0) % Plt Count 194 (150-450) x10^3/uL MPV 10.5 (7.5-11.0) fL Sodium 139 (137-145) mmol/L Potassium 4.3 (3.5-5.1) mmol/L Chloride 105 (98-107) mmol/L Carbon Dioxide 27 (22-30) mmol/L Anion Gap 10.5 (5-15) MEQ/L BUN 21 H (9-20) mg/dL Creatinine 1.60 H (0.66-1.25) mg/dL Estimated GFR 45.9 ML/MIN Glucose 64 L (74-106) mg/dL POC Glucometer 63 L (74 to 106) mg/dL Calcium 8.5 (8.4-10.2) mg/dL Magnesium 1.8 (1.6-2.3) mg/dL 01/04/23 01/04/23 Range/Units 05:46 07:01 WBC (4.0-10.5) x10^3/uL RBC (4.1-5.6) x10^6/uL Hgb (12.5-18.0) g/dL Hct (42-50) % MCV (78-100) fL MCH (26-32) pg MCHC (32-36) g/dL RDW (11.5-14.0) % Plt Count (150-450) x10^3/uL MPV (7.5-11.0) fL Sodium (137-145) mmol/L Potassium (3.5-5.1) mmol/L Chloride (98-107) mmol/L Carbon Dioxide (22-30) mmol/L Anion Gap (5-15) MEQ/L BUN (9-20) mg/dL Creatinine (0.66-1.25) mg/dL Estimated GFR ML/MIN Glucose (74-106) mg/dL POC Glucometer 77 95 (74 to 106) mg/dL Calcium (8.4-10.2) mg/dL Magnesium (1.6-2.3) mg/dL Radiology Exams: Radiology Procedures Category Date Time Status ABDOMEN AND PELVIS W/0 CONTRAS [CT] Stat Exams 01/02/23 12:02 Completed BARIUM ENEMA Urgent Exams 01/04/23 11:01 Ordered Assessment/Plan (1) Acute proctitis Current Visit: Yes Status: Acute Assessment & Plan: - Zosyn Q6 - UC pending - Landers in place - pt has a hx of chronic UTIs and urinary retention - CT abd/pelvis 01/02/23: 1. New mild rectal wall thickening with stranding favoring proctitis. 2. New bilateral renal cysts and suprapubic catheter in situ. 3. Again chronic findings including hiatal hernia, arteriosclerotic disease, chronic bony findings, and old granulomatous disease Code(s): K62.89 - OTHER SPECIFIED DISEASES OF ANUS AND RECTUM (2) Dark stools Current Visit: Yes Status: Acute Assessment & Plan: - pt does take PO iron for chronic anemia r/t CRF - Occult stool sent in last night from ECF + - Diarrhea has stopped since admission - H& H Q6 - Surgery consult in AM - NPO at midnight - Hgb on admission stable at 11- trend 01/03 - Hgb stable at 10.2 - Oral prep for egd/ colonoscopy- GS planned for tomorrow 01/04 - Hgb stable 10.2 - egd/ colonoscopy today with GS Code(s): R19.5 - OTHER FECAL ABNORMALITIES Code(s): R19.5 - OTHER FECAL ABNORMALITIES (3) Coffee ground emesis Current Visit: Yes Status: Acute Assessment & Plan: - NPO at midnight - PRN zofran - Pantoprazole 40mg IV BID - H&H Q6 01/03 - daily labs- trend, hgb stable - egd planned for tomorrow. 01/04 - EGD - gastritis seen - hgb stable Code(s): K92.0 - HEMATEMESIS (4) CRF (chronic renal failure) Current Visit: Yes Status: Acute Assessment & Plan: Assessment & Plan: - Pt has a hx of being on dialysis and reports this was stopped by nephrology several years ago. - trend labs- improving - unknown baseline (5) Type 2 diabetes mellitus Current Visit: Yes Status: Acute Assessment & Plan: - Controlled - A1C 6.94 on 09/05/22 - Stop Ozempic as pt feels sxs started with this medication. - Moderate dose s/s, and continue home insulin dosing. (6) Blister Current Visit: Yes Status: Acute Assessment & Plan: - pt reports this is from recent sunburn - ok to keep open to air. - Keep clean and dry Code(s): T14.8XXA - OTHER INJURY OF UNSPECIFIED BODY REGION, INITIAL ENCOUNTER (7) Anemia in chronic renal disease Current Visit: Yes Status: Acute Assessment & Plan: - chronic- stable - continue home iron dose - hgb stable Code(s): N18.9 - CHRONIC KIDNEY DISEASE, UNSPECIFIED; D63.1 - ANEMIA IN CHRONIC KIDNEY DISEASE (8) Gastritis Current Visit: Yes Status: Acute Assessment & Plan: - Seen on EGD this morning Code(s): K29.70 - GASTRITIS, UNSPECIFIED, WITHOUT BLEEDING (9) Chronic UTI Current Visit: Yes Status: Acute Assessment & Plan: - Zosyn started - urine culture pending- gram negative - sensitivity pending VTE: held due to possible bleeding PPI: pantoprazole Code: full Next of kin: Deepthi Nichols [phone] D/C plan: 1-2 days Code(s): N39.0 - URINARY TRACT INFECTION, SITE NOT SPECIFIED
[2023-01-04] MEDS: Flonase NASAL NS SCH (11:31)
[2023-01-04] MEDS: ECOTRIN 81 MG PO SCH (11:36)
--- NOTE | 2023-01-04 13:43 | XRAY ---
Indication: Unsuccessful colonoscopy. No biopsy. 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 Diffuse scattered vascular calcifications and suprapubic catheter in situ. Osseous structures intact with osteopenia and degenerative changes. Rectal catheter inserted and balloon tip insufflated. Barium and air insufflation was performed under fluoroscopic and gravity control. Examination difficult due to patient's limited mobility, bilateral below knee amputation, and suprapubic catheter. Prone images could not be obtained. There is good opacification/distention of the entire colon. No presacral soft tissue mass. There is redundant transverse and descending colon. Mild scattered fecal debris and mucus greatest in the transverse colon. No focal stricture, obstruction, annular constricting lesions, or gross filling defect.. No reflux into the terminal ileum. Impression: Limited exam as detailed. Redundant transverse and descending colon. Remaining double contrast barium enema exam is negative. Approximately 2.7 minutes of fluoroscopy used.
[2023-01-04] MEDS: BACIGUENT 30 GM TP SCH (15:10)
[2023-01-04 16:52] VITALS: RESP 16
[2023-01-04] MEDS: ZOCOR 20MG PO SCH (21:41)
[2023-01-04] MEDS: HUMALOG SQ PRN (22:27)
[2023-01-05] MEDS: Piperacillin/Tazobactam 2.25 GM 2.25 GM in Sodium Chloride 100ML MINI-BAG PLUS 100 ML IV SCH ×2 (00:12→06:04)
[2023-01-05 04:57] LABS: Hematocrit 33.5 % (42-50); Hemoglobin 10.6 g/dL (12.5-18.0); Mean Cell Volume 90.8 fL (78-100); Mean Corpuscular Hemoglobin 28.7 pg (26-32); Mean Corpuscular Hgb Concent. 31.6 g/dL (32-36); Mean Platelet Volume 10.4 fL (7.5-11.0); Platelet Count 202 x10^3/uL (150-450); Red Blood Count 3.69 x10^6/uL (4.1-5.6); Red Cell Distribution Width 12.9 % (11.5-14.0)
[2023-01-05 04:58] LABS: ALBUMIN 3.2 g/dL (3.5-5.0); ANION GAP 14.2 MEQ/L (5-15); BILIRUBIN,TOTAL 0.3 mg/dL (0.2-1.3); Calcium 8.7 mg/dL (8.4-10.2); Creatinine 1 1.39 mg/dL (0.66-1.25); Potassium 4.7 mmol/L (3.5-5.1); Total Protein 6.3 g/dL (6.3-8.2)
[2023-01-05] MEDS: HUMALOG SQ SCH ×2 (08:21→12:15)
[2023-01-05] MEDS: Reglan 10 MG PO SCH ×2 (08:21→12:15)
[2023-01-05] MEDS: CLARITIN 10 MG PO SCH (09:43)
[2023-01-05] MEDS: NEURONTIN PO SCH (09:43)
[2023-01-05] MEDS: Acidophilus TABLET PO SCH (09:43)
[2023-01-05] MEDS: Cymbalta 30 MG Capsule PO SCH (09:43)
[2023-01-05] MEDS: HYDROCODONE-ACETAMIN 10-325 MG PO SCH (09:43)
[2023-01-05] MEDS: Klor Con PO SCH (09:44)
[2023-01-05] MEDS: FOLATE 1 MG PO SCH (09:44)
[2023-01-05] MEDS: Lopressor 25MG Tab PO SCH (09:44)
[2023-01-05] MEDS: FEOSOL 325 MG PO SCH (09:44)
[2023-01-05] MEDS: PROTONIX 40 MG IV IV SCH (09:44)
[2023-01-05] MEDS: ECOTRIN 81 MG PO SCH (09:44)
[2023-01-05] MEDS: Flonase NASAL NS SCH (09:45)
[2023-01-05] MEDS: BACIGUENT 30 GM TP SCH (09:47)
--- NOTE | 2023-01-05 09:58 | PCM.DS ---
Discharge Summary Date of Admission: 01/03/23 13:57 Date of Discharge: 01/05/23 Admitting Physician: SULEMA DELUNA MD Consults: Consults on Case 01/03/23 08:00 Consult Surgery ROUTINE Primary Care Provider: KATARINA MORENO Allergies Allergies morphine Allergy (Mild, Verified 01/02/23 11:03) cant filter thru kidneys Penicillins Adverse Reaction (Verified 01/02/23 11:03) Headache Hospital Summary - Hospital Course Hospital Course: DOS: 01/05/23 01/02/23 is a 67 year old male with hx of Type II DM, BLLE amputee, CKD (no longer on dialysis), HTN, Hyperlipidemia, adrenal insufficency, GERD, BPH, anxiety, urinary retention, and chronic UTI. Pt lives at a [facility]. He was brought in to the ER for C/O right sided abdominal pain with N/V/D that started last night. Patient and nurse from the [facility] both report nausea for approx one month that correlates with the time of started ozempic medication. Pt reports coffee ground emesis, and dark stools that started last night. Hgb is stable at 11.0. Pt also has an open sore to his right knee/stump area. Patient indicates this is from a sunburn. Afebrile. 01/03/23 Pt resting in bed. General surgery ordered bowel prep last night and pt is still not clear this morning. Plan is for EGD and colonoscopy tomorrow and to continue prep. Pt's hgb is stable at 10.2 today. He had no overnight N/V, and no dark or bloody stools. He denies any further c/o at this time. 01/04/23 EGD/ Colonoscopy today. Pt had an EGD this morning. Gastritis was seen, will continue PPI tx OP. Colonoscopy was not completed as he was still not clear. Enema to be given and then will try colonosopy again this afternoon per GS. Hgb remains stable at 10.2 Urine culture gram negative, sensitivity pending. Continue Zosyn. Pt states he is feeling much better. Denies any concerns at this time. 01/05/23 Pt resting in bed. Landers replaced on admission. UC + for citrobactor freundii. He denies frequency, urgency, or painful urination on admission. He appears to be colonized for citrobactor. Surgery ok with D/C and no f/u needed. Will need to f/u with PCP. He denies CP, SOB, abd. pain, N/V/D. - Vitals & Intake/Output Vital Signs: Vital Signs Temperature 97.3 F 01/05/23 08:00 Pulse Rate 85 01/05/23 08:00 Respiratory Rate 16 01/05/23 08:00 Blood Pressure 146/76 01/05/23 08:00 O2 Sat by Pulse Oximetry 98 01/05/23 08:00 Intake & Output: Intake & Output 01/02/23 01/03/23 01/04/23 01/05/23 11:59 11:59 11:59 11:59 Intake Total 1840 2280 960 Output Total 880 3500 3200 Balance 960 -1220 -2240 Weight 90.1 kg 88.2 kg 88.2 kg - Lab Result Diagrams: 01/05/23 04:36 01/05/23 04:36 Lab Results-Last 24 Hrs: Lab Results-Last 24 Hours 01/04/23 01/04/23 01/04/23 Range/Units 11:17 16:24 22:14 WBC (4.0-10.5) x10^3/uL RBC (4.1-5.6) x10^6/uL Hgb (12.5-18.0) g/dL Hct (42-50) % MCV (78-100) fL MCH (26-32) pg MCHC (32-36) g/dL RDW (11.5-14.0) % Plt Count (150-450) x10^3/uL MPV (7.5-11.0) fL Sodium (137-145) mmol/L Potassium (3.5-5.1) mmol/L Chloride (98-107) mmol/L Carbon Dioxide (22-30) mmol/L Anion Gap (5-15) MEQ/L BUN (9-20) mg/dL Creatinine (0.66-1.25) mg/dL Estimated GFR ML/MIN Glucose (74-106) mg/dL POC Glucometer 187 H 204 H 330 H (74 to 106) mg/dL Calcium (8.4-10.2) mg/dL Total Bilirubin (0.2-1.3) mg/dL AST (17-59) U/L ALT (0-50) U/L Alkaline Phosphatase (38-126) U/L Serum Total Protein (6.3-8.2) g/dL Albumin (3.5-5.0) g/dL 01/05/23 01/05/23 01/05/23 Range/Units 04:36 04:36 07:52 WBC 10.0 (4.0-10.5) x10^3/uL RBC 3.69 L (4.1-5.6) x10^6/uL Hgb 10.6 L (12.5-18.0) g/dL Hct 33.5 L (42-50) % MCV 90.8 (78-100) fL MCH 28.7 (26-32) pg MCHC 31.6 L (32-36) g/dL RDW 12.9 (11.5-14.0) % Plt Count 202 (150-450) x10^3/uL MPV 10.4 (7.5-11.0) fL Sodium 137 (137-145) mmol/L Potassium 4.7 (3.5-5.1) mmol/L Chloride 101 (98-107) mmol/L Carbon Dioxide 26 (22-30) mmol/L Anion Gap 14.2 (5-15) MEQ/L BUN 16 (9-20) mg/dL Creatinine 1.39 H (0.66-1.25) mg/dL Estimated GFR 54.0 ML/MIN Glucose 268 H (74-106) mg/dL POC Glucometer 278 H (74 to 106) mg/dL Calcium 8.7 (8.4-10.2) mg/dL Total Bilirubin 0.30 (0.2-1.3) mg/dL AST 20 (17-59) U/L ALT 13 (0-50) U/L Alkaline Phosphatase 124 (38-126) U/L Serum Total Protein 6.3 (6.3-8.2) g/dL Albumin 3.2 L (3.5-5.0) g/dL Micro Results-Entire Visit: Microbiology 01/02/23 13:04 Urine Culture - Final Urine,Suprapubic Citrobacter Freundii Enterococcus Faecalis Accuchecks Date 01/04/23 Date 01/04/23 Date 01/04/23 Date 01/04/23 Time 22:00 - Radiology Exams Ordered Rad Exams-Entire Visit: Radiology Procedures Category Date Time Status BARIUM ENEMA W/AIR CONTRAST Urgent Exams 01/04/23 11:46 Completed Discharge Exam General Appearance: no apparent distress, alert Neurologic Exam: alert, oriented x 3, cooperative, normal mood/affect, nml cerebellar function, sensation nml, No motor deficits Eye Exam: PERRL, EOMI, eyes nml inspection Ears, Nose, Throat Exam: normal ENT inspection, pharynx normal, moist mucous membranes Neck Exam: normal inspection, non-tender, supple, full range of motion Respiratory Exam: normal breath sounds, lungs clear, No respiratory distress Cardiovascular Exam: regular rate/rhythm, normal heart sounds Gastrointestinal/Abdomen Exam: soft, No tenderness, No mass Male Genitalia Exam: deferred Rectal Exam: deferred Back Exam: normal inspection, normal range of motion, No CVA tenderness, No vertebral tenderness Extremity Exam: normal inspection, normal range of motion Skin Exam: normal color, warm, dry Wound Assessment: Skin/Wound Assessment Wound/Incision Assessment Start: 01/02/23 15:21 Text: Status: Active Freq: Q6H Protocol: Document 01/05/23 09:00 RF (Rec: 01/05/23 09:42 RF [id number]) Wound/Incision Assessment Medial Chest Wound Assessment Shift Assessment Wound Type Abrasion Drainage Amount None General Appearance Open to air Surrounding Tissue [place] Posterior Medial Sacrum Wound Assessment Shift Assessment Wound Type Pressure Ulcer Wound Stage Stage II Drainage Amount None General Appearance Well Approximated Wound Bed Greatest Portion Red (Granulation) Wound Bed Lesser Portion Red (Granulation) Surrounding Tissue Roberta Comment applied barrier cream Wound Photo Photo Taken Yes Date: 01/02/23 Time: 15:46 Final Diagnosis/Problem List - Final Discharge Diagnosis/Problem (1) Acute proctitis Current Visit: Yes Status: Acute Assessment & Plan: - Zosyn Q6 - UC pending - Landers in place- chronic - pt has a hx of chronic UTIs and urinary retention - CT abd/pelvis 01/02/23: 1. New mild rectal wall thickening with stranding favoring proctitis. 2. New bilateral renal cysts and suprapubic catheter in situ. 3. Again chronic findings including hiatal hernia, arteriosclerotic disease, chronic bony findings, and old granulomatous disease 01/05 - UC + citrobactor - colonized - Landers changed on admission in ER Code(s): K62.89 - OTHER SPECIFIED DISEASES OF ANUS AND RECTUM (2) Dark stools Current Visit: Yes Status: Acute Assessment & Plan: - pt does take PO iron for chronic anemia r/t CRF - Occult stool sent in last night from ECF + - Diarrhea has stopped since admission - H& H Q6 - Surgery consult in AM - NPO at midnight - Hgb on admission stable at 11- trend 01/03 - Hgb stable at 10.2 - Oral prep for egd/ colonoscopy- GS planned for tomorrow 01/04 - Hgb stable 10.2 - egd/ colonoscopy today with GS - Colonoscopy was unable to be completed as pt was not clear. - Barium enema competed 01/05 - awaiting surgery recommendations - Hgb stable at 10.6. - no overnight dark or bloody stools Code(s): R19.5 - OTHER FECAL ABNORMALITIES (3) Coffee ground emesis Current Visit: Yes Status: Acute Assessment & Plan: - NPO at midnight - PRN zofran - Pantoprazole 40mg IV BID - H&H Q6 01/03 - daily labs- trend, hgb stable - egd planned for tomorrow. 01/04 - EGD - gastritis seen - hgb stable 01/05 - resolved sxs - no overnight N/V Code(s): K92.0 - HEMATEMESIS (4) CRF (chronic renal failure) Current Visit: Yes Status: Acute Assessment & Plan: - Pt has a hx of being on dialysis and reports this was stopped by nephrology several years ago. - trend labs- improving - unknown baseline 01/05 - improved since admission (5) Type 2 diabetes mellitus Current Visit: Yes Status: Acute Assessment & Plan: - Controlled - A1C 6.94 on 09/05/22 - Stop Ozempic as pt feels sxs started with this medication. - Moderate dose s/s, and continue home insulin dosing. (6) Blister Current Visit: Yes Status: Acute Assessment & Plan: - pt reports this is from recent sunburn - ok to keep open to air. - Keep clean and dry Code(s): T14.8XXA - OTHER INJURY OF UNSPECIFIED BODY REGION, INITIAL ENCOUNTER (7) Anemia in chronic renal disease Current Visit: Yes Status: Acute Assessment & Plan: - chronic- stable - continue home iron dose - hgb stable Code(s): N18.9 - CHRONIC KIDNEY DISEASE, UNSPECIFIED; D63.1 - ANEMIA IN CHRONIC KIDNEY DISEASE (8) Gastritis Current Visit: Yes Status: Acute Assessment & Plan: - Seen on EGD - continue PPI tx OP - Ok to d/c per GS Code(s): K29.70 - GASTRITIS, UNSPECIFIED, WITHOUT BLEEDING (9) Chronic UTI Current Visit: Yes Status: Acute Assessment & Plan: - Zosyn started - urine culture + for citrobacter Freundii- colonized Code(s): N39.0 - URINARY TRACT INFECTION, SITE NOT SPECIFIED - Discharge Discharge Date: 01/05/23 (Kita Moreno) Disposition: XFER OTHER Condition: Stable Prescriptions: New Pantoprazole 20 mg [Protonix 20MG Tablet] 20 mg PO BID 56 Days #56 tab Continue Metoclopramide HCl 10 mg [Reglan 10 MG] 10 mg PO ACHS Insulin Aspart [NovoLOG Insulin] 1 unit SQ ACHS Fluticasone Propionate [Flonase NASAL] 50 mcg IH DAILY Loratadine 10 mg [Claritin 10 mg] 10 mg PO DAILY #90 tablet Metoprolol Tartrate 25 mg [Lopressor 25MG Tab] 25 mg PO BID #180 tab Cilostazol 100 mg [Pletal 100 MG] 50 mg PO DAILY Ferrous Sulfate 325 mg [Feosol 325 mg] 325 mg PO TID Gabapentin 300 mg PO TID Pravastatin Sodium 20 mg PO QHS Insulin Lispro [Humalog Kwikpen U-100] 5 units SQ BREAKFAST Potassium Chloride 10 meq PO DAILY Lactobacillus Acidophilus [Acidophilus] 1 each PO BID Senna 8.6 mg [Senokot 8.6 mg] 2 tab PO EVENING MEAL Semaglutide [Ozempic] 0.25 mg SQ WEEKLY Simethicone 125 mg PO QID Solifenacin Succinate 5 mg PO DAILY Ergocalciferol (Vitamin D2) [Vitamin D2] 50,000 unit PO Q7D Insulin Lispro [Humalog Kwikpen U-100] 7 units SQ 1130,1630 Hydrocodone/Acetaminophen [Hydrocodone-Acetamin 10-325 mg] 1 tab PO BID Folic Acid 1 mg [Folate 1 mg] 1 mg PO DAILY Duloxetine HCl 30 mg [Cymbalta 30 MG Capsule] 60 mg PO DAILY Aspirin EC 81 mg [Ecotrin 81 mg] 81 mg PO DAILY Acetaminophen 325 mg [Tylenol 325 mg] 650 mg PO Q4HPRN PRN PRN Reason: Pain Follow up with: MIRELA RAYO MD [Family Provider] - ROMMEL MORENO OF [Primary Care Provider] -
[2023-01-05] MEDS ORDERED: Ditropan 5 MG PO SCH (10:00)
--- NOTE | 2023-01-05 10:35 | OP ---
SURGERY DATE/TIME: 01/04/2023 0800 PREOPERATIVE DIAGNOSIS: GI bleed. POSTOPERATIVE DIAGNOSES: 1) Mild gastritis. 2) Limited exam to splenic flexure. PROCEDURES: 1) EGD. 2) Limited colonoscopic examination to splenic flexure. SURGEON: Matt Michaels M.D. ANESTHESIA: General MAC. COMPLICATIONS: None. CONDITION: Stable. INDICATION: The patient had recent bleeding, hemoglobin of 11. DESCRIPTION OF PROCEDURE: Taken to endoscopy. Left lateral decubitus position. Scope introduced. Pharyngoesophageal junction normal. Esophagus normal down to gastroesophageal junction. There was a very mild gastritis. Pylorus satisfactory. Duodenal bulb satisfactory. Second portion satisfactory. Scope looped upon itself and scope withdrawn. IMPRESSION: Mild gastritis otherwise satisfactory. Anal digital examination. Scope introduced. There was some dark black fabiana of stool here. Scope was advanced up to the splenic flexure. The sigmoid was very, very redundant. The patient has a bilateral above knee amputee so basically in the same situation as a paralyzed patient. He is extremely constipated and has an extremely redundant colon. Basically the sigmoid took the entire scope. Here at the splenic flexure there was some stool. It was not a perfect prep by any means and the scope just could not be turned. We have sent him over for a barium enema examination for completeness.
[2023-01-05 12:47] VITALS: BP 141/60; PULSE 89; TEMP 98; O2SAT 97
== END 2023-01-05 13:15 | DRG 394 ==
LOC: ED 10:47 → MED SURG 14:30 → OBSVTOIN 01-03 13:57
PROVIDERS: ADMIT Internal Medicine; ATTEND Internal Medicine
PROC: 0DJ08ZZ Inspection of Upper Intestinal Tract, Via Natural or Artificial Opening Endoscopic (ICD-10-PCS; principal; 2023-01-04)
PROC: BD24ZZZ Computerized Tomography (CT Scan) of Colon (ICD-10-PCS; 2023-01-04)
DX: K62.89 Other specified diseases of anus and rectum (principal); E27.40 Unspecified adrenocortical insufficiency; K92.0 Hematemesis; N39.0 Urinary tract infection, site not specified; R19.5 Other fecal abnormalities; I12.9 Hypertensive chronic kidney disease with stage 1 through stage 4 chronic kidney disease, or unspecified chronic kidney disease; E11.22 Type 2 diabetes mellitus with diabetic chronic kidney disease; N18.9 Chronic kidney disease, unspecified; D63.1 Anemia in chronic kidney disease; K29.70 Gastritis, unspecified, without bleeding; E78.5 Hyperlipidemia, unspecified; K21.9 Gastro-esophageal reflux disease without esophagitis; N40.0 Benign prostatic hyperplasia without lower urinary tract symptoms; F41.9 Anxiety disorder, unspecified; R33.9 Retention of urine, unspecified; S20.319A Abrasion of unspecified front wall of thorax, initial encounter; Z79.01 Long term (current) use of anticoagulants; Z89.432 Acquired absence of left foot; Z79.899 Other long term (current) drug therapy; Z89.431 Acquired absence of right foot; Z95.1 Presence of aortocoronary bypass graft
CPT/HCPCS: 00813; 0241U; 36000; 36410; 36415; 43235; 45378; 51702; 74176; 74280; 80048; 80053; 81001; 82150; 82947; 83036; 83605; 83690; 83735; 84132; 84484; 85014; 85018; 85025; 85027; 85610; 85730; 87077; 87086; 87186; 93268; 96374; 96375; 99140; 99284; G0328; G0378; Q3014; 82274; J1610; J1817; J2405; J2543; J2704; A9270-GY

== ENCOUNTER 2023-05-24 18:54 | Observation (INO) | payer MEDICARE ==
[2023-05-24] MEDS ORDERED: Sodium Chloride 0.9% 1000 ML 1,000 ML IV STA (19:13)
--- NOTE | 2023-05-24 19:18 | ERPHSYRPT ---
- History of Present Illness Time Seen by Provider: 05/24/23 18:56 Source: patient, EMS Exam Limitations: no limitations Patient Subjective Stated Complaint: confusion Triage Nursing Assessment: Pt brought to the ER by EMS, hypetrensive, denies amina n but states that he is achy, kindra below the knee amputee, answers questions but then zones off and stops answering, pulses normal, has a catheter inserted that is changed monthly and is due to be changed in 2 days but will be changed during this hospital visit, urine is cloudy that is in the turcios tube, no difficulty with breathing, doesn't appear to be in any distress Physician History: EMS state pt is from a intermediate and had some confusion today. Pt states he is achy today; denies fever, vomiting, chest pain, shortness of air, abdominal pain. Pt has an indwelling urinary catheter. Allergies/Adverse Reactions: morphine Allergy (Mild, Verified 05/24/23 19:11) cant filter thru kidneys Penicillins Adverse Reaction (Verified 05/24/23 19:11) Headache Home Medications: Metoclopramide HCl 10 mg [Reglan 10 MG] 10 mg PO ACHS 01/02/13 [History] Insulin Aspart [NovoLOG Insulin] 1 unit SQ ACHS 06/07/15 [History] Fluticasone Propionate [Flonase NASAL] 50 mcg IH DAILY 12/25/17 [History] Acetaminophen 325 mg [Tylenol 325 mg] 650 mg PO Q4HPRN PRN 01/02/23 [History] Aspirin EC 81 mg [Ecotrin 81 mg] 81 mg PO DAILY 01/02/23 [History] Cilostazol 100 mg [Pletal 100 MG] 50 mg PO DAILY 01/02/23 [History] Duloxetine HCl 30 mg [Cymbalta 30 MG Capsule] 60 mg PO DAILY 01/02/23 [History] Ergocalciferol (Vitamin D2) [Vitamin D2] 50,000 unit PO Q7D 01/02/23 [History] Ferrous Sulfate 325 mg [Feosol 325 mg] 325 mg PO TID 01/02/23 [History] Folic Acid 1 mg [Folate 1 mg] 1 mg PO DAILY 01/02/23 [History] Gabapentin 300 mg PO TID 01/02/23 [History] Hydrocodone/Acetaminophen [Hydrocodone-Acetamin 10-325 mg] 1 tab PO BID 01/02/23 [History] Insulin Lispro [Humalog Kwikpen U-100] 5 units SQ BREAKFAST 01/02/23 [History] Insulin Lispro [Humalog Kwikpen U-100] 7 units SQ 1130,1630 01/02/23 [History] Lactobacillus Acidophilus [Acidophilus] 1 each PO BID 01/02/23 [History] Potassium Chloride 10 meq PO DAILY 01/02/23 [History] Pravastatin Sodium 20 mg PO QHS 01/02/23 [History] Semaglutide [Ozempic] 0.25 mg SQ WEEKLY 01/02/23 [History] Senna 8.6 mg [Senokot 8.6 mg] 2 tab PO EVENING MEAL 01/02/23 [History] Simethicone 125 mg PO QID 01/02/23 [History] Solifenacin Succinate 5 mg PO DAILY 01/02/23 [History] Hx Tetanus, Diphtheria Vaccination/Date Given: Yes (UP TO DATE) Hx Influenza Vaccination/Date Given: Yes Hx Pneumococcal Vaccination/Date Given: Yes Travel Risk - International Travel Have you traveled outside of the country in past 3 weeks: No - Coronavirus Screening Are you exhibiting any of the following symptoms?: No Close contact with a COVID-19 positive Pt in past 14-21 Days: No - Vaccine Status Have you recieved a Covid-19 vaccination: No 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 - Vaccination Dates Dates if Unknown: unknown - Review of Systems Constitutional: No Fever Ears, Nose, & Throat: No Ear Pain, No Throat Pain Respiratory: No Cough, No Dyspnea Cardiac: No Chest Pain Abdominal/Gastrointestinal: No Abdominal Pain, No Vomiting Musculoskeletal: Other (generalized aches) Neurological: No Headache - Past Medical History Pertinent Past Medical History: Yes Neurological History: Peripheral Neuropathy ENT History: Cataracts, Other Cardiac History: High Cholesterol, Hypertension, Other Respiratory History: Other Endocrine Medical History: Diabetes Type II, Adrenal Insufficiency Musculoskeletal History: Other GI Medical History: GERD, Gallbladder Disease, Other History: Renal Disease, Dialysis Psycho-Social History: Anxiety Male Reproductive Disorders: Prostate Problems Other Medical History: seasonal allergic rhinitis, hyperlipidemia, BPH, MRSA, Covid-19, dysphagia, phantom limb syndrome, urinay retention, neuorgenic bladder, lateral elbow epicondylitis, gastoparesis, chronic resp. failure, fluid overload - Past Surgical History Past Surgical History: Yes Neuro Surgical History: No Pertinent History Cardiac: CABG, Cardiac Stent, Cardiac Catheterization Respiratory: No Pertinent History Gastrointestinal: Cholecystectomy Genitourinary: Other Musculoskeletal: Amputation Male Surgical History: No Pertinent History Other Surgical History: has had laser on both eyes has had peritoneal dialysis catheter. has had triple bypass, has 1 stent. bilateral bka - Social History Smoking Status: Never smoker Exposure to second hand smoke: No Drug Use: none Patient Lives Alone: [place] ([place]) - Nursing Vital Signs Nursing Vital Signs: Initial Vital Signs Temperature 93 F 05/24/23 18:57 Respiratory Rate 19 05/24/23 18:57 Blood Pressure 142/60 05/24/23 18:57 O2 Sat by Pulse Oximetry 92 L 05/24/23 18:57 Pain Scale Pain Intensity 0 - Physical Exam General Appearance: alert Eye Exam: No photophobia Ears, Nose, Throat Exam: TMs normal, No pharyngeal erythema Neck Exam: normal inspection Respiratory Exam: normal breath sounds, airway intact Cardiovascular Exam: normal heart sounds Gastrointestinal/Abdomen Exam: soft, normal bowel sounds, other (suprapubic catheter in place without erythema or exudate) Back Exam: normal inspection Extremity Exam: other (bilateral BKA) Neurologic Exam: alert, cooperative, other (oriented to person and place), No slurred speech Skin Exam: warm, dry SpO2 Interpretation: borderline oxygenation SpO2: 92 O2 Delivery: Room Air - Course Nursing assessment & vital signs reviewed: Yes EKG Interpreted by Me: RATE (90), Sinus Rhythm, NORMAL AXIS, Other (QTc = 505) - Radiology Exams Chest X-ray Interpretation: Interpreted by me (Infiltrate right lung) - CT Exams Head CT Interpretation: Discussed w/radiologist (continued non acute senile brain) Ordered Tests: Active Orders 24 hr Category Date Time Status EKG-ER Only STAT Care 05/24/23 19:13 Active IV Insertion STAT Care 05/24/23 19:13 Active Oxygen-ED Only Nasal Cannula 2 lpm Care 05/24/23 20:02 Active CHEST 1 VIEW (PORTABLE) Stat Exams 05/24/23 19:14 Taken HEAD WITHOUT CONTRAST [CT] Stat Exams 05/24/23 19:16 Taken BLOOD CULTURE Stat Lab 05/24/23 20:35 Received CBC W DIFF Stat Lab 05/24/23 19:50 Completed CMP Stat Lab 05/24/23 19:50 Completed CULTURE,SPUTUM Stat Lab 05/24/23 20:03 Ordered CULTURE,URINE Stat Lab 05/24/23 20:45 Received MAGNESIUM Stat Lab 05/24/23 19:50 Completed TROPONIN Q4H Lab 05/24/23 19:50 Completed TROPONIN Q4H Lab 05/24/23 23:15 Ordered TROPONIN Q4H Lab 05/25/23 03:15 Ordered UA W/RFX UR CULTURE Stat Lab 05/24/23 20:45 Completed VENOUS BLOOD GAS Stat Lab 05/24/23 20:00 Completed Respiratory Therapy Assessment DAILY RT 05/24/23 20:19 Active Medication Summary Discontinued Medications Generic Name Dose Route Start Last Admin Trade Name Freq PRN Reason Stop Dose Admin Albuterol Sulfate 2.5 mg 05/24/23 20:02 05/24/23 20:17 Albuterol Sulfate 2.5 Mg/3 Ml Neb IH 05/24/23 20:03 2.5 mg STAT ONE Administration Albuterol Sulfate Confirm 05/24/23 20:15 Albuterol Sulfate 2.5 Mg/3 Ml Neb Administered 05/24/23 20:16 Dose 2.5 mg IH .STK-MED ONE Sodium Chloride 1,000 mls @ 999 mls/hr 05/24/23 19:13 05/24/23 20:53 Sodium Chloride 0.9% 1000 Ml IV 05/24/23 20:13 Infused .Q1H1M STA Infusion Sodium Chloride Confirm 05/24/23 19:21 Sodium Chloride 0.9% 1000 Ml Administered 05/24/23 19:22 Dose 1,000 mls @ ud .ROUTE .STK-MED ONE Ceftriaxone Sodium/Dextrose 1 g in 50 mls @ 100 mls/hr 05/24/23 20:02 05/24/23 20:53 Rocephin 1 Gm-D5w 50 Ml Bag IV 05/24/23 20:31 Infused STAT STA Infusion Azithromycin 500 mg in 250 mls @ 250 mls/hr 05/24/23 20:02 05/24/23 20:40 Zithromax 500 Mg/ 250 Ml Nacl Premix IV 05/24/23 21:01 250 mls/hr STAT STA 250 mls/hr Administration Ceftriaxone Sodium/Dextrose Confirm 05/24/23 20:06 Rocephin 1 Gm-D5w 50 Ml Bag Administered 05/24/23 20:07 Dose 1 g in 50 mls @ ud IV .STK-MED ONE Azithromycin Confirm 05/24/23 20:38 Zithromax 500 Mg/ 250 Ml Nacl Premix Administered 05/24/23 20:39 Dose 500 mg in 250 mls @ ud IV .STK-MED ONE Lab/Rad Data: Laboratory Result Diagrams 05/24/23 19:50 05/24/23 19:50 Laboratory Results 05/24/23 05/24/23 05/24/23 Range/Units 20:45 20:00 19:50 WBC (4.0-10.5) x10^3/uL RBC (4.1-5.6) x10^6/uL Hgb (12.5-18.0) g/dL Hct (42-50) % MCV (78-100) fL MCH (26-32) pg MCHC (32-36) g/dL RDW (11.5-14.0) % Plt Count (150-450) x10^3/uL MPV (7.5-11.0) fL Gran % (36.0-66.0) % Immature Gran % (Auto) (0.00-0.4) % Nucleat RBC Rel Count (0.00-0.1) % Eos # (Auto) (0-0.5) x10^3/uL Immature Gran # (Auto) (0.00-0.03) x10^3u/L Absolute Lymphs (auto) (1.0-4.6) x10^3/uL Absolute Monos (auto) (0.0-1.3) x10^3/uL Absolute Nucleated RBC (0.00-0.01) x10^3u/L Lymphocytes % (24.0-44.0) % Monocytes % (0.0-12.0) % Eosinophils % (0.00-5.0) % Basophils % (0.0-0.4) % Absolute Granulocytes (1.4-6.9) x10^3/uL Basophils # (0-0.4) x10^3/uL pO2/FiO2 Ratio 21.0 % VBG pH 7.40 (7.32-7.42) VBG pCO2 at Pat Temp 43 (42-55) mm/Hg VBG pO2 at Pat Temp 30 (25-40) mm/Hg VBG HCO3 26.6 (22-28) meq/L VBG O2 Sat (Prince) 51.5 L (95-100) VBG Base Excess 1.5 (-2.0-2.0) VBG Hemoglobin 10.3 VBG Carboxyhemoglobin 3.3 (0.0-6.9) % T HGB POC Potassium 5.8 H (3.5-5.1) Sodium (137-145) mmol/L Potassium (3.5-5.1) mmol/L Chloride (98-107) mmol/L Carbon Dioxide (22-30) mmol/L Anion Gap (5-15) MEQ/L BUN (9-20) mg/dL Creatinine (0.66-1.25) mg/dL Estimated GFR ML/MIN Glucose (74-106) mg/dL Calcium (8.4-10.2) mg/dL Magnesium 2.0 (1.6-2.3) mg/dL Total Bilirubin (0.2-1.3) mg/dL AST (17-59) U/L ALT (0-50) U/L Alkaline Phosphatase (38-126) U/L Troponin I < 0.012 (0.000-0.034) ng/mL Serum Total Protein (6.3-8.2) g/dL Albumin (3.5-5.0) g/dL Urine Color Yellow (Yellow) Urine Appearance Cloudy A (Clear) Urine pH 5.0 (4.6-8.0) Ur Specific [place] 1.015 (1.005-1.030) Urine Protein 30 (Negative) Urine Glucose (UA) Negative (Negative) mg/dL Urine Ketones Trace A (Negative) Urine Blood Large A (Negative) Urine Nitrite Negative (Negative) Urine Bilirubin Negative (Negative) Urine Urobilinogen 1.0 A (0.2) mg/dL Ur Leukocyte Esterase Large A (Negative) U Hyaline Cast (Auto) 0-2 (0-2) /LPF Urine Microscopic RBC 21-50 A (0-5) /HPF Urine Microscopic WBC >100 A (0-5) /HPF Ur Epithelial Cells None Seen (None Seen) /HPF Urine Bacteria Rare A (None Seen) /HPF Urine Culture Reflexed ORDERED SEPARATELY (NO) Slides for Path Review 05/24/23 05/24/23 Range/Units 19:50 19:50 WBC 23.9 H (4.0-10.5) x10^3/uL RBC 3.34 L (4.1-5.6) x10^6/uL Hgb 9.8 L (12.5-18.0) g/dL Hct 31.6 L (42-50) % MCV 94.6 (78-100) fL MCH 29.3 (26-32) pg MCHC 31.0 L (32-36) g/dL RDW 12.2 (11.5-14.0) % Plt Count 199 (150-450) x10^3/uL MPV 10.6 (7.5-11.0) fL Gran % 90.5 H (36.0-66.0) % Immature Gran % (Auto) 0.5 H (0.00-0.4) % Nucleat RBC Rel Count 0.0 (0.00-0.1) % Eos # (Auto) 0.16 (0-0.5) x10^3/uL Immature Gran # (Auto) 0.12 H (0.00-0.03) x10^3u/L Absolute Lymphs (auto) 1.11 (1.0-4.6) x10^3/uL Absolute Monos (auto) 0.83 (0.0-1.3) x10^3/uL Absolute Nucleated RBC 0.00 (0.00-0.01) x10^3u/L Lymphocytes % 4.6 L (24.0-44.0) % Monocytes % 3.5 (0.0-12.0) % Eosinophils % 0.7 (0.00-5.0) % Basophils % 0.2 (0.0-0.4) % Absolute Granulocytes 21.62 H (1.4-6.9) x10^3/uL Basophils # 0.05 (0-0.4) x10^3/uL pO2/FiO2 Ratio % VBG pH (7.32-7.42) VBG pCO2 at Pat Temp (42-55) mm/Hg VBG pO2 at Pat Temp (25-40) mm/Hg VBG HCO3 (22-28) meq/L VBG O2 Sat (Prince) (95-100) VBG Base Excess (-2.0-2.0) VBG Hemoglobin VBG Carboxyhemoglobin (0.0-6.9) % T HGB POC Potassium (3.5-5.1) Sodium 137 (137-145) mmol/L Potassium 5.5 H (3.5-5.1) mmol/L Chloride 106 (98-107) mmol/L Carbon Dioxide 22 (22-30) mmol/L Anion Gap 14.4 (5-15) MEQ/L BUN 43 H (9-20) mg/dL Creatinine 2.22 H (0.66-1.25) mg/dL Estimated GFR 31.5 ML/MIN Glucose 213 H (74-106) mg/dL Calcium 9.5 (8.4-10.2) mg/dL Magnesium (1.6-2.3) mg/dL Total Bilirubin 0.40 (0.2-1.3) mg/dL AST 21 (17-59) U/L ALT 14 (0-50) U/L Alkaline Phosphatase 138 H (38-126) U/L Troponin I (0.000-0.034) ng/mL Serum Total Protein 7.3 (6.3-8.2) g/dL Albumin 3.9 (3.5-5.0) g/dL Urine Color (Yellow) Urine Appearance (Clear) Urine pH (4.6-8.0) Ur Specific [place] (1.005-1.030) Urine Protein (Negative) Urine Glucose (UA) (Negative) mg/dL Urine Ketones (Negative) Urine Blood (Negative) Urine Nitrite (Negative) Urine Bilirubin (Negative) Urine Urobilinogen (0.2) mg/dL Ur Leukocyte Esterase (Negative) U Hyaline Cast (Auto) (0-2) /LPF Urine Microscopic RBC (0-5) /HPF Urine Microscopic WBC (0-5) /HPF Ur Epithelial Cells (None Seen) /HPF Urine Bacteria (None Seen) /HPF Urine Culture Reflexed (NO) Slides for Path Review YES - Progress Progress: unchanged Discussed with Dr.: Other (Spoke with & discussed case with Dr Quiñonez - obs) Will see patient in: hospital (observation) Counseled pt/family regarding: lab results, diagnosis, rad results Medical Desision Making - Diagnostic Testing Diagnostic test were ordered, analyzed, and reviewed by me: Yes Radiological Interpretation: Interpreted by me - Departure Departure Disposition: Observation Clinical Impression: Pneumonia, Diabetes, Confusion, UTI (urinary tract infection) Condition: Stable Critical Care Time: No Referrals: ROMMEL GILLIAM OF [Primary Care Provider] - Follow up/PCP as directed
[2023-05-24] MEDS ORDERED: Sodium Chloride 0.9% 1000 ML 1,000 ML ONE (19:21)
[2023-05-24 19:59] LABS: Absolute Neutrophil Ct (ANC) 21.62 x10^3/uL (1.4-6.9); BASOPHIL % 0.2 % (0.0-0.4); Basophil (Absolute #) 0.05 x10^3/uL (0-0.4); Eosinophil % 0.7 % (0.00-5.0); Eosinophil (Absolute #) 0.16 x10^3/uL (0-0.5); Hematocrit 31.6 % (42-50); Hemoglobin 9.8 g/dL (12.5-18.0); IMMATURE GRAN # 0.12 x10^3u/L (0.00-0.03); IMMATURE GRAN % 0.5 % (0.00-0.4); Lymphocyte (Absolute #) 1.11 x10^3/uL (1.0-4.6); Lymphocytes % 4.6 % (24.0-44.0); Mean Cell Volume 94.6 fL (78-100); Mean Corpuscular Hemoglobin 29.3 pg (26-32); Mean Platelet Volume 10.6 fL (7.5-11.0); Monocyte (Absolute #) 0.83 x10^3/uL (0.0-1.3); Monocytes % 3.5 % (0.0-12.0); Neutrophil % 90.5 % (36.0-66.0); Platelet Count 199 x10^3/uL (150-450); Red Blood Count 3.34 x10^6/uL (4.1-5.6); Red Cell Distribution Width 12.2 % (11.5-14.0); White Blood Count 23.9 x10^3/uL (4.0-10.5)
[2023-05-24] MEDS ORDERED: PROVENTIL 2.5 MG/3 ML NEB IH ONE ×2 (20:02→20:15)
[2023-05-24] MEDS ORDERED: ROCEPHIN 1 Gm-D5w 50 ml Bag** 1 G/50 ML IVPB IV STA (20:02)
[2023-05-24] MEDS ORDERED: Zithromax 500 MG/ 250 ML NaCl Premix 500 MG/250 ML IVPB IV STA (20:02)
[2023-05-24] MEDS ORDERED: ROCEPHIN 1 Gm-D5w 50 ml Bag** 1 G/50 ML IVPB IV ONE (20:06)
[2023-05-24 20:13] LABS: VBG BASE EXCESS 1.5 (-2.0-2.0); VBG CARBOXYHEMOGLOBIN 3.3 % T HGB (0.0-6.9); VBG HCO3- 26.6 meq/L (22-28); VBG HEMOGLOBIN 10.3; VBG O2 SATURATION 51.5 (95-100); VBG POTASSIUM 5.8 (3.5-5.1); VBG pH 7.4 (7.32-7.42)
[2023-05-24 20:21] LABS: ALBUMIN 3.9 g/dL (3.5-5.0); ANION GAP 14.4 MEQ/L (5-15); BILIRUBIN,TOTAL 0.4 mg/dL (0.2-1.3); Calcium 9.5 mg/dL (8.4-10.2); Creatinine 1 2.22 mg/dL (0.66-1.25); EST GLOMERULAR FILTRATION RATE 31.5 ML/MIN; Potassium 5.5 mmol/L (3.5-5.1); Total Protein 7.3 g/dL (6.3-8.2)
[2023-05-24 20:31] LABS: TROPONIN < 0.012 ng/mL (0.000-0.034)
[2023-05-24] MEDS ORDERED: Zithromax 500 MG/ 250 ML NaCl Premix 500 MG/250 ML IVPB IV ONE (20:38)
[2023-05-24 21:19] LABS: Appearance Cloudy (Clear); Bacteria Rare /HPF (None Seen); Bilirubin Negative (Negative); Blood Large (Negative); Epithelial Cells None Seen /HPF (None Seen); Glucose, Urine Negative (Negative); Ketones Trace (Negative); Leukocyte Esterase Large (Negative); Nitrite Negative (Negative); Protein,Urine Dip 30 (Negative); RBC 21-50 /HPF (0-5); Specific Gravity 1.015 (1.005-1.030); WBC >100 /HPF (0-5)
[2023-05-24 21:24] LABS: Slide Review 1 YES
[2023-05-24 21:28] LABS: ADD URINE CULTURE? ORDERED SEPARATELY (NO); Hyaline Casts 0-2 /LPF (0-2)
[2023-05-24 22:27] LABS: INFLUENZA A NEGATIVE (NEGATIVE); INFLUENZA B NEGATIVE (NEGATIVE); RESPIRATORY SYNCTIAL VIRUS NEGATIVE (NEGATIVE); SARS-CoV-2 Xpert Express NEGATIVE (NEGATIVE)
[2023-05-24] MEDS: Sodium Chloride 0.9% 1000 ML 1,000 ML IV SCH (22:54)
[2023-05-25] MEDS ORDERED: PROVENTIL 2.5 MG/3 ML NEB IH PRN (00:52)
[2023-05-25] MEDS ORDERED: PROVENTIL 2.5 MG/3 ML NEB IH SCH (01:00)
[2023-05-25] MEDS ORDERED: TYLENOL 325 MG PO PRN (01:14)
[2023-05-25] MEDS ORDERED: VITAMIN D2 PO SCH ×2 (01:15→10:00)
[2023-05-25] MEDS ORDERED: NON-FORMULARY ITEM (Insulin Aspart [Novolog] 100 UNIT/ML Vial) SQ SCH (01:15)
[2023-05-25] MEDS ORDERED: Docusate Sodium 100 MG PO PRN (01:17)
[2023-05-25] MEDS ORDERED: Zofran 4 MG/2 ML VIAL IV PRN (01:17)
--- NOTE | 2023-05-25 02:57 | PCM.HP ---
History of Present Illness - Chief Complaint Chief Complaint: UTI Date: 05/24/23 History of Present Illness: is a 67 year old male who was brought to the hospital from his SNF for reported altered mental status. The patient had some reported confusion on the d ay of presentation with some myalgias. Otherwise, the patient had no complaints. The patient of note has a chronic indwelling Landers catheter. He denies cough, fever, chills, chest pain, weakness, numbness, abdominal/back pain, or dysuria. In the ED, the patient was noted to have evidence of a UTI and RML pneumonia, so antibiotics were administered. At the time of my evaluation, the patient is comf ortable without complaints. - Review of Systems Constitutional: No Symptoms Eyes: No Symptoms Ears, Nose, & Throat: No Symptoms Respiratory: No Symptoms Cardiac: No Symptoms Abdominal/Gastrointestinal: No Symptoms Genitourinary Symptoms: No Symptoms Musculoskeletal: Arthralgias, Myalgias Skin: No Symptoms Neurological: No Symptoms Psychological: No Symptoms Endocrine: No Symptoms Hematologic/Lymphatic: No Symptoms Immunological/Allergic: No Symptoms Medications & Allergies Home Medications: Home Medication List Metoclopramide HCl 10 mg [Reglan 10 MG] 10 mg PO [facility] 01/02/13 [History Confirmed 05/24/23] Insulin Aspart [NovoLOG Insulin] 1 unit SQ [facility] 06/07/15 [History Confirmed 05/24/23] Fluticasone Propionate [Flonase NASAL] 50 mcg IH DAILY 12/25/17 [History Confirmed 05/24/23] Loratadine 10 mg [Claritin 10 mg] 10 mg PO DAILY #90 tablet 12/26/17 [Rx Confirmed 05/24/23] Metoprolol Tartrate 25 mg [Lopressor 25MG Tab] 25 mg PO BID #180 tab 12/26/17 [Rx Confirmed 05/24/23] Acetaminophen 325 mg [Tylenol 325 mg] 650 mg PO Q4HPRN PRN 01/02/23 [History Confirmed 05/24/23] Aspirin EC 81 mg [Ecotrin 81 mg] 81 mg PO DAILY 01/02/23 [History Confir med 05/24/23] Cilostazol 100 mg [Pletal 100 MG] 50 mg PO DAILY 01/02/23 [History Confirmed 05/24/23] Duloxetine HCl 30 mg [Cymbalta 30 MG Capsule] 60 mg PO DAILY 01/02/23 [History Confirmed 05/24/23] Ergocalciferol (Vitamin D2) [Vitamin D2] 50,000 unit PO Q7D 01/02/23 [History Confirmed 05/24/23] Ferrous Sulfate 325 mg [Feosol 325 mg] 325 mg PO TID 01/02/23 [History Confirmed 05/24/23] Folic Acid 1 mg [Folate 1 mg] 1 mg PO DAILY 01/02/23 [History Confirmed 05/24/23] Gabapentin 300 mg PO TID 01/02/23 [History Confirmed 05/24/23] Hydrocodone/Acetaminophen [Hydrocodone-Acetamin 10-325 mg] 1 tab PO BID 01/02/23 [History Confirmed 05/24/23] Lactobacillus Acidophilus [Acidophilus] 1 each PO BID 01/02/23 [History Confirmed 05/24/23] Pravastatin Sodium 20 mg PO QHS 01/02/23 [History Confirmed 05/24/23] Senna 8.6 mg [Senokot 8.6 mg] 2 tab PO EVENING MEAL 01/02/23 [History Confirmed 05/24/23] Simethicone 125 mg PO QID 01/02/23 [History Confirmed 05/24/23] Oxybutynin Chloride Xl 5 mg [Ditropan XL 5 MG] 5 mg PO DAILY 05/24/23 [History Confirmed 05/24/23] Glucagon [Baqsimi] 3 mg IN UD 05/25/23 [History Confirmed 05/25/23] Insulin Aspart [Novolog] 5 units SQ UD 05/25/23 [History Confirmed 05/25/23] Insulin Glargine,Hum.rec.anlog [Insulin Glargine Solostar] 16 units SQ DAILY 05/25/23 [History Confirmed 05/25/23] Allergies/Adverse Reactions: Allergies Allergy/AdvReac Type Severity Reaction Status Date / Time morphine Allergy Mild Verified 05/24/23 19:11 Penicillins AdvReac Headache Verified 05/24/23 19:11 - Past Medical History Past Medical History: Yes Neurological History: Peripheral Neuropathy ENT History: Cataracts, Other Cardiac History: High Cholesterol, Hypertension, Other Respiratory History: Other Endocrine Medical History: Diabetes Type II, Adrenal Insufficiency Musculoskelatal History: Other GI Medical History: GERD, Gallbladder Disease, Other History: Renal Disease, Dialysis Pyscho-Social History: Anxiety Male Reproductive Disorders: Prostate Problems Comment: seasonal allergic rhinitis, hyperlipidemia, BPH, MRSA, Covid-19, dysphagia, phantom limb syndrome, urinay retention, neuorgenic bladder, lateral elbow epicondylitis, gastoparesis, chronic resp. failure, fluid overload - Past Surgical History Past Surgical History: Yes Neuro Surgical History: No Pertinent History Cardiac History: CABG, Cardiac Stent, Cardiac Catheterization Respiratory Surgery: No Pertinent History GI Surgical History: Cholecystectomy Genitourinary Surgical Hx: Other Musculskeletal Surgical Hx: Amputation Male Surgical History: No Pertinent History Other Surgical History: has had laser on both eyes has had peritoneal dialysis catheter. has had triple bypass, has 1 stent. bilateral bka - Social History Smoking Status: Never smoker Exposure to second hand smoke: No Alcohol: None Drug Use: none - Physical Exam Vital Signs: Vital Signs - 24 hr Temp Pulse Resp BP BP Pulse Ox 05/25/23 00:45 93 H 20 92 L 05/25/23 00:00 91 L 05/24/23 23:23 99.1 F 96 H 21 161/72 91 L 05/24/23 22:15 95 H 14 142/73 93 L 05/24/23 22:01 96 H 14 119/55 97 05/24/23 21:46 93 H 21 113/61 94 L 05/24/23 21:42 92 L 05/24/23 21:30 92 H 15 106/60 95 05/24/23 21:15 97 H 16 126/57 96 05/24/23 21:00 91 H 26 H 124/63 97 05/24/23 20:45 90 19 135/69 95 05/24/23 20:43 91 H 13 104/61 97 05/24/23 20:40 90 0 L 96 05/24/23 20:30 91 H 27 H 05/24/23 20:20 87 20 100 05/24/23 20:19 88 18 95 05/24/23 20:10 87 9 L 96 05/24/23 20:03 88 19 95 05/24/23 19:45 86 18 149/75 95 05/24/23 19:42 89 16 153/70 05/24/23 19:34 94 H 23 158/66 93 L 05/24/23 19:00 149/61 05/24/23 18:57 93 F 19 142/60 92 L General Appearance: no apparent distress, alert Neurologic Exam: alert, oriented x 3, cooperative, phonograph mechanic II-XII nml as tested, normal mood/affect, nml cerebellar function Eye Exam: PERRL/EOMI, eyes nml inspection Ears, Nose, Throat Exam: normal ENT inspection Neck Exam: normal inspection, non-tender, supple, full range of motion Respiratory Exam: normal breath sounds, lungs clear Cardiovascular Exam: regular rate/rhythm, normal heart sounds Gastrointestinal/Abdomen Exam: soft, normal bowel sounds Back Exam: normal range of motion Extremity Exam: normal inspection (bilateral BKA stumps are intact without acute disruption) Skin Exam: normal color Results - Labs Lab/Micro Results: Lab Results-Last 24 Hours 05/24/23 05/24/23 05/24/23 Range/Units 00:00 19:50 19:50 WBC 23.9 H (4.0-10.5) x10^3/uL RBC 3.34 L (4.1-5.6) x10^6/uL Hgb 9.8 L (12.5-18.0) g/dL Hct 31.6 L (42-50) % MCV 94.6 (78-100) fL MCH 29.3 (26-32) pg MCHC 31.0 L (32-36) g/dL RDW 12.2 (11.5-14.0) % Plt Count 199 (150-450) x10^3/uL MPV 10.6 (7.5-11.0) fL Gran % 90.5 H (36.0-66.0) % Immature Gran % (Auto) 0.5 H (0.00-0.4) % Nucleat RBC Rel Count 0.0 (0.00-0.1) % Eos # (Auto) 0.16 (0-0.5) x10^3/uL Immature Gran # (Auto) 0.12 H (0.00-0.03) x10^3u/L Absolute Lymphs (auto) 1.11 (1.0-4.6) x10^3/uL Absolute Monos (auto) 0.83 (0.0-1.3) x10^3/uL Absolute Nucleated RBC 0.00 (0.00-0.01) x10^3u/L Lymphocytes % 4.6 L (24.0-44.0) % Monocytes % 3.5 (0.0-12.0) % Eosinophils % 0.7 (0.00-5.0) % Basophils % 0.2 (0.0-0.4) % Absolute Granulocytes 21.62 H (1.4-6.9) x10^3/uL Basophils # 0.05 (0-0.4) x10^3/uL pO2/FiO2 Ratio % VBG pH (7.32-7.42) VBG pCO2 at Pat Temp (42-55) mm/Hg VBG pO2 at Pat Temp (25-40) mm/Hg VBG HCO3 (22-28) meq/L VBG O2 Sat (Prince) (95-100) VBG Base Excess (-2.0-2.0) VBG Hemoglobin VBG Carboxyhemoglobin (0.0-6.9) % T HGB POC Potassium (3.5-5.1) Sodium 137 (137-145) mmol/L Potassium 5.5 H (3.5-5.1) mmol/L Chloride 106 (98-107) mmol/L Carbon Dioxide 22 (22-30) mmol/L Anion Gap 14.4 (5-15) MEQ/L BUN 43 H (9-20) mg/dL Creatinine 2.22 H (0.66-1.25) mg/dL Estimated GFR 31.5 ML/MIN Glucose 213 H (74-106) mg/dL POC Glucometer (74 to 106) mg/dL Calcium 9.5 (8.4-10.2) mg/dL Magnesium (1.6-2.3) mg/dL Total Bilirubin 0.40 (0.2-1.3) mg/dL AST 21 (17-59) U/L ALT 14 (0-50) U/L Alkaline Phosphatase 138 H (38-126) U/L Troponin I < 0.012 (0.000-0.034) ng/mL Serum Total Protein 7.3 (6.3-8.2) g/dL Albumin 3.9 (3.5-5.0) g/dL Urine Color (Yellow) Urine Appearance (Clear) Urine pH (4.6-8.0) Ur Specific [place]ale[place] (1.005-1.030) Urine Protein (Negative) Urine Glucose (UA) (Negative) mg/dL Urine Ketones (Negative) Urine Blood (Negative) Urine Nitrite (Negative) Urine Bilirubin (Negative) Urine Urobilinogen (0.2) mg/dL Ur Leukocyte Esterase (Negative) U Hyaline Cast (Auto) (0-2) /LPF Urine Microscopic RBC (0-5) /HPF Urine Microscopic WBC (0-5) /HPF Ur Epithelial Cells (None Seen) /HPF Urine Bacteria (None Seen) /HPF Urine Culture Reflexed (NO) Influenza Type A Ag (NEGATIVE) Influenza Type B Ag (NEGATIVE) RSV (PCR) (NEGATIVE) SARS-CoV-2 (PCR) (NEGATIVE) Slides for Path Review YES 05/24/23 05/24/23 05/24/23 Range/Units 19:50 20:00 20:45 WBC (4.0-10.5) x10^3/uL RBC (4.1-5.6) x10^6/uL Hgb (12.5-18.0) g/dL Hct (42-50) % MCV (78-100) fL MCH (26-32) pg MCHC (32-36) g/dL RDW (11.5-14.0) % Plt Count (150-450) x10^3/uL MPV (7.5-11.0) fL Gran % (36.0-66.0) % Immature Gran % (Auto) (0.00-0.4) % Nucleat RBC Rel Count (0.00-0.1) % Eos # (Auto) (0-0.5) x10^3/uL Immature Gran # (Auto) (0.00-0.03) x10^3u/L Absolute Lymphs (auto) (1.0-4.6) x10^3/uL Absolute Monos (auto) (0.0-1.3) x10^3/uL Absolute Nucleated RBC (0.00-0.01) x10^3u/L Lymphocytes % (24.0-44.0) % Monocytes % (0.0-12.0) % Eosinophils % (0.00-5.0) % Basophils % (0.0-0.4) % Absolute Granulocytes (1.4-6.9) x10^3/uL Basophils # (0-0.4) x10^3/uL pO2/FiO2 Ratio 21.0 % VBG pH 7.40 (7.32-7.42) VBG pCO2 at Pat Temp 43 (42-55) mm/Hg VBG pO2 at Pat Temp 30 (25-40) mm/Hg VBG HCO3 26.6 (22-28) meq/L VBG O2 Sat (Prince) 51.5 L (95-100) VBG Base Excess 1.5 (-2.0-2.0) VBG Hemoglobin 10.3 VBG Carboxyhemoglobin 3.3 (0.0-6.9) % T HGB POC Potassium 5.8 H (3.5-5.1) Sodium (137-145) mmol/L Potassium (3.5-5.1) mmol/L Chloride (98-107) mmol/L Carbon Dioxide (22-30) mmol/L Anion Gap (5-15) MEQ/L BUN (9-20) mg/dL Creatinine (0.66-1.25) mg/dL Estimated GFR ML/MIN Glucose (74-106) mg/dL POC Glucometer (74 to 106) mg/dL Calcium (8.4-10.2) mg/dL Magnesium 2.0 (1.6-2.3) mg/dL Total Bilirubin (0.2-1.3) mg/dL AST (17-59) U/L ALT (0-50) U/L Alkaline Phosphatase (38-126) U/L Troponin I < 0.012 (0.000-0.034) ng/mL Serum Total Protein (6.3-8.2) g/dL Albumin (3.5-5.0) g/dL Urine Color Yellow (Yellow) Urine Appearance Cloudy A (Clear) Urine pH 5.0 (4.6-8.0) Ur Specific [place] 1.015 (1.005-1.030) Urine Protein 30 (Negative) Urine Glucose (UA) Negative (Negative) mg/dL Urine Ketones Trace A (Negative) Urine Blood Large A (Negative) Urine Nitrite Negative (Negative) Urine Bilirubin Negative (Negative) Urine Urobilinogen 1.0 A (0.2) mg/dL Ur Leukocyte Esterase Large A (Negative) U Hyaline Cast (Auto) 0-2 (0-2) /LPF Urine Microscopic RBC 21-50 A (0-5) /HPF Urine Microscopic WBC >100 A (0-5) /HPF Ur Epithelial Cells None Seen (None Seen) /HPF Urine Bacteria Rare A (None Seen) /HPF Urine Culture Reflexed ORDERED SEPARATELY (NO) Influenza Type A Ag (NEGATIVE) Influenza Type B Ag (NEGATIVE) RSV (PCR) (NEGATIVE) SARS-CoV-2 (PCR) (NEGATIVE) Slides for Path Review 05/24/23 05/24/23 Range/Units 23:43 Unknown WBC (4.0-10.5) x10^3/uL RBC (4.1-5.6) x10^6/uL Hgb (12.5-18.0) g/dL Hct (42-50) % MCV (78-100) fL MCH (26-32) pg MCHC (32-36) g/dL RDW (11.5-14.0) % Plt Count (150-450) x10^3/uL MPV (7.5-11.0) fL Gran % (36.0-66.0) % Immature Gran % (Auto) (0.00-0.4) % Nucleat RBC Rel Count (0.00-0.1) % Eos # (Auto) (0-0.5) x10^3/uL Immature Gran # (Auto) (0.00-0.03) x10^3u/L Absolute Lymphs (auto) (1.0-4.6) x10^3/uL Absolute Monos (auto) (0.0-1.3) x10^3/uL Absolute Nucleated RBC (0.00-0.01) x10^3u/L Lymphocytes % (24.0-44.0) % Monocytes % (0.0-12.0) % Eosinophils % (0.00-5.0) % Basophils % (0.0-0.4) % Absolute Granulocytes (1.4-6.9) x10^3/uL Basophils # (0-0.4) x10^3/uL pO2/FiO2 Ratio % VBG pH (7.32-7.42) VBG pCO2 at Pat Temp (42-55) mm/Hg VBG pO2 at Pat Temp (25-40) mm/Hg VBG HCO3 (22-28) meq/L VBG O2 Sat (Prince) (95-100) VBG Base Excess (-2.0-2.0) VBG Hemoglobin VBG Carboxyhemoglobin (0.0-6.9) % T HGB POC Potassium (3.5-5.1) Sodium (137-145) mmol/L Potassium (3.5-5.1) mmol/L Chloride (98-107) mmol/L Carbon Dioxide (22-30) mmol/L Anion Gap (5-15) MEQ/L BUN (9-20) mg/dL Creatinine (0.66-1.25) mg/dL Estimated GFR ML/MIN Glucose (74-106) mg/dL POC Glucometer 184 H (74 to 106) mg/dL Calcium (8.4-10.2) mg/dL Magnesium (1.6-2.3) mg/dL Total Bilirubin (0.2-1.3) mg/dL AST (17-59) U/L ALT (0-50) U/L Alkaline Phosphatase (38-126) U/L Troponin I (0.000-0.034) ng/mL Serum Total Protein (6.3-8.2) g/dL Albumin (3.5-5.0) g/dL Urine Color (Yellow) Urine Appearance (Clear) Urine pH (4.6-8.0) Ur Specific [place] (1.005-1.030) Urine Protein (Negative) Urine Glucose (UA) (Negative) mg/dL Urine Ketones (Negative) Urine Blood (Negative) Urine Nitrite (Negative) Urine Bilirubin (Negative) Urine Urobilinogen (0.2) mg/dL Ur Leukocyte Esterase (Negative) U Hyaline Cast (Auto) (0-2) /LPF Urine Microscopic RBC (0-5) /HPF Urine Microscopic WBC (0-5) /HPF Ur Epithelial Cells (None Seen) /HPF Urine Bacteria (None Seen) /HPF Urine Culture Reflexed (NO) Influenza Type A Ag NEGATIVE (NEGATIVE) Influenza Type B Ag NEGATIVE (NEGATIVE) RSV (PCR) NEGATIVE (NEGATIVE) SARS-CoV-2 (PCR) NEGATIVE (NEGATIVE) Slides for Path Review - Radiology Impressions Radiology Exams & Impressions: Radiology Procedures Category Date Time Status CHEST 1 VIEW (PORTABLE) Stat Exams 05/24/23 19:14 Taken HEAD WITHOUT CONTRAST [CT] Stat Exams 05/24/23 19:16 Taken - Other Procedures and Tests Respiratory Therapy 05/24/23 20:19 Respiratory Therapy Assessment DAILY 05/24/23 21:33 EKG REPEAT IN AM Assessment/Plan (1) Acute metabolic encephalopathy Current Visit: Yes Status: Acute Assessment & Plan: Likely due to underlying infection. Significant leukocytosis noted. Monitor mental status. No new focal neuro deficits noted. CT head showed no acute process. Code(s): G93.41 - METABOLIC ENCEPHALOPATHY (2) Pneumonia Current Visit: Yes Status: Acute Assessment & Plan: Follow up final CXR read. Antibiotics. Nebs prn. Follow culture results Code(s): J18.9 - PNEUMONIA, UNSPECIFIED ORGANISM (3) Chronic UTI Current Visit: No Status: Acute Assessment & Plan: Has history of UTIs, likely with recurrent complicated UTI/cystitis with chronic indwelling catheter. Follow cultures. On antibiotics. Code(s): N39.0 - URINARY TRACT INFECTION, SITE NOT SPECIFIED (4) Type 2 diabetes mellitus Current Visit: No Status: Acute Assessment & Plan: Continue current regimen and monitor glucose on ISS Telemedicine Encounter - Telemedicine Encounter Telemedicine Encounter: The entirety of this encounter was performed via Telemedicine"
[2023-05-25 05:28] LABS: Absolute Neutrophil Ct (ANC) 20.44 x10^3/uL (1.4-6.9); BASOPHIL % 0.2 % (0.0-0.4); Basophil (Absolute #) 0.05 x10^3/uL (0-0.4); Eosinophil % 0.3 % (0.00-5.0); Eosinophil (Absolute #) 0.06 x10^3/uL (0-0.5); Hematocrit 27.9 % (42-50); Hemoglobin 8.7 g/dL (12.5-18.0); IMMATURE GRAN # 0.11 x10^3u/L (0.00-0.03); IMMATURE GRAN % 0.5 % (0.00-0.4); Lymphocyte (Absolute #) 1.88 x10^3/uL (1.0-4.6); Mean Cell Volume 93.9 fL (78-100); Mean Corpuscular Hemoglobin 29.3 pg (26-32); Mean Corpuscular Hgb Concent. 31.2 g/dL (32-36); Mean Platelet Volume 10.6 fL (7.5-11.0); Monocyte (Absolute #) 1.06 x10^3/uL (0.0-1.3); Monocytes % 4.5 % (0.0-12.0); Neutrophil % 86.5 % (36.0-66.0); Platelet Count 182 x10^3/uL (150-450); Red Blood Count 2.97 x10^6/uL (4.1-5.6); Red Cell Distribution Width 12.5 % (11.5-14.0); White Blood Count 23.6 x10^3/uL (4.0-10.5)
[2023-05-25 05:54] LABS: ANION GAP 11.2 MEQ/L (5-15); Creatinine 1 1.9 mg/dL (0.66-1.25); Potassium 4.9 mmol/L (3.5-5.1)
[2023-05-25 06:52] LABS: Slide Review 1 YES
[2023-05-25] MEDS ORDERED: NON-FORMULARY ITEM (Insulin Aspart** [Novolog Insulin**] 1 UNIT Unit) SQ SCH (07:30)
[2023-05-25] MEDS ORDERED: Reglan 10 MG ONE (07:35)
[2023-05-25] MEDS: Reglan 10 MG PO SCH ×4 (07:41→22:09)
[2023-05-25] MEDS: HUMALOG SQ PRN ×4 (08:15→22:06)
[2023-05-25] MEDS: Sodium Chloride 0.9% 1000 ML 1,000 ML IV SCH ×2 (08:18→17:56)
--- NOTE | 2023-05-25 08:36 | XRAY ---
Indication: Confusion. Multiple contiguous axial images obtained through the head without contrast. Comparison: November 11, 2020 Again age-appropriate global atrophy and mild periventricular degenerative micro-ischemia bilaterally. No acute intracranial hemorrhage, abnormal extra-axial fluid collection, or mass effect. Ventricular system remains prominent. Fourth ventricle is midline. Bony calvarium intact. Visualized paranasal sinuses and mastoid air cells are clear. Impression: Continued nonacute senile brain with prominent ventricular system. Normal pressure hydrocephalus offered for clinical consideration.
--- NOTE | 2023-05-25 08:38 | XRAY ---
Indication: Confusion. Hypertension. Comparison: November 11, 2020 Portable chest less inflated accentuating cardiopulmonary structures. No focal infiltrate, consolidation, or large effusion. Heart not enlarged again with CABG. Bony thorax intact again with osteopenia and mild degenerative changes. Impression: Nonacute underinflated chest.
[2023-05-25] MEDS: CLARITIN 10 MG PO SCH (09:44)
[2023-05-25] MEDS: Acidophilus TABLET PO SCH ×2 (09:44→22:09)
[2023-05-25] MEDS: Flonase NASAL NS SCH (09:45)
[2023-05-25] MEDS: ECOTRIN 81 MG PO SCH (09:45)
[2023-05-25] MEDS: Cymbalta 30 MG Capsule PO SCH (09:45)
[2023-05-25] MEDS: FEOSOL 325 MG PO SCH ×3 (09:45→22:09)
[2023-05-25] MEDS: FOLATE 1 MG PO SCH (09:45)
[2023-05-25] MEDS: Ditropan XL 5 MG PO SCH (09:45)
[2023-05-25] MEDS: HEPARIN 5000 UNITS/0.5 ML (HIGH RISK MED) SQ SCH ×2 (09:46→22:07)
[2023-05-25] MEDS: Lopressor 25MG Tab PO SCH ×2 (09:46→22:07)
[2023-05-25] MEDS: Mylicon 80MG PO SCH ×4 (09:46→22:08)
[2023-05-25] MEDS: Pletal 100 MG PO SCH (09:47)
[2023-05-25] MEDS: Pepcid 20 MG PO SCH ×2 (09:47→22:09)
[2023-05-25] MEDS: NEURONTIN PO SCH ×3 (09:47→22:09)
[2023-05-25] MEDS: NORCO 10-325 MG PO SCH ×2 (09:49→22:07)
[2023-05-25] MEDS ORDERED: Lantus Insulin SQ SCH (10:00)
--- NOTE | 2023-05-25 13:24 | PCM.NOTE ---
Date and Time: 05/25/23 1313 Subjective Assessment: 05/25/23 is a 67 year old male with PMHX of peripheral neuropathy, cataracts, hyperlipidemia, HTN, typeII DM, adrenal insufficency, GERD, CKD, dialysis, anxiety, prostate problems, BL BKA, phantom limb syndrome, neurogenic bladder, urinary retention, gastroparesis, and chronic resp failure. On 05/24/23 he was brought to the hospital from his SNF for reported altered mental status. The patient had some reported confusion on the day of presentation with some myalgias. Otherwise, the patient had no complaints. The patient of note has a chronic indwelling Turcios catheter. In the ED, the patient was noted to have evidence of a UTI and possible pneumonia, so antibiotics were administered. Troponins are slightly uptrending. Pt has no c/o chest pain. EKG reviewed. Cardiology consulted for further evaluation. CT of head w/o IV contrast showed continued nonacute senile brain with prominent ventricular system. Normal pressure hydrocephalus offered for clinical consideration. Chest XR negative. WBC remains about the same as yesterday at 23.6. Sputum, BC x2 and UC all pending. Pt has no c/o other than being tired. He denies CP, SOB, abd. pain, N/V/D. - Review of Systems Constitutional: Fatigue, No Fever, No Chills Eyes: No Symptoms Ears, Nose, & Throat: No Symptoms Respiratory: No Cough, No Short Of Breath Cardiac: No Chest Pain, No Edema, No Syncope Abdominal/Gastrointestinal: No Abdominal Pain, No Nausea, No Vomiting, No Diarrhea Genitourinary Symptoms: No Dysuria Musculoskeletal: No Back Pain, No Neck Pain Skin: No Rash Neurological: No Dizziness, No Focal Weakness, No Sensory Changes Psychological: No Symptoms Endocrine: No Symptoms Hematologic/Lymphatic: No Symptoms Immunological/Allergic: No Symptoms Objective Exam General Appearance: no apparent distress, alert Neurologic Exam: alert, oriented x 3, cooperative, normal mood/affect, nml cerebellar function, sensation nml, No motor deficits Skin Exam: normal color, warm, dry Eye Exam: PERRL, EOMI, eyes nml inspection Ears, Nose, Throat Exam: normal ENT inspection, pharynx normal, moist mucous membranes Neck Exam: normal inspection, non-tender, supple, full range of motion Respiratory Exam: normal breath sounds, lungs clear, No respiratory distress Cardiovascular Exam: regular rate/rhythm, normal heart sounds Gastrointestinal/Abdomen Exam: soft, No tenderness, No mass Extremity Exam: normal inspection, normal range of motion Back Exam: normal inspection, normal range of motion, No CVA tenderness, No vertebral tenderness Male Genitalia Exam: deferred Rectal Exam: deferred OBJECTIVE DATA Vital Signs: Vital Signs - 24 hr Temp Pulse Resp BP BP Pulse Ox 05/25/23 11:55 97.3 F 86 20 166/69 97 05/25/23 07:25 99.5 F 92 H 24 141/64 98 05/25/23 07:20 69 16 96 05/25/23 04:00 98.0 F 93 H 21 140/65 95 05/25/23 00:45 93 H 20 92 L 05/25/23 00:00 91 L 05/24/23 23:23 99.1 F 96 H 21 161/72 91 L 05/24/23 22:15 95 H 14 142/73 93 L 05/24/23 22:01 96 H 14 119/55 97 05/24/23 21:46 93 H 21 113/61 94 L 05/24/23 21:42 92 L 05/24/23 21:30 92 H 15 106/60 95 05/24/23 21:15 97 H 16 126/57 96 05/24/23 21:00 91 H 26 H 124/63 97 05/24/23 20:45 90 19 135/69 95 05/24/23 20:43 91 H 13 104/61 97 05/24/23 20:40 90 0 L 96 05/24/23 20:30 91 H 27 H 05/24/23 20:20 87 20 100 05/24/23 20:19 88 18 95 05/24/23 20:10 87 9 L 96 05/24/23 20:03 88 19 95 05/24/23 19:45 86 18 149/75 95 05/24/23 19:42 89 16 153/70 05/24/23 19:34 94 H 23 158/66 93 L 05/24/23 19:00 149/61 05/24/23 18:57 93 F 19 142/60 92 L Pain Assessment - Last Documented Pain Intensity 0 Pain Scale Used 0-10 Pain Scale Intake and Output: Intake & Output 01/05/24/23 05/25/23 05/26/23 11:59 11:59 11:59 11:59 Intake Total 453 Output Total 500 Balance -47 Weight 88.4 kg Lab Results: Lab Results-Last 24 Hours 05/24/23 05/24/23 05/24/23 Range/Units 00:00 19:50 19:50 WBC 23.9 H (4.0-10.5) x10^3/uL RBC 3.34 L (4.1-5.6) x10^6/uL Hgb 9.8 L (12.5-18.0) g/dL Hct 31.6 L (42-50) % MCV 94.6 (78-100) fL MCH 29.3 (26-32) pg MCHC 31.0 L (32-36) g/dL RDW 12.2 (11.5-14.0) % Plt Count 199 (150-450) x10^3/uL MPV 10.6 (7.5-11.0) fL Gran % 90.5 H (36.0-66.0) % Immature Gran % (Auto) 0.5 H (0.00-0.4) % Nucleat RBC Rel Count 0.0 (0.00-0.1) % Eos # (Auto) 0.16 (0-0.5) x10^3/uL Immature Gran # (Auto) 0.12 H (0.00-0.03) x10^3u/L Absolute Lymphs (auto) 1.11 (1.0-4.6) x10^3/uL Absolute Monos (auto) 0.83 (0.0-1.3) x10^3/uL Absolute Nucleated RBC 0.00 (0.00-0.01) x10^3u/L Lymphocytes % 4.6 L (24.0-44.0) % Monocytes % 3.5 (0.0-12.0) % Eosinophils % 0.7 (0.00-5.0) % Basophils % 0.2 (0.0-0.4) % Absolute Granulocytes 21.62 H (1.4-6.9) x10^3/uL Basophils # 0.05 (0-0.4) x10^3/uL pO2/FiO2 Ratio % VBG pH (7.32-7.42) VBG pCO2 at Pat Temp (42-55) mm/Hg VBG pO2 at Pat Temp (25-40) mm/Hg VBG HCO3 (22-28) meq/L VBG O2 Sat (Prince) (95-100) VBG Base Excess (-2.0-2.0) VBG Hemoglobin VBG Carboxyhemoglobin (0.0-6.9) % T HGB POC Potassium (3.5-5.1) Sodium 137 (137-145) mmol/L Potassium 5.5 H (3.5-5.1) mmol/L Chloride 106 (98-107) mmol/L Carbon Dioxide 22 (22-30) mmol/L Anion Gap 14.4 (5-15) MEQ/L BUN 43 H (9-20) mg/dL Creatinine 2.22 H (0.66-1.25) mg/dL Estimated GFR 31.5 ML/MIN Glucose 213 H (74-106) mg/dL POC Glucometer (74 to 106) mg/dL Hemoglobin A1c (4.5-6.0) % Lactic Acid (0.4-2.0) Calcium 9.5 (8.4-10.2) mg/dL Magnesium (1.6-2.3) mg/dL Total Bilirubin 0.40 (0.2-1.3) mg/dL AST 21 (17-59) U/L ALT 14 (0-50) U/L Alkaline Phosphatase 138 H (38-126) U/L Troponin I < 0.012 (0.000-0.034) ng/mL Serum Total Protein 7.3 (6.3-8.2) g/dL Albumin 3.9 (3.5-5.0) g/dL Urine Color (Yellow) Urine Appearance (Clear) Urine pH (4.6-8.0) Ur Specific [place] (1.005-1.030) Urine Protein (Negative) Urine Glucose (UA) (Negative) mg/dL Urine Ketones (Negative) Urine Blood (Negative) Urine Nitrite (Negative) Urine Bilirubin (Negative) Urine Urobilinogen (0.2) mg/dL Ur Leukocyte Esterase (Negative) U Hyaline Cast (Auto) (0-2) /LPF Urine Microscopic RBC (0-5) /HPF Urine Microscopic WBC (0-5) /HPF Ur Epithelial Cells (None Seen) /HPF Urine Bacteria (None Seen) /HPF Urine Culture Reflexed (NO) Influenza Type A Ag (NEGATIVE) Influenza Type B Ag (NEGATIVE) RSV (PCR) (NEGATIVE) SARS-CoV-2 (PCR) (NEGATIVE) Slides for Path Review YES 05/24/23 05/24/23 05/24/23 Range/Units 19:50 20:00 20:45 WBC (4.0-10.5) x10^3/uL RBC (4.1-5.6) x10^6/uL Hgb (12.5-18.0) g/dL Hct (42-50) % MCV (78-100) fL MCH (26-32) pg MCHC (32-36) g/dL RDW (11.5-14.0) % Plt Count (150-450) x10^3/uL MPV (7.5-11.0) fL Gran % (36.0-66.0) % Immature Gran % (Auto) (0.00-0.4) % Nucleat RBC Rel Count (0.00-0.1) % Eos # (Auto) (0-0.5) x10^3/uL Immature Gran # (Auto) (0.00-0.03) x10^3u/L Absolute Lymphs (auto) (1.0-4.6) x10^3/uL Absolute Monos (auto) (0.0-1.3) x10^3/uL Absolute Nucleated RBC (0.00-0.01) x10^3u/L Lymphocytes % (24.0-44.0) % Monocytes % (0.0-12.0) % Eosinophils % (0.00-5.0) % Basophils % (0.0-0.4) % Absolute Granulocytes (1.4-6.9) x10^3/uL Basophils # (0-0.4) x10^3/uL pO2/FiO2 Ratio 21.0 % VBG pH 7.40 (7.32-7.42) VBG pCO2 at Pat Temp 43 (42-55) mm/Hg VBG pO2 at Pat Temp 30 (25-40) mm/Hg VBG HCO3 26.6 (22-28) meq/L VBG O2 Sat (Prince) 51.5 L (95-100) VBG Base Excess 1.5 (-2.0-2.0) VBG Hemoglobin 10.3 VBG Carboxyhemoglobin 3.3 (0.0-6.9) % T HGB POC Potassium 5.8 H (3.5-5.1) Sodium (137-145) mmol/L Potassium (3.5-5.1) mmol/L Chloride (98-107) mmol/L Carbon Dioxide (22-30) mmol/L Anion Gap (5-15) MEQ/L BUN (9-20) mg/dL Creatinine (0.66-1.25) mg/dL Estimated GFR ML/MIN Glucose (74-106) mg/dL POC Glucometer (74 to 106) mg/dL Hemoglobin A1c (4.5-6.0) % Lactic Acid (0.4-2.0) Calcium (8.4-10.2) mg/dL Magnesium 2.0 (1.6-2.3) mg/dL Total Bilirubin (0.2-1.3) mg/dL AST (17-59) U/L ALT (0-50) U/L Alkaline Phosphatase (38-126) U/L Troponin I < 0.012 (0.000-0.034) ng/mL Serum Total Protein (6.3-8.2) g/dL Albumin (3.5-5.0) g/dL Urine Color Yellow (Yellow) Urine Appearance Cloudy A (Clear) Urine pH 5.0 (4.6-8.0) Ur Specific [place] 1.015 (1.005-1.030) Urine Protein 30 (Negative) Urine Glucose (UA) Negative (Negative) mg/dL Urine Ketones Trace A (Negative) Urine Blood Large A (Negative) Urine Nitrite Negative (Negative) Urine Bilirubin Negative (Negative) Urine Urobilinogen 1.0 A (0.2) mg/dL Ur Leukocyte Esterase Large A (Negative) U Hyaline Cast (Auto) 0-2 (0-2) /LPF Urine Microscopic RBC 21-50 A (0-5) /HPF Urine Microscopic WBC >100 A (0-5) /HPF Ur Epithelial Cells None Seen (None Seen) /HPF Urine Bacteria Rare A (None Seen) /HPF Urine Culture Reflexed ORDERED SEPARATELY (NO) Influenza Type A Ag (NEGATIVE) Influenza Type B Ag (NEGATIVE) RSV (PCR) (NEGATIVE) SARS-CoV-2 (PCR) (NEGATIVE) Slides for Path Review 05/24/23 05/24/23 05/25/23 Range/Units 23:43 Unknown 05:00 WBC (4.0-10.5) x10^3/uL RBC (4.1-5.6) x10^6/uL Hgb (12.5-18.0) g/dL Hct (42-50) % MCV (78-100) fL MCH (26-32) pg MCHC (32-36) g/dL RDW (11.5-14.0) % Plt Count (150-450) x10^3/uL MPV (7.5-11.0) fL Gran % (36.0-66.0) % Immature Gran % (Auto) (0.00-0.4) % Nucleat RBC Rel Count (0.00-0.1) % Eos # (Auto) (0-0.5) x10^3/uL Immature Gran # (Auto) (0.00-0.03) x10^3u/L Absolute Lymphs (auto) (1.0-4.6) x10^3/uL Absolute Monos (auto) (0.0-1.3) x10^3/uL Absolute Nucleated RBC (0.00-0.01) x10^3u/L Lymphocytes % (24.0-44.0) % Monocytes % (0.0-12.0) % Eosinophils % (0.00-5.0) % Basophils % (0.0-0.4) % Absolute Granulocytes (1.4-6.9) x10^3/uL Basophils # (0-0.4) x10^3/uL pO2/FiO2 Ratio % VBG pH (7.32-7.42) VBG pCO2 at Pat Temp (42-55) mm/Hg VBG pO2 at Pat Temp (25-40) mm/Hg VBG HCO3 (22-28) meq/L VBG O2 Sat (Prince) (95-100) VBG Base Excess (-2.0-2.0) VBG Hemoglobin VBG Carboxyhemoglobin (0.0-6.9) % T HGB POC Potassium (3.5-5.1) Sodium (137-145) mmol/L Potassium (3.5-5.1) mmol/L Chloride (98-107) mmol/L Carbon Dioxide (22-30) mmol/L Anion Gap (5-15) MEQ/L BUN (9-20) mg/dL Creatinine (0.66-1.25) mg/dL Estimated GFR ML/MIN Glucose (74-106) mg/dL POC Glucometer 184 H (74 to 106) mg/dL Hemoglobin A1c 5.92 (4.5-6.0) % Lactic Acid (0.4-2.0) Calcium (8.4-10.2) mg/dL Magnesium (1.6-2.3) mg/dL Total Bilirubin (0.2-1.3) mg/dL AST (17-59) U/L ALT (0-50) U/L Alkaline Phosphatase (38-126) U/L Troponin I (0.000-0.034) ng/mL Serum Total Protein (6.3-8.2) g/dL Albumin (3.5-5.0) g/dL Urine Color (Yellow) Urine Appearance (Clear) Urine pH (4.6-8.0) Ur Specific [place] (1.005-1.030) Urine Protein (Negative) Urine Glucose (UA) (Negative) mg/dL Urine Ketones (Negative) Urine Blood (Negative) Urine Nitrite (Negative) Urine Bilirubin (Negative) Urine Urobilinogen (0.2) mg/dL Ur Leukocyte Esterase (Negative) U Hyaline Cast (Auto) (0-2) /LPF Urine Microscopic RBC (0-5) /HPF Urine Microscopic WBC (0-5) /HPF Ur Epithelial Cells (None Seen) /HPF Urine Bacteria (None Seen) /HPF Urine Culture Reflexed (NO) Influenza Type A Ag NEGATIVE (NEGATIVE) Influenza Type B Ag NEGATIVE (NEGATIVE) RSV (PCR) NEGATIVE (NEGATIVE) SARS-CoV-2 (PCR) NEGATIVE (NEGATIVE) Slides for Path Review 05/25/23 05/25/23 05/25/23 Range/Units 05:17 05:17 05:17 WBC 23.6 H (4.0-10.5) x10^3/uL RBC 2.97 L (4.1-5.6) x10^6/uL Hgb 8.7 L (12.5-18.0) g/dL Hct 27.9 L (42-50) % MCV 93.9 (78-100) fL MCH 29.3 (26-32) pg MCHC 31.2 L (32-36) g/dL RDW 12.5 (11.5-14.0) % Plt Count 182 (150-450) x10^3/uL MPV 10.6 (7.5-11.0) fL Gran % 86.5 H (36.0-66.0) % Immature Gran % (Auto) 0.5 H (0.00-0.4) % Nucleat RBC Rel Count 0.0 (0.00-0.1) % Eos # (Auto) 0.06 (0-0.5) x10^3/uL Immature Gran # (Auto) 0.11 H (0.00-0.03) x10^3u/L Absolute Lymphs (auto) 1.88 (1.0-4.6) x10^3/uL Absolute Monos (auto) 1.06 (0.0-1.3) x10^3/uL Absolute Nucleated RBC 0.00 (0.00-0.01) x10^3u/L Lymphocytes % 8.0 L (24.0-44.0) % Monocytes % 4.5 (0.0-12.0) % Eosinophils % 0.3 (0.00-5.0) % Basophils % 0.2 (0.0-0.4) % Absolute Granulocytes 20.44 H (1.4-6.9) x10^3/uL Basophils # 0.05 (0-0.4) x10^3/uL pO2/FiO2 Ratio % VBG pH (7.32-7.42) VBG pCO2 at Pat Temp (42-55) mm/Hg VBG pO2 at Pat Temp (25-40) mm/Hg VBG HCO3 (22-28) meq/L VBG O2 Sat (Prince) (95-100) VBG Base Excess (-2.0-2.0) VBG Hemoglobin VBG Carboxyhemoglobin (0.0-6.9) % T HGB POC Potassium (3.5-5.1) Sodium 138 (137-145) mmol/L Potassium 4.9 (3.5-5.1) mmol/L Chloride 110 H (98-107) mmol/L Carbon Dioxide 21 L (22-30) mmol/L Anion Gap 11.2 (5-15) MEQ/L BUN 39 H (9-20) mg/dL Creatinine 1.90 H (0.66-1.25) mg/dL Estimated GFR 38.0 ML/MIN Glucose 235 H (74-106) mg/dL POC Glucometer (74 to 106) mg/dL Hemoglobin A1c (4.5-6.0) % Lactic Acid (0.4-2.0) Calcium 9.0 (8.4-10.2) mg/dL Magnesium (1.6-2.3) mg/dL Total Bilirubin (0.2-1.3) mg/dL AST (17-59) U/L ALT (0-50) U/L Alkaline Phosphatase (38-126) U/L Troponin I 0.050 H* (0.000-0.034) ng/mL Serum Total Protein (6.3-8.2) g/dL Albumin (3.5-5.0) g/dL Urine Color (Yellow) Urine Appearance (Clear) Urine pH (4.6-8.0) Ur Specific [place] (1.005-1.030) Urine Protein (Negative) Urine Glucose (UA) (Negative) mg/dL Urine Ketones (Negative) Urine Blood (Negative) Urine Nitrite (Negative) Urine Bilirubin (Negative) Urine Urobilinogen (0.2) mg/dL Ur Leukocyte Esterase (Negative) U Hyaline Cast (Auto) (0-2) /LPF Urine Microscopic RBC (0-5) /HPF Urine Microscopic WBC (0-5) /HPF Ur Epithelial Cells (None Seen) /HPF Urine Bacteria (None Seen) /HPF Urine Culture Reflexed (NO) Influenza Type A Ag (NEGATIVE) Influenza Type B Ag (NEGATIVE) RSV (PCR) (NEGATIVE) SARS-CoV-2 (PCR) (NEGATIVE) Slides for Path Review YES 05/25/23 05/25/23 05/25/23 Range/Units 06:38 08:50 09:04 WBC (4.0-10.5) x10^3/uL RBC (4.1-5.6) x10^6/uL Hgb (12.5-18.0) g/dL Hct (42-50) % MCV (78-100) fL MCH (26-32) pg MCHC (32-36) g/dL RDW (11.5-14.0) % Plt Count (150-450) x10^3/uL MPV (7.5-11.0) fL Gran % (36.0-66.0) % Immature Gran % (Auto) (0.00-0.4) % Nucleat RBC Rel Count (0.00-0.1) % Eos # (Auto) (0-0.5) x10^3/uL Immature Gran # (Auto) (0.00-0.03) x10^3u/L Absolute Lymphs (auto) (1.0-4.6) x10^3/uL Absolute Monos (auto) (0.0-1.3) x10^3/uL Absolute Nucleated RBC (0.00-0.01) x10^3u/L Lymphocytes % (24.0-44.0) % Monocytes % (0.0-12.0) % Eosinophils % (0.00-5.0) % Basophils % (0.0-0.4) % Absolute Granulocytes (1.4-6.9) x10^3/uL Basophils # (0-0.4) x10^3/uL pO2/FiO2 Ratio % VBG pH (7.32-7.42) VBG pCO2 at Pat Temp (42-55) mm/Hg VBG pO2 at Pat Temp (25-40) mm/Hg VBG HCO3 (22-28) meq/L VBG O2 Sat (Prince) (95-100) VBG Base Excess (-2.0-2.0) VBG Hemoglobin VBG Carboxyhemoglobin (0.0-6.9) % T HGB POC Potassium (3.5-5.1) Sodium (137-145) mmol/L Potassium (3.5-5.1) mmol/L Chloride (98-107) mmol/L Carbon Dioxide (22-30) mmol/L Anion Gap (5-15) MEQ/L BUN (9-20) mg/dL Creatinine (0.66-1.25) mg/dL Estimated GFR ML/MIN Glucose (74-106) mg/dL POC Glucometer 237 H (74 to 106) mg/dL Hemoglobin A1c (4.5-6.0) % Lactic Acid 1.2 (0.4-2.0) Calcium (8.4-10.2) mg/dL Magnesium (1.6-2.3) mg/dL Total Bilirubin (0.2-1.3) mg/dL AST (17-59) U/L ALT (0-50) U/L Alkaline Phosphatase (38-126) U/L Troponin I 0.278 H* (0.000-0.034) ng/mL Serum Total Protein (6.3-8.2) g/dL Albumin (3.5-5.0) g/dL Urine Color (Yellow) Urine Appearance (Clear) Urine pH (4.6-8.0) Ur Specific [place] (1.005-1.030) Urine Protein (Negative) Urine Glucose (UA) (Negative) mg/dL Urine Ketones (Negative) Urine Blood (Negative) Urine Nitrite (Negative) Urine Bilirubin (Negative) Urine Urobilinogen (0.2) mg/dL Ur Leukocyte Esterase (Negative) U Hyaline Cast (Auto) (0-2) /LPF Urine Microscopic RBC (0-5) /HPF Urine Microscopic WBC (0-5) /HPF Ur Epithelial Cells (None Seen) /HPF Urine Bacteria (None Seen) /HPF Urine Culture Reflexed (NO) Influenza Type A Ag (NEGATIVE) Influenza Type B Ag (NEGATIVE) RSV (PCR) (NEGATIVE) SARS-CoV-2 (PCR) (NEGATIVE) Slides for Path Review 05/25/23 05/25/23 Range/Units 11:19 11:31 WBC (4.0-10.5) x10^3/uL RBC (4.1-5.6) x10^6/uL Hgb (12.5-18.0) g/dL Hct (42-50) % MCV (78-100) fL MCH (26-32) pg MCHC (32-36) g/dL RDW (11.5-14.0) % Plt Count (150-450) x10^3/uL MPV (7.5-11.0) fL Gran % (36.0-66.0) % Immature Gran % (Auto) (0.00-0.4) % Nucleat RBC Rel Count (0.00-0.1) % Eos # (Auto) (0-0.5) x10^3/uL Immature Gran # (Auto) (0.00-0.03) x10^3u/L Absolute Lymphs (auto) (1.0-4.6) x10^3/uL Absolute Monos (auto) (0.0-1.3) x10^3/uL Absolute Nucleated RBC (0.00-0.01) x10^3u/L Lymphocytes % (24.0-44.0) % Monocytes % (0.0-12.0) % Eosinophils % (0.00-5.0) % Basophils % (0.0-0.4) % Absolute Granulocytes (1.4-6.9) x10^3/uL Basophils # (0-0.4) x10^3/uL pO2/FiO2 Ratio % VBG pH (7.32-7.42) VBG pCO2 at Pat Temp (42-55) mm/Hg VBG pO2 at Pat Temp (25-40) mm/Hg VBG HCO3 (22-28) meq/L VBG O2 Sat (Prince) (95-100) VBG Base Excess (-2.0-2.0) VBG Hemoglobin VBG Carboxyhemoglobin (0.0-6.9) % T HGB POC Potassium (3.5-5.1) Sodium (137-145) mmol/L Potassium (3.5-5.1) mmol/L Chloride (98-107) mmol/L Carbon Dioxide (22-30) mmol/L Anion Gap (5-15) MEQ/L BUN (9-20) mg/dL Creatinine (0.66-1.25) mg/dL Estimated GFR ML/MIN Glucose (74-106) mg/dL POC Glucometer 319 H (74 to 106) mg/dL Hemoglobin A1c (4.5-6.0) % Lactic Acid (0.4-2.0) Calcium (8.4-10.2) mg/dL Magnesium (1.6-2.3) mg/dL Total Bilirubin (0.2-1.3) mg/dL AST (17-59) U/L ALT (0-50) U/L Alkaline Phosphatase (38-126) U/L Troponin I 0.468 H* (0.000-0.034) ng/mL Serum Total Protein (6.3-8.2) g/dL Albumin (3.5-5.0) g/dL Urine Color (Yellow) Urine Appearance (Clear) Urine pH (4.6-8.0) Ur Specific [place] (1.005-1.030) Urine Protein (Negative) Urine Glucose (UA) (Negative) mg/dL Urine Ketones (Negative) Urine Blood (Negative) Urine Nitrite (Negative) Urine Bilirubin (Negative) Urine Urobilinogen (0.2) mg/dL Ur Leukocyte Esterase (Negative) U Hyaline Cast (Auto) (0-2) /LPF Urine Microscopic RBC (0-5) /HPF Urine Microscopic WBC (0-5) /HPF Ur Epithelial Cells (None Seen) /HPF Urine Bacteria (None Seen) /HPF Urine Culture Reflexed (NO) Influenza Type A Ag (NEGATIVE) Influenza Type B Ag (NEGATIVE) RSV (PCR) (NEGATIVE) SARS-CoV-2 (PCR) (NEGATIVE) Slides for Path Review Radiology Exams: Radiology Procedures Category Date Time Status CHEST 1 VIEW (PORTABLE) Stat Exams 05/24/23 19:14 Completed HEAD WITHOUT CONTRAST [CT] Stat Exams 05/24/23 19:16 Completed Multi-Disciplinary Progress Notes: Multi-Disciplinary Progress Notes 05/25/23 09:27 Case Management Note by Alexus Rea PLAN FOR PATIENT TO RETURN TO THE [facility] PER PATIENT AND FACILITY. S/W WITH YANG AT THE [facility] AND SHE STATES NO PROBLEM FOR PATIENT TO COME BACK WHEN PATIENT DISCHARGED. PATIENT SAYS HE WANTS TO GO BACK WHEN DISCHARGED. Initialized on 05/25/23 09:27 - END OF NOTE Assessment/Plan (1) Complicated UTI (urinary tract infection) Current Visit: Yes Status: Acute Assessment & Plan: - pt has chronic suprapubic turcios - was changed on admission - chronic UTI's. - UC pending - Will start Meropenem at renal dosing- pharmacy to dose - reviewed previous urine cultures Code(s): N39.0 - URINARY TRACT INFECTION, SITE NOT SPECIFIED (2) Acute metabolic encephalopathy Current Visit: Yes Status: Acute Assessment & Plan: - 2:2 UTI, LIZETH - as seen on CT head Code(s): G93.41 - METABOLIC ENCEPHALOPATHY (3) Leukocytosis Current Visit: Yes Status: Acute Assessment & Plan: - 05/24 -WBC 23.9 -05/25 -WBC 23.6 - 2:2 UTI - BC x2 pending Code(s): D72.829 - ELEVATED WHITE BLOOD CELL COUNT, UNSPECIFIED (4) Elevated troponin level Current Visit: Yes Status: Acute Assessment & Plan: - 05/24 Trop 0.012, 0.012, 0.050 on admission - 05/25 Trop 0.278, 0.468, 3rd trop pending - Pt denies CP - Cardiology consult - EKG reviewed Code(s): R79.89 - OTHER SPECIFIED ABNORMAL FINDINGS OF BLOOD CHEMISTRY (5) GERD (gastroesophageal reflux disease) Current Visit: Yes Status: Acute Assessment & Plan: - Continue pepcid Code(s): K21.9 - GASTRO-ESOPHAGEAL REFLUX DISEASE WITHOUT ESOPHAGITIS (6) Acute on chronic renal failure Current Visit: Yes Status: Acute Assessment & Plan: - Hx of dialysis in the past - Labs improving - BUN 39, Creat 1.90, GFR 38.0 - BL creat 1.4 Code(s): N17.9 - ACUTE KIDNEY FAILURE, UNSPECIFIED; N18.9 - CHRONIC KIDNEY DISEASE, UNSPECIFIED (7) Confusion Current Visit: Yes Status: Acute Assessment & Plan: - 2:2 encephalopathy, UTI Code(s): R41.0 - DISORIENTATION, UNSPECIFIED (8) Pneumonia Current Visit: Yes Status: Resolved Assessment & Plan: - azithromycin and rocephin started in ER - CXR negative for pneumonia Code(s): J18.9 - PNEUMONIA, UNSPECIFIED ORGANISM (9) Diabetes mellitus Current Visit: Yes Status: Chronic Assessment & Plan: - Lantus 16 units BID - moderate dose s/s Humalog - A1C 5.92- controlled VTE: Heparin PPI: famotidine Next of Kin: Deepthi Nichols [phone] Code status: Full D/C plan: 2-3 days Code(s): E11.9 - TYPE 2 DIABETES MELLITUS WITHOUT COMPLICATIONS
[2023-05-25] MEDS ORDERED: PHARMACY DOSING REQUEST MC ONE (13:49)
[2023-05-25] MEDS: MERREM 500 MG in Sodium Chloride 100ML MINI-BAG PLUS 100 ML IV SCH (17:02)
[2023-05-25] MEDS ORDERED: SENOKOT 8.6 MG PO SCH (18:00)
[2023-05-25] MEDS ORDERED: ZOCOR 20MG PO SCH (22:00)
[2023-05-25] MEDS ORDERED: ROCEPHIN 1 Gm-D5w 50 ml Bag** 1 G/50 ML IVPB IV SCH (22:00)
[2023-05-25] MEDS ORDERED: Zithromax 500 MG/ 250 ML NaCl Premix 500 MG/250 ML IVPB IV SCH (22:00)
[2023-05-25] MEDS: Lantus Insulin SQ SCH (22:07)
[2023-05-26] MEDS: Sodium Chloride 0.9% 1000 ML 1,000 ML IV SCH (03:36)
[2023-05-26 05:03] LABS: Hemoglobin 8.6 g/dL (12.5-18.0); Mean Cell Volume 95.9 fL (78-100); Mean Corpuscular Hemoglobin 29.5 pg (26-32); Mean Corpuscular Hgb Concent. 30.7 g/dL (32-36); Platelet Count 159 x10^3/uL (150-450); Red Blood Count 2.92 x10^6/uL (4.1-5.6); Red Cell Distribution Width 12.5 % (11.5-14.0); White Blood Count 14.8 x10^3/uL (4.0-10.5)
[2023-05-26 05:44] LABS: ALBUMIN 3.1 g/dL (3.5-5.0); ANION GAP 11.7 MEQ/L (5-15); BILIRUBIN,TOTAL 0.3 mg/dL (0.2-1.3); Creatinine 1 1.37 mg/dL (0.66-1.25); EST GLOMERULAR FILTRATION RATE 56.2 ML/MIN; Potassium 4.4 mmol/L (3.5-5.1); Risk Ratio 4.1; Total Protein 6.3 g/dL (6.3-8.2)
[2023-05-26] MEDS: MERREM 500 MG in Sodium Chloride 100ML MINI-BAG PLUS 100 ML IV SCH (06:05)
[2023-05-26] MEDS: Reglan 10 MG PO SCH ×2 (07:33→11:42)
[2023-05-26] MEDS: NORCO 10-325 MG PO SCH (09:07)
[2023-05-26] MEDS: Pepcid 20 MG PO SCH (09:08)
[2023-05-26] MEDS: FEOSOL 325 MG PO SCH (09:08)
[2023-05-26] MEDS: Acidophilus TABLET PO SCH (09:08)
[2023-05-26] MEDS: Lopressor 25MG Tab PO SCH (09:09)
[2023-05-26] MEDS: FOLATE 1 MG PO SCH (09:09)
[2023-05-26] MEDS: Pletal 100 MG PO SCH (09:09)
[2023-05-26] MEDS: ECOTRIN 81 MG PO SCH (09:09)
[2023-05-26] MEDS: NEURONTIN PO SCH (09:09)
[2023-05-26] MEDS: CLARITIN 10 MG PO SCH (09:09)
[2023-05-26] MEDS: Mylicon 80MG PO SCH ×2 (09:10→13:20)
[2023-05-26] MEDS: Lantus Insulin SQ SCH (09:10)
[2023-05-26] MEDS: Cymbalta 30 MG Capsule PO SCH (09:10)
[2023-05-26] MEDS: Ditropan XL 5 MG PO SCH (09:10)
[2023-05-26] MEDS: Flonase NASAL NS SCH (09:11)
[2023-05-26] MEDS: HEPARIN 5000 UNITS/0.5 ML (HIGH RISK MED) SQ SCH (09:11)
[2023-05-26] MEDS: HUMALOG SQ PRN (11:42)
--- NOTE | 2023-05-26 11:45 | PCM.DS ---
Discharge Summary Date of Admission: 05/24/23 23:21 Date of Discharge: 05/26/23 Admitting Physician: ZABRINA VILLATORO MD Consults: Consults on Case 05/25/23 10:30 Consult Cardiology ROUTINE Primary Care Provider: [facility] GILLIAM Allergies Allergies morphine Allergy (Mild, Verified 05/24/23 19:11) cant filter thru kidneys Penicillins Adverse Reaction (Verified 05/24/23 19:11) Headache Hospital Summary - Hospital Course Hospital Course: 05/25/23 is a 67 year old male with PMHX of peripheral neuropathy, cataracts, hyperlipidemia, HTN, typeII DM, adrenal insufficency, GERD, CKD, dialysis, anxiety, prostate problems, BL BKA, phantom limb syndrome, neurogenic bladder, urinary retention, gastroparesis, and chronic resp failure. On 05/24/23 he was brought to the hospital from his SNF for reported altered mental status. The patient had some reported confusion on the day of presentation with some myalgias. Otherwise, the patient had no complaints. The patient of note has a c hronic indwelling Turcios catheter. In the ED, the patient was noted to have evidence of a UTI and possible pneumonia, so antibiotics were administered. Troponins are slightly uptrending. Pt has no c/o chest pain. EKG reviewed. Cardiology consulted for further evaluation. CT of head w/o IV contrast showed continued nonacute senile brain with prominent ventricular system. Normal pressu re hydrocephalus offered for clinical consideration. Chest XR negative. WBC remains about the same as yesterday at 23.6. Sputum, BC x2 and UC all pending. Pt has no c/o other than being tired. He denies CP, SOB, abd. pain, N/V/D. 05/26/23 Pt is resting in bed. He is feeling much better and at baseline mentation. He would like to go back to ECF. WBC 14.8 with change of medication yesterday to Merrem. Mary Jane scan scheduled Op per request of cardiology. He did qualify for home O2. He denies any further concerns at this time. - Vitals & Intake/Output Vital Signs: Vital Signs Temperature 97.6 F 05/26/23 08:00 Pulse Rate 73 05/26/23 08:00 Respiratory Rate 14 05/26/23 08:00 Blood Pressure 182/70 05/26/23 08:00 O2 Sat by Pulse Oximetry 97 05/26/23 08:00 Intake & Output: Intake & Output 05/23/23 05/24/23 05/25/23 05/26/23 11:59 11:59 11:59 11:59 Intake Total 453 3093 Output Total 500 2150 Balance -47 943 Weight 88.4 kg - Lab Result Diagrams: 05/26/23 04:49 05/26/23 04:49 Lab Results-Last 24 Hrs: Lab Results-Last 24 Hours 05/25/23 05/25/23 05/25/23 Range/Units 11:19 14:55 16:34 WBC (4.0-10.5) x10^3/uL RBC (4.1-5.6) x10^6/uL Hgb (12.5-18.0) g/dL Hct (42-50) % MCV (78-100) fL MCH (26-32) pg MCHC (32-36) g/dL RDW (11.5-14.0) % Plt Count (150-450) x10^3/uL MPV (7.5-11.0) fL Sodium (137-145) mmol/L Potassium (3.5-5.1) mmol/L Chloride (98-107) mmol/L Carbon Dioxide (22-30) mmol/L Anion Gap (5-15) MEQ/L BUN (9-20) mg/dL Creatinine (0.66-1.25) mg/dL Estimated GFR ML/MIN Glucose (74-106) mg/dL POC Glucometer 304 H (74 to 106) mg/dL Calcium (8.4-10.2) mg/dL Total Bilirubin (0.2-1.3) mg/dL AST (17-59) U/L ALT (0-50) U/L Alkaline Phosphatase (38-126) U/L Troponin I 0.468 H* 0.934 H* (0.000-0.034) ng/mL Serum Total Protein (6.3-8.2) g/dL Albumin (3.5-5.0) g/dL Triglycerides (30-150) mg/dL Cholesterol (50-200) mg/dL LDL Cholesterol (30-100) mg/dL HDL Cholesterol (40-60) mg/dL Heart Disease Risk Ratio 05/25/23 05/26/23 05/26/23 Range/Units 21:44 04:49 04:49 WBC 14.8 H (4.0-10.5) x10^3/uL RBC 2.92 L (4.1-5.6) x10^6/uL Hgb 8.6 L (12.5-18.0) g/dL Hct 28.0 L (42-50) % MCV 95.9 (78-100) fL MCH 29.5 (26-32) pg MCHC 30.7 L (32-36) g/dL RDW 12.5 (11.5-14.0) % Plt Count 159 (150-450) x10^3/uL MPV 11.0 (7.5-11.0) fL Sodium 139 (137-145) mmol/L Potassium 4.4 (3.5-5.1) mmol/L Chloride 111 H (98-107) mmol/L Carbon Dioxide 21 L (22-30) mmol/L Anion Gap 11.7 (5-15) MEQ/L BUN 29 H (9-20) mg/dL Creatinine 1.37 H (0.66-1.25) mg/dL Estimated GFR 56.2 ML/MIN Glucose 148 H (74-106) mg/dL POC Glucometer 311 H (74 to 106) mg/dL Calcium 9.0 (8.4-10.2) mg/dL Total Bilirubin 0.30 (0.2-1.3) mg/dL AST 21 (17-59) U/L ALT 10 (0-50) U/L Alkaline Phosphatase 103 (38-126) U/L Troponin I (0.000-0.034) ng/mL Serum Total Protein 6.3 (6.3-8.2) g/dL Albumin 3.1 L (3.5-5.0) g/dL Triglycerides 89 (30-150) mg/dL Cholesterol 121 (50-200) mg/dL LDL Cholesterol 63 (30-100) mg/dL HDL Cholesterol 29 L (40-60) mg/dL Heart Disease Risk Ratio 4.1 05/26/23 Range/Units 07:30 WBC (4.0-10.5) x10^3/uL RBC (4.1-5.6) x10^6/uL Hgb (12.5-18.0) g/dL Hct (42-50) % MCV (78-100) fL MCH (26-32) pg MCHC (32-36) g/dL RDW (11.5-14.0) % Plt Count (150-450) x10^3/uL MPV (7.5-11.0) fL Sodium (137-145) mmol/L Potassium (3.5-5.1) mmol/L Chloride (98-107) mmol/L Carbon Dioxide (22-30) mmol/L Anion Gap (5-15) MEQ/L BUN (9-20) mg/dL Creatinine (0.66-1.25) mg/dL Estimated GFR ML/MIN Glucose (74-106) mg/dL POC Glucometer 136 H (74 to 106) mg/dL Calcium (8.4-10.2) mg/dL Total Bilirubin (0.2-1.3) mg/dL AST (17-59) U/L ALT (0-50) U/L Alkaline Phosphatase (38-126) U/L Troponin I (0.000-0.034) ng/mL Serum Total Protein (6.3-8.2) g/dL Albumin (3.5-5.0) g/dL Triglycerides (30-150) mg/dL Cholesterol (50-200) mg/dL LDL Cholesterol (30-100) mg/dL HDL Cholesterol (40-60) mg/dL Heart Disease Risk Ratio Micro Results-Entire Visit: Microbiology 05/24/23 20:45 Urine Culture - Preliminary Catherized GRAM NEGATIVE ID AND SENSITIVITY PENDING 05/24/23 20:35 Blood Culture - Preliminary Blood 05/24/23 20:26 Blood Culture - Preliminary Blood Accuchecks Date 05/26/23 Time 07:59 - Radiology Exams Ordered Rad Exams-Entire Visit: Radiology Procedures Category Date Time Status CHEST 1 VIEW (PORTABLE) Stat Exams 05/24/23 19:14 Completed HEAD WITHOUT CONTRAST [CT] Stat Exams 05/24/23 19:16 Completed - Procedures and Test Procedures and Tests throughout Hospitalization: Therapy Orders & Screens 05/24/23 20:19 Respiratory Therapy Assessment DAILY Comment: 05/24/23 21:30 Oxygen Nasal Cannula 2 lpm Comment: Respiratory Therapy Consult ONCE Comment: Reason For Exam: 05/24/23 21:33 EKG REPEAT IN AM Comment: 05/25/23 01:19 Respiratory Therapy Consult ROUTINE Comment: Reason For Exam: Diagnosis: UTI 05/25/23 10:20 EKG STAT Comment: Diagnosis: elevated trop 05/25/23 19:07 Oxygen Nasal Cannula 2 lpm Comment: Diagnosis: elevated trop 05/26/23 08:43 RT Miscellaneous Order ROUTINE Comment: Physician Instructions: Reason For Exam: qualify for home O2 Diagnosis: elevated trop Discharge Exam General Appearance: no apparent distress, alert Neurologic Exam: alert, oriented x 3, cooperative, normal mood/affect, nml cerebellar function, sensation nml, No motor deficits Eye Exam: PERRL, EOMI, eyes nml inspection Ears, Nose, Throat Exam: normal ENT inspection, pharynx normal, moist mucous membranes Neck Exam: normal inspection, non-tender, supple, full range of motion Respiratory Exam: normal breath sounds, lungs clear, No respiratory distress Cardiovascular Exam: regular rate/rhythm, normal heart sounds Gastrointestinal/Abdomen Exam: soft, No tenderness, No mass Male Genitalia Exam: deferred Rectal Exam: deferred Back Exam: normal inspection, normal range of motion, No CVA tenderness, No vertebral tenderness Extremity Exam: normal inspection, normal range of motion Skin Exam: normal color, warm, dry Final Diagnosis/Problem List - Final Discharge Diagnosis/Problem (1) Complicated UTI (urinary tract infection) Current Visit: Yes Status: Acute Code(s): N39.0 - URINARY TRACT INFECTION, SITE NOT SPECIFIED (2) Acute metabolic encephalopathy Current Visit: Yes Status: Acute Code(s): G93.41 - METABOLIC ENCEPHALOPATHY (3) Leukocytosis Current Visit: Yes Status: Acute Code(s): D72.829 - ELEVATED WHITE BLOOD CELL COUNT, UNSPECIFIED (4) Elevated troponin level Current Visit: Yes Status: Acute Code(s): R79.89 - OTHER SPECIFIED ABNORMAL FINDINGS OF BLOOD CHEMISTRY (5) GERD (gastroesophageal reflux disease) Current Visit: Yes Status: Acute Code(s): K21.9 - GASTRO-ESOPHAGEAL REFLUX DISEASE WITHOUT ESOPHAGITIS (6) Acute on chronic renal failure Current Visit: Yes Status: Acute Code(s): N17.9 - ACUTE KIDNEY FAILURE, UNSPECIFIED; N18.9 - CHRONIC KIDNEY DISEASE, UNSPECIFIED (7) Confusion Current Visit: Yes Status: Acute Code(s): R41.0 - DISORIENTATION, UNSPECIFIED (8) Pneumonia Current Visit: Yes Status: Resolved Code(s): J18.9 - PNEUMONIA, UNSPECIFIED ORGANISM (9) Diabetes mellitus Current Visit: Yes Status: Chronic Assessment & Plan: (1) Complicated UTI (urinary tract infection) Current Visit: Yes Status: Acute Assessment & Plan: - pt has chronic suprapubic turcios - was changed on admission - chronic UTI's. - UC pending - Will start Meropenem at renal dosing- pharmacy to dose - reviewed previous urine cultures 05/25 - Will d/c with cefepime IV - UC sensitivity pending - UC came bacK gram negative - F/u with urology OP for recurrent UTI's with hospitalization Code(s): N39.0 - URINARY TRACT INFECTION, SITE NOT SPECIFIED (2) Acute metabolic encephalopathy Current Visit: Yes Status: Acute Assessment & Plan: - 2:2 UTI, LIZETH - as seen on CT head 05/26 - sxs resolved Code(s): G93.41 - METABOLIC ENCEPHALOPATHY (3) Leukocytosis Current Visit: Yes Status: Acute Assessment & Plan: - 05/24 -WBC 23.9 -05/25 -WBC 23.6 - 2:2 UTI - BC x2 pending 05/26 - improved WBC 14.8 Code(s): D72.829 - ELEVATED WHITE BLOOD CELL COUNT, UNSPECIFIED (4) Elevated troponin level Current Visit: Yes Status: Acute Assessment & Plan: - 05/24 Trop 0.012, 0.012, 0.050 on admission - 05/25 Trop 0.278, 0.468, 3rd trop pending - Pt denies CP - Cardiology consult- would like OP f/u- most likely r/t UTI - EKG reviewed Code(s): R79.89 - OTHER SPECIFIED ABNORMAL FINDINGS OF BLOOD CHEMISTRY (5) GERD (gastroesophageal reflux disease) Current Visit: Yes Status: Acute Assessment & Plan: - Continue pepcid Code(s): K21.9 - GASTRO-ESOPHAGEAL REFLUX DISEASE WITHOUT ESOPHAGITIS (6) Acute on chronic renal failure Current Visit: Yes Status: Acute Assessment & Plan: - Hx of dialysis in the past - Labs improving - BUN 39, Creat 1.90, GFR 38.0 - BL creat 1.4 05/26 -resolved Code(s): N17.9 - ACUTE KIDNEY FAILURE, UNSPECIFIED; N18.9 - CHRONIC KIDNEY DISEASE, UNSPECIFIED (7) Confusion Current Visit: Yes Status: Acute Assessment & Plan: - 2:2 encephalopathy, UTI 05/26 -resolved Code(s): R41.0 - DISORIENTATION, UNSPECIFIED (8) Pneumonia Current Visit: Yes Status: Resolved Assessment & Plan: - Azithromycin and rocephin started in ER - CXR negative for pneumonia- stopped these antibiotics Code(s): J18.9 - PNEUMONIA, UNSPECIFIED ORGANISM (9) Diabetes mellitus Current Visit: Yes Status: Chronic Assessment & Plan: - Lantus 16 units BID - moderate dose s/s Humalog - A1C 5.92- controlled Code(s): E11.9 - TYPE 2 DIABETES MELLITUS WITHOUT COMPLICATIONS - Discharge Discharge Date: 05/26/23 ([facility]) Disposition: Home, Self-Care Condition: Stable Prescriptions: New Cefepime HCl 1 gm [Maxipime 1 gm] 1 g IJ BID 7 Days #17 unit Continue Metoclopramide HCl 10 mg [Reglan 10 MG] 10 mg PO ACHS Insulin Aspart [NovoLOG Insulin] 1 unit SQ ACHS Fluticasone Propionate [Flonase NASAL] 50 mcg IH DAILY Loratadine 10 mg [Claritin 10 mg] 10 mg PO DAILY #90 tablet Metoprolol Tartrate 25 mg [Lopressor 25MG Tab] 25 mg PO BID #180 tab Cilostazol 100 mg [Pletal 100 MG] 50 mg PO DAILY Ferrous Sulfate 325 mg [Feosol 325 mg] 325 mg PO TID Gabapentin 300 mg PO TID Pravastatin Sodium 20 mg PO QHS Lactobacillus Acidophilus [Acidophilus] 1 each PO BID Senna 8.6 mg [Senokot 8.6 mg] 2 tab PO EVENING MEAL Simethicone 125 mg PO QID Ergocalciferol (Vitamin D2) [Vitamin D2] 50,000 unit PO Q7D Hydrocodone/Acetaminophen [Hydrocodone-Acetamin 10-325 mg] 1 tab PO BID Folic Acid 1 mg [Folate 1 mg] 1 mg PO DAILY Duloxetine HCl 30 mg [Cymbalta 30 MG Capsule] 60 mg PO DAILY Aspirin EC 81 mg [Ecotrin 81 mg] 81 mg PO DAILY Acetaminophen 325 mg [Tylenol 325 mg] 650 mg PO Q4HPRN PRN PRN Reason: Pain Oxybutynin Chloride Xl 5 mg [Ditropan XL 5 MG] 5 mg PO DAILY Insulin Glargine,Hum.rec.anlog [Insulin Glargine Solostar] 16 units SQ DAILY Glucagon [Baqsimi] 3 mg IN UD Insulin Aspart [Novolog] 5 units SQ UD Outpatient Orders: Stress Test: Lexiscan Time Frame: 1 Day, Facility: [facility], Location: RESPIRATORY THERAPY Additional Instructions: [facility] NURSING ORDERS: RESUME PREVIOUS NH ORDERS OXYGEN 2LPM NC MAINTAIN IV ACCESS, FLUSHES PER NH PROTOCOL UNTIL IV ANTIBIOTICS COMPLETED SEE ATTACHED MED LIST FOR CURRENT MED ORDERS Pt scheduled for [facility] Jane scan 06/05/23, will need to be NPO after midnight, Hold metoprolol for 48 hours, and no caffeine for 12 hours prior. Follow up with: RANDAL GONZALEZ DO [NON-STAFF PHY W/O PRIVILEGES] - Office will call patient ABRIL GREEN PA [NON-STAFF PHY W/O PRIVILEGES] - 06/07/23 10:00 am ([place] [facility])
[2023-05-26] MEDS ORDERED: APRESOLINE 20 MG/ML INJ IV ONE (11:52)
[2023-05-26 12:22] VITALS: PULSE 75; RESP 15; TEMP 97.4; O2SAT 98
[2023-05-26 13:07] VITALS: BP 169/70
== END 2023-05-26 15:00 | disposition home or self-care (01) ==
LOC: ED 18:54 → MED SURG 23:21
PROVIDERS: ADMIT Internal Medicine; ATTEND Internal Medicine
DX: N39.0 Urinary tract infection, site not specified (principal); G93.41 Metabolic encephalopathy; D72.829 Elevated white blood cell count, unspecified; R79.89 Other specified abnormal findings of blood chemistry; K21.9 Gastro-esophageal reflux disease without esophagitis; N17.9 Acute kidney failure, unspecified; E11.22 Type 2 diabetes mellitus with diabetic chronic kidney disease; I12.9 Hypertensive chronic kidney disease with stage 1 through stage 4 chronic kidney disease, or unspecified chronic kidney disease; N18.9 Chronic kidney disease, unspecified; R41.0 Disorientation, unspecified; J18.9 Pneumonia, unspecified organism; E78.5 Hyperlipidemia, unspecified; Z79.899 Other long term (current) drug therapy; Z20.828 Contact with and (suspected) exposure to other viral communicable diseases; Z89.512 Acquired absence of left leg below knee; Z89.511 Acquired absence of right leg below knee; Z95.0 Presence of cardiac pacemaker
CPT/HCPCS: 0241U; 36415; 51702; 70450; 71045; 80048; 80053; 80061; 81001; 82805; 82947; 83036; 83605; 83721; 83735; 84484; 85025; 85027; 87040; 87077; 87086; 87186; 93005; 94640; 94762; 96360; 96365; 99285; Q3014; 93268; 94760; J0360; J0456; J0696; J1644; J1817; J7609; A9270-GY; G0378

== ENCOUNTER 2023-06-22 19:35 | Inpatient (IN) | payer MEDICARE ==
[2023-06-22] MEDS ORDERED: Sodium Chloride 0.9% 1000 ML 1,000 ML ONE (20:25)
[2023-06-22] MEDS: Sodium Chloride 0.9% 1000 ML 1,000 ML IV SCH (20:27)
--- NOTE | 2023-06-22 20:31 | ERPHSYRPT ---
- History of Present Illness Time Seen by Provider: 06/22/23 19:43 Source: patient, EMS, correction records Exam Limitations: no limitations Patient Subjective Stated Complaint: per correction staff, they state pt has had intermittent confusion for the last weekl. prior to calling ems. pt had an episode of confusion with slurring, word salad. per ems pt had no deficits on their arrival. Triage Nursing Assessment: pt alert and oriented, answers questions approp. pt arrive per ambulance and transfers to [facility] with assist of 3. respirations nonlabored. skin warm and dry. suprapubic catheter in place with cloudy urine. bilat bka. pt blind in lt eye, rt pupil reactive. Physician History: 67 years old male with history of diabetes mellitus with bilateral below-knee amputations, mostly bedridden, suprapubic catheter is brought in the ER with complaints of intermittent confusions going on for almost 1 to 2 weeks and today prior to arrival patient was confused, having word salad and questionable history of left facial weakness. Patient did not have any difficulty speech on EMS arrival at the correction and has no deficit noticed on presentation in the ER. Patient denies any focal weakness at present but does report having some left facial weakness earlier. 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 Denies any chest pain palpitations or shortness of breath. No abdominal pain nausea or vomiting reported. Denies any weakness of upper or lower extremities. Denies fever or chills. Does have UTI in the past. Allergies/Adverse Reactions: morphine Allergy (Mild, Verified 06/22/23 20:23) cant filter thru kidneys Penicillins Adverse Reaction (Verified 06/22/23 20:23) Headache Home Medications: Metoclopramide HCl 10 mg [Reglan 10 MG] 10 mg PO ACHS 01/02/13 [History] Insulin Aspart [NovoLOG Insulin] 5 unit SQ DAILY 06/07/15 [History] Fluticasone Propionate [Flonase NASAL] 50 mcg IH DAILY 12/25/17 [History] Acetaminophen 325 mg [Tylenol 325 mg] 650 mg PO Q4HPRN PRN 01/02/23 [History] Aspirin EC 81 mg [Ecotrin 81 mg] 81 mg PO DAILY 01/02/23 [History] Cilostazol 100 mg [Pletal 100 MG] 100 mg PO DAILY 01/02/23 [History] Duloxetine HCl 30 mg [Cymbalta 30 MG Capsule] 60 mg PO DAILY 01/02/23 [History] Ergocalciferol (Vitamin D2) [Vitamin D2] 50,000 unit PO Q7D 01/02/23 [History] Ferrous Sulfate 325 mg [Feosol 325 mg] 325 mg PO TID 01/02/23 [History] Folic Acid 1 mg [Folate 1 mg] 1 mg PO DAILY 01/02/23 [History] Gabapentin 300 mg PO TID 01/02/23 [History] Hydrocodone/Acetaminophen [Hydrocodone-Acetamin 10-325 mg] 1 tab PO BID 01/02/23 [History] Lactobacillus Acidophilus [Acidophilus] 1 each PO BID 01/02/23 [History] Pravastatin Sodium 20 mg PO QHS 01/02/23 [History] Senna 8.6 mg [Senokot 8.6 mg] 1 tab PO EVENING MEAL 01/02/23 [History] Simethicone 125 mg PO ACHS 01/02/23 [History] Oxybutynin Chloride Xl 5 mg [Ditropan XL 5 MG] 5 mg PO DAILY 05/24/23 [History] Glucagon [Baqsimi] 3 mg IN UD 05/25/23 [History] Insulin Aspart [Novolog] 0 units SQ UD 05/25/23 [History] Insulin Glargine,Hum.rec.anlog [Insulin Glargine Solostar] 16 units SQ DAILY 0 05/25/23 [History] Insulin Aspart [Novolog] 7 unit SQ BID 06/22/23 [History] Hx Tetanus, Diphtheria Vaccination/Date Given: Yes Hx Influenza Vaccination/Date Given: Yes Hx Pneumococcal Vaccination/Date Given: Yes Immunizations Up to Date: Yes Travel Risk - International Travel Have you traveled outside of the country in past 3 weeks: No - Coronavirus Screening Are you exhibiting any of the following symptoms?: No Close contact with a COVID-19 positive Pt in past 14-21 Days: No - Vaccine Status Have you recieved a Covid-19 vaccination: Yes 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 - Vaccination Dates Dates if Unknown: unsure - Review of Systems Constitutional: Fatigue Eyes: No Symptoms Ears, Nose, & Throat: No Symptoms Respiratory: No Symptoms Cardiac: No Symptoms Abdominal/Gastrointestinal: No Symptoms Genitourinary Symptoms: No Symptoms Musculoskeletal: No Symptoms Neurological: Sensory Changes Endocrine: No Symptoms Hematologic/Lymphatic: No Symptoms - Past Medical History Pertinent Past Medical History: Yes Neurological History: Peripheral Neuropathy ENT History: Cataracts, Other Cardiac History: High Cholesterol, Hypertension, Other Respiratory History: Other Endocrine Medical History: Diabetes Type II, Adrenal Insufficiency Musculoskeletal History: Other GI Medical History: GERD, Gallbladder Disease, Other History: Renal Disease, Dialysis Psycho-Social History: Anxiety Male Reproductive Disorders: Prostate Problems Other Medical History: seasonal allergic rhinitis, hyperlipidemia, BPH, MRSA, Covid-19, dysphagia, phantom limb syndrome, urinay retention, neuorgenic bladder, lateral elbow epicondylitis, gastoparesis, chronic resp. failure, fluid overload - Past Surgical History Past Surgical History: Yes Neuro Surgical History: No Pertinent History Cardiac: CABG, Cardiac Stent, Cardiac Catheterization Respiratory: No Pertinent History Gastrointestinal: Cholecystectomy Genitourinary: Other Musculoskeletal: Amputation Male Surgical History: No Pertinent History Other Surgical History: has had laser on both eyes has had peritoneal dialysis catheter. has had triple bypass, has 1 stent. bilateral bka - Social History Smoking Status: Never smoker Exposure to second hand smoke: No Drug Use: none Patient Lives Alone: No (lives at the [facility]) - Nursing Vital Signs Nursing Vital Signs: Initial Vital Signs Blood Pressure 153/64 06/22/23 19:47 Pain Scale Pain Intensity 0 - [place] Coma Scale Best Eye Response ([place]): (4) open spontaneously Best Verbal Response ([place]): (5) oriented Best Motor Response ([place]): (6) obeys commands [place] Total: 15 - Physical Exam General Appearance: no apparent distress, alert Eye Exam: left eye: PERRL (Constricted pupil on the left side with minimal reaction.), bilateral eye: EOMI Ears, Nose, Throat Exam: normal ENT inspection, TMs normal, pharynx normal, moist mucous membranes Neck Exam: normal inspection, non-tender, supple, full range of motion Respiratory: normal breath sounds, lungs clear Cardiovascular: regular rate/rhythm, normal heart sounds Gastrointestinal: soft, normal bowel sounds, No tenderness Extremity Exam: deformities (Bilateral below-knee amputations. 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 Exam: normal hearing, normal speech Coordination/Gait: normal finger to nose, normal cerebellar function Motor/Sensory: no motor deficit, no pronator drift DTR: bicep (R): 2+, bicep (L): 2+, knee (R): 2+, knee (L): 2+ Skin Exam: normal color SpO2 Interpretation: normal SpO2: 98 O2 Delivery: Room Air - Course EKG Interpreted by Me: RATE (76), Sinus Rhythm, NORMAL AXIS, NORMAL INTERVALS Ordered Tests: Active Orders 24 hr Category Date Time Status EKG-ER Only STAT Care 06/22/23 20:04 Active IV Insertion STAT Care 06/22/23 20:04 Active Tele-Health Consult ROUTINE Cons 06/22/23 21:06 Active CHEST 1 VIEW (PORTABLE) Stat Exams 06/22/23 20:39 Taken HEAD WITHOUT CONTRAST [CT] Stat Exams 06/22/23 19:50 Taken BLOOD CULTURE Stat Lab 06/22/23 20:25 Received CBC W DIFF Stat Lab 06/22/23 20:05 Completed CMP Stat Lab 06/22/23 20:05 Completed CULTURE,URINE Stat Lab 06/22/23 20:47 Received Lactic Acid Stat Lab 06/22/23 20:12 Completed MAGNESIUM Stat Lab 06/22/23 20:05 Completed NT PRO BNPII Stat Lab 06/22/23 20:05 Completed PROCALCITONIN Stat Lab 06/22/23 20:05 Completed TROPONIN Q4H Lab 06/22/23 20:05 Completed TROPONIN Q4H Lab 06/23/23 00:15 Ordered TROPONIN Q4H Lab 06/23/23 04:15 Ordered UA W/RFX UR CULTURE Stat Lab 06/22/23 20:47 Completed Transfer Order Routine Transfer 06/22/23 Ordered Medication Summary Generic Name Dose Route Start Last Admin Trade Name Freq PRN Reason Stop Dose Admin Sodium Chloride 1,000 mls @ 125 mls/hr 06/22/23 20:15 06/22/23 21:59 Sodium Chloride 0.9% 1000 Ml IV 07/22/23 20:14 999 mls/hr .Q8H YOLANDA Infusion Discontinued Medications Generic Name Dose Route Start Last Admin Trade Name Freq PRN Reason Stop Dose Admin Sodium Chloride 1,000 mls @ 999 mls/hr 06/22/23 21:46 06/22/23 21:53 Sodium Chloride 0.9% 1000 Ml IV 06/22/23 22:46 Not Given .Q1H1M STA Ceftriaxone Sodium/Dextrose 2 g in 50 mls @ 100 mls/hr 06/22/23 21:46 06/22/23 22:28 Rocephin 2 Gm-D5w 50ml Bag IV 06/22/23 22:15 Infused STAT STA Infusion Ceftriaxone Sodium/Dextrose Confirm 06/22/23 21:54 Rocephin 2 Gm-D5w 50ml Bag Administered 06/22/23 21:55 Dose 2 g in 50 mls @ ud IV .[facility] Lab/Rad Data: Laboratory Result Diagrams 06/22/23 20:05 06/22/23 20:05 Laboratory Results 06/22/23 06/22/23 06/22/23 Range/Units 20:47 20:30 20:12 WBC (4.0-10.5) x10^3/uL RBC (4.1-5.6) x10^6/uL Hgb (12.5-18.0) g/dL Hct (42-50) % MCV (78-100) fL MCH (26-32) pg MCHC (32-36) g/dL RDW (11.5-14.0) % Plt Count (150-450) x10^3/uL MPV (7.5-11.0) fL Gran % (36.0-66.0) % Immature Gran % (Auto) (0.00-0.4) % Nucleat RBC Rel Count (0.00-0.1) % Eos # (Auto) (0-0.5) x10^3/uL Immature Gran # (Auto) (0.00-0.03) x10^3u/L Absolute Lymphs (auto) (1.0-4.6) x10^3/uL Absolute Monos (auto) (0.0-1.3) x10^3/uL Absolute Nucleated RBC (0.00-0.01) x10^3u/L Lymphocytes % (24.0-44.0) % Monocytes % (0.0-12.0) % Eosinophils % (0.00-5.0) % Basophils % (0.0-0.4) % Absolute Granulocytes (1.4-6.9) x10^3/uL Basophils # (0-0.4) x10^3/uL Sodium (137-145) mmol/L Potassium (3.5-5.1) mmol/L Chloride (98-107) mmol/L Carbon Dioxide (22-30) mmol/L Anion Gap (5-15) MEQ/L BUN (9-20) mg/dL Creatinine (0.66-1.25) mg/dL Estimated GFR ML/MIN Glucose (74-106) mg/dL Lactic Acid 1.8 (0.4-2.0) Calcium (8.4-10.2) mg/dL Magnesium (1.6-2.3) mg/dL Total Bilirubin (0.2-1.3) mg/dL AST (17-59) U/L ALT (0-50) U/L Alkaline Phosphatase (38-126) U/L Troponin I (0.000-0.034) ng/mL NT-Pro-B Natriuret Pep (<300) pg/mL Serum Total Protein (6.3-8.2) g/dL Albumin (3.5-5.0) g/dL Procalcitonin (0.030-0.080) ng/mL Urine Color Yellow (Yellow) Urine Appearance Cloudy A (Clear) Urine pH 5.0 (4.6-8.0) Ur Specific [place] 1.015 (1.005-1.030) Urine Protein Negative (Negative) Urine Glucose (UA) 250 A (Negative) mg/dL Urine Ketones Negative (Negative) Urine Blood Trace (Negative) Urine Nitrite Negative (Negative) Urine Bilirubin Negative (Negative) Urine Urobilinogen 0.2 (0.2) mg/dL Ur Leukocyte Esterase Moderate A (Negative) U Hyaline Cast (Auto) 3-5 A (0-2) /LPF Urine Microscopic RBC 21-50 A (0-5) /HPF Urine Microscopic WBC 51-100 A (0-5) /HPF Ur Epithelial Cells None Seen (None Seen) /HPF Urine Bacteria None Seen (None Seen) /HPF Ur Yeast w Hyphae Moderate A (None Seen) /HPF Urine Culture Reflexed ORDERED SEPARATELY (NO) Influenza Type A Ag NEGATIVE (NEGATIVE) Influenza Type B Ag NEGATIVE (NEGATIVE) RSV (PCR) NEGATIVE (NEGATIVE) SARS-CoV-2 (PCR) NEGATIVE (NEGATIVE) 06/22/23 06/22/23 06/22/23 Range/Units 20:05 20:05 20:05 WBC 15.0 H (4.0-10.5) x10^3/uL RBC 3.55 L (4.1-5.6) x10^6/uL Hgb 10.3 L (12.5-18.0) g/dL Hct 33.1 L (42-50) % MCV 93.2 (78-100) fL MCH 29.0 (26-32) pg MCHC 31.1 L (32-36) g/dL RDW 12.2 (11.5-14.0) % Plt Count 171 (150-450) x10^3/uL MPV 11.3 H (7.5-11.0) fL Gran % 72.0 H (36.0-66.0) % Immature Gran % (Auto) 0.3 (0.00-0.4) % Nucleat RBC Rel Count 0.0 (0.00-0.1) % Eos # (Auto) 0.76 H (0-0.5) x10^3/uL Immature Gran # (Auto) 0.05 H (0.00-0.03) x10^3u/L Absolute Lymphs (auto) 2.67 (1.0-4.6) x10^3/uL Absolute Monos (auto) 0.68 (0.0-1.3) x10^3/uL Absolute Nucleated RBC 0.00 (0.00-0.01) x10^3u/L Lymphocytes % 17.8 L (24.0-44.0) % Monocytes % 4.5 (0.0-12.0) % Eosinophils % 5.1 H (0.00-5.0) % Basophils % 0.3 (0.0-0.4) % Absolute Granulocytes 10.83 H (1.4-6.9) x10^3/uL Basophils # 0.04 (0-0.4) x10^3/uL Sodium 135 L (137-145) mmol/L Potassium 4.9 (3.5-5.1) mmol/L Chloride 103 (98-107) mmol/L Carbon Dioxide 20 L (22-30) mmol/L Anion Gap 16.6 H (5-15) MEQ/L BUN 61 H (9-20) mg/dL Creatinine 2.02 H (0.66-1.25) mg/dL Estimated GFR 35.3 ML/MIN Glucose 301 H (74-106) mg/dL Lactic Acid (0.4-2.0) Calcium 9.9 (8.4-10.2) mg/dL Magnesium 2.0 (1.6-2.3) mg/dL Total Bilirubin 0.40 (0.2-1.3) mg/dL AST 21 (17-59) U/L ALT 13 (0-50) U/L Alkaline Phosphatase 121 (38-126) U/L Troponin I < 0.012 (0.000-0.034) ng/mL NT-Pro-B Natriuret Pep 1020 (<300) pg/mL Serum Total Protein 7.7 (6.3-8.2) g/dL Albumin 4.3 (3.5-5.0) g/dL Procalcitonin 0.200 H (0.030-0.080) ng/mL Urine Color (Yellow) Urine Appearance (Clear) Urine pH (4.6-8.0) Ur Specific [place] (1.005-1.030) Urine Protein (Negative) Urine Glucose (UA) (Negative) mg/dL Urine Ketones (Negative) Urine Blood (Negative) Urine Nitrite (Negative) Urine Bilirubin (Negative) Urine Urobilinogen (0.2) mg/dL Ur Leukocyte Esterase (Negative) U Hyaline Cast (Auto) (0-2) /LPF Urine Microscopic RBC (0-5) /HPF Urine Microscopic WBC (0-5) /HPF Ur Epithelial Cells (None Seen) /HPF Urine Bacteria (None Seen) /HPF Ur Yeast w Hyphae (None Seen) /HPF Urine Culture Reflexed (NO) Influenza Type A Ag (NEGATIVE) Influenza Type B Ag (NEGATIVE) RSV (PCR) (NEGATIVE) SARS-CoV-2 (PCR) (NEGATIVE) - Progress Progress: improved Progress Note: 06/22/23 22:52 67 years old is evaluated for intermittent confusion for little over a week and already are having some questionable neurosymptoms. Patient is back to his baseline. Nonfocal neuroexam throughout stay in the ER. Obtain prompt CT head which is negative. Workup showed white count of 15, normal lactate, mildly elevated procalcitonin and some acute on chronic renal failure with a creatinine of 2.02 and a BUN of 60. He is getting hydration. Patient does have UTI, cultures are pending. Started on Rocephin. Chest x-ray negative for any acute cardiopulmonary findings reviewed by me, official report is pending. I have obtain SOC neurology consult in the ER who has evaluated patient and do not think it is neuro event but more of a encephalopathy possibly secondary to infectious etiology. Discussed with Dr. Weber, reviewed history, workup and agreed with admission. I have discussed the results of workup with patient who understand and agree with it. 06/22/23 22:54 [address] with DrRitu: Ulices Will see patient in: hospital (observation) Counseled pt/family regarding: lab results, diagnosis, need for follow-up, rad results Medical Desision Making - Independent Historian Additional History obtained from: [facility] nurse, Enrollment Advisor/EMT - Discussion of managment Care discussed with:: specialist (SOC neurology and hospitalist) Reviewed:: Test results Agreed on:: Treatment plan, place in obs Will see patient: in hospital - Diagnostic Testing Diagnostic test were ordered, analyzed, and reviewed by me: Yes Radiological Interpretation: Interpreted by me, Reviewed by me, Teleradiologist Report - Risk of complications The pt has a high risk of morbidity or mortality based on: Decision regarding hospitilization or escalation of hosp level of care - Departure Departure Disposition: Observation Clinical Impression: Acute encephalopathy, Acute UTI, Acute kidney injury superimposed on CKD Condition: Stable Critical Care Time: No Referrals: ROMMEL GILLIAM OF [Primary Care Provider] - Follow up/PCP as directed
[2023-06-22 20:36] LABS: Absolute Neutrophil Ct (ANC) 10.83 x10^3/uL (1.4-6.9); BASOPHIL % 0.3 % (0.0-0.4); Basophil (Absolute #) 0.04 x10^3/uL (0-0.4); Eosinophil % 5.1 % (0.00-5.0); Eosinophil (Absolute #) 0.76 x10^3/uL (0-0.5); Hematocrit 33.1 % (42-50); Hemoglobin 10.3 g/dL (12.5-18.0); IMMATURE GRAN # 0.05 x10^3u/L (0.00-0.03); IMMATURE GRAN % 0.3 % (0.00-0.4); Lymphocyte (Absolute #) 2.67 x10^3/uL (1.0-4.6); Lymphocytes % 17.8 % (24.0-44.0); Mean Cell Volume 93.2 fL (78-100); Mean Corpuscular Hgb Concent. 31.1 g/dL (32-36); Mean Platelet Volume 11.3 fL (7.5-11.0); Monocyte (Absolute #) 0.68 x10^3/uL (0.0-1.3); Monocytes % 4.5 % (0.0-12.0); Platelet Count 171 x10^3/uL (150-450); Red Blood Count 3.55 x10^6/uL (4.1-5.6); Red Cell Distribution Width 12.2 % (11.5-14.0)
[2023-06-22 21:06] LABS: ALBUMIN 4.3 g/dL (3.5-5.0); ANION GAP 16.6 MEQ/L (5-15); BILIRUBIN,TOTAL 0.4 mg/dL (0.2-1.3); Calcium 9.9 mg/dL (8.4-10.2); Creatinine 1 2.02 mg/dL (0.66-1.25); EST GLOMERULAR FILTRATION RATE 35.3 ML/MIN; PROCALCITONIN 0.2 ng/mL (0.030-0.080); Potassium 4.9 mmol/L (3.5-5.1); Total Protein 7.7 g/dL (6.3-8.2)
[2023-06-22 21:12] LABS: ADD URINE CULTURE? ORDERED SEPARATELY (NO); Appearance Cloudy (Clear); Bacteria None Seen /HPF (None Seen); Bilirubin Negative (Negative); Blood Trace (Negative); Epithelial Cells None Seen /HPF (None Seen); Glucose, Urine 250 mg/dL (Negative); Hyphae Yeast Moderate /HPF (None Seen); Ketones Negative (Negative); Leukocyte Esterase Moderate (Negative); Nitrite Negative (Negative); Protein,Urine Dip Negative (Negative); RBC 21-50 /HPF (0-5); Specific Gravity 1.015 (1.005-1.030); Urobilinogen 0.2 mg/dL (0.2); WBC 51-100 /HPF (0-5)
[2023-06-22 21:17] LABS: INFLUENZA A NEGATIVE (NEGATIVE); INFLUENZA B NEGATIVE (NEGATIVE); RESPIRATORY SYNCTIAL VIRUS NEGATIVE (NEGATIVE); SARS-CoV-2 Xpert Express NEGATIVE (NEGATIVE)
[2023-06-22] MEDS: Sodium Chloride 0.9% 1000 ML 1,000 ML IV STA (21:53)
[2023-06-22] MEDS ORDERED: ROCEPHIN 2 Gm-D5w 50ML BAG** 2 G/50 ML IVPB IV ONE (21:54)
[2023-06-22] MEDS: ROCEPHIN 2 Gm-D5w 50ML BAG** 2 G/50 ML IVPB IV STA (21:58)
--- NOTE | 2023-06-23 00:09 | PCM.HP ---
History of Present Illness - Chief Complaint Chief Complaint: Acute encephalopathy, acute UTI, LIZETH on CKD Date: 06/23/23 History of Present Illness: Mr. Roman is a 67 year-old male with DM2 s/p bilateral AKA c/b being bedbound, status-post suprapubic catheter c/b recurrent UTIs, CKD, chronic anemia, and HLD who presents with altered mental status. He admits to being more confused and weak for 1-2 weeks, and according to EMS, there were reports of him having facial droop and slurred speech - none of this was seen on exam upon arrival to [place]. Admission laboratory data was remarkable for anemia, UTI, and elevated Cr, while imaging was unremarkable. On my examination, he is awake, alert, and denies any current fevers, chills, nausea, vomiting, diarrhea, syncope, presyncope, visual changes, orthopnea, PND, odynophagia, dysphagia, chest pain, shortness of breath, belly pain, dysuria, hematuria, melena, hematochezia, or neurological changes. All other systems were reviewed and were negative. - Review of Systems Constitutional: Other ( PER HPI) Medications & Allergies Home Medications: Home Medication List Metoclopramide HCl 10 mg [Reglan 10 MG] 10 mg PO ACHS 01/02/13 [History Confirmed 06/22/23] Insulin Aspart [NovoLOG Insulin] 5 unit SQ DAILY 06/07/15 [History Confirmed 06/22/23] Fluticasone Propionate [Flonase NASAL] 50 mcg IH DAILY 12/25/17 [History Confirmed 06/22/23] Loratadine 10 mg [Claritin 10 mg] 10 mg PO DAILY #90 tablet 12/26/17 [Rx Confirmed 06/22/23] Metoprolol Tartrate 25 mg [Lopressor 25MG Tab] 25 mg PO BID #180 tab 12/26/17 [Rx Confirmed 06/22/23] Acetaminophen 325 mg [Tylenol 325 mg] 650 mg PO Q4HPRN PRN 01/02/23 [History Confirmed 06/22/23] Aspirin EC 81 mg [Ecotrin 81 mg] 81 mg PO DAILY 01/02/23 [History Confirmed 06/22/23] Cilostazol 100 mg [Pletal 100 MG] 100 mg PO DAILY 01/02/23 [History Confirmed 06/22/23] Duloxetine HCl 30 mg [Cymbalta 30 MG Capsule] 60 mg PO DAILY 01/02/23 [History Confirmed 06/22/23] Ergocalciferol (Vitamin D2) [Vitamin D2] 50,000 unit PO Q7D 01/02/23 [History Confirmed 06/22/23] Ferrous Sulfate 325 mg [Feosol 325 mg] 325 mg PO TID 01/02/23 [History Confirmed 06/22/23] Folic Acid 1 mg [Folate 1 mg] 1 mg PO DAILY 01/02/23 [History Confirmed 06/22/23] Gabapentin 300 mg PO TID 01/02/23 [History Confirmed 06/22/23] Hydrocodone/Acetaminophen [Hydrocodone-Acetamin 10-325 mg] 1 tab PO BID 01/02/23 [History Confirmed 06/22/23] Lactobacillus Acidophilus [Acidophilus] 1 each PO BID 01/02/23 [History Confirmed 06/22/23] Pravastatin Sodium 20 mg PO QHS 01/02/23 [History Confirmed 06/22/23] Senna 8.6 mg [Senokot 8.6 mg] 1 tab PO EVENING MEAL 01/02/23 [History Confirmed 06/22/23] Simethicone 125 mg PO ACHS 01/02/23 [History Confirmed 06/22/23] Oxybutynin Chloride Xl 5 mg [Ditropan XL 5 MG] 5 mg PO DAILY 05/24/23 [History Confirmed 06/22/23] Glucagon [Baqsimi] 3 mg IN UD 05/25/23 [History Confirmed 06/22/23] Insulin Aspart [Novolog] 0 units SQ UD 05/25/23 [History Confirmed 06/22/23] Insulin Glargine,Hum.rec.anlog [Insulin Glargine Solostar] 16 units SQ DAILY 05/25/23 [History Confirmed 06/22/23] Insulin Aspart [Novolog] 7 unit SQ BID 06/22/23 [History Confirmed 06/22/23] Allergies/Adverse Reactions: Allergies Allergy/AdvReac Type Severity Reaction Status Date / Time morphine Allergy Mild Verified 06/22/23 20:23 Penicillins AdvReac Headache Verified 06/22/23 20:23 - Past Medical History Past Medical History: Yes Neurological History: Peripheral Neuropathy ENT History: Cataracts, Other Cardiac History: High Cholesterol, Hypertension, Other Respiratory History: Other Endocrine Medical History: Diabetes Type II, Adrenal Insufficiency Musculoskelatal History: Other GI Medical History: GERD, Gallbladder Disease, Other History: Renal Disease, Dialysis Pyscho-Social History: Anxiety Male Reproductive Disorders: Prostate Problems Comment: seasonal allergic rhinitis, hyperlipidemia, BPH, MRSA, Covid-19, dysphagia, phantom limb syndrome, urinay retention, neuorgenic bladder, lateral elbow epicondylitis, gastoparesis, chronic resp. failure, fluid overload - Past Surgical History Past Surgical History: Yes Neuro Surgical History: No Pertinent History Cardiac History: CABG, Cardiac Stent, Cardiac Catheterization Respiratory Surgery: No Pertinent History GI Surgical History: Cholecystectomy Genitourinary Surgical Hx: Other Musculskeletal Surgical Hx: Amputation Male Surgical History: No Pertinent History Other Surgical History: has had laser on both eyes has had peritoneal dialysis catheter. has had triple bypass, has 1 stent. bilateral bka - Social History Smoking Status: Never smoker Exposure to second hand smoke: No Alcohol: None Drug Use: none - Social Determinants of Health Will the patient participate in the screening: Yes Do you worry about a steady place to live?: No Do you have any problems with any of the following?: No known problems In the past 12 months,have you had to go without utilities?: No Have you or anyone in your house had to go without enough: No Transportation Issues: No Has anyone in your support network made you feel unsafe?: No Does the patient want assistance with any of the above?: No - Physical Exam Vital Signs: Vital Signs - 24 hr Temp Pulse Resp BP BP Pulse Ox 06/22/23 23:09 98.4 F 76 16 155/67 95 06/22/23 23:01 95 06/22/23 22:55 98 06/22/23 22:00 76 18 155/56 100 06/22/23 21:30 73 151/60 98 06/22/23 21:00 71 133/52 97 06/22/23 20:30 80 144/52 97 06/22/23 20:00 76 101/82 97 06/22/23 19:48 98.4 F 81 16 153/64 98 06/22/23 19:47 153/64 General Appearance: no apparent distress, alert Neurologic Exam: alert, oriented x 3, cooperative, normal mood/affect, nml cerebellar function, nml station & gait, sensation nml, No motor deficits Eye Exam: PERRL/EOMI, eyes nml inspection Ears, Nose, Throat Exam: normal ENT inspection, TMs normal, pharynx normal, moist mucous membranes Neck Exam: normal inspection, non-tender, supple, full range of motion Respiratory Exam: normal breath sounds, lungs clear, No respiratory distress Cardiovascular Exam: regular rate/rhythm, normal heart sounds, normal peripheral pulses Gastrointestinal/Abdomen Exam: soft, normal bowel sounds, No tenderness, No mass Back Exam: normal inspection, normal range of motion, No CVA tenderness, No vertebral tenderness Extremity Exam: other (BILATERA AKA) Skin Exam: normal color, warm, dry, No rash Lymphatic Exam: No adenopathy Results - Labs Lab/Micro Results: Lab Results-Last 24 Hours 06/22/23 06/22/23 06/22/23 Range/Units 20:05 20:05 20:05 WBC 15.0 H (4.0-10.5) x10^3/uL RBC 3.55 L (4.1-5.6) x10^6/uL Hgb 10.3 L (12.5-18.0) g/dL Hct 33.1 L (42-50) % MCV 93.2 (78-100) fL MCH 29.0 (26-32) pg MCHC 31.1 L (32-36) g/dL RDW 12.2 (11.5-14.0) % Plt Count 171 (150-450) x10^3/uL MPV 11.3 H (7.5-11.0) fL Gran % 72.0 H (36.0-66.0) % Immature Gran % (Auto) 0.3 (0.00-0.4) % Nucleat RBC Rel Count 0.0 (0.00-0.1) % Eos # (Auto) 0.76 H (0-0.5) x10^3/uL Immature Gran # (Auto) 0.05 H (0.00-0.03) x10^3u/L Absolute Lymphs (auto) 2.67 (1.0-4.6) x10^3/uL Absolute Monos (auto) 0.68 (0.0-1.3) x10^3/uL Absolute Nucleated RBC 0.00 (0.00-0.01) x10^3u/L Lymphocytes % 17.8 L (24.0-44.0) % Monocytes % 4.5 (0.0-12.0) % Eosinophils % 5.1 H (0.00-5.0) % Basophils % 0.3 (0.0-0.4) % Absolute Granulocytes 10.83 H (1.4-6.9) x10^3/uL Basophils # 0.04 (0-0.4) x10^3/uL Sodium 135 L (137-145) mmol/L Potassium 4.9 (3.5-5.1) mmol/L Chloride 103 (98-107) mmol/L Carbon Dioxide 20 L (22-30) mmol/L Anion Gap 16.6 H (5-15) MEQ/L BUN 61 H (9-20) mg/dL Creatinine 2.02 H (0.66-1.25) mg/dL Estimated GFR 35.3 ML/MIN Glucose 301 H (74-106) mg/dL Lactic Acid (0.4-2.0) Calcium 9.9 (8.4-10.2) mg/dL Magnesium 2.0 (1.6-2.3) mg/dL Total Bilirubin 0.40 (0.2-1.3) mg/dL AST 21 (17-59) U/L ALT 13 (0-50) U/L Alkaline Phosphatase 121 (38-126) U/L Troponin I < 0.012 (0.000-0.034) ng/mL NT-Pro-B Natriuret Pep 1020 (<300) pg/mL Serum Total Protein 7.7 (6.3-8.2) g/dL Albumin 4.3 (3.5-5.0) g/dL Procalcitonin 0.200 H (0.030-0.080) ng/mL Urine Color (Yellow) Urine Appearance (Clear) Urine pH (4.6-8.0) Ur Specific Miles (1.005-1.030) Urine Protein (Negative) Urine Glucose (UA) (Negative) mg/dL Urine Ketones (Negative) Urine Blood (Negative) Urine Nitrite (Negative) Urine Bilirubin (Negative) Urine Urobilinogen (0.2) mg/dL Ur Leukocyte Esterase (Negative) U Hyaline Cast (Auto) (0-2) /LPF Urine Microscopic RBC (0-5) /HPF Urine Microscopic WBC (0-5) /HPF Ur Epithelial Cells (None Seen) /HPF Urine Bacteria (None Seen) /HPF Ur Yeast w Hyphae (None Seen) /HPF Urine Culture Reflexed (NO) Influenza Type A Ag (NEGATIVE) Influenza Type B Ag (NEGATIVE) RSV (PCR) (NEGATIVE) SARS-CoV-2 (PCR) (NEGATIVE) 06/22/23 06/22/23 06/22/23 Range/Units 20:12 20:30 20:47 WBC (4.0-10.5) x10^3/uL RBC (4.1-5.6) x10^6/uL Hgb (12.5-18.0) g/dL Hct (42-50) % MCV (78-100) fL MCH (26-32) pg MCHC (32-36) g/dL RDW (11.5-14.0) % Plt Count (150-450) x10^3/uL MPV (7.5-11.0) fL Gran % (36.0-66.0) % Immature Gran % (Auto) (0.00-0.4) % Nucleat RBC Rel Count (0.00-0.1) % Eos # (Auto) (0-0.5) x10^3/uL Immature Gran # (Auto) (0.00-0.03) x10^3u/L Absolute Lymphs (auto) (1.0-4.6) x10^3/uL Absolute Monos (auto) (0.0-1.3) x10^3/uL Absolute Nucleated RBC (0.00-0.01) x10^3u/L Lymphocytes % (24.0-44.0) % Monocytes % (0.0-12.0) % Eosinophils % (0.00-5.0) % Basophils % (0.0-0.4) % Absolute Granulocytes (1.4-6.9) x10^3/uL Basophils # (0-0.4) x10^3/uL Sodium (137-145) mmol/L Potassium (3.5-5.1) mmol/L Chloride (98-107) mmol/L Carbon Dioxide (22-30) mmol/L Anion Gap (5-15) MEQ/L BUN (9-20) mg/dL Creatinine (0.66-1.25) mg/dL Estimated GFR ML/MIN Glucose (74-106) mg/dL Lactic Acid 1.8 (0.4-2.0) Calcium (8.4-10.2) mg/dL Magnesium (1.6-2.3) mg/dL Total Bilirubin (0.2-1.3) mg/dL AST (17-59) U/L ALT (0-50) U/L Alkaline Phosphatase (38-126) U/L Troponin I (0.000-0.034) ng/mL NT-Pro-B Natriuret Pep (<300) pg/mL Serum Total Protein (6.3-8.2) g/dL Albumin (3.5-5.0) g/dL Procalcitonin (0.030-0.080) ng/mL Urine Color Yellow (Yellow) Urine Appearance Cloudy A (Clear) Urine pH 5.0 (4.6-8.0) Ur Specific Miles 1.015 (1.005-1.030) Urine Protein Negative (Negative) Urine Glucose (UA) 250 A (Negative) mg/dL Urine Ketones Negative (Negative) Urine Blood Trace (Negative) Urine Nitrite Negative (Negative) Urine Bilirubin Negative (Negative) Urine Urobilinogen 0.2 (0.2) mg/dL Ur Leukocyte Esterase Moderate A (Negative) U Hyaline Cast (Auto) 3-5 A (0-2) /LPF Urine Microscopic RBC 21-50 A (0-5) /HPF Urine Microscopic WBC 51-100 A (0-5) /HPF Ur Epithelial Cells None Seen (None Seen) /HPF Urine Bacteria None Seen (None Seen) /HPF Ur Yeast w Hyphae Moderate A (None Seen) /HPF Urine Culture Reflexed ORDERED SEPARATELY (NO) Influenza Type A Ag NEGATIVE (NEGATIVE) Influenza Type B Ag NEGATIVE (NEGATIVE) RSV (PCR) NEGATIVE (NEGATIVE) SARS-CoV-2 (PCR) NEGATIVE (NEGATIVE) - Radiology Impressions Radiology Exams & Impressions: Radiology Procedures Category Date Time Status CHEST 1 VIEW (PORTABLE) Stat Exams 06/22/23 20:39 Taken HEAD WITHOUT CONTRAST [CT] Stat Exams 06/22/23 19:50 Taken Assessment/Plan (1) UTI (urinary tract infection) Current Visit: Yes Status: Acute Assessment & Plan: ANTIBIOTICS AND STEROIDS Zosyn ASSESSMENT 1. Altered Mental Status 2. Urinary Tract Infection 3. Acute on Chronic Kidney Disease 4. Chronic Anemia 5. Hyperlipidemia 6. Type II Diabetes Mellitus s/p Bilateral AKA c/b Being Bedridden 7. Status Post Subrapubic Catheter c/b Recurrent UTIs PLAN 1. Fluids + ABx 2. Change out Suprapubic catheter 3. Follow cultures 4. Monitor Cr 5. No need for CVA work-up beyond CT head which is unremarkable 6. Continue statin for HLD 7. Continue antidiabetic regimen; monitor CBGs AC/HS SubQ Heparin The entirety of this encounter was done via telemedicine Seymour Weber MD Pulmonary and Critical Care Medicine Code(s): N39.0 - URINARY TRACT INFECTION, SITE NOT SPECIFIED Telemedicine Encounter - Telemedicine Encounter Telemedicine Encounter: The entirety of this encounter was performed via Telemedicine"
[2023-06-23] MEDS ORDERED: NON-FORMULARY ITEM (Glucagon [Baqsimi] 3 MG Spray) IN SCH (00:30)
[2023-06-23] MEDS ORDERED: TYLENOL 325 MG PO PRN (00:30)
[2023-06-23] MEDS: Lactated Ringers 1,000 ML IV SCH ×2 (00:34→18:17)
[2023-06-23] MEDS ORDERED: PIPERACILLIN/TAZOBACTAM IV ONE (05:39)
[2023-06-23] MEDS: PIPERACILLIN/TAZOBACTAM 3.375 GM in Sodium Chloride 100ML MINI-BAG PLUS 100 ML IV SCH (05:40)
[2023-06-23] MEDS ORDERED: Sodium Chloride 100ML MINI-BAG PLUS 100 ML IV ONE (05:40)
[2023-06-23] MEDS ORDERED: SIMETHICONE 125 MG PO SCH (07:30)
[2023-06-23] MEDS ORDERED: MEDICATION INTERVENTION MC SCH (08:00)
[2023-06-23] MEDS: Reglan 10 MG PO SCH (08:03)
[2023-06-23 08:28] LABS: Hematocrit 30.3 % (42-50); Hemoglobin 9.4 g/dL (12.5-18.0); Mean Cell Volume 93.8 fL (78-100); Mean Corpuscular Hemoglobin 29.1 pg (26-32); Mean Platelet Volume 11.9 fL (7.5-11.0); Platelet Count 134 x10^3/uL (150-450); Red Blood Count 3.23 x10^6/uL (4.1-5.6); Red Cell Distribution Width 12.2 % (11.5-14.0); White Blood Count 10.4 x10^3/uL (4.0-10.5)
[2023-06-23 08:30] LABS: ALBUMIN 3.6 g/dL (3.5-5.0); ANION GAP 13.8 MEQ/L (5-15); BILIRUBIN,TOTAL 0.2 mg/dL (0.2-1.3); Calcium 9.3 mg/dL (8.4-10.2); Creatinine 1 1.77 mg/dL (0.66-1.25); EST GLOMERULAR FILTRATION RATE 41.3 ML/MIN; MAGNESIUM 1.8 mg/dL (1.6-2.3); PHOSPHOROUS 3.6 mg/dL (2.5-4.5); Potassium 5.1 mmol/L (3.5-5.1); Total Protein 6.7 g/dL (6.3-8.2)
[2023-06-23] MEDS: Lantus Insulin SQ SCH ×2 (08:32→08:34)
[2023-06-23] MEDS: HUMALOG SQ ONE (08:34)
--- NOTE | 2023-06-23 08:43 | XRAY ---
Indication: Confusion. Stroke. Multiple contiguous axial images obtained through the head without contrast. Comparison: May 24, 2023 Again age-appropriate global atrophy and mild periventricular degenerative micro-ischemia bilaterally. No acute intracranial hemorrhage, abnormal extra-axial fluid collection, or mass effect. Ventricular system remains prominent. Fourth ventricle midline. Bony calvarium intact. Visualized paranasal sinuses and mastoid air cells are clear. Impression: Continued nonacute senile brain with prominent ventricular system. Again normal pressure hydrocephalus offered for clinical consideration.
--- NOTE | 2023-06-23 09:13 | XRAY ---
Indication: Confusion. Comparison: May 24, 2023 Portable chest rotated, better inflated, and remains clear. Heart not enlarged again with CABG. Bony thorax intact again with osteopenia and mild degenerative changes. Impression: Continued nonacute chest with chronic features.
[2023-06-23] MEDS: Pletal 100 MG PO SCH (09:30)
[2023-06-23] MEDS: Cymbalta 30 MG Capsule PO SCH (09:30)
[2023-06-23] MEDS: FOLATE 1 MG PO SCH (09:30)
[2023-06-23] MEDS: ECOTRIN 81 MG PO SCH (09:30)
[2023-06-23] MEDS: NORCO 10-325 MG PO SCH (09:30)
[2023-06-23] MEDS: Acidophilus TABLET PO SCH (09:30)
[2023-06-23] MEDS: Lopressor 25MG Tab PO SCH (09:30)
[2023-06-23] MEDS: Zofran 4 MG/2 ML VIAL IV PRN (09:30)
[2023-06-23] MEDS: FEOSOL 325 MG PO SCH (09:30)
[2023-06-23] MEDS: Ditropan XL 5 MG PO SCH (09:31)
[2023-06-23] MEDS: NEURONTIN PO SCH (09:31)
[2023-06-23] MEDS: HEPARIN 5000 UNITS/0.5 ML (HIGH RISK MED) SQ SCH (09:40)
[2023-06-23] MEDS ORDERED: INSULIN GLARGINE HUM REC ANLOG 100 UNIT/ML SQ SCH (10:00)
[2023-06-23] MEDS ORDERED: NON-FORMULARY ITEM (Insulin Aspart [Novolog] 100 UNIT/ML Vial) SQ SCH (10:00)
[2023-06-23] MEDS ORDERED: NON-FORMULARY ITEM (Lactobacillus Acidophilus [Acidophilus] 1 EACH Capsule) PO SCH (10:00)
[2023-06-23] MEDS ORDERED: NON-FORMULARY ITEM (Insulin Aspart** [Novolog Insulin**] 1 UNIT Unit) SQ SCH (10:00)
[2023-06-23] MEDS ORDERED: [UNRECOGNIZED DRUG - OTHER] SQ SCH (10:00)
[2023-06-23] MEDS ORDERED: Lantus Insulin SQ SCH (10:00)
[2023-06-23] MEDS: PHARMACY DOSING REQUEST MC ONE (10:48)
[2023-06-23] MEDS: SANDOSTATIN 50MCG/ML IV ONE (10:59)
[2023-06-23] MEDS: PROTONIX 40 MG IV IV ONE (11:00)
[2023-06-23] MEDS ORDERED: PROTONIX 40 MG IV IV SCH (11:00)
[2023-06-23] MEDS: PROTONIX 40 MG IV*** 80 MG in Sodium Chloride 0.9% 500 ML 500 ML IV SCH (11:21)
[2023-06-23] MEDS: Mylicon 80MG PO SCH (11:22)
[2023-06-23 13:25] LABS: Hematocrit 30.6 % (42-50); Hemoglobin 9.8 g/dL (12.5-18.0)
[2023-06-23] MEDS: HUMALOG SQ SCH (15:15)
[2023-06-23] MEDS: SENOKOT 8.6 MG PO SCH (18:00)
[2023-06-23] MEDS ORDERED: Lactated Ringers 1,000 ML IV ONE (18:14)
[2023-06-23] MEDS ORDERED: Xylocaine-Mpf 2% 5 Ml Vial ONE (18:46)
[2023-06-23] MEDS ORDERED: DIPRIVAN 200 MG/20 ML IV ONE (18:46)
[2023-06-23 19:55] LABS: Hematocrit 28.8 % (42-50); Hemoglobin 9.4 g/dL (12.5-18.0)
[2023-06-23] MEDS ORDERED: NON-FORMULARY ITEM (Pravastatin Sodium [Pravastatin Sodium] 20 MG Tablet) PO SCH (22:00)
[2023-06-23] MEDS: ZOCOR 20MG PO SCH (22:57)
[2023-06-24 00:50] LABS: Hematocrit 28.1 % (42-50); Hemoglobin 9.1 g/dL (12.5-18.0)
[2023-06-24] MEDS: APRESOLINE 20 MG/ML INJ IV PRN (03:28)
[2023-06-24 08:08] LABS: Hemoglobin 9.5 g/dL (12.5-18.0); Mean Cell Volume 91.7 fL (78-100); Mean Corpuscular Hemoglobin 29.1 pg (26-32); Mean Corpuscular Hgb Concent. 31.7 g/dL (32-36); Platelet Count 163 x10^3/uL (150-450); Red Blood Count 3.27 x10^6/uL (4.1-5.6); Red Cell Distribution Width 12.5 % (11.5-14.0); White Blood Count 12.4 x10^3/uL (4.0-10.5)
[2023-06-24 08:30] LABS: ALBUMIN 3.5 g/dL (3.5-5.0); ANION GAP 10.5 MEQ/L (5-15); BILIRUBIN,TOTAL 0.4 mg/dL (0.2-1.3); Calcium 9.5 mg/dL (8.4-10.2); Creatinine 1 1.59 mg/dL (0.66-1.25); Potassium 3.9 mmol/L (3.5-5.1); Total Protein 6.6 g/dL (6.3-8.2)
[2023-06-24] MEDS: Diflucan 100 MG PO SCH (09:46)
--- NOTE | 2023-06-24 12:15 | PCM.NOTE ---
Date and Time: 06/24/23 1200 Subjective Assessment: Mr. Roman is a 67 year-old male with DM2 s/p bilateral BKA c/b being bedbound, status-post suprapubic catheter c/b recurrent UTIs, CKD, chronic anemia, and HLD who presents with altered mental status. He admits to being more confused and weak for 1-2 weeks, and according to EMS, there were reports of him having facial droop and slurred speech - none of this was seen on exam upon arrival to [place]. Admission laboratory data was remarkable for anemia, UTI, and elevated Cr, while imaging was unremarkable. On admission he was awake, alert, and denies any current fevers, chills, nausea, vomiting, diarrhea, syncope, presyncope, visual changes, orthopnea, PND, odynophagia, dysphagia, chest pain, shortness of breath, belly pain, dysuria, hematuria, melena, hematochezia, or neurological changes. All other systems were reviewed and were negative. Today he is at baseline mental status. He is feeling much better today. He was nauseous and vomiting yesterday coffee ground emesis and hematemesis. Surgery was consulted for further eval and made NPO at midnight. Per pt this has happened many times in the past and he has had mutiple EGD's and colonoscopy and they have not been able to find anything. Hgb stable at 9.1. He has not had any bleeding since yesterday. LIZETH improved. Glucose better controlled today after changing humalog and lantus. Continue antibiotics and fluconazole for UTI. He denies CP, SOB, abd. pain, N/V/D. - Review of Systems Constitutional: No Fever, No Chills Eyes: No Symptoms Ears, Nose, & Throat: No Symptoms Respiratory: No Cough, No Short Of Breath Cardiac: No Chest Pain, No Edema, No Syncope Abdominal/Gastrointestinal: No Abdominal Pain, No Nausea, No Vomiting, No Diarr hea Genitourinary Symptoms: No Dysuria Musculoskeletal: No Back Pain, No Neck Pain Skin: No Rash Neurological: No Dizziness, No Focal Weakness, No Sensory Changes Psychological: No Symptoms Endocrine: No Symptoms Hematologic/Lymphatic: No Symptoms Immunological/Allergic: No Symptoms Objective Exam General Appearance: no apparent distress, alert Neurologic Exam: alert, oriented x 3, cooperative, normal mood/affect, nml cerebellar function, sensation nml, No motor deficits Skin Exam: normal color, warm, dry Wound Assessment: Skin/Wound Assessment Wound/Incision Assessment Start: 06/22/23 23:26 Text: Status: Active Freq: Q6H Protocol: Document 06/24/23 06:00 MP (Rec: 06/24/23 06:39 MP [id number]) Wound/Incision Assessment Sacrum Wound Assessment Shift Assessment Wound Type Pressure Ulcer General Appearance Open to air,Clean/Dry,Reddened Surrounding Tissue Bright Red Comment barrier cream applied, weight shift, pillows used for repositing and turning schedule. Left Thigh Wound Assessment Shift Assessment Wound Type Abrasion Wound Stage Non Pressure Wound Comment abraision below knee from running into wall at [place] with his wheelchair. Remains the same as on admission. Wound Photo Photo Taken No Eye Exam: PERRL, EOMI, eyes nml inspection Ears, Nose, Throat Exam: normal ENT inspection, pharynx normal, moist mucous membranes Neck Exam: normal inspection, non-tender, supple, full range of motion Respiratory Exam: normal breath sounds, lungs clear, No respiratory distress Cardiovascular Exam: regular rate/rhythm, normal heart sounds Gastrointestinal/Abdomen Exam: soft, No tenderness, No mass Extremity Exam: normal inspection, normal range of motion Back Exam: normal inspection, normal range of motion, No CVA tenderness, No vertebral tenderness Male Genitalia Exam: deferred Rectal Exam: deferred OBJECTIVE DATA Vital Signs: Vital Signs - 24 hr Temp Pulse Resp BP Pulse Ox 06/24/23 11:31 97.6 F 70 16 129/60 98 06/24/23 08:00 98.0 F 69 16 157/81 96 06/24/23 04:00 97.9 F 71 18 148/66 96 06/23/23 22:15 98.1 F 68 16 184/77 95 06/23/23 21:15 97.8 F 69 18 164/71 92 L 06/23/23 20:45 98.1 F 71 16 179/78 93 L 06/23/23 20:15 98.1 F 72 17 154/69 98 06/23/23 20:00 98.1 F 73 18 163/70 97 06/23/23 19:45 98.2 F 73 18 166/69 96 06/23/23 19:30 98.3 F 75 17 148/66 95 02/16/24 17:41 97.7 F 83 16 159/72 91 L 06/23/23 16:00 97.7 F 83 16 159/72 91 L Pain Assessment - Last Documented Pain Intensity 0 Pain Scale Used [facility] Intake and Output: Intake & Output 06/22/23 06/23/23 06/24/23 06/25/23 11:59 11:59 11:59 11:59 Intake Total 579 2039 Output Total 2600 1350 Balance -2020 Weight 82.2 kg 82.2 kg Lab Results: Lab Results-Last 24 Hours 06/23/23 06/23/23 06/23/23 Range/Units 13:00 15:08 16:24 WBC (4.0-10.5) x10^3/uL RBC (4.1-5.6) x10^6/uL Hgb 9.8 L (12.5-18.0) g/dL Hct 30.6 L (42-50) % MCV (78-100) fL MCH (26-32) pg MCHC (32-36) g/dL RDW (11.5-14.0) % Plt Count (150-450) x10^3/uL MPV (7.5-11.0) fL Sodium (137-145) mmol/L Potassium (3.5-5.1) mmol/L Chloride (98-107) mmol/L Carbon Dioxide (22-30) mmol/L Anion Gap (5-15) MEQ/L BUN (9-20) mg/dL Creatinine (0.66-1.25) mg/dL Estimated GFR ML/MIN Glucose (74-106) mg/dL POC Glucometer 291 H 276 H (74 to 106) mg/dL Calcium (8.4-10.2) mg/dL Total Bilirubin (0.2-1.3) mg/dL AST (17-59) U/L ALT (0-50) U/L Alkaline Phosphatase (38-126) U/L Serum Total Protein (6.3-8.2) g/dL Albumin (3.5-5.0) g/dL 06/23/23 06/23/23 06/24/23 Range/Units 19:50 20:46 00:49 WBC (4.0-10.5) x10^3/uL RBC (4.1-5.6) x10^6/uL Hgb 9.4 L 9.1 L (12.5-18.0) g/dL Hct 28.8 L 28.1 L (42-50) % MCV (78-100) fL MCH (26-32) pg MCHC (32-36) g/dL RDW (11.5-14.0) % Plt Count (150-450) x10^3/uL MPV (7.5-11.0) fL Sodium (137-145) mmol/L Potassium (3.5-5.1) mmol/L Chloride (98-107) mmol/L Carbon Dioxide (22-30) mmol/L Anion Gap (5-15) MEQ/L BUN (9-20) mg/dL Creatinine (0.66-1.25) mg/dL Estimated GFR ML/MIN Glucose (74-106) mg/dL POC Glucometer 128 H (74 to 106) mg/dL Calcium (8.4-10.2) mg/dL Total Bilirubin (0.2-1.3) mg/dL AST (17-59) U/L ALT (0-50) U/L Alkaline Phosphatase (38-126) U/L Serum Total Protein (6.3-8.2) g/dL Albumin (3.5-5.0) g/dL 06/24/23 06/24/23 06/24/23 Range/Units 07:19 07:20 07:20 WBC 12.4 H (4.0-10.5) x10^3/uL RBC 3.27 L (4.1-5.6) x10^6/uL Hgb 9.5 L (12.5-18.0) g/dL Hct 30.0 L (42-50) % MCV 91.7 (78-100) fL MCH 29.1 (26-32) pg MCHC 31.7 L (32-36) g/dL RDW 12.5 (11.5-14.0) % Plt Count 163 (150-450) x10^3/uL MPV 11.0 (7.5-11.0) fL Sodium 141 (137-145) mmol/L Potassium 3.9 D (3.5-5.1) mmol/L Chloride 112 H (98-107) mmol/L Carbon Dioxide 23 (22-30) mmol/L Anion Gap 10.5 (5-15) MEQ/L BUN 35 H (9-20) mg/dL Creatinine 1.59 H (0.66-1.25) mg/dL Estimated GFR 47.0 ML/MIN Glucose 152 H (74-106) mg/dL POC Glucometer 135 H (74 to 106) mg/dL Calcium 9.5 (8.4-10.2) mg/dL Total Bilirubin 0.40 (0.2-1.3) mg/dL AST 22 (17-59) U/L ALT 10 (0-50) U/L Alkaline Phosphatase 105 (38-126) U/L Serum Total Protein 6.6 (6.3-8.2) g/dL Albumin 3.5 (3.5-5.0) g/dL 06/24/23 Range/Units 11:38 WBC (4.0-10.5) x10^3/uL RBC (4.1-5.6) x10^6/uL Hgb (12.5-18.0) g/dL Hct (42-50) % MCV (78-100) fL MCH (26-32) pg MCHC (32-36) g/dL RDW (11.5-14.0) % Plt Count (150-450) x10^3/uL MPV (7.5-11.0) fL Sodium (137-145) mmol/L Potassium (3.5-5.1) mmol/L Chloride (98-107) mmol/L Carbon Dioxide (22-30) mmol/L Anion Gap (5-15) MEQ/L BUN (9-20) mg/dL Creatinine (0.66-1.25) mg/dL Estimated GFR ML/MIN Glucose (74-106) mg/dL POC Glucometer 93 (74 to 106) mg/dL Calcium (8.4-10.2) mg/dL Total Bilirubin (0.2-1.3) mg/dL AST (17-59) U/L ALT (0-50) U/L Alkaline Phosphatase (38-126) U/L Serum Total Protein (6.3-8.2) g/dL Albumin (3.5-5.0) g/dL Radiology Exams: Radiology Procedures Category Date Time Status CHEST 1 VIEW (PORTABLE) Stat Exams 06/22/23 20:39 Completed HEAD WITHOUT CONTRAST [CT] Stat Exams 06/22/23 19:50 Completed Multi-Disciplinary Progress Notes: Multi-Disciplinary Progress Notes 06/23/23 12:59 Case Management Note by Anabel Bryson S/Nayeli LOVE FROM [facility]- PATIENT CAN RETURN TO THEIR FACILITY AT ANY TIME WHEN MEDICALLY READY Initialized on 06/23/23 12:59 - END OF NOTE 06/23/23 12:57 Case Management Note by Anabel Bryson/Nayeli SOTELO AT [facility]- SHE REPORTS THEY CHANGE OUT PATIENT'S SUPRAPUBIC CATHETER THERE AT THEIR FACILITY. PRIMARY RN NOTIFIED Initialized on 06/23/23 12:57 - END OF NOTE 06/23/23 12:56 Case Management Note by Anabel Bryson/Nayeli DAUGHTER DEEPTHI- PATIENT TO RETURN TO [facility] AT DC Initialized on 06/23/23 12:56 - END OF NOTE Assessment/Plan (1) Complicated UTI (urinary tract infection) Current Visit: Yes Status: Acute Assessment & Plan: - Chronic subrapubic cath- replaced on admission - UC gram + - sensitivity pending - BC x2 pending - Zosyn - yeast in urine- fluconazole - WBC improved 12.4 Code(s): N39.0 - URINARY TRACT INFECTION, SITE NOT SPECIFIED (2) Acute encephalopathy Current Visit: Yes Status: Resolved Assessment & Plan: - 2/2 UTI - At baseline mental status - Head CT 06/22 Impression: Continued nonacute senile brain with prominent ventricular system. Again normal pressure hydrocephalus offered for clinical consideration. - CXR 06/22 Impression: Continued nonacute chest with chronic features. Code(s): G93.40 - ENCEPHALOPATHY, UNSPECIFIED (3) Acute kidney injury superimposed on CKD Current Visit: Yes Status: Acute Assessment & Plan: - LIZETH improved Creat 1.59, baseline 1.37 - 2/2 UTI Code(s): N17.9 - ACUTE KIDNEY FAILURE, UNSPECIFIED; N18.9 - CHRONIC KIDNEY DISEASE, UNSPECIFIED (4) GI bleed Current Visit: No Status: Acute Assessment & Plan: - H& H Q 6 satrted on 06/23- stopped - Hgb 9.1 stable - General surgery consult 06/23/23 - N/V stopped - reglan PRN - Octreotide IV x1 - Protonix gtt stopped - Protonix PO BID Code(s): K92.2 - GASTROINTESTINAL HEMORRHAGE, UNSPECIFIED (5) Uncontrolled diabetes mellitus Current Visit: No Status: Chronic Assessment & Plan: -Accu checks AC/HS - Lantus, humalog, S/S insulin - A1C 5.92 on 05/25/23- controlled range - glucose uncontrolled on admission, humalog and lantus dosing changed - improved today with insulin dose changes. Code(s): E11.65 - TYPE 2 DIABETES MELLITUS WITH HYPERGLYCEMIA (6) HTN (hypertension) Current Visit: Yes Status: Chronic Assessment & Plan: - BP stable - monitor - Continue home meds Code(s): I10 - ESSENTIAL (PRIMARY) HYPERTENSION (7) Hx of BKA Current Visit: Yes Status: Acute Assessment & Plan: - unable to add SCd's PPI: Protonix Next of kin: Deepthi Simone [phone] D/c plan 1-2 days Code(s): Z89.519 - ACQUIRED ABSENCE OF UNSPECIFIED LEG BELOW KNEE
[2023-06-24 13:47] LABS: Hematocrit 30.9 % (42-50)
[2023-06-24] MEDS: Protonix 40MG Tablet PO SCH (22:42)
[2023-06-25 06:28] LABS: Hematocrit 27.8 % (42-50); Hemoglobin 8.7 g/dL (12.5-18.0); Mean Cell Volume 93.3 fL (78-100); Mean Corpuscular Hemoglobin 29.2 pg (26-32); Mean Corpuscular Hgb Concent. 31.3 g/dL (32-36); Mean Platelet Volume 11.5 fL (7.5-11.0); Platelet Count 157 x10^3/uL (150-450); Red Blood Count 2.98 x10^6/uL (4.1-5.6); Red Cell Distribution Width 12.7 % (11.5-14.0); White Blood Count 11.3 x10^3/uL (4.0-10.5)
[2023-06-25 06:52] LABS: ALBUMIN 3.2 g/dL (3.5-5.0); ANION GAP 10.5 MEQ/L (5-15); BILIRUBIN,TOTAL 0.2 mg/dL (0.2-1.3); Calcium 9.2 mg/dL (8.4-10.2); Creatinine 1 1.82 mg/dL (0.66-1.25); Potassium 3.6 mmol/L (3.5-5.1); Total Protein 6.3 g/dL (6.3-8.2)
[2023-06-25] MEDS: HUMALOG SQ PRN (12:00)
[2023-06-25 12:31] LABS: Hematocrit 29.4 % (42-50); Hemoglobin 9.5 g/dL (12.5-18.0)
--- NOTE | 2023-06-25 12:32 | PCM.NOTE ---
Date and Time: 06/25/23 1230 Subjective Assessment: 06/24/23 Mr. Roman is a 67 year-old male with DM2 s/p bilateral BKA c/b being bedbound, status-post suprapubic catheter c/b recurrent UTIs, CKD, chronic anemia, and HLD who presents with altered mental status. He admits to being more confused and weak for 1-2 weeks, and according to EMS, there were reports of him having facial droop and slurred speech - none of this was seen on exam upon arrival to [place]. Admission laboratory data was remarkable for anemia, UTI, and elevated Cr, while imaging was unremarkable. On admission he was awake, alert, and denies any current fevers, chills, nausea, vomiting, diarrhea, syncope, presyncope, visual changes, orthopnea, PND, odynophagia, dysphagia, chest pain, shortness of breath, belly pain, dysuria, hematuria, melena, hematochezia, or neurological changes. All other systems were reviewed and were negative. Today he is at baseline mental status. He is feeling much better today. He was nauseous and vomiting yesterday coffee ground emesis and hematemesis. Surgery was consulted for further eval and made NPO at midnight. Per pt this has happened many times in the past and he has had mutiple EGD's and colonoscopy and they have not been able to find anything. Hgb stable at 9.1. He has not had any bleeding since yesterday. LIZETH improved. Glucose better controlled today after changing humalog and lantus. Continue antibiotics and fluconazole for UTI. He denies CP, SOB, abd. pain, N/V/D. 06/25/23 Pt resting in bed. He reports he is feeling better today. UC came back + for staph aureus and e-coli. Will continue same antibiotics for now. Will need OP antibiotics for 10 days due to complicated UTI. Pt has not vomited since admission. Hgb stable at 8.7, will recheck in the AM. Kidney function is a bit worse today, will start gentle hydration. Hyponatremia has resolved. Scheduled Humalog stopped and changed to s/s due to lower glucose readings last night and this am. Continue Lantus. Pt denies CP, SOB, abd. pain, N/V/D. - Review of Systems Constitutional: No Fever, No Chills Eyes: No Symptoms Ears, Nose, & Throat: No Symptoms Respiratory: No Cough, No Short Of Breath Cardiac: No Chest Pain, No Edema, No Syncope Abdominal/Gastrointestinal: No Abdominal Pain, No Nausea, No Vomiting, No Diarrhea Genitourinary Symptoms: No Dysuria Musculoskeletal: No Back Pain, No Neck Pain Skin: No Rash Neurological: No Dizziness, No Focal Weakness, No Sensory Changes Psychological: No Symptoms Endocrine: No Symptoms Hematologic/Lymphatic: No Symptoms Immunological/Allergic: No Symptoms Objective Exam General Appearance: no apparent distress, alert Neurologic Exam: alert, oriented x 3, cooperative, normal mood/affect, nml cerebellar function, sensation nml, No motor deficits Skin Exam: normal color, warm, dry Wound Assessment: Skin/Wound Assessment Wound/Incision Assessment Start: 06/22/23 23:26 Text: Status: Active Freq: Q6H Protocol: Document 06/25/23 06:00 MP (Rec: 06/25/23 06:17 MP [id number]) Wound/Incision Assessment Sacrum Wound Assessment Shift Assessment Wound Type Pressure Ulcer General Appearance Open to air,Clean/Dry,Reddened Surrounding Tissue Bright Red Comment barrier cream applied, weight shift, pillows used for repositing and turning schedule. Left Thigh Wound Assessment Shift Assessment Wound Type Abrasion Wound Stage Non Pressure Wound Comment abraision below knee from running into wall at [place] with his wheelchair. Remains the same as on admission. Wound Photo Photo Taken No Eye Exam: PERRL, EOMI, eyes nml inspection Ears, Nose, Throat Exam: normal ENT inspection, pharynx normal, moist mucous membranes Neck Exam: normal inspection, non-tender, supple, full range of motion Respiratory Exam: normal breath sounds, lungs clear, No respiratory distress Cardiovascular Exam: regular rate/rhythm, normal heart sounds Gastrointestinal/Abdomen Exam: soft, No tenderness, No mass Extremity Exam: normal inspection, normal range of motion Back Exam: normal inspection, normal range of motion, No CVA tenderness, No vertebral tenderness Male Genitalia Exam: deferred Rectal Exam: deferred OBJECTIVE DATA Vital Signs: Vital Signs - 24 hr Temp Pulse Resp BP Pulse Ox 06/25/23 11:58 97.8 F 75 16 118/59 93 L 06/25/23 07:19 97.9 F 72 16 108/54 96 06/25/23 04:00 98.1 F 77 16 182/74 99 06/24/23 23:56 98.3 F 72 18 147/65 96 06/24/23 19:54 98.0 F 76 19 108/53 95 06/24/23 15:48 98.1 F 77 16 109/53 93 L Pain Assessment - Last Documented Pain Intensity 0 Pain Scale Used 0-10 Pain Scale Intake and Output: Intake & Output 06/23/23 06/24/23 06/25/23 06/26/23 11:59 11:59 11:59 11:59 Intake Total 579 2039 1122 Output Total 2600 1350 1100 Balance -20209 22 Weight 82.2 kg 82.2 kg Lab Results: Lab Results-Last 24 Hours 06/24/23 06/24/23 06/24/23 Range/Units 13:43 16:12 20:33 WBC (4.0-10.5) x10^3/uL RBC (4.1-5.6) x10^6/uL Hgb 10.0 L (12.5-18.0) g/dL Hct 30.9 L (42-50) % MCV (78-100) fL MCH (26-32) pg MCHC (32-36) g/dL RDW (11.5-14.0) % Plt Count (150-450) x10^3/uL MPV (7.5-11.0) fL Sodium (137-145) mmol/L Potassium (3.5-5.1) mmol/L Chloride (98-107) mmol/L Carbon Dioxide (22-30) mmol/L Anion Gap (5-15) MEQ/L BUN (9-20) mg/dL Creatinine (0.66-1.25) mg/dL Estimated GFR ML/MIN Glucose (74-106) mg/dL POC Glucometer 224 H 140 H (74 to 106) mg/dL Calcium (8.4-10.2) mg/dL Total Bilirubin (0.2-1.3) mg/dL AST (17-59) U/L ALT (0-50) U/L Alkaline Phosphatase (38-126) U/L Serum Total Protein (6.3-8.2) g/dL Albumin (3.5-5.0) g/dL 06/25/23 06/25/23 06/25/23 Range/Units 02:52 06:25 06:25 WBC 11.3 H (4.0-10.5) x10^3/uL RBC 2.98 L (4.1-5.6) x10^6/uL Hgb 8.7 L (12.5-18.0) g/dL Hct 27.8 L (42-50) % MCV 93.3 (78-100) fL MCH 29.2 (26-32) pg MCHC 31.3 L (32-36) g/dL RDW 12.7 (11.5-14.0) % Plt Count 157 (150-450) x10^3/uL MPV 11.5 H (7.5-11.0) fL Sodium 142 (137-145) mmol/L Potassium 3.6 (3.5-5.1) mmol/L Chloride 113 H (98-107) mmol/L Carbon Dioxide 22 (22-30) mmol/L Anion Gap 10.5 (5-15) MEQ/L BUN 31 H (9-20) mg/dL Creatinine 1.82 H (0.66-1.25) mg/dL Estimated GFR 40.0 ML/MIN Glucose 114 H (74-106) mg/dL POC Glucometer 110 H (74 to 106) mg/dL Calcium 9.2 (8.4-10.2) mg/dL Total Bilirubin 0.20 (0.2-1.3) mg/dL AST 19 (17-59) U/L ALT 9 (0-50) U/L Alkaline Phosphatase 92 (38-126) U/L Serum Total Protein 6.3 (6.3-8.2) g/dL Albumin 3.2 L (3.5-5.0) g/dL 06/25/23 06/25/23 Range/Units 07:09 11:41 WBC (4.0-10.5) x10^3/uL RBC (4.1-5.6) x10^6/uL Hgb (12.5-18.0) g/dL Hct (42-50) % MCV (78-100) fL MCH (26-32) pg MCHC (32-36) g/dL RDW (11.5-14.0) % Plt Count (150-450) x10^3/uL MPV (7.5-11.0) fL Sodium (137-145) mmol/L Potassium (3.5-5.1) mmol/L Chloride (98-107) mmol/L Carbon Dioxide (22-30) mmol/L Anion Gap (5-15) MEQ/L BUN (9-20) mg/dL Creatinine (0.66-1.25) mg/dL Estimated GFR ML/MIN Glucose (74-106) mg/dL POC Glucometer 105 246 H (74 to 106) mg/dL Calcium (8.4-10.2) mg/dL Total Bilirubin (0.2-1.3) mg/dL AST (17-59) U/L ALT (0-50) U/L Alkaline Phosphatase (38-126) U/L Serum Total Protein (6.3-8.2) g/dL Albumin (3.5-5.0) g/dL Assessment/Plan (1) Complicated UTI (urinary tract infection) Current Visit: Yes Status: Acute Code(s): N39.0 - URINARY TRACT INFECTION, SITE NOT SPECIFIED (2) Acute encephalopathy Current Visit: Yes Status: Resolved Code(s): G93.40 - ENCEPHALOPATHY, UNSPECIFIED (3) Acute kidney injury superimposed on CKD Current Visit: Yes Status: Acute Code(s): N17.9 - ACUTE KIDNEY FAILURE, UNSPECIFIED; N18.9 - CHRONIC KIDNEY DISEASE, UNSPECIFIED (4) GI bleed Current Visit: No Status: Acute Code(s): K92.2 - GASTROINTESTINAL HEMORRHAGE, UNSPECIFIED (5) Uncontrolled diabetes mellitus Current Visit: No Status: Chronic Code(s): E11.65 - TYPE 2 DIABETES MELLITUS WITH HYPERGLYCEMIA (6) HTN (hypertension) Current Visit: Yes Status: Chronic Code(s): I10 - ESSENTIAL (PRIMARY) HYPERTENSION (7) Hx of BKA Current Visit: Yes Status: Acute Assessment & Plan: (1) Complicated UTI (urinary tract infection) Current Visit: Yes Status: Acute Assessment & Plan: - Chronic subrapubic cath- replaced on admission - UC gram + - sensitivity pending - BC x2 pending - Zosyn - yeast in urine- fluconazole - WBC improved 12.4 2/18 - WBC 11.3 - will 10 days of OP antibiotics at d/c - Consider merrem and oxacilin per sensitivity. Code(s): N39.0 - URINARY TRACT INFECTION, SITE NOT SPECIFIED (2) Acute encephalopathy Current Visit: Yes Status: Resolved Assessment & Plan: - 2/2 UTI - At baseline mental status - Head CT 06/22 Impression: Continued nonacute senile brain with prominent ventricular system. Again normal pressure hydrocephalus offered for clinical consideration. - CXR 06/22 Impression: Continued nonacute chest with chronic features. Code(s): G93.40 - ENCEPHALOPATHY, UNSPECIFIED (3) Acute kidney injury superimposed on CKD Current Visit: Yes Status: Acute Assessment & Plan: - LIZETH improved Creat 1.59, baseline 1.37 - 2/2 UTI 06/25 - LIZETH a not worse - creat 1.82 - gentle IV hydration Code(s): N17.9 - ACUTE KIDNEY FAILURE, UNSPECIFIED; N18.9 - CHRONIC KIDNEY DISEASE, UNSPECIFIED (4) GI bleed Current Visit: No Status: Acute Assessment & Plan: - H& H Q 6 satrted on 06/23- stopped - Hgb 9.1 stable - General surgery consult 06/23/23 - N/V stopped - reglan PRN - Octreotide IV x1 - Protonix gtt stopped - Protonix PO BID 06/25 - hgb 8.7- stable - continue to monitor - Vomiting resolved Code(s): K92.2 - GASTROINTESTINAL HEMORRHAGE, UNSPECIFIED (5) Uncontrolled diabetes mellitus Current Visit: No Status: Chronic Assessment & Plan: -Accu checks AC/HS - Lantus, humalog, S/S insulin - A1C 5.92 on 05/25/23- controlled range - glucose uncontrolled on admission, humalog and lantus dosing changed - improved today with insulin dose changes. 06/25 - scheduled humalog stopped - S/S humalog added - continue BID lantus Code(s): E11.65 - TYPE 2 DIABETES MELLITUS WITH HYPERGLYCEMIA (6) HTN (hypertension) Current Visit: Yes Status: Chronic Assessment & Plan: - BP stable - monitor - Continue home meds Code(s): I10 - ESSENTIAL (PRIMARY) HYPERTENSION (7) Hx of BKA Current Visit: Yes Status: Acute Assessment & Plan: - unable to add SCd's PPI: Protonix Next of kin: Deepthi Nichols [phone] D/c plan: tomorrow Code status: Full Code(s): Z89.519 - ACQUIRED ABSENCE OF UNSPECIFIED LEG BELOW KNEE Code(s): Z89.519 - ACQUIRED ABSENCE OF UNSPECIFIED LEG BELOW KNEE
[2023-06-25] MEDS: Sodium Chloride 0.9% 1000 ML 1,000 ML IV SCH (17:09)
[2023-06-26 09:09] LABS: Hemoglobin 9.1 g/dL (12.5-18.0); Mean Cell Volume 93.2 fL (78-100); Mean Corpuscular Hemoglobin 29.3 pg (26-32); Mean Corpuscular Hgb Concent. 31.4 g/dL (32-36); Mean Platelet Volume 11.2 fL (7.5-11.0); Platelet Count 149 x10^3/uL (150-450); Red Blood Count 3.11 x10^6/uL (4.1-5.6); Red Cell Distribution Width 12.8 % (11.5-14.0); White Blood Count 10.5 x10^3/uL (4.0-10.5)
[2023-06-26 09:18] LABS: ALBUMIN 3.3 g/dL (3.5-5.0); ANION GAP 9.4 MEQ/L (5-15); BILIRUBIN,TOTAL 0.2 mg/dL (0.2-1.3); Calcium 9.2 mg/dL (8.4-10.2); Creatinine 1 1.75 mg/dL (0.66-1.25); EST GLOMERULAR FILTRATION RATE 41.9 ML/MIN; Potassium 3.6 mmol/L (3.5-5.1); Total Protein 6.5 g/dL (6.3-8.2)
--- NOTE | 2023-06-26 10:12 | CONS ---
CONSULT DATE: 06/23/2023 HISTORY: A 67-year-old apparently admitted the other day for urinary tract infection, general and chronic renal insufficiency. Apparently, he had some hematemesis. Consideration of endoscopy. PAST MEDICAL HISTORY: Diabetes. Chronic renal disease. Frequent urinary tract infections. Chronic anemia. Hyperlipidemia. He had some renal insufficiency in the past. He had some reflux in the past. He has been on dialysis in the past. He has some anxiety. 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 Neurogenic bladder. Urinary retention. Gastroparesis in the past. Benign prostatic hypertrophy. History of MRSA in the past. He had COVID-19 in the past. PAST SURGICAL HISTORY: CABG. Coronary stent. Cardiac cath. Bilateral lower extremity amputation. Cholecystectomy. Laser surgery on his eyes in the past. Peritoneal dialysis catheter. He had some coronary stents. HOME MEDICATIONS: Metoclopramide, Novolog, fluticasone, loratadine, metoprolol, acetaminophen, aspirin, duloxetine, cilostazol, ergocalciferol, ferrous sulfate, folic acid, gabapentin, hydrocodone, lactobacillus, Pravastatin, Simethicone, oxybutynin, Glargine insulin, insulin Aspart. ALLERGIES: MORPHINE. PENICILLIN (HEADACHE). FAMILY HISTORY: Negative in regards to this specific problem. SOCIAL HISTORY: No smoking or alcohol abuse. REVIEW OF SYSTEMS: Fourteen systems reviewed. No chest pain or palpitations. He did have current abdominal pain. He is admitted with urinary tract infection apparently. Other systems pertinent for multiple medical problems noted above. PHYSICAL EXAMINATION: GENERAL: A chronically ill gentleman. HEENT: Sclera nonicteric. EOMI. NECK: No JVD. CHEST: Equal excursion, nonlabored breathing. CVS: Regular rhythm and pulse. ABDOMEN: Soft. EXTREMITIES: Bilateral lower extremity amputation. NEURO: Alert. PSYCH: Appropriate mood and affect. SKIN: Dry. LAB DATA AND TESTS: His white count 15, hemoglobin 10 on admission. PLT count 171,000. He had a hemoglobin today apparently 9.8. IMPRESSION: A 67-year-old with some hematemesis. He had a recent upper and lower endoscopy by Dr. Michaels in the past four to six months. He had a redundant colon. He had a barium enema at that time afterwards that did not show any lesions. Given his hematemesis, he may have gastritis, peptic ulcer disease, esophagitis or other etiology. I feel he is a candidate to consider upper endoscopy. Possibility of not finding any obvious active bleeding. He might need bleeding scan or other work up. Otherwise, continue medical management of his heart disease, renal disease, urinary tract infection, continue antibiotics. Management of his hyperlipidemia and significant comorbidities. Proceed with EGD possible biopsy.
--- NOTE | 2023-06-26 10:36 | OP ---
SURGERY DATE/TIME: 06/23/2023 6969 PREOPERATIVE DIAGNOSIS: Hematemesis, need for upper endoscopy. POSTOPERATIVE DIAGNOSES: 1) Minimal to mild gastritis. No fresh or old blood or significant active bleeding of the stomach now. 2) Unremarkable duodenum. 3) Mild distal esophagitis or edema without any gross evidence of any significant current active bleeding. PROCEDURES: EGD with cold biopsy of antrum for Helicobacter pylori. SURGEON: Dr. Jeremy Small M.D. ANESTHESIA: MAC. ESTIMATED BLOOD LOSS: Minimal. INDICATIONS: As noted above. Risks and benefits explained in detail and not limited to and consent obtained. DESCRIPTION OF PROCEDURE AND FINDINGS: The patient taken to the endoscopy room once anesthesia was available. MAC anesthesia introduced. After official time out and no disagreement, a bite block positioned. Video gastroscope easily passed down the esophagus through the patent pylorus to the junction of third and fourth portion of the duodenum. Duodenum grossly unremarkable. No signs of any fresh or old blood. No signs of any ulcers. Scope pulled back in the stomach. He had a little bit of edema and a little bit of minimal to mild gastritis. No aaron ulceration. There was a little bit of food from the gastroparesis in there but no signs any clot. No signs of any fresh or old blood. On retroflex, no signs of any proximal ulcers or any active bleeding. The scope pulled back to gastroesophageal junction. Z-line was fairly crisp. There was just a little bit of edema and erythema, signs of some mild esophagitis. There is no deep erosion. There are no signs of any active or current bleeding. Whether he had hematemesis from the gastritis or esophagitis and stopped either way recommend holding his anticoagulant, hold his aspirin and thinners currently. Continue proton pump inhibitor. He can follow up in the office in a couple of weeks or our office can just call him with the results as Dr. Michaels has scoped this patient in the past.
--- NOTE | 2023-06-26 11:24 | PCM.DS ---
Discharge Summary Date of Admission: 06/24/23 12:00 Date of Discharge: 06/26/23 Admitting Physician: BHAVANA MENDOZA MD Consults: Consults on Case 06/23/23 10:03 Consult Surgery ROUTINE Primary Care Provider: [facility] Allergies Allergies morphine Allergy (Mild, Verified 06/22/23 20:23) cant filter thru kidneys Penicillins Adverse Reaction (Verified 06/22/23 20:23) Headache Hospital Summary - Hospital Course Hospital Course: 06/24/23 Mr. Roman is a 67 year-old male with DM2 s/p bilateral BKA c/b being bedbound, status-post suprapubic catheter c/b recurrent UTIs, CKD, chronic anemia, and HLD who presents with altered mental status. He admits to being more confused and weak for 1-2 weeks, and according to EMS, there were reports of him having facial droop and slurred speech - none of this was seen on exam upon arrival to [facility]. Admission laboratory data was remarkable for anemia, UTI, and elevated Cr, while imaging was unremarkable. On admission he was awake, alert, and denies any current fevers, chills, nausea, vomiting, diarrhea, syncope, presyncope, visual changes, orthopnea, PND, odynophagia, dysphagia, chest pain, shortness of breath, belly pain, dysuria, hematuria, melena, hematochezia, or neurological changes. All other systems were reviewed and were negative. Today he is at baseline mental status. He is feeling much better today. He was nauseous and vomiting yesterday coffee ground emesis and hematemesis. Surgery was consulted for further eval and made NPO at midnight. Per pt this has happened many times in the past and he has had mutiple EGD's and colonoscopy and they have not been able to find anything. Hgb stable at 9.1. He has not had any bleeding since yesterday. LIZETH improved. Glucose better controlled today after changing humalog and lantus. Continue antibiotics and fluconazole for UTI. He denies CP, SOB, abd. pain, N/V/D. 06/25/23 Pt resting in bed. He reports he is feeling better today. UC came back + for staph aureus and e-coli. Will continue same antibiotics for now. Will need OP antibiotics for 10 days due to complicated UTI. Pt has not vomited since admission. Hgb stable at 8.7, will recheck in the AM. Kidney function is a bit worse today, will start gentle hydration. Hyponatremia has resolved. Scheduled Humalog stopped and changed to s/s due to lower glucose readings last night and this am. Continue Lantus. Pt denies CP, SOB, abd. pain, N/V/D. 06/26/23 Pt resting in bed. He states he feels much better and is ready to leave. Labs have improved, BC x2 negative. Will send with OP antibiotics for UTI. Will make appointments for urology and ID OP for repeated complicated UTI's. Pt denies any further concerns at this time. - Vitals & Intake/Output Vital Signs: Vital Signs Temperature 97.0 F 06/26/23 08:00 Pulse Rate 72 06/26/23 08:00 Respiratory Rate 18 06/26/23 08:00 Blood Pressure 173/74 06/26/23 08:00 O2 Sat by Pulse Oximetry 97 06/26/23 08:00 Intake & Output: Intake & Output 06/23/23 06/24/23 06/25/23 06/26/23 11:59 11:59 11:59 11:59 Intake Total 579 2039 1122 2206 Output Total 2600 1350 1100 950 Balance -2020 827 49 5094 Weight 82.2 kg 82.2 kg - Lab Result Diagrams: 06/26/23 08:14 06/26/23 08:14 Lab Results-Last 24 Hrs: Lab Results-Last 24 Hours 06/25/23 06/25/23 06/25/23 Range/Units 11:41 12:20 16:12 WBC (4.0-10.5) x10^3/uL RBC (4.1-5.6) x10^6/uL Hgb 9.5 L (12.5-18.0) g/dL Hct 29.4 L (42-50) % MCV (78-100) fL MCH (26-32) pg MCHC (32-36) g/dL RDW (11.5-14.0) % Plt Count (150-450) x10^3/uL MPV (7.5-11.0) fL Sodium (137-145) mmol/L Potassium (3.5-5.1) mmol/L Chloride (98-107) mmol/L Carbon Dioxide (22-30) mmol/L Anion Gap (5-15) MEQ/L BUN (9-20) mg/dL Creatinine (0.66-1.25) mg/dL Estimated GFR ML/MIN Glucose (74-106) mg/dL POC Glucometer 246 H 260 H (74 to 106) mg/dL Calcium (8.4-10.2) mg/dL Total Bilirubin (0.2-1.3) mg/dL AST (17-59) U/L ALT (0-50) U/L Alkaline Phosphatase (38-126) U/L Serum Total Protein (6.3-8.2) g/dL Albumin (3.5-5.0) g/dL 06/25/23 06/26/23 06/26/23 Range/Units 20:53 06:55 08:14 WBC 10.5 (4.0-10.5) x10^3/uL RBC 3.11 L (4.1-5.6) x10^6/uL Hgb 9.1 L (12.5-18.0) g/dL Hct 29.0 L (42-50) % MCV 93.2 (78-100) fL MCH 29.3 (26-32) pg MCHC 31.4 L (32-36) g/dL RDW 12.8 (11.5-14.0) % Plt Count 149 L (150-450) x10^3/uL MPV 11.2 H (7.5-11.0) fL Sodium (137-145) mmol/L Potassium (3.5-5.1) mmol/L Chloride (98-107) mmol/L Carbon Dioxide (22-30) mmol/L Anion Gap (5-15) MEQ/L BUN (9-20) mg/dL Creatinine (0.66-1.25) mg/dL Estimated GFR ML/MIN Glucose (74-106) mg/dL POC Glucometer 236 H 125 H (74 to 106) mg/dL Calcium (8.4-10.2) mg/dL Total Bilirubin (0.2-1.3) mg/dL AST (17-59) U/L ALT (0-50) U/L Alkaline Phosphatase (38-126) U/L Serum Total Protein (6.3-8.2) g/dL Albumin (3.5-5.0) g/dL 06/26/23 Range/Units 08:14 WBC (4.0-10.5) x10^3/uL RBC (4.1-5.6) x10^6/uL Hgb (12.5-18.0) g/dL Hct (42-50) % MCV (78-100) fL MCH (26-32) pg MCHC (32-36) g/dL RDW (11.5-14.0) % Plt Count (150-450) x10^3/uL MPV (7.5-11.0) fL Sodium 143 (137-145) mmol/L Potassium 3.6 (3.5-5.1) mmol/L Chloride 112 H (98-107) mmol/L Carbon Dioxide 24 (22-30) mmol/L Anion Gap 9.4 (5-15) MEQ/L BUN 25 H (9-20) mg/dL Creatinine 1.75 H (0.66-1.25) mg/dL Estimated GFR 41.9 ML/MIN Glucose 125 H (74-106) mg/dL POC Glucometer (74 to 106) mg/dL Calcium 9.2 (8.4-10.2) mg/dL Total Bilirubin 0.20 (0.2-1.3) mg/dL AST 16 L (17-59) U/L ALT 10 (0-50) U/L Alkaline Phosphatase 96 (38-126) U/L Serum Total Protein 6.5 (6.3-8.2) g/dL Albumin 3.3 L (3.5-5.0) g/dL Micro Results-Entire Visit: Microbiology 06/22/23 20:47 Urine Culture - Final Suprapubic Cath Staphylococcus Aureus Escherichia Coli 06/22/23 20:25 Blood Culture - Preliminary Blood 06/22/23 20:05 Blood Culture - Preliminary Blood Accuchecks Date 06/26/23 Date 06/25/23 Date 06/25/23 Date 06/25/23 Time 07:13 Time 21:00 Time 16:27 Time 11:57 Discharge Exam General Appearance: no apparent distress, alert Neurologic Exam: alert, oriented x 3, cooperative, normal mood/affect, nml cerebellar function, sensation nml, No motor deficits Eye Exam: PERRL, EOMI, eyes nml inspection Ears, Nose, Throat Exam: normal ENT inspection, pharynx normal, moist mucous membranes Neck Exam: normal inspection, non-tender, supple, full range of motion Respiratory Exam: normal breath sounds, lungs clear, No respiratory distress Cardiovascular Exam: regular rate/rhythm, normal heart sounds Gastrointestinal/Abdomen Exam: soft, No tenderness, No mass Male Genitalia Exam: deferred Rectal Exam: deferred Back Exam: normal inspection, normal range of motion, No CVA tenderness, No vertebral tenderness Extremity Exam: normal inspection, normal range of motion Skin Exam: normal color, warm, dry Wound Assessment: Skin/Wound Assessment Wound/Incision Assessment Start: 06/22/23 23:26 Text: Status: Active Freq: Q6H Protocol: Document 06/26/23 06:00 MM (Rec: 06/26/23 06:34 MM [id number]) Wound/Incision Assessment Sacrum Wound Assessment Shift Assessment Wound Type Pressure Ulcer General Appearance Open to air,Clean/Dry,Reddened Surrounding Tissue Bright Red Comment pt being turned and repositioned, barrier cream being applied. Left Thigh Wound Assessment Shift Assessment Wound Type Abrasion Wound Stage Non Pressure Wound Wound Photo Photo Taken No Final Diagnosis/Problem List - Final Discharge Diagnosis/Problem (1) Complicated UTI (urinary tract infection) Current Visit: Yes Status: Acute Code(s): N39.0 - URINARY TRACT INFECTION, SITE NOT SPECIFIED (2) Acute encephalopathy Current Visit: Yes Status: Resolved Code(s): G93.40 - ENCEPHALOPATHY, UNSPECIFIED (3) Acute kidney injury superimposed on CKD Current Visit: Yes Status: Acute Code(s): N17.9 - ACUTE KIDNEY FAILURE, UNSPECIFIED; N18.9 - CHRONIC KIDNEY DISEASE, UNSPECIFIED (4) GI bleed Current Visit: No Status: Acute Code(s): K92.2 - GASTROINTESTINAL HEMORRHAGE, UNSPECIFIED (5) Uncontrolled diabetes mellitus Current Visit: No Status: Chronic Code(s): E11.65 - TYPE 2 DIABETES MELLITUS WITH HYPERGLYCEMIA (6) HTN (hypertension) Current Visit: Yes Status: Chronic Code(s): I10 - ESSENTIAL (PRIMARY) HYPERTENSION (7) Hx of BKA Current Visit: Yes Status: Acute Assessment & Plan: (1) Complicated UTI (urinary tract infection) Current Visit: Yes Status: Acute Assessment & Plan: - Chronic subrapubic cath- replaced on admission - UC gram + - sensitivity pending - BC x2 pending - Zosyn - yeast in urine- fluconazole - WBC improved 12.4 06/25 - WBC 11.3 - will 10 days of OP antibiotics at d/c - . Code(s): N39.0 - URINARY TRACT INFECTION, SITE NOT SPECIFIED (2) Acute encephalopathy Current Visit: Yes Status: Resolved Assessment & Plan: - 2/2 UTI - At baseline mental status - Head CT 06/22 Impression: Continued nonacute senile brain with prominent ventricular system. Again normal pressure hydrocephalus offered for clinical consideration. - CXR 06/22 Impression: Continued nonacute chest with chronic features. Code(s): G93.40 - ENCEPHALOPATHY, UNSPECIFIED (3) Acute kidney injury superimposed on CKD Current Visit: Yes Status: Acute Assessment & Plan: - LIZETH improved Creat 1.59, baseline 1.37 - 2/2 UTI 06/25 - LIZETH a not worse - creat 1.82 - gentle IV hydration 06/26 - labs improved Code(s): N17.9 - ACUTE KIDNEY FAILURE, UNSPECIFIED; N18.9 - CHRONIC KIDNEY DISEASE, UNSPECIFIED (4) GI bleed Current Visit: No Status: Acute Assessment & Plan: - H& H Q 6 satrted on 06/23- stopped - Hgb 9.1 stable - General surgery consult 06/23/23 - N/V stopped - reglan PRN - Octreotide IV x1 - Protonix gtt stopped - Protonix PO BID 06/25 - hgb 8.7- stable - continue to monitor - Vomiting resolved 06/26 - Hgb stable 9.1 Code(s): K92.2 - GASTROINTESTINAL HEMORRHAGE, UNSPECIFIED (5) Uncontrolled diabetes mellitus Current Visit: No Status: Chronic Assessment & Plan: -Accu checks AC/HS - Lantus, humalog, S/S insulin - A1C 5.92 on 05/25/23- controlled range - glucose uncontrolled on admission, humalog and lantus dosing changed - improved today with insulin dose changes. 06/25 - scheduled humalog stopped - S/S humalog added - continue BID lantus Code(s): E11.65 - TYPE 2 DIABETES MELLITUS WITH HYPERGLYCEMIA (6) HTN (hypertension) Current Visit: Yes Status: Chronic Assessment & Plan: - BP stable - monitor - Continue home meds Code(s): I10 - ESSENTIAL (PRIMARY) HYPERTENSION (7) Hx of BKA Current Visit: Yes Status: Acute Assessment & Plan: - unable to add SCD's Code(s): Z89.519 - ACQUIRED ABSENCE OF UNSPECIFIED LEG BELOW KNEE - Discharge Discharge Date: 06/26/23 ([facility]) Disposition: XFER OTHER Condition: Stable Prescriptions: Continue Metoclopramide HCl 10 mg [Reglan 10 MG] 10 mg PO ACHS Insulin Aspart [NovoLOG Insulin] 5 unit SQ BREAKFAST Fluticasone Propionate [Flonase NASAL] 50 mcg IH DAILY Loratadine 10 mg [Claritin 10 mg] 10 mg PO DAILY #90 tablet Metoprolol Tartrate 25 mg [Lopressor 25MG Tab] 25 mg PO BID #180 tab Cilostazol 100 mg [Pletal 100 MG] 100 mg PO DAILY Ferrous Sulfate 325 mg [Feosol 325 mg] 325 mg PO TID Gabapentin 300 mg PO TID Pravastatin Sodium 20 mg PO QHS Lactobacillus Acidophilus [Acidophilus] 1 each PO BID Senna 8.6 mg [Senokot 8.6 mg] 1 tab PO EVENING MEAL Simethicone 125 mg PO ACHS Ergocalciferol (Vitamin D2) [Vitamin D2] 50,000 unit PO Q7D Hydrocodone/Acetaminophen [Hydrocodone-Acetamin 10-325 mg] 1 tab PO BID Folic Acid 1 mg [Folate 1 mg] 1 mg PO DAILY Duloxetine HCl 30 mg [Cymbalta 30 MG Capsule] 60 mg PO DAILY Aspirin EC 81 mg [Ecotrin 81 mg] 81 mg PO DAILY Acetaminophen 325 mg [Tylenol 325 mg] 650 mg PO Q4HPRN PRN PRN Reason: Pain Oxybutynin Chloride Xl 5 mg [Ditropan XL 5 MG] 5 mg PO DAILY Insulin Glargine,Hum.rec.anlog [Insulin Glargine Solostar] 16 units SQ DAILY Glucagon [Baqsimi] 3 mg IN UD Insulin Aspart [Novolog] 0 units SQ UD Insulin Aspart [Novolog] 7 unit SQ BIDWMEALS Follow up with: MIRELA RAYO MD [Family Provider] - (DR RAYO WILL ROUND ON HIM A THE LONG TERM. ) DEON SIDDIQUI [NON-STAFF PHY W/O PRIVILEGES] - 07/03/23 1:00 pm RANDAL GONZALEZ DO [NON-STAFF PHY W/O PRIVILEGES] - Office will call patient (LONG TERM NEEDS TO CALL AND FOLLOW UP IN HE HAS ANY PROBLEMS. )
[2023-06-26 16:04] VITALS: BP 168/67; PULSE 80; RESP 17; TEMP 97.8; O2SAT 97
== END 2023-06-26 16:40 | DRG 690 ==
LOC: ED 19:35 → MED SURG 22:55 → OBSVTOIN 06-24 12:00
PROVIDERS: ADMIT Internal Medicine Critical Care Medicine; ATTEND Internal Medicine Critical Care Medicine
PROC: 0DB58ZX Excision of Esophagus, Via Natural or Artificial Opening Endoscopic, Diagnostic (ICD-10-PCS; principal; 2023-06-24)
DX: N39.0 Urinary tract infection, site not specified (principal); G93.40 Encephalopathy, unspecified; K92.0 Hematemesis; N17.9 Acute kidney failure, unspecified; K92.2 Gastrointestinal hemorrhage, unspecified; B96.20 Unspecified Escherichia coli [E. coli] as the cause of diseases classified elsewhere; B95.8 Unspecified staphylococcus as the cause of diseases classified elsewhere; E11.22 Type 2 diabetes mellitus with diabetic chronic kidney disease; I12.9 Hypertensive chronic kidney disease with stage 1 through stage 4 chronic kidney disease, or unspecified chronic kidney disease; N18.9 Chronic kidney disease, unspecified; K20.90 Esophagitis, unspecified without bleeding; E11.65 Type 2 diabetes mellitus with hyperglycemia; D64.9 Anemia, unspecified; E78.5 Hyperlipidemia, unspecified; L89.159 Pressure ulcer of sacral region, unspecified stage; Z89.511 Acquired absence of right leg below knee; Z89.512 Acquired absence of left leg below knee; Z79.899 Other long term (current) drug therapy; Z20.828 Contact with and (suspected) exposure to other viral communicable diseases; Z95.0 Presence of cardiac pacemaker
CPT/HCPCS: 0241U; 36000; 36415; 43239; 70450; 71045; 80053; 81001; 82947; 83605; 83735; 83880; 83930; 84100; 84145; 84484; 85014; 85018; 85025; 85027; 87040; 87077; 87086; 87186; 93005; 93268; 99285; G0378; Q3014; J0360; J0696; J1817; J2354; J2405; J2704; A9270-GY

== ENCOUNTER 2023-07-07 18:06 | Emergency (ER) | payer MEDICARE ==
--- NOTE | 2023-07-07 18:10 | ERPHSYRPT ---
- History of Present Illness Time Seen by Provider: 07/07/23 18:10 Source: patient, EMS, old records Exam Limitations: no limitations Physician History: This is a 67-year-old white male patient who was brought to our facility by the paramedics from the [facility]. Patient was here on 06/22/2023 for confusion as well. Patient was brought to the emergency department because there was an altered level of consciousness, per the nurses at the [facility]. Patient arrives awake and alert and oriented. He feels that he does not need to be here and he feels he is not confused. Patient denies any complaints. He had a blood sugar level of 230 at the snf prior to arrival to the emergency department. Patient denies cough. Patient denies fever. Patient denies chest pain. Patient denies abdominal pain. Patient denies shortness of breath. Patient has history of diabetes and he has had bilateral below the knee amputations performed in the past. He is essentially bedridden. He does have a suprapubic catheter in place secondary to neurogenic bladder. Patient is legally blind in his left eye and has decreased vision in his right eye. Patient has a history of hyperlipidemia, adrenal insufficiency, chronic renal disease, gastroesophageal reflux disease, anxiety, coronary artery disease having had a CABG and stent in the past and chronic anemia. Again, patient is awake alert and oriented. He denies any symptoms. Timing/Duration: today Severity: mild Character of Deficits: none (Chronic) Deficits: bed-ridden Baseline/Normal Cognition: alert oriented x 3 Current Cognition: alert oriented x 3 Baseline Gait: walks only w/assistance (Patient has bilateral below the knee amputations) Associated Symptoms: denies symptoms Allergies/Adverse Reactions: morphine Allergy (Mild, Verified 06/22/23 20:23) cant filter thru kidneys Penicillins Adverse Reaction (Verified 06/22/23 20:23) Headache Home Medications: Metoclopramide HCl 10 mg [Reglan 10 MG] 10 mg PO ACHS 01/02/13 [History] Insulin Aspart [NovoLOG Insulin] 5 unit SQ BREAKFAST 06/07/15 [History] Fluticasone Propionate [Flonase NASAL] 50 mcg IH DAILY 12/25/17 [History] Acetaminophen 325 mg [Tylenol 325 mg] 650 mg PO Q4HPRN PRN 01/02/23 [History] Aspirin EC 81 mg [Ecotrin 81 mg] 81 mg PO DAILY 01/02/23 [History] Cilostazol 100 mg [Pletal 100 MG] 100 mg PO DAILY 01/02/23 [History] Duloxetine HCl 30 mg [Cymbalta 30 MG Capsule] 60 mg PO DAILY 01/02/23 [History] Ergocalciferol (Vitamin D2) [Vitamin D2] 50,000 unit PO Q7D 01/02/23 [History] Ferrous Sulfate 325 mg [Feosol 325 mg] 325 mg PO TID 01/02/23 [History] Folic Acid 1 mg [Folate 1 mg] 1 mg PO DAILY 01/02/23 [History] Gabapentin 300 mg PO TID 01/02/23 [History] Hydrocodone/Acetaminophen [Hydrocodone-Acetamin 10-325 mg] 1 tab PO BID 01/02/23 [History] Lactobacillus Acidophilus [Acidophilus] 1 each PO BID 01/02/23 [History] Pravastatin Sodium 20 mg PO QHS 01/02/23 [History] Senna 8.6 mg [Senokot 8.6 mg] 1 tab PO EVENING MEAL 01/02/23 [History] Simethicone 125 mg PO ACHS 01/02/23 [History] Oxybutynin Chloride Xl 5 mg [Ditropan XL 5 MG] 5 mg PO DAILY 05/24/23 [History] Glucagon [Baqsimi] 3 mg IN UD 05/25/23 [History] Insulin Aspart [Novolog] 0 units SQ UD 05/25/23 [History] Insulin Glargine,Hum.rec.anlog [Insulin Glargine Solostar] 16 units SQ DAILY [History] Insulin Aspart [Novolog] 7 unit SQ BIDWMEALS 06/22/23 [History] Hx Tetanus, Diphtheria Vaccination/Date Given: Yes Hx Influenza Vaccination/Date Given: Yes Hx Pneumococcal Vaccination/Date Given: Yes Travel Risk - International Travel Have you traveled outside of the country in past 3 weeks: No - Coronavirus Screening Are you exhibiting any of the following symptoms?: No Close contact with a COVID-19 positive Pt in past 14-21 Days: No - Vaccine Status Have you recieved a Covid-19 vaccination: Yes Dress Marker: Unknown - Vaccination Dates Dates if Unknown: unsure - Review of Systems Constitutional: No Symptoms Eyes: No Symptoms Ears, Nose, & Throat: No Symptoms Respiratory: No Symptoms Cardiac: No Symptoms Abdominal/Gastrointestinal: No Symptoms Genitourinary Symptoms: No Symptoms Musculoskeletal: No Symptoms Skin: No Symptoms Neurological: No Symptoms Psychological: No Symptoms - Past Medical History Pertinent Past Medical History: Yes Neurological History: Peripheral Neuropathy ENT History: Cataracts, Other Cardiac History: High Cholesterol, Hypertension, Other Respiratory History: Other Endocrine Medical History: Diabetes Type II, Adrenal Insufficiency Musculoskeletal History: Other GI Medical History: GERD, Gallbladder Disease, Other History: Renal Disease, Dialysis Psycho-Social History: Anxiety Male Reproductive Disorders: Prostate Problems Other Medical History: seasonal allergic rhinitis, hyperlipidemia, BPH, MRSA, Covid-19, dysphagia, phantom limb syndrome, urinay retention, neuorgenic bladder, lateral elbow epicondylitis, gastoparesis, chronic resp. failure, fluid overload - Past Surgical History Past Surgical History: Yes Neuro Surgical History: No Pertinent History Cardiac: CABG, Cardiac Stent, Cardiac Catheterization Respiratory: No Pertinent History Gastrointestinal: Cholecystectomy Genitourinary: Other Musculoskeletal: Amputation Male Surgical History: No Pertinent History Other Surgical History: has had laser on both eyes has had peritoneal dialysis catheter. has had triple bypass, has 1 stent. bilateral bka - Social History Smoking Status: Never smoker Exposure to second hand smoke: No Drug Use: none Patient Lives Alone: No (lives at the [facility]) - Nursing Vital Signs Nursing Vital Signs: Initial Vital Signs Temperature 98.2 F 07/07/23 18:06 Pulse Rate 74 07/07/23 18:06 Respiratory Rate 21 07/07/23 18:06 Blood Pressure 200/70 07/07/23 18:06 O2 Sat by Pulse Oximetry 98 07/07/23 18:06 Pain Scale Pain Intensity 0 - Furman Coma Scale Best Eye Response (Jonah): (4) open spontaneously Best Verbal Response (Jonah): (5) oriented Best Motor Response (Furman): (6) obeys commands Jonah Total: 15 - Physical Exam General Appearance: no apparent distress, alert Eye Exam: bilateral eye: normal inspection, PERRL, EOMI Ears, Nose, Throat Exam: normal ENT inspection, dry mucous membranes Neck Exam: normal inspection, non-tender, supple, full range of motion Respiratory: normal breath sounds, lungs clear, airway intact, No chest tenderness, No respiratory distress Cardiovascular: regular rate/rhythm, normal heart sounds, normal peripheral pulses Gastrointestinal: soft, normal bowel sounds, other (Suprapubic catheter in place), No tenderness Rectal Exam: not done Back Exam: normal inspection, normal range of motion, No CVA tenderness, No vertebral tenderness Extremity Exam: normal inspection, normal range of motion, pelvis stable Mental Status: alert, oriented x 3, cooperative tube sorter Exam: normal hearing, normal speech, PERRL Coordination/Gait: normal finger to nose Motor/Sensory: sensory deficit (Patient is bilateral below the knee amputee. Does complain of some phantom limb pain) Skin Exam: normal color, warm, dry SpO2 Interpretation: normal O2 Delivery: Room Air - Course Nursing assessment & vital signs reviewed: Yes Ordered Tests: Active Orders 24 hr Category Date Time Status Jewelry Dipper STAT Care 07/07/23 18:27 Active Cath [Catheter-[place]] STAT Care 07/07/23 18:37 Active IV Insertion STAT Care 07/07/23 18:26 Active NPO (ED) STAT Care 07/07/23 18:26 Active Pulse Oximetry (ED) STAT Care 07/07/23 18:26 Active CHEST 1 VIEW (PORTABLE) Stat Exams 07/07/23 18:26 Taken HEAD WITHOUT CONTRAST [CT] Stat Exams 07/07/23 18:26 Taken CBC W DIFF Stat Lab 07/07/23 19:00 Completed CMP Stat Lab 07/07/23 19:00 Completed CULTURE,URINE Stat Lab 07/07/23 19:09 Received Lactic Acid Stat Lab 07/07/23 18:26 Completed UA W/RFX UR CULTURE Stat Lab 07/07/23 19:09 Completed Medication Summary Generic Name Dose Route Start Last Admin Trade Name Freq PRN Reason Stop Dose Admin Sodium Chloride 1,000 mls @ 50 mls/hr 07/07/23 18:30 Sodium Chloride 0.9% 1000 Ml IV 08/06/23 18:29 .Q20H YOLANDA Discontinued Medications Generic Name Dose Route Start Last Admin Trade Name Freq PRN Reason Stop Dose Admin Labetalol HCl 10 mg 07/07/23 18:33 07/07/23 19:15 Labetalol Hcl 20 Mg/4 Ml Disp.Syringe IV 07/07/23 18:34 10 mg STAT ONE Administration Labetalol HCl Confirm 07/07/23 19:14 Labetalol Hcl 20 Mg/4 Ml Disp.Syringe Administered 07/07/23 19:15 Dose 20 mg IV .STK-MED ONE Levofloxacin 500 mg 07/07/23 20:33 Levofloxacin 500 Mg Tablet PO 07/07/23 20:34 STAT ONE Lab/Rad Data: Laboratory Result Diagrams 07/07/23 19:00 07/07/23 19:00 Laboratory Results 07/07/23 07/07/23 07/07/23 Range/Units 19:09 19:00 19:00 WBC (4.0-10.5) x10^3/uL RBC (4.1-5.6) x10^6/uL Hgb (12.5-18.0) g/dL Hct (42-50) % MCV (78-100) fL MCH (26-32) pg MCHC (32-36) g/dL RDW (11.5-14.0) % Plt Count (150-450) x10^3/uL MPV (7.5-11.0) fL Gran % (36.0-66.0) % Immature Gran % (Auto) (0.00-0.4) % Nucleat RBC Rel Count (0.00-0.1) % Eos # (Auto) (0-0.5) x10^3/uL Immature Gran # (Auto) (0.00-0.03) x10^3u/L Absolute Lymphs (auto) (1.0-4.6) x10^3/uL Absolute Monos (auto) (0.0-1.3) x10^3/uL Absolute Nucleated RBC (0.00-0.01) x10^3u/L Lymphocytes % (24.0-44.0) % Monocytes % (0.0-12.0) % Eosinophils % (0.00-5.0) % Basophils % (0.0-0.4) % Absolute Granulocytes (1.4-6.9) x10^3/uL Basophils # (0-0.4) x10^3/uL Sodium 139 (137-145) mmol/L Potassium 5.0 (3.5-5.1) mmol/L Chloride 103 (98-107) mmol/L Carbon Dioxide 30 (22-30) mmol/L Anion Gap 11.3 (5-15) MEQ/L BUN 37 H (9-20) mg/dL Creatinine 1.48 H (0.66-1.25) mg/dL Estimated GFR 51.2 ML/MIN Glucose 286 H (74-106) mg/dL Lactic Acid (0.4-2.0) Calcium 10.0 (8.4-10.2) mg/dL Total Bilirubin 0.20 (0.2-1.3) mg/dL AST 23 (17-59) U/L ALT 15 (0-50) U/L Alkaline Phosphatase 150 H (38-126) U/L Ammonia < 9 L (9-30) umol/L Serum Total Protein 7.0 (6.3-8.2) g/dL Albumin 3.8 (3.5-5.0) g/dL Urine Color Yellow (Yellow) Urine Appearance Clear (Clear) Urine pH 7.0 (4.6-8.0) Ur Specific [place] 1.015 (1.005-1.030) Urine Protein 100 A (Negative) Urine Glucose (UA) >=1000 A (Negative) mg/dL Urine Ketones Negative (Negative) Urine Blood Moderate A (Negative) Urine Nitrite Negative (Negative) Urine Bilirubin Negative (Negative) Urine Urobilinogen 0.2 (0.2) mg/dL Ur Leukocyte Esterase Moderate A (Negative) U Hyaline Cast (Auto) 3-5 A (0-2) /LPF Urine Microscopic RBC 6-10 A (0-5) /HPF Urine Microscopic WBC 51-100 A (0-5) /HPF Ur Epithelial Cells None Seen (None Seen) /HPF Urine Bacteria None Seen (None Seen) /HPF Urine Culture Reflexed ORDERED SEPARATELY (NO) 07/07/23 07/07/23 Range/Units 19:00 18:26 WBC 9.1 (4.0-10.5) x10^3/uL RBC 3.63 L (4.1-5.6) x10^6/uL Hgb 10.3 L (12.5-18.0) g/dL Hct 34.3 L (42-50) % MCV 94.5 (78-100) fL MCH 28.4 (26-32) pg MCHC 30.0 L (32-36) g/dL RDW 12.2 (11.5-14.0) % Plt Count 175 (150-450) x10^3/uL MPV 10.8 (7.5-11.0) fL Gran % 62.4 (36.0-66.0) % Immature Gran % (Auto) 0.3 (0.00-0.4) % Nucleat RBC Rel Count 0.0 (0.00-0.1) % Eos # (Auto) 0.40 (0-0.5) x10^3/uL Immature Gran # (Auto) 0.03 (0.00-0.03) x10^3u/L Absolute Lymphs (auto) 2.46 (1.0-4.6) x10^3/uL Absolute Monos (auto) 0.49 (0.0-1.3) x10^3/uL Absolute Nucleated RBC 0.00 (0.00-0.01) x10^3u/L Lymphocytes % 27.1 (24.0-44.0) % Monocytes % 5.4 (0.0-12.0) % Eosinophils % 4.4 (0.00-5.0) % Basophils % 0.4 (0.0-0.4) % Absolute Granulocytes 5.67 (1.4-6.9) x10^3/uL Basophils # 0.04 (0-0.4) x10^3/uL Sodium (137-145) mmol/L Potassium (3.5-5.1) mmol/L Chloride (98-107) mmol/L Carbon Dioxide (22-30) mmol/L Anion Gap (5-15) MEQ/L BUN (9-20) mg/dL Creatinine (0.66-1.25) mg/dL Estimated GFR ML/MIN Glucose (74-106) mg/dL Lactic Acid 1.6 (0.4-2.0) Calcium (8.4-10.2) mg/dL Total Bilirubin (0.2-1.3) mg/dL AST (17-59) U/L ALT (0-50) U/L Alkaline Phosphatase (38-126) U/L Ammonia (9-30) umol/L Serum Total Protein (6.3-8.2) g/dL Albumin (3.5-5.0) g/dL Urine Color (Yellow) Urine Appearance (Clear) Urine pH (4.6-8.0) Ur Specific [place] (1.005-1.030) Urine Protein (Negative) Urine Glucose (UA) (Negative) mg/dL Urine Ketones (Negative) Urine Blood (Negative) Urine Nitrite (Negative) Urine Bilirubin (Negative) Urine Urobilinogen (0.2) mg/dL Ur Leukocyte Esterase (Negative) U Hyaline Cast (Auto) (0-2) /LPF Urine Microscopic RBC (0-5) /HPF Urine Microscopic WBC (0-5) /HPF Ur Epithelial Cells (None Seen) /HPF Urine Bacteria (None Seen) /HPF Urine Culture Reflexed (NO) - Progress Progress: improved, re-examined Progress Note: 07/07/23 19:06 This patient's medical issue is 1 of moderate complexity. Level complexity in the workup performed is based on review of the patient's past medical history, review of the patient's medication list, review the patient's drug allergy list, history present illness and physical findings on examination. The workup includes placement of an intravenous line, infusion of low rate normal saline at 50 cc an hour, CBC, CMP, ammonia level, CT scan of the head, and urinalysis. Patient does have hypertension and we will provide him with 10 mg of intravenous labetalol. 07/07/23 20:36 I interpreted the patient's laboratory data results. The patient has a significant urinary tract infection. There is no evidence of any other acute, emergent medical issue. CT scan of the head without contrast was interpreted by the radiologist and I reviewed the impression. The impression states nonacute senile brain with st able diffuse prominent ventricles when compared to CT scan of the head dated 05/24/2023 and 06/22/2023. Counseled pt/family regarding: lab results, diagnosis, rad results Medical Desision Making - Independent Historian Additional History obtained from: Network Administrator/EMT - External Record(s) Reviewed Records reviewed as a part of evaluation & management: FDC - Diagnostic Testing Diagnostic test were ordered, analyzed, and reviewed by me: Yes Radiological Interpretation: Reviewed by me, Teleradiologist Report - Risk of complications The pt has a mod risk of morbidity or mortality based on: Need for prescription drug management - Departure Departure Disposition: Home Clinical Impression: Altered mental status, Urinary tract infection Condition: Stable Critical Care Time: No Referrals: ROMMEL GILLIAM OF [Primary Care Provider] - Follow up/PCP as directed Additional Instructions: Give plenty of fluids to drink. Give the antibiotics as prescribed. Continue the same other snf orders. Prescriptions: Cefdinir 300 mg PO BID #14 cap
[2023-07-07 18:37] VITALS: TEMP 98.2
[2023-07-07 19:04] LABS: Absolute Neutrophil Ct (ANC) 5.67 x10^3/uL (1.4-6.9); BASOPHIL % 0.4 % (0.0-0.4); Basophil (Absolute #) 0.04 x10^3/uL (0-0.4); Eosinophil % 4.4 % (0.00-5.0); Hematocrit 34.3 % (42-50); Hemoglobin 10.3 g/dL (12.5-18.0); IMMATURE GRAN # 0.03 x10^3u/L (0.00-0.03); IMMATURE GRAN % 0.3 % (0.00-0.4); Lymphocyte (Absolute #) 2.46 x10^3/uL (1.0-4.6); Lymphocytes % 27.1 % (24.0-44.0); Mean Cell Volume 94.5 fL (78-100); Mean Corpuscular Hemoglobin 28.4 pg (26-32); Mean Platelet Volume 10.8 fL (7.5-11.0); Monocyte (Absolute #) 0.49 x10^3/uL (0.0-1.3); Monocytes % 5.4 % (0.0-12.0); Neutrophil % 62.4 % (36.0-66.0); Platelet Count 175 x10^3/uL (150-450); Red Blood Count 3.63 x10^6/uL (4.1-5.6); Red Cell Distribution Width 12.2 % (11.5-14.0); White Blood Count 9.1 x10^3/uL (4.0-10.5)
[2023-07-07] MEDS ORDERED: TRANDATE 20 MG/4 ML SYRINGE IV ONE (19:14)
[2023-07-07] MEDS: TRANDATE 20 MG/4 ML SYRINGE IV ONE (19:15)
[2023-07-07 19:18] LABS: ALBUMIN 3.8 g/dL (3.5-5.0); ANION GAP 11.3 MEQ/L (5-15); BILIRUBIN,TOTAL 0.2 mg/dL (0.2-1.3); Creatinine 1 1.48 mg/dL (0.66-1.25); EST GLOMERULAR FILTRATION RATE 51.2 ML/MIN
[2023-07-07 19:20] LABS: Appearance Clear (Clear); Bacteria None Seen /HPF (None Seen); Bilirubin Negative (Negative); Blood Moderate (Negative); Epithelial Cells None Seen /HPF (None Seen); Glucose, Urine >=1000 mg/dL (Negative); Ketones Negative (Negative); Leukocyte Esterase Moderate (Negative); Nitrite Negative (Negative); Protein,Urine Dip 100 (Negative); Specific Gravity 1.015 (1.005-1.030); Urobilinogen 0.2 mg/dL (0.2); WBC 51-100 /HPF (0-5)
[2023-07-07 19:29] LABS: ADD URINE CULTURE? ORDERED SEPARATELY (NO)
[2023-07-07] MEDS ORDERED: Levofloxacin 500 MG Tablet ONE (20:42)
[2023-07-07] MEDS: Levofloxacin 500 MG Tablet PO ONE (20:43)
--- NOTE | 2023-07-07 21:35 | XRAY ---
Indication: Confusion. Multiple contiguous axial images obtained through the head without contrast. Comparison: June 22, 2023 Again age-appropriate global atrophy, mild periventricular degenerative micro-ischemia bilaterally, and diffuse prominent ventricular system. No acute intracranial hemorrhage, abnormal extra-axial fluid collection, or mass effect. Fourth ventricle is midline. Bony calvarium intact. Visualized paranasal sinuses and mastoid air cells are clear. Impression: Continued nonacute senile brain with prominent ventricular system. Again normal pressure hydrocephalus offered for clinical consideration.
--- NOTE | 2023-07-07 21:35 | XRAY ---
Indication: Fever and confusion. Comparison: June 22, 2023 Portable chest unchanged again inflated and clear. Heart not enlarged again with CABG. No new/acute cardiopulmonary abnormalities.
[2023-07-07 21:39] VITALS: O2SAT 98
[2023-07-07] MEDS: Sodium Chloride 0.9% 1000 ML 1,000 ML IV SCH (22:13)
[2023-07-07 22:14] VITALS: BP 172/58; PULSE 84; RESP 11
== END 2023-07-07 22:22 | disposition home or self-care (01) ==
LOC: ED 18:06
DX: R41.82 Altered mental status, unspecified (principal); N39.0 Urinary tract infection, site not specified; E78.5 Hyperlipidemia, unspecified; E11.22 Type 2 diabetes mellitus with diabetic chronic kidney disease; I12.9 Hypertensive chronic kidney disease with stage 1 through stage 4 chronic kidney disease, or unspecified chronic kidney disease; N18.9 Chronic kidney disease, unspecified; Z79.4 Long term (current) use of insulin; Z79.02 Long term (current) use of antithrombotics/antiplatelets; Z79.899 Other long term (current) drug therapy; Z86.16 Personal history of COVID-19
CPT/HCPCS: 36000; 36415; 51702; 70450; 71045; 80053; 81001; 82140; 83605; 85025; 87086; 93041; 94760; 96374; 99284; A9270-GY